=== PATIENT | male | born 2005 | race Caucasian/White ===

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

== ENCOUNTER 2024-10-31 19:00 | Emergency (ER) | payer BC, SELFPAY ==
[2024-10-31 19:02] VITALS: BP 179/99; PULSE 105; RESP 18; TEMP 38.1; O2SAT 99; BMI 37.4
[2024-10-31 19:55] VITALS: BP 148/84; PULSE 109; RESP 20; TEMP 38.4; O2SAT 100
--- NOTE | 2024-10-31 20:10 | RAD_ITS ---
PROCEDURE: CHEST PA AND LATERAL 10/31/2024 REASON FOR EXAM: WEAKNESS,FEVER TECHNIQUE: CHEST PA AND LATERAL FINDINGS: Hardware: No internal hardware. Heart: Normal size. Mediastinum: Normal appearance and contours Lungs: Clear and expanded Bones: No aggressive bone process RAD/Chest PA and Lateral IMPRESSION: No acute process detected. Reading [facility]
--- NOTE | 2024-10-31 20:10 | EKG12_ITS ---
Test Reason : DYSRYTHMIA Blood Pressure : */* mmHG Vent. Rate : 100 BPM Atrial Rate : 100 BPM P-R Int : 146 ms QRS Dur : 96 ms QT Int : 296 ms P-R-T Axes : 43 82 -23 degrees QTcB Int : 381 ms Normal sinus rhythm Possible Inferior infarct , age undetermined Abnormal ECG Confirmed by NOEL PATE, MARCOS ([id number]), publications editor ADDISON GEIGER ([id number]) on 11/01/2024 1:10:35 PM Referred By: Confirmed By: MARCOS COHEN MD
--- NOTE | 2024-10-31 20:14 | PCA ---
NO OLD EKG
--- NOTE | 2024-10-31 20:27 | ED.RN ---
This RN bedside to place IV. Patient states I think I have an STD too. When asked why patient thinks he has an STD, he stated The tip of my christiano just hurts all of the time. Patient's visitor states the STD was not received from her. Patient informed that this RN will request STD testing from physician. Dr. Miller notified.
[2024-10-31] MEDS: 0.9% Normal Saline (1000mL) 1,000 ML 999 ML IV ×3 (20:32→23:12)
[2024-10-31 20:49] LABS: Mucous, Urine 0 SEEN /hpf (<or=2+)
[2024-10-31 20:52] LABS: Hematocrit 43.5 % (40-54); Hemoglobin 14.6 g/dL (13.0-16.5); Immature Granulocytes Count 0.020 X10^3/uL (0.0-0.0); Mean Corp Hgb Conc 33.6 g/dL (32-36); Mean Corpuscular Volume 89.5 fL (80-94); Mean Platelet Vol. 9.6 fl (6.2-12.0); NRBC Flagged by Analyzer 0 % (0-5); POSITIVE DIFFERENTIAL YES; Platelet Count 118 K/mm3 (150-450); RBC Distribution Width CV 13.2 % (11.6-14.6); RBC Distribution Width SD 43.4 fl (35.1-43.9); Red Blood Count 4.86 M/mm3 (4.6-6.2); White Blood Count 4.5 K/mm3 (4.4-11.0)
[2024-10-31 20:53] LABS: Color, Urine Yellow (Yellow); Glucose, Dipstick Normal (Normal); Ketone-Dipstick Negative (Negative); Leukocyte Esterase-Dipstick Negative /ul (Negative); Nitrite-Dipstick Negative (Negative); Occult Blood-Urine Negative /ul (Negative); Protein-Dipstick Negative (Negative); Specific Gravity, Urine 1.020 (1.002-1.030); Urine Bilirubin Dipstick Negative (Negative)
[2024-10-31 21:00] VITALS: BP 132/87; PULSE 117; RESP 20; TEMP 39.4; O2SAT 100
[2024-10-31 21:14] LABS: AST(SGOT) 38 U/L (<=37); Alanine Aminotransfer ALT/SGPT 41 U/L (<=46); Albumin, Serum 4.2 g/dL (3.5-5.0); Alkaline Phosphatase 92 U/L (40-129); Anion Gap 13 (5-15); BUN 12 mg/dL (4-19); BUN/Creat Ratio 9.7 RATIO (10-20); Calcium,Total 9.0 mg/dL (7.6-11.0); Carbon Dioxide 21.7 mmol/L (21.0-32.0); Chloride 103 mmol/L (98-108); Estimated Creatinine Clearance 127.83 ml/min (50-250); Globulin 2.6 g/dL (2.2-4.2); Glucose 96 mg/dL (70-99); Potassium 3.7 mmol/L (3.3-5.1)
[2024-10-31 21:15] LABS: Partial Thromboplast Time 26.8 Seconds (24.1-36.2); Prothrombin Time (Protime)PT. 14.2 SECONDS (11.7-14.9)
[2024-10-31 21:20] LABS: Red Blood Cells-Urine 0-5 SEEN /hpf (0-5); Squamous Epithelial Cells - UA 0-5 SEEN /hpf (0-5)
--- OUTSIDE RECORDS SUMMARY | 2024-10-31 21:22 | XMS RPT_ITS | CCD ---
Author Organization [facility] Care Team Providers Care Clinical Research Nurse Coordinator Name Role Phone KUSUMI, SHWETA A Unavailable Unavailable EPHRAIM, NATHAN P Unavailable Unavailable EPHRAIM, NATHAN P Unavailable Unavailable DAVID, LARISA Unavailable Unavailable EPHRAIM, NATHAN P Unavailable Unavailable EPHRAIM, NATHAN P Unavailable Unavailable FRANSISCA, ADRIANNE Unavailable Unavailable EPHRAIM, NATHAN P Unavailable Unavailable EPHRAIM, NATHAN P Unavailable Unavailable WYNESKI, SUREKHA Unavailable Unavailable KUSUMI, SHWETA A Unavailable Unavailable EPHRAIM, NATHAN P Unavailable Unavailable WYNESKI, SUREKHA Unavailable Unavailable WYNESKI, SUREKHA Unavailable Unavailable EPHRAIM, NATHAN P Unavailable Unavailable WYNESKI, SUREKHA Unavailable Unavailable WYNESKI, SUREKHA Unavailable Unavailable EPHRAIM, NATHAN P Unavailable Unavailable Ephraim Nathan PATE Primary Care Provider Nathan Ye MD Primary Care Provider Nathan Ye MD Primary Care Provider EPHRAIM, NATHAN P Primary Care Unavailable LUC COTA Referring Unavailable EPHRAIM, NATHAN P Primary Care Unavailable EPHRAIM, NATHAN P Primary Care Unavailable EPHRAIM, NATHAN P Primary Care Unavailable EPHRAIM, NATHAN P Attending Unavailable EPHRAIM, NATHAN P Referring Unavailable EPHRAIM, NATHAN P Primary Care Unavailable EPHRAIM, NATHAN P Primary Care Unavailable SEIFRIED, LESA Referring Unavailable EPHRAIM, NATHAN P Primary Care Unavailable SEIFRIED, LESA Attending Unavailable EPHRAIM, NATHAN P Primary Care Unavailable ANAMIKA BEAUCHAMP Referring Unavailable ANAMIKA BEAUCHAMP Attending Unavailable EPHRAIM, NATHAN P Primary Care Unavailable Enrique PATE, Sherine Jorge Primary Care Provider Nathan Ye MD Primary Care Provider SHERINE ESCALONA Attending Unavailable SHERINE ESCALONA Primary Care Unavailable SHERINE ESCALONA Primary Care Unavailable WANDA, GAB Admitting Unavailable THERESA AWAN Attending Unavailable HILARY GUERRA Attending Unavailable SHERINE ESCALONA Primary Care Unavailable SHELIA LINTON Attending Unavailable SHERINE ESCALONA Primary Care Unavailable Quin LEONG Referring Unavailable SHERINE ESCALONA Primary Care Unavailable SHERINE ESCALONA Attending Unavailable SHERINE ESCALONA Primary Care Unavailable SHERINE ESCALONA Attending Unavailable SHERINE ESCALONA Primary Care Unavailable NOBLE LONDONO Attending Unavailable SHERINE VENTURA Primary Care Unavailable Allergies Allergy Classification Reported Allergen(s) Allergy Type Date of Onset Reaction(s) Facility (20 sources) Mold Extract; Translations: [MOLD] Drug Allergy 08-04-2007 [facility] Work Phone: Medications Current Medications Medication Drug Class(es) Dates Sig (Normalized) Sig (Original) acetaminophen 325 mg oral tablet (10 sources) Start: 12-17-2023 End: 12-31-2023 take 2 tablets by mouth every six hours as needed for pain acetaminophen (Tylenol) 325 MG tablet Take 2 tablets (650 mg) by mouth every 6 hours as needed for mild pain (1-3) (Fever GREATER than 100.4 F (38 C)) for up to 10 days. 12/17/2023 12/31/2023 Active Start: 12-15-2023 End: 12-17-2023 take 1 tablet by mouth every six hours as needed for pain acetaminophen (Tylenol) tablet 650 mg Start: 12-15-2023 End: 12-15-2023 650 mg, Oral, Once, On Mon at 0150, For 1 dose, Maximum dose of acetaminophen is 4000 mg from all sources in 24 hours. [id number] 200 actuat albuterol 0.09 mg/actuat metered dose inhaler (19 sources) beta2-Adrenergic Agonist Start: 12-17-2023 End: 12-16-2024 take 2 puff(s) by inhalation every four hours as needed for wheezing albuterol (ProAir HFA) 108 (90 Base) MCG/ACT inhaler Inhale 2 puffs every 4 hours as needed for wheezing or shortness of breath. 8.5 g 12/17/2023 4:37 PM EDT 12/17/2023 12/16/2024 Active Start: 12-15-2023 End: 12-17-2023 Start: 12-25-2021 take 2 puff(s) by in halation every four to six hours as needed for cough albuterol HFA (PROVENTIL HFA, VENTOLIN HFA) 90 mcg/actuation inhaler Inhale 2 puffs every 4 - 6 hours as needed for cough or wheezing 18 g 12/25/2021 Active Comment on above: Inhale 2 puffs every 4 - 6 hours as needed for cough or wheezing azithromycin 500 mg oral tablet (12 sources) Macrolide Antimicrobial Start: 12-18-19 End: 12-25-19 take 1 tablet by mouth every twenty-four hours azithromycin (Zithromax) 500 MG tablet Take 1 tablet (500 mg) by mouth Every 24 hours for 7 days. Do not start before December 18, 2023. 7 tablet 12/18/2023 12/25/2023 Active Start: 12-18-2023 End: 12-17-2023 take 1 capsule by mouth every twenty-four hours 500 mg, Oral, Every 24 hours, First dose (after last modification) on Fri12/18/23 at 0700, For 2 doses, Suspected Indication (Select all that apply): Pneumonia (CAP) Start: 12-18-2023 End: 12-17-2023 take 1 capsule by mouth every twenty-four hours 500 mg, Oral, Every 24 hours, First dose (after last modification) on Fri12/18/23 at 0700, For 2 doses, Suspected Indication (Select all that apply): Pneumonia (CAP) Start: 12-15-2023 End: 12-17-2023 take 500 mg by mouth every twenty-four hours 500 mg, Oral, Every 24 hours, First dose (after last modification) on Fri12/17/23 at 0700, Suspected Indication (Select all that apply): Pneumonia Start: 12-28-2021 End: 01-28-2022 azithromycin (ZITHROMAX) 250 mg tablet Take 2 tablets on day 1, then 1 tablet on days 2 - 5 6 tablet 0 12/28/2021 01/28/2022 Discontinued Comment on above: Take 2 tablets on da y 1, then 1 tablet on days 2 - 5 12 hr guaiFENesin 600 mg extended release oral tablet (6 sources) Start: 12-17-2023 End: 12-31-2023 take 1 tablet by mouth twice daily in the evening guaiFENesin (Mucinex) 600 MG 12 hr tablet Take 1 tablet (600 mg) by mouth 2 times daily for 14 days. Do not crush, chew, or split. 28 tablet 12/17/2023 4:37 PM EDT 12/17/2023 12/31/2023 Active Completed/Discontinued Medications Medication Drug Class(es) Dates Sig (Normalized) Sig (Original) albuterol 0.833 mg/ml / ipratropium bromide 0.167 mg/ml inhalation solution (2 sources) Anticholinergic, beta2-Adrenergic Agonist Start: 12-15-2023 End: 12-17-2023 3 mL, Nebulization, 3 times daily, First dose (after last modification) on Fri12/15/23 at 2000 calcium chloride 0.0014 meq/ml / potassium chloride 0.004 meq/ml / sodium chloride 0.103 meq/ml / sodium lactate 0.028 meq/ml injectable solution (2 sources) Start: 12-15-2023 End: 12-15-2023 3,660 mL (30 mL/kg 122 kg), IntraVENous, at 7,320 mL/hr, Administer over 30 Minutes, Once, On Fri12/15/23 at 0150, For 1 dose, In accordance with Surviving Sepsis Campaign, infuse 30 mL/kg fluid challenge as rapidly as possible without overloading patient (target 30 to 60 minutes). If calculated rate exceeds 999 mL/hr, may administer wide open or using other rapid infusion mechanism. Cetirizine (13 sources) Histamine-1 Receptor Antagonist End: 01-28-2022 cetirizine HCl (ZYRTEC ORAL) Take by mouth. 0 01/28/2022 Discontinued cetirizine HCl ( ZYRTEC ORAL) Take by mouth. 0 Active Comment on above: Take by mouth. cholecalciferol 0.05 mg oral capsule (5 sources) Vitamin D Start: 03-05-20 End: 07-23-19 take 1 capsule by mouth once daily Cholecalciferol, Vitamin D3, (D3-2000) 50 mcg (2,000 unit) cap Take 1 capsule by mouth once daily. 90 capsule 1 07/22/2022 Active Comment on above: Take 1 capsule by [facility] once daily. Ibuprofen (6 sources) Nonsteroidal Anti-inflammatory Drug End: 01-29-20 ibuprofen (MOTRIN ORAL) Take by mouth. 0 01/28/2022 Discontinued ibuprofen (MOTRI N ORAL) Take by mouth. 0 Active Comment on above: Take by mouth. iopamidol (Isovue-370) 76 % injection 75 mL (2 sources) Start: 12-15-19 End: 12-15-19 take 75 mL intravenously once as needed 75 mL, IntraVENous, IMG once PRN, contrast, Starting on Fri12/15/23 at 0317, For 1 dose ketoconazole 20 mg/ml medicated shampoo (20 sources) Azole Antifungal Start: 12-13-19 ketoconazole (NIZORAL) 2 % shampoo Apply to affected area once daily as needed. 120 mL 2 12/12/2021 Active Start: 06-07-2020 End: 12-12-2021 ketoconazole (NIZORAL) 2 % s hampoo Washing the scalp 3 times a week, Lathering and letting sit on the scalp for 5-10 minutes before rinsing 0 06/07/2020 12/12/2021 Discontinued Comment on above: Washing the scalp 3 times a week, Lathering and letting sit on the scalp for 5-10 minutes before rinsing Apply to affected ar ea once daily as needed. 1 ml ketorolac tromethamine 15 mg/ml cartridge (2 sources) Nonsteroidal Anti-inflammatory Drug, Cyclooxygenase Inhibitor Start: 12-15-2023 End: 12-15-2023 15 mg, IntraVENous, Once, On Fri12/15/23 at 0530, For 1 dose Start: 12-15-2023 End: 12-15-2023 15 mg, IntraVENous, Once, On Fri12/15/23 at 0530, For 1 dose lisdexamfetamine dimesylate 50 mg oral capsule (20 sources) Central Nervous System Stimulant Start: 01-23-2023 End: 05-29-2023 take 1 capsule by mouth once daily in the morning lisdexamfetamine (Vyvanse) 50 MG capsule Indications: Attention deficit hyperactivity disorder (ADHD), predominantly hyperactive type Take 1 capsule (50 mg) by mouth every morning. 30 capsule 0 01/23/2023 05/29/2023 Discontinued (Med list cleanup) Start: 06-13-2022 End: 09-07-2022 lisdexamfetamine (VYVANSE) 5 0 mg capsule Indications: Attention deficit hyperactivity disorder (ADHD), unspecified ADHD type Take 1 capsule by mouth once daily for 30 days. Do not start before July 11, 2022. 30 capsule 0 07/11/2022 08/10/2022 Active Start: 01-03-2021 End: 05-25-2022 take 1 capsule by mouth once daily lisdexamfetamine (VYVANSE) 50 mg capsule Indications: Attention deficit hyperactivity disorder (ADHD), unspecified ADHD type Take 1 capsule by mouth once daily for 30 days. Do not start before March 27, 2022. 30 capsule 0 03/27/2022 04/26/2022 Active Comment on above: Take 1 capsule by mo ut once daily for 30 days. Take 1 capsule by mo uth once daily for 30 days. Do not start before February 03, 2021. Take 1 capsule by mo [facility] once daily for 30 days. Do not start before April 25, 2022. Take 1 capsule by [facility] once daily for 30 days. Do not start before March 27, 2022. Take 1 capsule by [facility] once daily for 30 days. Do not start before August 08, 2022. Take 1 capsule by [facility] once daily for 30 days. Do not start before July 11, 2022. 1 ml morphine sulfate 4 mg/ml cartridge (2 sources) Opioid Agonist Start: End: take 1 dose by mouth every hour 4 mg, IntraVENous, Once, On Fri12/15/23 at 0150, For 1 dose, If oral and IV narcotics ordered, use oral first and only use IV if oral is ineffective or cannot take oral. Do Not give oral and IV within 1 hour of each other unless specifically ordered. 1 ml naloxone hydrochloride 0.4 mg/ml injection (2 sources) Opioid Antagonist Start: End: 0.4 mg, IntraVENous, Every 5 min PRN, opioid reversal, respiratory depression, Starting on Fri12/16/23 at 0944, +++ For RR 2 ml ondansetron 2 mg/ml injection (2 sources) Serotonin-3 Receptor Antagonist Start: End: 4 mg, IntraVENous, Once, On Fri12/15/23 at 0150, For 1 dose ondansetron ODT (Zofran-ODT) disintegrating tablet 4 mg (2 sources) Start: End: take 1 tablet by mouth every eight hours as needed for nausea and vomiting ondansetron ODT (Zofran-ODT) disintegrating tablet 4 mg oxyCODONE hydrochloride 5 mg oral tablet (2 sources) Opioid Agonist Start: End: take 1 tablet by mouth every four hours as needed for pain and pain 5 mg, Oral, Every 4 hours PRN, severe pain (7-10), moderate pain (4-6), Starting on Fri12/16/23 at 0943 piperacillin-tazobact am (Zosyn) 4.5 g in sodium chloride 0.9 % 100 mL IVPB Mini-Bag Plus (2 sources) Start: End: 4.5 g, IntraVENous, at 200 mL/hr, Administer over 0.5 Hours, Once, On Fri12/15/23 at 0150, For 1 dose, Mini-Bag Plus bag, Suspected Indication (Select all that apply): Intra-Abdominal Infection polyethylene glycol 3350 81154 mg powder for oral solution (2 sources) Osmotic Laxative Start: End: take 17 g by mouth every twenty-four hours as needed for constipation predniSONE 10 mg oral tablet (6 sources) Start: End: predniSONE (DELTASONE) 10 mg tablet Take 4 tabs daily for 3 days, then 2 tabs daily for 3 days, then 1 tab daily for 3 days with food. 21 tablet 0 12/20/2021 01/28/2022 Discontinued Comment on above: Take 4 tabs daily fo r 3 days, then 2 tabs daily for 3 days, then 1 tab daily for 3 days with food. 5 ml sodium chloride 9 mg/ml injection (12 sources) Start: End: 10 mL, IntraVENous, Every 12 hours scheduled (2 times per day), First dose on 10/7/24 at 0900 Start: 12-15-2023 End: 12-17-2023 5-40 mL, IntraVENous, Every 12 hours scheduled (2 times per day), First dose on Fri12/15/23 at 0900, For Line Patency: Peripheral IV = 5 mL; Midline or Central Line = 10 mL/lumen. If following IV push medication, administer flush at same rate as the IV push. Flush volume is determined by type of infusion therapy being given. For non-viscous solutions use: Peripheral IV = 5 mL Midline or Central Line = 10 mL/lumen For viscous solutions (i.e. blood components, parenteral nutrition, contrast media, or after obtaining blood sample) use: Peripheral IV = 10 mL Midline or Central Line = 20 mL/lumen Start: 12-15-2023 End: 12-17-2023 Start: 12-15-2023 End: 12-17-2023 take 100 mL intravenously every hour as needed, then take 20 mL intravenously every hour as needed 5-250 mL/hr, IntraVENous, PRN, if patient receiving piggyback infusions and maintenance fluids are not ordered OR KVO fluids to protect IV site / prevent frequent line interruptions/ long duration, Starting on Fri12/15/23 at 0147, For piggyback infusion, administer at same rate as piggyback for a total of 25 mL. Enter 25 mL into dose field and piggyback rate into rate field of order. If piggyback is infusing at a rate less than 100 mL/hr, enter 25 mL into dose field and 100 mL/hr into rate field of order. For KVO fluids, enter rate of 20 mL/hr or less into rate field of order. Start: 12-15-2023 End: 12-17-2023 Problems Active Problems Problem Classification Problem Date Documented Date Episodic/Chronic Attention-deficit, conduct, and disruptive behavior disorders (20 sources) Attention deficit hyperactivity disorder; Translations: [Attention-deficit hyperactivity disorder, unspecified type] Chronic Attention-deficit, conduct, and disruptive behavior disorders (1 source) Attention deficit hyperactivity disorder, combined type; Translations: [Attention-deficit hyperactivity disorder, combined type] Chronic Attention-deficit, conduct, and disruptive behavior disorders (1 source) Attention-deficit hyperactivity disorder, combined type; Translations: [Attention deficit hyperactivity disorder (ADHD), combined type] Onset: 03-05-2021 Chronic Attention-deficit, conduct, and disruptive behavior disorders (2 sources) Attention-deficit hyperactivity disorder, predominantly hyperactive type; Translations: [Attention-deficit hyperactivity disorder, predominantly hyperactive type] Onset: 01-23-2023 Chronic Disorders usually diagnosed in infancy, childhood, or adolescence (20 sources) Autism spectrum disorder; Translations: [Pervasive developmental disorder, unspecified] Onset: 09-05-2011 09-05-2011 Chronic Fracture of lower limb (1 source) Closed fracture proximal phalanx, toe ; Translations: [Displaced fracture of proximal phalanx of left lesser toe(s), initial encounter for closed fracture] Episodic Other aftercare (1 source) Post-discharge follow-up; Translations: [Encounter for follow-up examination after completed treatment for conditions other than malignant neoplasm] 12-31-2023 Episodic Other aftercare (2 sources) Encounter for follow-up examination after completed treatment for conditions other than malignant neoplasm; Translations: [Encounter for follow-up examination after completed treatment for conditions other than malignant neoplasm] Onset: 12-31-2023 Episodic Other injuries and conditions due to external causes (1 source) Injury of toe of left foot; Translations: [Unspecified injury of left foot, initial encounter] Episodic Other lower respiratory disease (3 sources) Chronic cough; Translations: [Chronic cough] Onset: 12-25-2021 Episodic Other lower respiratory disease (4 sources) H/O: asthma; Translations: [Personal history of other diseases of the respiratory system] 12-31-2023 Episodic Other lower respiratory disease (2 sources) Personal history of other diseases of the respiratory system; Translations: [Personal history of other diseases of the respiratory system] Onset: 12-31-2023 Episodic Other nutritional; endocrine; and metabolic disorders (20 sources) Childhood obesity; Translations: [Obesity, unspecified] Onset: 11-22-2017 11-22-2017 Chronic Other nutritional; endocrine; and metabolic disorders (2 sources) Abnormal weight gain; Translations: [Abnormal weight gain] Episodic Other nutritional; endocrine; and metabolic disorders (1 source) Abnormal weight gain; Translations: [Abnormal weight gain] Onset: 07-11-2022 Episodic Other upper respiratory infections (15 sources) Viral upper respiratory tract infection; Translations: [Acute upper respiratory infection, unspecified] Onset: 10-27-2023 Episodic Pneumonia (except that caused by tuberculosis or sexually transmitted disease) (19 sources) Pneumonia; Translations: [Pneumonia, unspecified organism] Onset: 12-15-2023 12-15-2023 Episodic Residual codes; unclassified (1 source) HIV screening declined; Translations: [Procedure and treatment not carried out because of patient's decision for unspecified reasons] 05-29-2023 Episodic Unclassified (2 sources) Hospital Follow-up; Translations: [Hospital Follow-up] Onset: 12-31-2023 Past or Other Problems Problem Classification Problem Date Documented Da te Episodic/Chronic Fracture of upper limb (2 sources) Fracture of phalanx of little finger; Translations: [Nondisplaced fracture of proximal phalanx of right little finger, initial encounter for closed fracture] Onset: 10-30-2011 Resolved: 04-16-2013 04-16-2013 Episodic Immunizations and screening for infectious disease (4 sources) Patient encounter status; Translations: [Encounter for immunization] Onset: 05-29-2023 Episodic Other ear and sense organ disorders (3 sources) Otalgia, right ear; Translations: [Otalgia, unspecified] Onset: 05-29-2023 05-29-2023 Episodic Other gastrointestinal disorders (2 sources) Full incontinence of feces; Translations: [Encopresis] Resolved: 04-16-2013 04-16-2013 Episodic Other skin disorders (20 sources) Acne vulgaris; Translations: [Acne vulgaris] Onset: 11-22-2017 11-22-2017 Episodic Other upper respiratory disease (4 sources) Bleeding from nose; Translations: [Epistaxis] Onset: 05-29-2023 01-23-2023 Episodic Other upper respiratory disease (1 source) Epistaxis; Translations: [Epistaxis] Onset: 05-29-2023 Episodic Residual codes; unclassified (2 sources) Procedure and treatment not carried out because of patient's decision for unspecified reasons; Translations: [Procedure and treatment not carried out because of patient's decision for unspecified reasons] Onset: 05-29-2023 Episodic Sprains and strains (2 sources) Injury of lower extremity; Translations: [Sprain and strain of unspecified site of knee and leg] Onset: 05-08-2007 Resolved: 04-16-2013 04-16-2013 Episodic Results Test Name Value Interpretation Reference Range Facility 29 12-31-2023 29 Addended by: WEEMAN, DELL. on: 12/31/2023 01:06 PM Modules accepted: Orders Normal [facility] 37on 12-31-2023 37 YOUR APPOINTMENT TOBhargav BHANDARI WAS WITH THE [facility] LUNG [facility]ODULE [facility], COPD CLINIC, PULMONARY AND SLEEP MEDICINE OFFICE. PLEASE CALL OUR OFFICE AT [phone] for our [place] office location or [phone] for our [place] location, IF YOU HAVE NOT RECEIVED YOUR TEST RESULTS 7 DAYS AFTER TESTING IS COMPLETED. PLEASE REMEMBER TO REQUEST REFILLS AT YOUR OFFICE VISITS. PHONE/FAX REQUESTS REQUIRE 48-72 HOURS FOR RESPONSE. A FRIENDLY REMINDER COPAYS ARE DUE AT TIME OF SERVICE. THANK YOU. Our Patients Are Important! We want to improve and you can help. After your visit we want you to feel: Listened to, Respected and have your health care explained. You may receive a survey asking you about your visit. Please complete the survey. We will use your feedback to make improvements. COVID-19 VACCINATION INFORMATION: . [phone] [email or web address] Central Scheduling [phone] [facility] Sleep Scheduling [phone] Normal [facility] Office Visiton 12-31-2023 Follow-up visit [id number] [place],Ja den 2005 M Date Provider Department Center 12/31/2023 [id number] ESCALONA [facility] No family history on file Level of Service:26083 UT OFFICE/OUTPATIENT ESTABLISHED MOD MDM 30 MIN Reason for Visit and Comments: Hospital Follow-up [832] - Pt follow up from hospital for pneumonia, still coughing Normal [facility] Follow-up visit [id number] MisbahMadi 2005 M Date Provider Department Center 12/31/2023 [id number]-APNRSSHELIA PEREIRA [facility] None No family history on file Level of Service:84227 UT OFFICE/OUTPATIENT ESTABLISHED LOW MDM 20 MIN Reason for Visit and Comments: Hospital Follow-up [832] - MYCOPLASMA PNEUMONIA Normal [facility] Progress Noteon 12-31-2023 Progress Note . [facility] [address] [place] [address] [address] [place] [address] Dept: [phone] Dept Visit type: Established Reason for Visit: Hospital Follow-up (Pt follow up from hospital for pneumonia, still coughing) Assessment and Plan 1. Pneumonia of left lower lobe due to Mycoplasma pneumoniae 2. Attention deficit hyperactivity disorder (ADHD), predominantly hyperactive type 3. History of asthma Mycoplasma pneumonia -reports that he feels he is recovering appropriately. Imaging obtained during hospitalization (CT abdomen pelvis) showed left lower lobe consolidation compatible with pneumonia. It does not appear that he had complete imaging of his lungs - CT abdomen pelvis only included inferior brito. He reports that his symptoms are improving, still has persistent cough but seems to be resolving. He followed up with pulmonology earlier today who have ordered interval CT chest to document clearance of consolidation at +8 weeks. Asthma history -reports only rare use of albuterol, continue current therapy. ADHD -stable without medication. Declines flu shot. Had right middle finger cut requiring stitches due to work place injury 1 month earlier, requesting tetanus booster. Subjective HPI This is a 18-year-old gentleman with past medical history significant for ADHD who presents today for hospital follow-up visit after hospitalization for mycoplasma pneumonia. Mycoplasma PNA - interval admission for PNA 12/14-12/16. States that since discharge he is recovering well but still has a persistent cough which is mildly productive. Was discharged with Azithromycin, has since completed. CT ordered by pulmonology to follow up LLL PNA in + 8 weeks. Asthma - endorses only rare albuterol use. ADHD - feels that he is doing OK without medication, spouse feels that he would benefit from trying alternative medication but he declines. Review of Systems Respiratory: Positive for cough. Allergies Allergen Reactions Molds & Smuts alternaria Outpatient Medications Prior to Visit Medication Sig Dispense Refill acetaminophen (Tylenol) 325 MG tablet Take 2 tablets (650 mg) by mouth every 6 hours as needed for mild pain (1-3) (Fever GREATER than 100.4 F (38 C)) for up to 10 days. albuterol (ProAir HFA) 108 (90 Base) MCG/ACT inhaler Inhale 2 puffs every 4 hours as needed for wheezing or shortness of breath. 8.5 g 0 guaiFENesin (Mucinex) 600 MG 12 hr tablet Take 1 tablet (600 mg) by mouth 2 times daily for 14 days. Do not crush, chew, or split. (Patient not taking: Reported on 12/31/2023) 28 tablet 0 No facility-administered medications prior to visit. Past Medical History: Diagnosis Date Asthma Social History Tobacco Use Smoking status: Never Smokeless tobacco: Never Substance Use Topics Alcohol use: Never No past surgical history on file. No family history on file. Objective BP 129/86 Pulse 80 Ht 6' (1.829 m) Wt 279 lb (127 kg) SpO2 98% BMI 37.84 kg/m? Physical Exam Constitutional: General: He is not in acute distress. Appearance: He is not toxic-appearing. HENT: Head: Normocephalic and atraumatic. Eyes: General: No scleral icterus. Pulmonary: Effort: No respiratory distress. Breath sounds: No wheezing or rales. Musculoskeletal: Cervical back: Normal range of motion. Skin: General: Skin is warm and dry. Neurological: Mental Status: He is alert. Mental status is at baseline. Psychiatric: Mood and Affect: Mood normal. Data Reviewed and Summarized Labs: Imaging/Testing: Sherine Escalona MD Normal [facility] Progress Note [facility] [address] [place] [address] Date of Service: 12/31/2023 Visit type: An Established patient Chief Complaint/Reason for Referral: Hospital Follow-up (MYCOPLASMA PNEUMONIA) SUBJECTIVE History of Present Illness: Chelsea Crawley ( 2005) is a 18 y.o. male patient, with significant PMH of asthma, being seen for hospital follow-up The patient was admitted to [facility] on 12/14-12/17/23 for pneumonia. Patient presented to the hospital with fever, productive cough, shortness of breath, nausea. CT abdomen and pelvis shows an area of dense consolidation in the left lower lobe. Infectious workup + mycoplasma pneumoniae. He was treated with antibiotics (azithromycin x 5 days total) and discharged home in stable condition. Today, patient is accompanied by his . Patient states he is feeling much better, feels he is back to his baseline. Denies fever or chills. Does continue to have some cough with mild congestion, though much improved. States he has a history of asthma as a child, does not use any maintenance inhalers. Has albuterol inhaler to use as needed, states he never requires this. ESS: ACT: CAT: MMRC Dyspnea Scale: Grade Description of Breathlessness 0 I only get breathless with strenuous exercise. 1 I get short of breath when hurrying on level ground or walking up a slight hill. 2 On level ground, I walk slower than people of the same age because of breathlessness, or have to stop for breath when walking at my own pace. 3 I stop for breath after walking about 100 yards or after a few minutes on level ground. 4 I am too breathless to leave the house or I am breathless when dressing. OBJECTIVE MEDICAL HISTORY: Past Medical History: Diagnosis Date Asthma SURGICAL HISTORY: No past surgical history on file. ALLERGIES: Allergies Allergen Reactions Molds & Smuts alternaria MEDICATIONS: Current Outpatient Medications: albuterol (ProAir HFA) 108 (90 Base) MCG/ACT inhaler, Inhale 2 puffs every 4 hours as needed for wheezing or shortness of breath., Disp: 8.5 g, Rfl: 0 guaiFENesin (Mucinex) 600 MG 12 hr tablet, Take 1 tablet (600 mg) by mouth 2 times daily for 14 days. Do not crush, chew, or split. (Patient not taking: Reported on 12/31/2023), Disp: 28 tablet, Rfl: 0 SOCIAL HISTORY: Social History Tobacco Use Smoking status: Never Smokeless tobacco: Never Substance Use Topics Alcohol use: Never FAMILY HISTORY: No family history on file. REVIEW OF SYSTEMS: Review of Systems Constitutional: Negative for activity change, chills, fatigue and fever. HENT: Positive for congestion. Negative for postnasal drip. Respiratory: Positive for cough. Negative for chest tightness, shortness of breath and wheezing. Cardiovascular: Negative for chest pain, palpitations and leg swelling. Allergic/Immunologic: Negative for environmental allergies. Psychiatric/Behavioral: Negative for sleep disturbance. VITAL SIGNS: BP (!) 134/91 Pulse 82 Temp 36.4 ?C (97.5 ?F) (Temporal) Ht 6' (1.829 m) Wt 279 lb 3.2 oz (127 kg) SpO2 97% BMI 37.87 kg/m? PHYSICAL EXAM: Physical Exam Constitutional: General: He is not in acute distress. Appearance: He is obese. He is not ill-appearing. Cardiovascular: Rate and Rhythm: Normal rate and regular rhythm. Pulses: Normal pulses. Heart sounds: No murmur heard. Pulmonary: Effort: No respiratory distress. Breath sounds: Decreased air movement present. No wheezing, rhonchi or rales. Musculoskeletal: Right lower leg: No edema. Left lower leg: No edema. Skin: General: Skin is warm and dry. Neurological: Mental Status: He is alert. Psychiatric: Mood and Affect: Mood normal. Behavior: Behavior normal. DATA REVIEWED: PFT's-- CXR-- CT Chest/CTA Chest/CT Lung Screening-- ASSESSMENT and PLAN 1. Hospital discharge follow-up (Primary) -Acute pulmonary issues stabilized 2. Pneumonia of left lower lobe due to infectious organism -CT abdomen and pelvis showed left lower lobe consolidation. Infectious workup + mycoplasma pneumonia. Patient completed course of antibiotics, now back to baseline. Will check CT chest in 8 weeks to ensure resolution - CT chest wo IV contrast; Future 3. History of asthma -Patient reports history of asthma in childhood. Denies any issues currently. Has albuterol inhaler to use if needed, rarely needing this. Recommend to obtain PFTs if clinically worsening FOLLOW UP: Follow up in about 8 weeks (around 02/25/2024), or if symptoms worsen or fail to improve, for follow up CT chest. Portions of the information within this encounter were entered using an electronic dictation system. Best attempts were made to proofread the information prior to note completion. Despite the review of the information, some errors may remain. If there are questions related (more content not included)... Normal [facility] Bacteria identified Aer cx N om (Lower resp)Ordered By: Mayte Chambers on 12-17-2023 Gram Stain Result Few Polymorphonuclea r leukocytes per low power field Abnormal [employer] Gram Stain Result Few Epithelial cells per low power field Abnormal [employer] Gram Stain Result Positive Abnormal [employer] Interpretation and review of laboratory results Abnormal [employer] CBC W Auto Differential pane l (Bld)on 12-17-2023 Immature granulocytes (Bld) [#/Vol] 0.0 10*3/uL NINF - 0.1 10*3/uL [employer] [address] Immature granulocytes/100 WBC (Bld) 0.3 % 0.0 - 2.0 % [facility] Interpretation and review of laboratory results Abnormal [facility] MCHC (RBC) [Mass/Vol] 34.0 % 30.5 - 36.0 % [facility] Neutrophils (Bld) [#/Vol] 4.5 10*3/uL 1.8 - 7.5 10*3/uL [facility] Nucleated RBC/100 WBC (Bld) [Ratio] 0.0 % [facility] CBC WITH AUTO DIFFERENTIALon 12-17-2023 Basophils (Bld) [#/Vol] 0.0 10*3/uL Normal 0.0-0.2 [facility] Comment on above: Performed By: #### L [id number] #### W[employer] Knock Out Worker: AMINA MILLARD ([id number]) [facility] ([facility]) [address] [place] [address] Basophils/100 WBC (Bld) 0.3 % Normal 0.0-2.0 [facility] Comment on above: Performed By: #### L [id number] #### [employer] Out Worker: AMINA MILLARD ([id number]) [facility] ([facility]) [address] [place] [address] Eosinophils (Bld) [#/Vol] 0.0 10*3/uL Normal 0.0-0.5 [facility] Comment on above: Performed By: #### L [id number] #### [employer] Out Worker: AMINA MILLARD ([id number]) [facility] ([facility]) [address] [place] [address] Eosinophils/100 WBC (Bld) 0.2 % Normal 0.0-6.0 [facility] Comment on above: Performed By: #### L [id number] #### [employer] Out Worker: AMINA MILLARD ([id number]) [facility] ([facility]) [address] [place] [address] Erythrocyte distribution width (RBC) [Ratio] 13.2 % Normal 11.5-15.0 [facility] Comment on above: Performed By: #### L [id number] #### [employer] Out Worker: AMINA MILLARD ([id number]) [facility] ([facility]) [address] Hematocrit (Bld) [Volume fraction] 40.9 % Normal 40.0-52.0 [facility] Comment on above: Performed By: #### L [id number] #### W[employer] Ball Knock Out Worker: AMINA MCKEONNORBERT ([id number]) [facility] ([facility]) [address] Hemoglobin (Bld) [Mass/Vol] 13.9 g/dL Normal 13.0-18.0 [facility] Comment on above: Performed By: #### L [id number] #### [employer] Out Worker: AMINA MILLARD ([id number]) [facility] ([facility]) [address] Lymphocytes (Bld) [#/Vol] 0.9 10*3/uL Low 1.0-4.3 [facility] Comment on above: Performed By: #### L [id number] #### [employer] Out Worker: AMINA MILLARD ([id number]) [facility] ([facility]) [address] Lymphocytes/100 WBC (Bld) 15.2 % Normal 15.0-45.0 [facility] Comment on above: Performed By: #### L [id number] #### [employer] Out Worker: AMINA MILLARD ([id number]) [facility] ([facility]) [address] MCH (RBC) [Entitic mass] 30.2 pg Normal 26.0-34.0 [facility] Comment on above: Performed By: #### L [id number] #### [employer] Out Worker: AMINA MILLARD ([id number]) [facility] ([facility]) [address] MCV (RBC) [Entitic vol] 88.9 fL Normal 77.0-99.0 [facility] Comment on above: Performed By: #### L [id number] #### [employer] Out Worker: AMINA MILLARD ([id number]) [facility] ([facility]) [address] Monocytes (Bld) [#/Vol] 0.6 10*3/uL Normal 0.0-0.9 [facility] Comment on above: Performed By: #### L [id number] #### [employer] Out Worker: AMINA MILLARD ([id number]) [facility] ([facility]) [address] Monocytes/100 WBC (Bld) 9.1 % Normal 5.0-13.0 [facility] Comment on above: Performed By: #### L [id number] #### W[employer] Knock Out Worker: AMINA MILLARD ([id number]) [facility]) [address] Neutrophils/100 WBC (Bld) 74.9 % Normal 38.0-82.0 [facility] Comment on above: Performed By: #### L [id number] #### W[employer] Out Worker: AMINA MILLARD ([id number]) [facility] ([facility]) [address] Platelet mean volume (Bld) [Entitic vol] 8.7 fL Low 9.0-12.7 [facility] Comment on above: Performed By: #### L [id number] #### [employer] Out Worker: AMINA MILLARD ([id number]) [facility] [place] ([facility]) [address] Platelets (Bld) [#/Vol] 141 10*3/uL Normal 140-440 [facility] Comment on above: Performed By: #### L [id number] #### [employer] Out Worker: AMINA MILLARD ([id number]) [facility] [place] ([facility]) [address] RBC (Bld) [#/Vol] 4.60 10*6/uL Normal 4.40-5.90 [facility] Comment on above: Performed By: #### L [id number] #### [employer] Out Worker: AMINA MILLARD ([id number]) [facility] [place] ([facility]) [address] [place] [address] [place] WBC (Bld) [#/Vol] 6.1 10*3/uL Normal 3.6-10.7 [facility] Comment on above: Performed By: #### L [id number] #### [employer] Out Worker: AMINA MILLARD ([id number]) [facility] ([facility]) [address] IMMATURE GRANS % 0.3 % Normal 0.0-2.0 [facility] Comment on above: Performed By: #### L [id number] #### W[employer] Knock Out Worker: AMINA MILLARD ([id number]) [facility] ([facility]) [address] IMMATURE GRANS ABSOLUTE 0.0 10*3/uL Normal <0.1 [facility] Comment on above: Performed By: #### L [id number] #### [employer] Knock Out Worker: AMINA MILLARD ([id number]) [facility] ([facility]) [address] MCHC 34.0 % Normal 30.5-36.0 [facility] Comment on above: Performed By: #### L [id number] #### [employer] Knock Out Worker: AMINA MILLARD ([id number]) [facility] ([facility]) [address] NEUTROPHILS ABSOLUTE 4.5 10*3/uL Normal 1.8-7.5 [facility] Comment on above: Performed By: #### L [id number] #### [employer] Out Worker: AMINA MILLARD ([id number]) [facility] ([facility]) [address] NRBC 0.0 /100 WBCs Normal 0.0-2.0 [facility] Comment on above: Performed By: #### L [id number] #### [employer] Out Worker: AMINA MILLARD ([id number]) [facility] ([facility]) [address] COMPREHENSIVE METABOLIC PANE Ruddy 12-17-2023 Albumin [Mass/Vol] 3.8 g/dL Normal 3.5-5.0 [facility] Comment on above: Performed By: #### L [id number] ####[employer] Out Worker: AMINA MILLARD ([id number])[facility] [place] ([facility])[address] [place] [place] [address] ALP [Catalytic activity/Vol] 53 U/L Normal 38-126 [facility] Comment on above: Performed By: #### L [id number] ####[employer] Out Worker: AMINA MILLARD ([id number])[facility] [place] ([facility])[address] [place] [address] ALT [Catalytic activity/Vol] 46 U/L Normal 0-49 [facility] Comment on above: Performed By: #### L [id number] ####[employer] Out Worker: AMINA MILLARD ([id number])[facility] ([facility] [place] [address] Anion gap [Moles/Vol] 6 mmol/L Normal 3-13 [facility] Comment on above: Performed By: #### L [id number] ####[employer] Out Worker: AMINA MILLARD ([id number])[facility] ([facility] [place] [address] AST [Catalytic activity/Vol] 43 U/L Normal 15-46 [facility] Comment on above: Performed By: #### L [id number] ####[employer] Knock Out Worker: AMINA MILLARD ([id number])[facility] ([facility] [place] [address] Bilirubin [Mass/Vol] 0.9 mg/dL Normal 0.2-1.3 [facility] Comment on above: Performed By: #### L [id number] ####[employer] Out Worker: AMINA MILLARD ([id number])[facility] ([facility] [place] [address] Calcium [Mass/Vol] 8.6 mg/dL Normal 8.4-10.4 [facility] Comment on above: Performed By: #### L [id number] ####[employer] Knock Out Worker: AMINA MILLARD ([id number])[facility] ([facility])[address] [place] [address] [place] Chloride [Moles/Vol] 102 mmol/L Normal 98-107 [facility] Comment on above: Performed By: #### L [id number] ####[employer] Knock Out Worker: AMINASAV MILLARD ([id number])[facility] [place] ([facility])[address] [place] [address] [place] CO2 [Moles/Vol] 25 mmol/L Normal 22-30 [facility] Comment on above: Performed By: #### L [id number] ####[employer] Out Worker: AMINA VENICE ([id number])[facility] [place] ([facility])[address] Creatinine [Mass/Vol] 1.16 mg/dL Normal 0.66-1.25 [facility] Comment on above: Performed By: #### L [id number] ####[employer] Out Worker: AMINA MCKEONNORBERT ([id number])[facility] [place] ([facility])[address] [place] [address] [place] Glucose [Mass/Vol] 105 mg/dL High 70-100 [facility] Comment on above: Performed By: #### L [id number] ####[employer] Out Worker: AMINA MCKEONNORBERT ([id number])[facility] [place] ([facility])[address] [place] [address] [place] Potassium [Moles/Vol] 4.2 mmol/L Normal 3.5-5.1 [facility] Comment on above: Performed By: #### L [id number] ####[employer] Out Worker: AMINA VENICE ([id number])[facility] [place] ([facility])[address] [place] [address] [place] Protein [Mass/Vol] 6.9 g/dL Normal 6.3-8.2 [facility] Comment on above: Performed By: #### L [id number] ####[employer] Out Worker: AMINA MCKEONNORBERT ([id number])[facility] [place] ([facility])[address] [place] [address] [place] Sodium [Moles/Vol] 133 mmol/L Low 135-145 [facility] Comment on above: Performed By: #### L [id number] ####W[employer] Knock Out Worker: AMINA MILLARD ([id number])[facility] ([facility])[address] [place] [address] Urea nitrogen [Mass/Vol] 10 mg/dL Normal 9-20 [facility] Comment on above: Performed By: #### L [id number] ####[employer] Out Worker: AMINA MILLARD ([id number])[facility] ([facility])[address] [place] [address] GLOMERULAR FILTRATION RATE ML/MIN/1.73 SQ M.PREDICTED >90.0 Normal >60.0 [facility] Comment on above: Result Comment: Calc ulation based on the Chronic Kidney Disease Epidemiology Collaboration (CKD-EPI) equation refit without adjustment for race Performed By: #### L [id number] ####[employer] Out Worker: AMINA MILLARD ([id number])[facility] ([facility])[address] [place] [address] Comprehensive metabolic 1998 panelon 12-17-2023 GFR/1.73 sq M.predicted (S/P/Bld) [Vol rate/Area] - PINF [facility] Comment on above: Calculation based on the Chronic Kidney Disease Epidemiology Collaboration (CKD-EPI) equation refit without adjustment for race Interpretation and review of laboratory results Abnormal [facility] IDNon 12-17-2023 IDN Problem: Pain - Adul t Goal: Verbalizes/displays adequate comfort level or baseline comfort level Outcome: Progressing Problem: Safety - Adult Goal: Free from fall injury Outcome: Progressing Problem: Discharge Planning Goal: Discharge to home or other facility with appropriate resources Outcome: Progressing Problem: Chronic Conditions and Co-morbidities Goal: Patient's chronic conditions and co-morbidity symptoms are monitored and maintained or improved Outcome: Progressing Problem: Inadequate Breathing Pattern Goal: Patient will maintain effective ventilation Outcome: Progressing Normal [facility] Laboratory - Microbiology an d Antimicrobial susceptibilityOrdered By: Mayte Chambers on 12-17-2023 Bacteria identified Aer cx Nom (Lower resp) Moderate respiratory selena present. [facility] Nursing Noteon 12-17-2023 Nursing Note Discharge instructio ns read to pt and with clear instructions. No questions at this time Normal [facility] Progress Noteon 12-17-2023 Progress Note Nutrition rescreen complete. Pt assigned a level one for nutrition care. Normal [facility] BLOOD CULTUREon 12-16-2023 Bacteria identified Cx Nom (Bld) BLOOD CULTURE Reference No growth at 5 days ORDER COMMENTS: Blood Collection Site: Left Arm [ S = SUSCEPTIBLE R = RESISTANT I = INTERMEDIATE S-DD = Susceptible-dose dependent NS = Non-susceptible NO = No Interpretation ] Normal [facility] Comment on above: Performed By: #### L [id number] ####[employer] Knock Out Worker: MADDISON MARTIN ([id number])[address] Bacteria identified Cx Nom (Bld) BLOOD CULTURE Reference No growth at 5 days ORDER COMMENTS: Blood Collection Site: Right Arm [ S = SUSCEPTIBLE R = RESISTANT I = INTERMEDIATE S-DD = Susceptible-dose dependent NS = Non-susceptible NO = No Interpretation ] Normal [facility] Comment on above: Performed By: #### L [id number] ####[employer] Out Worker: MADDISON MARTIN ([id number])[address] CBC W Auto Differential pane l (Bld)on 12-16-2023 Basophils (Bld) [#/Vol] 0.0 10*3/uL 0.0 - 0.2 10*3/uL [facility] Basophils/100 WBC (Bld) 0.3 % 0.0 - 2.0 % [facility] Eosinophils (Bld) [#/Vol] 0.0 10*3/uL 0.0 - 0.5 10*3/uL [facility] Eosinophils/100 WBC (Bld) 0.0 % 0.0 - 6.0 % [facility] Erythrocyte distribution width (RBC) [Ratio] 12.7 % 11.5 - 15.0 % [facility] Hematocrit (Bld) [Volume fraction] 41.0 % 40.0 - 52.0 % [facility] Hemoglobin (Bld) [Mass/Vol] 14.1 g/dL 13.0 - 18.0 g/dL [facility] Immature granulocytes (Bld) [#/Vol] 0.0 10*3/uL NINF - 0.1 10*3/uL [facility] [employer] Immature granulocytes/100 WBC (Bld) 0.3 % 0.0 - 2.0 % [facility] Interpretation and review of laboratory results Abnormal [facility] Lymphocytes (Bld) [#/Vol] 0.9 10*3/uL Low 1.0 - 4.3 10*3/uL [facility] Lymphocytes/100 WBC (Bld) 9.9 % Low 15.0 - 45.0 % [facility] MCH (RBC) [Entitic mass] 30.3 pg 26.0 - 34.0 pg [facility] MCHC (RBC) [Mass/Vol] 34.4 % 30.5 - 36.0 % [facility] MCV (RBC) [Entitic vol] 88.2 fL 77.0 - 99.0 fL [facility] Monocytes (Bld) [#/Vol] 0.7 10*3/uL 0.0 - 0.9 10*3/uL [facility] Monocytes/100 WBC (Bld) 7.1 % 5.0 - 13.0 % [facility] Neutrophils (Bld) [#/Vol] 7.5 10*3/uL 1.8 - 7.5 10*3/uL [facility] Neutrophils/100 WBC (Bld) 82.4 % High 38.0 - 82.0 % [facility] Nucleated RBC/100 WBC (Bld) [Ratio] 0.0 % [facility] Platelet mean volume (Bld) [Entitic vol] 8.8 fL Low 9.0 - 12.7 fL [facility] Platelets (Bld) [#/Vol] 141 10*3/uL 140 - 440 10*3/uL [facility] RBC (Bld) [#/Vol] 4.65 10*6/uL 4.40 - 5.9 0 10*6/uL [facility] WBC (Bld) [#/Vol] 9.1 10*3/uL 3.6 - 10.7 10*3/uL [facility] CBC WITH AUTO DIFFERENTIALon 12-16-2023 Basophils (Bld) [#/Vol] 0.0 10*3/uL Normal 0.0-0.2 [facility] Comment on above: Performed By: #### L [id number] ####[employer] Out Worker: AMINA DRISCOLLCER ([id number])[facility] ([facility])[address] Basophils/100 WBC (Bld) 0.3 % Normal 0.0-2.0 [facility] Comment on above: Performed By: #### L [id number] ####[employer] Out Worker: AMINA VENICE ([id number])[facility] ([facility])[address] Eosinophils (Bld) [#/Vol] 0.0 10*3/uL Normal 0.0-0.5 [facility] Comment on above: Performed By: #### L [id number] ####[employer] Out Worker: AMINA VENICE ([id number])[facility] [place] ([facility])[address] [place] [address] Eosinophils/100 WBC (Bld) 0.0 % Normal 0.0-6.0 [facility] Comment on above: Performed By: #### L [id number] ####[employer] Out Worker: AMINA VENICE ([id number])[facility] [place] ([facility])[address] [place] [address] Erythrocyte distribution width (RBC) [Ratio] 12.7 % Normal 11.5-15.0 [facility] Comment on above: Performed By: #### L [id number] ####[employer] Out Worker: AMINA MCKEONNORBERT ([id number])[facility] [place] ([facility])[address] [place] [address] Hematocrit (Bld) [Volume fraction] 41.0 % Normal 40.0-52.0 [facility] Comment on above: Performed By: #### L [id number] ####[employer] Out Worker: AMINA MCKEONNORBERT ([id number])[facility] [place] ([facility])[address] Hemoglobin (Bld) [Mass/Vol] 14.1 g/dL Normal 13.0-18.0 [facility] Comment on above: Performed By: #### L [id number] ####[employer] Out Worker: AMINA MILLARD ([id number])[facility] [place] ([facility])[address] IMMATURE GRANS % 0.3 % Normal 0.0-2.0 [facility] Comment on above: Performed By: #### L [id number] ####[employer] Out Worker: AMINA MILLARD ([id number])[facility] ([facility])[address] IMMATURE GRANS ABSOLUTE 0.0 10*3/uL Normal <0.1 [facility] Comment on above: Performed By: #### L [id number] ####[employer] Out Worker: AMINA MILLARD ([id number])[facility] (SBHLAB)[address] Lymphocytes (Bld) [#/Vol] 0.9 10*3/uL Low 1.0-4.3 [facility] Comment on above: Performed By: #### L [id number] ####Wax Ball Knock Out Worker: AMINA MILLARD ([id number])[facility] (SBHLAB)[address] Lymphocytes/100 WBC (Bld) 9.9 % Low 15.0-45.0 [facility] Comment on above: Performed By: #### L [id number] ####Wax Ball Knock Out Worker: AMINA MILLARD ([id number])[facility] [place] (SBHLAB)[address] MCH (RBC) [Entitic mass] 30.3 pg Normal 26.0-34.0 [facility] Comment on above: Performed By: #### L [id number] ####Wax Ball Knock Out Worker: AMINA MILLARD ([id number])[facility] (SBHLAB)[address] MCHC 34.4 % Normal 30.5-36.0 [facility] Comment on above: Performed By: #### L [id number] ####Wax Ball Knock Out Worker: AMINA MILLARD ([id number])[facility] (SBHLAB)[address] MCV (RBC) [Entitic vol] 88.2 fL Normal 77.0-99.0 [facility] Comment on above: Performed By: #### L [id number] ####Wax Ball Knock Out Worker: AMINA MILLARD ([id number])[facility] (SBHLAB)[address] Monocytes (Bld) [#/Vol] 0.7 10*3/uL Normal 0.0-0.9 [facility] Comment on above: Performed By: #### L [id number] ####Wax Ball Knock Out Worker: AMINA MILLARD ([id number])[facility] (SBHLAB)[address] Monocytes/100 WBC (Bld) 7.1 % Normal 5.0-13.0 [facility] Comment on above: Performed By: #### L [id number] ####Wax Ball Knock Out Worker: AMINA MILLARD ([id number])[facility] [place] (SBHLAB)[address] NEUTROPHILS ABSOLUTE 7.5 10*3/uL Normal 1.8-7.5 [facility] Comment on above: Performed By: #### L [id number] ####Wax Ball Knock Out Worker: AMINA MILLARD ([id number])[facility] [place] (SBHLAB)[address] Neutrophils/100 WBC (Bld) 82.4 % High 38.0-82.0 [facility] Comment on above: Performed By: #### L [id number] ####Wax Ball Knock Out Worker: AMINA MILLARD ([id number])[facility] (SBHLAB)155 [place] [address] [place] NRBC 0.0 /100 WBCs Normal 0.0-2.0 [facility] Comment on above: Performed By: #### L [id number] ####Wax Ball Knock Out Worker: AMINA MILLARD ([id number])[facility] [place] (SBHLAB)[address] Platelet mean volume (Bld) [Entitic vol] 8.8 fL Low 9.0-12.7 [facility] Comment on above: Performed By: #### L [id number] ####Wax Ball Knock Out Worker: AMINA MILLARD ([id number])[facility] (SBHLAB)[address] Platelets (Bld) [#/Vol] 141 10*3/uL Normal 140-440 [facility] Comment on above: Performed By: #### L [id number] ####Wax Ball Knock Out Worker: AMINA MILLARD ([id number])[facility]ENT[facility]io [facility] (SBHLAB)[address] RBC (Bld) [#/Vol] 4.65 10*6/uL Normal 4.40-5.90 [facility] Comment on above: Performed By: #### L [id number] ####Wax Ball Knock Out Worker: AMINA MILLARD ([id number])[facility] (SBHLAB)[address] WBC (Bld) [#/Vol] 9.1 10*3/uL Normal 3.6-10.7 [facility] Comment on above: Performed By: #### L [id number] ####Wax Ball Knock Out Worker: AMINA MILLARD ([id number])[facility] (SBHLAB)[address] COMPREHENSIVE METABOLIC PANE Ruddy 12-16-2023 Albumin [Mass/Vol] 4.0 g/dL Normal 3.5-5.0 [facility] Comment on above: Performed By: #### L [id number] ####Wax Ball Knock Out Worker: AMINA MILLARD ([id number])[facility] (SBHLAB)[address] ALP [Catalytic activity/Vol] 56 U/L Normal 38-126 [facility] Comment on above: Performed By: #### L [id number] ####Wax Ball Knock Out Worker: AMINA MILLARD ([id number])[facility] (SBHLAB)[address] [place] [address] [place] ALT [Catalytic activity/Vol] 35 U/L Normal 0-49 [facility] Comment on above: Performed By: #### L [id number] ####Wax Ball Knock Out Worker: AMINA MILLARD ([id number])[facility] [place] (SBHLAB)[address] Anion gap [Moles/Vol] 6 mmol/L Normal 3-13 [facility] Comment on above: Performed By: #### L [id number] ####Wax Ball Knock Out Worker: AMINA DRISCOLLCER ([id number])[facility] [place] (SBHLAB)[address] AST [Catalytic activity/Vol] 32 U/L Normal 15-46 [facility] Comment on above: Performed By: #### L [id number] ####Wax Ball Knock Out Worker: AMINA MILLARD ([id number])[facility] [place] (SBHLAB)[address] Bilirubin [Mass/Vol] 1.0 mg/dL Normal 0.2-1.3 [facility] Comment on above: Performed By: #### L [id number] ####Wax Ball Knock Out Worker: AMINA MILLARD ([id number])[facility] [place] (SBHLAB)[address] Calcium [Mass/Vol] 8.6 mg/dL Normal 8.4-10.4 [facility] Comment on above: Performed By: #### L [id number] ####Wax Ball Knock Out Worker: AMINA MILLARD ([id number])[facility] [place] (SBHLAB)[address] [place] [address] [place] Chloride [Moles/Vol] 102 mmol/L Normal 98-107 [facility] Comment on above: Performed By: #### L [id number] ####Wax Ball Knock Out Worker: AMINA MILLARD ([id number])[facility] [place] (SBHLAB)[address] [place] [address] [place] CO2 [Moles/Vol] 22 mmol/L Normal 22-30 [facility] Comment on above: Performed By: #### L [id number] ####Wax Ball Knock Out Worker: AMINA MILLARD ([id number])[facility] [place] (SBHLAB)[address] Creatinine [Mass/Vol] 1.19 mg/dL Normal 0.66-1.25 [facility] Comment on above: Performed By: #### L [id number] ####Wax Ball Knock Out Worker: AMINA MILLARD ([id number])[facility]ENTERNatalio [facility]BC[facility]OL[facility] HOSPITALSean (SBHLAB)[address] GLOMERULAR FILTRATION RATE ML/MIN/1.73 SQ M.PREDICTED >90.0 Normal >60.0 [facility] Comment on above: Result Comment: Calc ulation based on the Chronic Kidney Disease Epidemiology Collaboration (CKD-EPI) equation refit without adjustment for race Performed By: #### L [id number] ####Wax Ball Knock Out Worker: AMINA MILLARD ([id number])[facility] [place] (SBHLAB)[address] Glucose [Mass/Vol] 128 mg/dL High 70-100 [facility] Comment on above: Performed By: #### L [id number] ####Wax Ball Knock Out Worker: AMINA MILLARD ([id number])[facility] (SBHLAB)[address] Potassium [Moles/Vol] 4.1 mmol/L Normal 3.5-5.1 [facility] Comment on above: Performed By: #### L [id number] ####Wax Ball Knock Out Worker: AMINA MILLARD ([id number])[facility] (SBHLAB)[address] [place] [address] [place] Protein [Mass/Vol] 7.0 g/dL Normal 6.3-8.2 [facility] Comment on above: Performed By: #### L [id number] ####Wax Ball Knock Out Worker: AMINA MILLARD ([id number])[facility] [place] (SBHLAB)[address] [place] [address] [place] Sodium [Moles/Vol] 130 mmol/L Low 135-145 [facility] Comment on above: Performed By: #### L [id number] ####Wax Ball Knock Out Worker: AMINASAV MILLARD ([id number])[facility] (SBHLAB)[address] Urea nitrogen [Mass/Vol] 11 mg/dL Normal 9-20 [facility] Comment on above: Performed By: #### L [id number] ####Wax Ball Knock Out Worker: AMINA MILLARD ([id number])[facility] (SBHLAB)[address] Comprehensive metabolic 1998 panelon 12-16-2023 Albumin [Mass/Vol] 4.0 g/dL 3.5 - 5.0 g/dL [facility] ALP [Catalytic activity/Vol] 56 U/L 38 - 126 U/L [facility] ALT [Catalytic activity/Vol] 35 U/L 0 - 49 U/L [facility] Anion gap [Moles/Vol] 6 mmol/L 3 - 13 mmol/L [facility] AST [Catalytic activity/Vol] 32 U/L 15 - 46 U/L [facility] Bilirubin [Mass/Vol] 1.0 mg/dL 0.2 - 1 .3 mg/dL [facility] Calcium [Mass/Vol] 8.6 mg/dL 8.4 - 10. 4 mg/dL [facility] Chloride [Moles/Vol] 102 mmol/L 98 - 10 7 mmol/L [facility] CO2 [Moles/Vol] 22 mmol/L 22 - 30 mmol/L [facility] Creatinine [Mass/Vol] 1.19 mg/dL 0.66 - 1.25 mg/dL [facility] GFR/1.73 sq M.predicted (S/P/Bld) [Vol rate/Area] - PINF [facility] Comment on above: Calculation based on the Chronic Kidney Disease Epidemiology Collaboration (CKD-EPI) equation refit without adjustment for race Glucose [Mass/Vol] 128 mg/dL High 70 - 100 mg/dL [facility] Interpretation and review of laboratory results Abnormal [facility] Potassium [Moles/Vol] 4.1 mmol/L 3.5 - 5.1 mmol/L [facility] Protein [Mass/Vol] 7.0 g/dL 6.3 - 8.2 g/dL [facility] Sodium [Moles/Vol] 130 mmol/L Low 135 - 145 mmol/L [facility] Urea nitrogen [Mass/Vol] 11 mg/dL 9 - 20 mg/dL [facility] IDNon 12-16-2023 IDN Problem: Pain - Adul t Goal: Verbalizes/displays adequate comfort level or baseline comfort level 12/16/20231326 by Lynda Bojorquez RN Outcome: Progressing Problem: Safety - Adult Goal: Free from fall injury 12/16/20231326 by Lynda Bojorquez RN Outcome: Progressing Problem: Discharge Planning Goal: Discharge to home or other facility with appropriate resources 12/16/20231326 by Lynda Bojorquez RN Outcome: Progressing Problem: Inadequate Breathing Pattern Goal: Patient will maintain effective ventilation 12/16/20231326 by Lynda Bojorquez RN Outcome: Progressing Normal [facility] LACTIC ACID WITH REFLEXon Lactate [Moles/Vol] 1.5 mmol/L Normal 0.7-2.0 [facility] Comment on above: Performed By: #### L [id number] ####Wax Ball Knock Out Worker: AMINA MILLARD ([id number])[facility] ([facility])[address] [place] [place] [address] Laboratory - Chemistry and C hemistry - challengeon 12-16-2023 Procalcitonin [Mass/Vol] 0.14 ng/mL High 0.00 - 0.09 ng/mL [facility] Lactate [Moles/Vol] 1.5 mmol/L 0.7 - 2. 0 mmol/L [facility] No Panel Informationon 12-15 Interpretation and review of laboratory results Normal [facility] PROCALCITONIN TESTon 024 PROCALCITONIN 0.14 ng/mL High 0.00-0.09 [facility] Comment on above: Result Comment: ORDE R COMMENTS: PCT <0.50 = Low risk of severe sepsis and/or septic shock. PCT >2.00 = High risk of severe sepsis and/or septic shock. Performed By: #### L [id number] ####Wax Ball Knock Out Worker: MADDISON MARTIN ([id number])[facility])[address] [place] [address] Procalcitonin [Mass/Vol]on 1 Interpretation and review of laboratory results Abnormal [facility] PCT <0.50 = Low risk of severe sepsis and/or septic shock. PCT >2.00 = High risk of severe sepsis and/or septic shock. [facility] BLOOD CULTUREon 12-15-2023 Bacteria identified Cx Nom (Bld) BLOOD CULTURE Reference No growth at 5 days ORDER COMMENTS: Blood Collection Site: Right Antecubital [ S = SUSCEPTIBLE R = RESISTANT I = INTERMEDIATE S-DD = Susceptible-dose dependent NS = Non-susceptible NO = No Interpretation ] Normal [facility] Comment on above: Performed By: #### L [id number] ####Wax Ball Knock Out Worker: MADDISON MARTIN ([id number])[address] Bacteria identified Cx Nom (Bld) BLOOD CULTURE Reference No growth at 5 days ORDER COMMENTS: Blood Collection Site: Left Antecubital [ S = SUSCEPTIBLE R = RESISTANT I = INTERMEDIATE S-DD = Susceptible-dose dependent NS = Non-susceptible NO = No Interpretation ] Normal [facility] Comment on above: Performed By: #### L [id number] ####Wax Ball Knock Out Worker: MADDISON MARTIN ([id number])[facility])[address] [place] [address] [place] 12-15-2023 [place] Care Managment Initi al Assessment Date: 12/15/2023 Patient Name: Chelsea Crawley : 2005 Patient Information Source of Information: Patient Cognition/Language: WFL - Within Functional Limits Permission given to speak with patient vaccine customer representative/caregiver as indicated: No Confirmation of Payer with patient/family: Yes Payer Name: [employer] : No Confirmation of Primary Care Physician: Confirmed PCP Name: Dr. Sherine Escalona Seen in last 2 years?: Yes Primary Caregiver: Self If assistance needed, confirmed caregiver ready, willing and able to care for patient at discharge: Yes Confirmed with: Indep. Partner/SO willing and able to assist as needed Living Arrangements Current Residence: House Number of Floors 1 Number of Entry Steps: 1 Bed/Bath Levels: Both first floor Facility: Facility Name: Plan to Return: Yes Lives with: Spouse/significant other Support Systems: Spouse/significant other Activities of Daily Living Ambulation: Independent Bathing/Dressing: Independent Elimination/Continence/To ileting: Independent Feeding: Independent Who Assists with Activities of Daily Living: Self Pt is indep Instrumental Activities of Daily Living Prescription Coverage: Yes Pharmacy Used: [facility] per patient. Medication Management: Independent Transportation/Shopping: Independent Transportation Mode: Car Needs Assistance with Transportation at Discharge: No Meal Preparation: Independent Laundry/Cleaning: Independent Finances/Bill Paying: Independent Communication: Independent Types of Care Services/Equipment Utilized Care Services: Dialysis Type: NA Durable Medical Equipment: DME Provider: NONE Patient's Goal/Discharge Plan Patient expects to be discharged to: Discharge Planning Actions: Patient's Choice Rights and [employer] and Collaborative Relationships Disclosed as Indicated for Post-Acute Care: Interdisciplinary Team Engagement: Social Work Referral for: Additional Information: Pt admitted with pneumonia IV Rocephine q 24 and po Azithromax prescribed Ra sats 98% Bld cxs normal IA completed with pt at bedside. Tcc introduced self and role. 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 Verified insurance provider,pcp and anticipates would use [facility] Retail pharmacy if needed. Significant other Rebeca Metheney will be pt's ride home at ca. Val Miller RN Normal [facility] CBC W Auto Differential pane l (Bld)Ordered By: Jocelyne Martell on 12-15-2023 Basophils (Bld) [#/Vol] 0.0 10*3/uL 0.0 - 0.2 10*3/uL [facility] Basophils/100 WBC (Bld) 0.4 % 0.0 - 2.0 % [facility] Eosinophils (Bld) [#/Vol] 0.1 10*3/uL 0.0 - 0.5 10*3/uL [facility] Eosinophils/100 WBC (Bld) 0.6 % 0.0 - 6.0 % [facility] Erythrocyte distribution width (RBC) [Ratio] 12.8 % 11.5 - 15.0 % [facility] Hematocrit (Bld) [Volume fraction] 43.7 % 40.0 - 52.0 % [facility] Hemoglobin (Bld) [Mass/Vol] 15.5 g/dL 13.0 - 18.0 g/dL [facility] Immature granulocytes (Bld) [#/Vol] 0.1 10*3/uL High NINF - 0.1 10*3/uL [facility] Immature granulocytes/100 WBC (Bld) 0.5 % 0.0 - 2.0 % [facility] Interpretation and review of laboratory results Abnormal [facility] Lymphocytes (Bld) [#/Vol] 1.8 10*3/uL 1.0 - 4.3 10*3/uL [facility] Lymphocytes/100 WBC (Bld) 17.6 % 15.0 - 45.0 % [facility] MCH (RBC) [Entitic mass] 31.0 pg 26.0 - 34.0 pg [facility] MCHC (RBC) [Mass/Vol] 35.5 % 30.5 - 36.0 % [facility] MCV (RBC) [Entitic vol] 87.4 fL 77.0 - 99.0 fL [facility] Monocytes (Bld) [#/Vol] 1.1 10*3/uL High 0.0 - 0.9 10*3/uL [facility] Monocytes/100 WBC (Bld) 10.1 % 5.0 - 13.0 % [facility] Neutrophils (Bld) [#/Vol] 7.4 10*3/uL 1.8 - 7.5 10*3/uL [facility] Neutrophils/100 WBC (Bld) 70.8 % 38.0 - 82.0 % [facility] Nucleated RBC/100 WBC (Bld) [Ratio] 0.0 % [facility] Platelet mean volume (Bld) [Entitic vol] 9.0 fL 9.0 - 12.7 fL [facility] Comment on above: MPV is a calculated measurement using platelet volume ratio Platelets (Bld) [#/Vol] 185 10*3/uL 140 - 440 10*3/uL [facility] RBC (Bld) [#/Vol] 5.00 10*6/uL 4.40 - 5.9 0 10*6/uL [facility] WBC (Bld) [#/Vol] 10.5 10*3/uL 3.6 - 10.7 10*3/uL [facility] CBC WITH AUTO DIFFERENTIALon 12-15-2023 Basophils (Bld) [#/Vol] 0.0 10*3/uL Normal 0.0-0.2 [facility] Comment on above: Performed By: #### L [id number] ####Wax Ball Knock Out Worker: MADDISON MARTIN ([id number])[facility] (SWRLAB)[address] [place] [address] [place] Basophils/100 WBC (Bld) 0.4 % Normal 0.0-2.0 [facility] Comment on above: Performed By: #### L [id number] ####Wax Ball Knock Out Worker: MADDISON MARTIN ([id number])[facility] [place] (SWRLAB)[address] [place] [address] [place] Eosinophils (Bld) [#/Vol] 0.1 10*3/uL Normal 0.0-0.5 [facility] Comment on above: Performed By: #### L [id number] ####Wax Ball Knock Out Worker: MADDISON MARTIN ([id number])[facility] [place] (SWRLAB)[address] [place] [address] [place] Eosinophils/100 WBC (Bld) 0.6 % Normal 0.0-6.0 [facility] Comment on above: Performed By: #### L [id number] ####Wax Ball Knock Out Worker: MADDISON MARTIN ([id number])[facility] HILARIOMISTY [place] (SWRLAB)[address] [place] [address] Erythrocyte distribution width (RBC) [Ratio] 12.8 % Normal 11.5-15.0 [facility] Comment on above: Performed By: #### L [id number] ####Wax Ball Knock Out Worker: MADDISON MARTIN ([id number])[facility]ILARIOMISTY [place] (SWRLAB)[address] [place] [address] Hematocrit (Bld) [Volume fraction] 43.7 % Normal 40.0-52.0 [facility] Comment on above: Performed By: #### L [id number] ####Wax Ball Knock Out Worker: MADDISON MARTIN ([id number])[facility] [place] [place] (SWRLAB)[address] [place] [address] Hemoglobin (Bld) [Mass/Vol] 15.5 g/dL Normal 13.0-18.0 [facility] Comment on above: Performed By: #### L [id number] ####Wax Ball Knock Out Worker: MADDISON MARTIN ([id number])[facility] [place] [place] (SWRLAB)[address] [place] [address] IMMATURE GRANS % 0.5 % Normal 0.0-2.0 [facility] Comment on above: Performed By: #### L [id number] ####Wax Ball Knock Out Worker: MADDISON MARTIN ([id number])[facility] [place] [place] (SWRLAB)[address] [place] [address] [place] IMMATURE GRANS ABSOLUTE 0.1 10*3/uL High <0.1 [facility] Comment on above: Performed By: #### L [id number] ####Wax Ball Knock Out Worker: MADDISON MARTIN ([id number])[facility] [place] [place] (SWRLAB)[address] [place] [address] [place] Lymphocytes (Bld) [#/Vol] 1.8 10*3/uL Normal 1.0-4.3 [facility] Comment on above: Performed By: #### L [id number] ####Wax Ball Knock Out Worker: MADDISON MARTIN ([id number])[facility] [place] [place] (SWRLAB)[address] [place] [address] [place] Lymphocytes/100 WBC (Bld) 17.6 % Normal 15.0-45.0 [facility] Comment on above: Performed By: #### L [id number] ####Wax Ball Knock Out Worker: MADDISON MARTIN ([id number])[facility] [place] [place] (SWRLAB)[address] [place] [address] MCH (RBC) [Entitic mass] 31.0 pg Normal 26.0-34.0 [facility] Comment on above: Performed By: #### L [id number] ####Wax Ball Knock Out Worker: MADDISON MARTIN ([id number])[facility] [place] [place] (SWRL[facility])[address] [place] [address] MCHC 35.5 % Normal 30.5-36.0 [facility] Comment on above: Performed By: #### L [id number] ####Wax Ball Knock Out Worker: MADDISON MATRIN ([id number])[facility] [place] (SWRL[facility])[address] [place] [address] MCV (RBC) [Entitic vol] 87.4 fL Normal 77.0-99.0 [facility] Comment on above: Performed By: #### L [id number] ####Wax Ball Knock Out Worker: MADDISON MARTIN ([id number])[facility] [place] [place] (SWRL[facility])[address] [place] [address] Monocytes (Bld) [#/Vol] 1.1 10*3/uL High 0.0-0.9 [facility] Comment on above: Performed By: #### L [id number] ####Wax Ball Knock Out Worker: MADDISON MARTIN ([id number])[facility] [place] [place] (SWRL[facility])[address] [place] [address] Monocytes/100 WBC (Bld) 10.1 % Normal 5.0-13.0 [facility] Comment on above: Performed By: #### L [id number] ####Wax Ball Knock Out Worker: MADDISON MARTIN ([id number])[facility] HLIARIOMISTY R[place]TMAN (SWRLAB)[address] [place] [address] [place] NEUTROPHILS ABSOLUTE 7.4 10*3/uL Normal 1.8-7.5 [facility] Comment on above: Performed By: #### L [id number] ####Wax Ball Knock Out Worker: MADDISON MARTIN ([id number])[facility] [place] [place] ([facility]RL[facility])[address] [place] [address] [place] Neutrophils/100 WBC (Bld) 70.8 % Normal 38.0-82.0 [facility] Comment on above: Performed By: #### L [id number] ####Wax Ball Knock Out Worker: MADDISON MARTIN ([id number])[facility] (SWRL[facility])[address] [place] [address] NRBC 0.0 /100 WBCs Normal 0.0-2.0 [facility] Comment on above: Performed By: #### L [id number] ####Wax Ball Knock Out Worker: MADDISON MARTIN ([id number])[facility] [place] (SWRL[facility])[address] [place] [address] Platelet mean volume (Bld) [Entitic vol] 9.0 fL Normal 9.0-12.7 [facility] Comment on above: Result Comment: MPV is a calculated measurement using platelet volume ratio Performed By: #### L [id number] ####Wax Ball Knock Out Worker: MADDISON MARTIN ([id number])[facility] [place] ([facility])[address] [place] [address] [place] Platelets (Bld) [#/Vol] 185 10*3/uL Normal 140-440 [facility] Comment on above: Performed By: #### L [id number] ####Wax Ball Knock Out Worker: MADDISON MARTIN ([id number])[facility] [place] ([facility]RL[facility])[address] [place] [address] [place] RBC (Bld) [#/Vol] 5.00 10*6/uL Normal 4.40-5.90 [facility] Comment on above: Performed By: #### L [id number] ####Wax Ball Knock Out Worker: MADDISON MARTIN ([id number])[facility] ([facility])[address] [place] [address] [place] WBC (Bld) [#/Vol] 10.5 10*3/uL Normal 3.6-10.7 [facility] Comment on above: Performed By: #### L [id number] ####Wax Ball Knock Out Worker: MADDISON MARTIN ([id number])[facility]AN (SWRLAB)[address] COMPLETE URINALYSISon 2023 BILIRUBIN, TOTAL PRESENCE IN URINE Negative Normal Negative [facility] Comment on above: Performed By: #### L [id number] ####[employer] Knock Out Worker: MADDISON MARTIN ([id number])[facility] HILARIOMISTY RITTMAN (SWRLAB)[address] Clarity (U) Clear Normal Clear [facility] Comment on above: Performed By: #### L [id number] ####[employer] Knock Out Worker: MADDISON MARTIN ([id number])[facility]ENT[facility] HILARIOMISTY RITTMAN (SWRLAB)[address] Color (U) Colorless Normal Lt. Yellow [facility] Comment on above: Performed By: #### L [id number] ####Wax Ball Knock Out Worker: MADDISON MARTIN ([id number])[facility] HILARIOMISTY RITTMAN (SWRLAB)195 [place] [address] [place] GLUCOSE (MG/DL) IN URINE Normal Normal Normal (<70) [facility] Comment on above: Performed By: #### L AB347 ####Wax Ball Knock Out Worker: MADDISON MARTIN ([id number])[facility] HILARIOMISTY RITTMAN (SWRLAB)195 [place] [address] [place] HEMOGLOBIN PRESENCE IN URINE Negative Normal Negative [facility] Comment on above: Performed By: #### L AB347 ####Wax Ball Knock Out Worker: MADDISON MARTIN ([id number])[facility] MISTY RITTMAN (SWRLAB)195 [place] [address] [place] Ketones Ql (U) Negative Normal Negative [facility] Comment on above: Performed By: #### L AB347 ####Wax Ball Knock Out Worker: MADDISON MARTIN ([id number])[facility] MISTY RITTMAN (SWRLAB)195 [place] [address] [place] LEUKOCYTE ESTERASE PRESENCE IN URINE BY TEST STRIP Negative Normal Negative [facility] Comment on above: Performed By: #### L AB347 ####Wax Ball Knock Out Worker: MADDISON MARTIN ([id number])[facility] JAY RITTMAN (SWRLAB)[address] [place] [address] NITRITE PRESENCE IN URINE Negative Normal Negative [facility] Comment on above: Performed By: #### L AB347 ####Wax Ball Knock Out Worker: MADDISON MARTIN ([id number])[facility] JAY RITTMAN (SWRLAB)[address] [place] [address] pH (U) 6.0 [pH] Normal 5.0-8.0 [facility] Comment on above: Performed By: #### L AB347 ####Wax Ball Knock Out Worker: MADDISON MARTIN ([id number])[facility] JAY RITTMAN (SWRLAB)[address] [place] [address] Protein (U) [Mass/Vol] Negative Normal Negative [facility] Comment on above: Performed By: #### L AB347 ####Wax Ball Knock Out Worker: MADDISON MARTIN ([id number])[facility] JAY RITTMAN (SWRLAB)[address] [place] [address] Specific gravity (U) [Rel density] 1.041 High 1.005-1.030 [facility] Comment on above: Performed By: #### L AB347 ####Wax Ball Knock Out Worker: MADDISON MARTIN ([id number])[facility] JAY RITTMAN (SWRLAB)[address] [place] [address] [place] UROBILINOGEN (MG/DL) IN URINE Normal Normal Normal (0-1) [facility] Comment on above: Performed By: #### L AB347 ####Wax Ball Knock Out Worker: MADDISON MARTIN ([id number])[facility] RANDOLPHTMAN (SWRLAB)[address] [place] [address] COMPREHENSIVE METABOLIC PANE Ruddy 12-15-2023 Albumin [Mass/Vol] 4.8 g/dL Normal 3.5-5.0 [facility] Comment on above: Performed By: #### L 99, LAB17 ####Wax Ball Knock Out Worker: MADDISON MARTIN ([id number])[facility] CENTERNaatlio JAY RITTMAN (SWRLAB)[address] [place] [address] [place] ALP [Catalytic activity/Vol] 76 U/L Normal 38-126 [facility] Comment on above: Performed By: #### L 99, LAB17 ####Wax Ball Knock Out Worker: MADDISON MARTIN ([id number])[facility] HILARIOMISTY RITTMAN (SWRLAB)[address] [place] [address] [place] ALT [Catalytic activity/Vol] 42 U/L Normal 0-49 [facility] Comment on above: Performed By: #### Orlando CHANDLER, LAB17 ####Wax Ball Knock Out Worker: MADDISON MARTIN ([id number])[facility] JAY RITTMAN (SWRLAB)[address] [place] [address] [place] Anion gap [Moles/Vol] 11 mmol/L Normal 3-13 [facility] Comment on above: Performed By: #### Orlando CHANDLER, LAB17 ####Wax Ball Knock Out Worker: MADDISON MARTIN ([id number])[facility]ERNatal[facility] JAY RITTMAN (SWRLAB)[address] [place] [address] [place] AST [Catalytic activity/Vol] 40 U/L Normal 15-46 [facility] Comment on above: Performed By: #### L GERALDINE, LAB17 ####Wax Ball Knock Out Worker: MADDISON MARTIN ([id number])[facility] JAY RITTMAN (SWRLAB)[address] [place] [address] [place] Bilirubin [Mass/Vol] 1.4 mg/dL High 0.2-1.3 [facility] Comment on above: Performed By: #### L AB99, LAB17 ####Wax Ball Knock Out Worker: MADDISON MARTIN ([id number])[facility] HILARIOMISTY RITTMAN (SWRLAB)[address] [place] [address] [place] Calcium [Mass/Vol] 9.5 mg/dL Normal 8.4-10.4 [facility] Comment on above: Performed By: #### L AB99, LAB17 ####Wax Ball Knock Out Worker: MADDISON MARTIN ([id number])[facility] JAY RITTMAN (SWRLAB)[address] [place] [address] [place] Chloride [Moles/Vol] 102 mmol/L Normal 98-107 [facility] Comment on above: Performed By: #### L AB99, LAB17 ####Wax Ball Knock Out Worker: MADDISON MARTIN ([id number])[facility] JAY RITTMAN (SWRLAB)[address] [place] [address] [place] CO2 [Moles/Vol] 24 mmol/L Normal 22-30 [facility] Comment on above: Performed By: #### L 99, LAB17 ####Wax Ball Knock Out Worker: MADDISON MARTIN ([id number])[facility] JAY RITTMAN (SWRLAB)[address] [place] [address] [place] Creatinine [Mass/Vol] 1.28 mg/dL High 0.66-1.25 [facility] Comment on above: Performed By: #### L 99, LAB17 ####Wax Ball Knock Out Worker: MADDISON MARTIN ([id number])[facility]ERN[facility] JAY RITTMAN (SWRLAB)[address] [place] [address] [place] GLOMERULAR FILTRATION RATE ML/MIN/1.73 SQ M.PREDICTED 82.7 mL/min/1.73m*2 Normal >60.0 [facility] Comment on above: Result Comment: Calc ulation based on the Chronic Kidney Disease Epidemiology Collaboration (CKD-EPI) equation refit without adjustment for race Performed By: #### L AB99, LAB17 ####Wax Ball Knock Out Worker: MADDISON MARTIN ([id number])[facility]ENT[facility] JAY RITTMAN (SWRLAB)[address] [place] [address] [place] Glucose [Mass/Vol] 102 mg/dL High 70-100 [facility] Comment on above: Performed By: #### L AB99, LAB17 ####Wax Ball Knock Out Worker: MADDISON MARTIN ([id number])[facility] JAY RITTMAN (SWRLAB)[address] [place] [address] [place] Potassium [Moles/Vol] 4.1 mmol/L Normal 3.5-5.1 [facility] Comment on above: Performed By: #### L AB99, LAB17 ####Wax Ball Knock Out Worker: MADDISON MARTIN ([id number])[facility]ENTERN[facility] HILARIOMISTY RITTMAN (SWRLAB)[address] Protein [Mass/Vol] 8.1 g/dL Normal 6.3-8.2 [facility] Comment on above: Performed By: #### L AB99, LAB17 ####Wax Ball Knock Out Worker: MADDISON MARTIN ([id number])[facility]ERN[facility] HILARIOMISTY RITTMAN (SWRLAB)[address] [place] [address] Sodium [Moles/Vol] 136 mmol/L Normal 135-145 [facility] Comment on above: Performed By: #### L AB99, LAB17 ####Wax Ball Knock Out Worker: MADDISON MARTIN ([id number])[facility]ENTERA MISTY RITTMAN (SWRLAB)[address] [place] [address] Urea nitrogen [Mass/Vol] 10 mg/dL Normal 9-20 [facility] Comment on above: Performed By: #### L AB99, LAB17 ####Wax Ball Knock Out Worker: MADDISON MARTIN ([id number])[facility]ENTERNatal[facility] HILARIOMISTY RITTMAN (SWRLAB)[address] [place] [address] CT ABDOMEN PELVIS W CONTRAST on 12-15-2023 CT ABDOMEN PELVIS W CONTRAST Patient Name: CHELSEA CRAWLEY : 2005 Exam Date/Time: 12/15/2023 03:19 Procedure: CT ABDOMEN PELVIS W CONTRAST Ordering Provider: LEONG J Reason For Exam: Abdominal pain, acute, nonlocalized CT scan of the abdomen and pelvis with contrast. HISTORY: Abdominal pain nonlocalized. CT scans of the abdomen and pelvis were performed following intravenous contrast administration, with images from the lung bases through the pubic symphysis. Dose reduction was employed with automated exposure control The lung bases show an area of dense consolidation left lower lobe. There are no pleural effusions. The liver is normal in size, shape, and fatty in attenuation. There are no focal liver masses. The gallbladder is normal. The biliary tree is decompressed. The pancreas and top normal size spleen are normal. The stomach, duodenum are unremarkable. There is no evidence of bowel obstruction, and the small bowel, large bowel, and mesentery are unremarkable with normal appendix. There is no free air. There is no free fluid. The right kidney is normal. The left kidney is normal. The adrenal glands are normal. There are no mass lesions nor evidence of obstruction. No calculi are seen. Scans through the pelvis demonstrate the rectosigmoid to be unremarkable. The bladder is unremarkable. The remainder of the pelvic contents are unremarkable. The lumbar spine shows no significant finding. IMPRESSION: 1. Large area of dense/patchy consolidation left lower lobe most compatible with pneumonia. 2. No evidence of abdominal or pelvic mass lesion with moderate fatty infiltration liver and top normal size spleen. Report Dictated on Electronically Signed By: Oliverio Ojeda MD Electronically Signed Date/Time: 12/15/2023 3:[address] [facility] CT Abdomen and Pelvis W cont rast [place] 12-15-2023 1. Large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 Methodology: Multipl ex PCR [facility] Urinalysis complete panel (U )on 12-15-2023 Bilirubin Ql (U) Negative Negative mg/dL [facility] Clarity (U) Clear Clear [facility] Color (U) Colorless Lt. Yellow [facility] Glucose Ql (U) Normal Normal (<70) mg/dL [facility] Hemoglobin Ql (U) Negative Negative mg/dL [facility] Interpretation and review of laboratory results Abnormal [facility] Ketones (U) [Mass/Vol] Negative Negat va mg/dL [facility] Leukocyte esterase Test strip Ql (U) Negative Negative Rui/uL [facility] Nitrite Ql (U) Negative Negative [facility] pH (U) 6.0 [pH] 5.0 - 8.0 pH [facility] Protein (U) [Mass/Vol] Negative Negat va mg/dL [facility] Specific gravity (U) [Rel density] 1.041 High 1.005 - 1.030 [facility] Urobilinogen (U) [Mass/Vol] Normal Normal (0-1) mg/dL [facility] 36on 10-27-2023 36 S: The is rona ng the [facility] about a sore throat B: This started Friday night A: He has a sore throat without drainage and bilateral ear aches. No sinus symptoms. No difficulty swallowing or breathing; no fever. R: Appointment made, insurance verified and care advice reviewed. Reason for Disposition Patient requesting a strep throat test Protocols used: Sore [id number] [facility] Office Visiton 10-27-2023 Follow-up visit [id number] Madi Crawley 2005 M Date Provider Department [place] 10/27/2023 [id number] No family history on file Level of Service:17435 [facility] OFFICE/OUTPATIENT ESTABLISHED [facility] 10 MIN Reason for Visit and Comments: Earache [540822] - Bilateral Nasal Congestion [382590] Headache [52] - Started on Friday Sore Throat [82] [facility] PATINSon 10-27-2023 PATINS Ibuprofen 600 mg florentin ry 8 hours x 24 hours, then as needed every 8 hours for pain. Patient Education Viral Upper Respiratory Infection Discharge Instructions, Adult About this topic You have an upper respiratory infection or URI. A URI can affect your nose, throat, ears, and sinuses. A virus is the cause of almost all URIs and antibiotics will not help you feel better more quickly. The common cold is an example of a viral URI. URIs are easy to spread from person to person, most often through coughing or sneezing. A URI will almost always get better in a week or two without any treatment. What care is needed at home? Ask your doctor what you need to do when you go home. Make sure you ask questions if you do not understand what the doctor says. If you smoke, try to quit. Your doctor or nurse can help. Drink lots of fluids like water, juice, or broth. This will help replace any fluids lost if you have a runny nose or fever. Warm tea or soup can help soothe a sore throat. If the air in your home feels dry, use a cool mist humidifier. This can help a stuffy nose and make it easier to breathe. You can also use saline nose drops to relieve stuffiness. If you decide to take aiqe-shq-rglxxna cough or cold medicines, follow the directions on the label carefully. Be sure you do not take more than 1 medicine that contains acetaminophen. Also, if you have a heart problem or high blood pressure, check with your doctor before you take any of these medicines. Wash your hands often. Cough or sneeze into a tissue or your elbow instead of your hands. This will help keep others healthy. What follow-up care is needed? Your doctor may ask you to make visits to the office to check on your progress. Be sure to keep these visits. What drugs may be needed? The doctor may order drugs to: Open up the tubes of your lungs Treat viral infection Relieve or stop coughing Help with pain from a sore throat Relieve runny and stuffy nose Provide oxygen Will physical activity be limited? You need to rest for a few days to let your body recover from the infection. What changes to diet are needed? Eat soft foods like soup if swallowing is too painful. What problems could happen? Asthma attack Sinus infections Lung problems like pneumonia and bronchitis Severe fluid loss. This is dehydration. What can be done to prevent this health problem? Wash your hands often with soap and water for at least 20 seconds, especially after coughing or sneezing. Alcohol-based hand sanitizers also work to kill the virus. If you are sick, cover your mouth and nose with tissue when you cough or sneeze. You can also cough into your elbow. Throw away tissues in the trash and wash your hands after touching used tissues. Do not get too close (kissing, hugging) to people who are sick. Do not share towels or hankies with anyone who is sick. Clean commonly handled things like door handles, remotes, toys, and phones. Wipe them with a disinfectant. Stay away from crowded places. Cover your nose and mouth when you sneeze or cough. Take vitamin C to help build up your body's ability to fight disease. Get a flu shot each year. When do I need to call the doctor? You have trouble breathing when talking or sitting still. You have a fever of 100.4?F (38?C) or higher for several days, chills, a very bad sore throat, or ear or sinus pain. You develop a new fever after several days of feeling the same or improving. You develop chest pain when you cough. You have a cough that lasts more than 10 days. You cough up blood, or the color of the mucus you cough up changes. Teach Back: Helping You Understand The Teach Back Method helps you understand the information we are giving you. After you talk with the staff, tell them in your own words what you learned. This helps to make sure the staff has described each thing clearly. It also helps to explain things that may have been confusing. Before going home, make sure you can do these: I can tell you about my condition. I can tell you what may help ease my signs. I can tell you what I will do if I have a fever, chills, breathing very fast, or trouble breathing. Where can I learn more? [employer] https://www.lung.org/blog /buj-ofl-sokvttrq-with-a- cold [employer] https://www.lung.org/lung -health-diseases/lung-dis ease-lookup/influenza/fac ts-ab ami-kzi-framqo-cold NHS Choices https://www.nhs.uk/condit ions/tdaegdzyaxm-cdmaj-ct fection/ UpToDate https://www.uptodate.com/ contents/kys-ygoeyg-yrgs- dy-wnmcjf-tttcfp-the-basi cs Last Reviewed Date 2020-08-15 Consumer Information Use and Disclaimer This generalized information is a limited summary of diagnosis, treatment, and/or medication information. It is not meant to be comprehensive and should be used as a tool to help the user understand and/or assess potential diagnostic and treatment o (more content not included)... Normal [facility] Progress Noteon 10-27-2023 Progress Note Symptoms improving. Consistent with likely viral URI. No antibiotics indicated. . Normal [facility] Progress Note Patient was identifi ed by name and Date of . [facility] Progress Note 10/27/2023 Chelsea Crawley (: 2005) is a 18 y.o. male , POD scheduled, Established patient, here for evaluation of the following chief complaint(s): Earache (Bilateral ), Nasal Congestion, Headache (Started on Friday ), and Sore Throat ASSESSMENT/PLAN: 1. Viral upper respiratory illness Assessment & Plan: Symptoms improving. Consistent with likely viral URI. No antibiotics indicated. . Reviewed and provided written patient education/instructions regarding diagnosis and management. Reviewed symptom management with non-pharmacological interventions and appropriate use of otc medications for relief of symptoms. Follow up for worsening or no improvement in symptoms. Follow up if symptoms worsen or fail to improve. SUBJECTIVE/OBJECTIVE: HPI - Chelsea Crawley (: 2005) is a 18 y.o. male , Established patient of Dr. Escalona, here for evaluation of the following chief complaint(s): Earache (Bilateral ), Nasal Congestion, Headache (Started on Friday ), and Sore Throat No significant fever or chills. Occasional cough, nasal congestion. Sore throat has improved some. Has been taking ear drops and cold and flu from [employer]. Helps some. Missed work today. Overall feeling better than yesterday. No n/v/d. No known sick contacts. No chest pain or shortness of breath. Prior to Admission medications Not on File Review of Systems Constitutional: Positive for fatigue. Negative for activity change, chills and fever. HENT: Positive for congestion, ear pain, postnasal drip, rhinorrhea and sore throat. Negative for ear discharge and sinus pressure. Eyes: Negative. Respiratory: Positive for cough. Negative for chest tightness, shortness of breath and wheezing. Cardiovascular: Negative for chest pain. Gastrointestinal: Negative. Genitourinary: Negative for difficulty urinating. Neurological: Negative. Vitals: 10/27/23 0923 10/27/23 0937 BP: (!) 144/77 120/77 Pulse: 93 Resp: 24 Temp: 37.3 ?C (99.1 ?F) TempSrc: Infrared SpO2: 98% Weight: 279 lb (127 kg) Physical Exam Constitutional: General: He is not in acute distress. Appearance: Normal appearance. He is not ill-appearing. HENT: Head: Normocephalic and atraumatic. Right Ear: External ear normal. No drainage or tenderness. No middle ear effusion. There is no impacted cerumen. No mastoid tenderness. Tympanic membrane is erythematous. Tympanic membrane is not retracted or bulging. Left Ear: External ear normal. No drainage or tenderness. No middle ear effusion. There is no impacted cerumen. No mastoid tenderness. Tympanic membrane is erythematous. Tympanic membrane is not retracted or bulging. Ears: Comments: Mild erythema noted bilateral ear drums. Nose: Congestion and rhinorrhea present. Right Turbinates: Swollen. Left Turbinates: Swollen. Mouth/Throat: Mouth: Mucous membranes are moist. Pharynx: Oropharynx is clear. No oropharyngeal exudate or posterior oropharyngeal erythema. Eyes: Conjunctiva/sclera: Conjunctivae normal. Cardiovascular: Rate and Rhythm: Normal rate and regular rhythm. Pulses: Normal pulses. Heart sounds: Normal heart sounds. Pulmonary: Effort: Pulmonary effort is normal. Breath sounds: Normal breath sounds. Lymphadenopathy: Cervical: No cervical adenopathy. Skin: General: Skin is warm and dry. Neurological: Mental Status: He is alert and oriented to person, place, and time. Psychiatric: Mood and Affect: Mood normal. Behavior: Behavior normal. An electronic signature was used to authenticate this note. Noble Londono APRN - LILLI 10/27/2023 9:44 AM Normal [facility] Office Visiton 05-29-2023 Follow-up visit [id number] Madi Crawley 2005 M Date Provider Department Center 05/29/2023 [id number]-HILARY GUERRA [facility] No family history on file Level of Service:80971 UT OFFICE/OUTPATIENT ESTABLISHED LOW MDM 20 MIN Reason for Visit and Comments: same day [Other] - Patient states they have an ear ache, patient states pain started a week ago. Patient states they feel pressure in ears. Patient states their right hurts the most Normal [facility] Progress Noteon 05-29-2023 Progress Note . [facility] [address] [place] [address] Dept: [phone] Dept Visit type: Established Reason for Visit: same day (Patient states they have an ear ache, patient states pain started a week ago. Patient states they feel pressure in ears. Patient states their right hurts the most) Assessment and Plan 1. Right ear pain 2. Epistaxis 3. HIV screening declined 4. Need for hepatitis C screening test Upon physical exam of left and right ear, ear canals negative for redness or drainage. Tympanic membrane is intact, normal color. Left and right ear negative for tenderness. Negative for infection. I did discuss with patient to keep ears clean and dry, and to contact office if symptoms return. In regard to epistaxis patient declined medication or lab work to assess for clotting factors. She gated on the use of a humidifier. Patient states he has been thinking about it and has been looking into it. Patient declined HIV and hepatitis C screening. Patient declined screening labs at this time. Education provided to patient and . No questions or concerns at this time. Patient is more than welcome to follow-up with me as needed. No follow-ups on file. Subjective HPI This is a very pleasant 17-year-old male with a past medical history of ADHD who presents the office today to discuss ear pain. is present at office visit. Patient of Dr. Esclaona. Right ear pain-been ongoing for about 4 days, has improved. Patient denies any drainage, fever, chills, hearing loss, tinnitus, or recent illness. 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 Patient not currently taking anything for pain or discomfort. Epistaxis-patient is experiencing frequent nosebleeds. is concerned as patient has nosebleeds most days out of the week. Patient states that when he goes from very hot environments to very cold or with weather changes he will experience nosebleeds. Patient states this is always been a problem for him. Does not want to be on medication at this time. Patient declined HIV and hepatitis C screening. Review of Systems Constitutional: Negative. Negative for fatigue. HENT: Positive for ear pain (Right ear) and nosebleeds. Negative for postnasal drip, rhinorrhea, sinus pressure, sinus pain and tinnitus. Respiratory: Negative. Cardiovascular: Negative. Negative for chest pain and palpitations. Gastrointestinal: Negative. Skin: Negative. Negative for pallor and wound. Hematological: Negative. Psychiatric/Behavioral: Negative. Allergies Allergen Reactions Molds & Smuts alternaria Outpatient Medications Prior to Visit Medication Sig Dispense Refill lisdexamfetamine (Vyvanse) 50 MG capsule Take 1 capsule (50 mg) by mouth every morning. (Patient not taking: Reported on 02/19/2023) 30 capsule 0 No facility-administered medications prior to visit. No past medical history on file. Social History Tobacco Use Smoking status: Never Smokeless tobacco: Never Substance Use Topics Alcohol use: Never No past surgical history on file. No family history on file. Objective BP 137/84 (BP Location: Left arm, Patient Position: Sitting, BP Cuff Size: Large adult) Pulse 80 Temp 36.7 ?C (98.1 ?F) Ht 6' (1.829 m) Wt 274 lb (124 kg) SpO2 96% BMI 37.16 kg/m? Physical Exam Vitals reviewed. Constitutional: General: He is not in acute distress. Appearance: Normal appearance. He is normal weight. He is not toxic-appearing. HENT: Head: Normocephalic and atraumatic. Right Ear: Tympanic membrane normal. There is no impacted cerumen. Left Ear: Tympanic membrane normal. There is no impacted cerumen. Cardiovascular: Rate and Rhythm: Normal rate and regular rhythm. Pulses: Normal pulses. Heart sounds: Normal heart sounds. No murmur heard. Pulmonary: Effort: Pulmonary effort is normal. No respiratory distress. Breath sounds: Normal breath sounds. No wheezing. Abdominal: General: Abdomen is flat. Bowel sounds are normal. Palpations: Abdomen is soft. Musculoskeletal: General: Normal range of motion. Skin: General: Skin is warm and dry. Findings: No rash. Neurological: General: No focal deficit present. Mental Status: He is alert and oriented to person, place, and time. Psychiatric: Mood and Affect: Mood normal. Behavior: Behavior normal. Data Reviewed and Summarized Labs: Imaging/Testing: Hilary Guerra NP Normal [facility] Office Visiton 02-19-2023 Follow-up visit [id number] Madi Crawley 2005 M Date Provider Department Center 02/19/2023 [id number]-WAJOUHSHERINE THORNTON [facility] No family history on file Level of Service:92432 UT OFFICE/OUTPATIENT ESTABLISHED MOD MDM 30-39 MIN Reason for Visit and Comments: Follow-up [847457] - 1 month Normal [facility] Progress Noteon 02-19-2023 Progress Note . [facility] [address] [facility] [address] Dept: [phone] Dept Visit type: Established Reason for Visit: Follow-up (1 month) Assessment and Plan 1. Attention deficit hyperactivity disorder (ADHD), predominantly hyperactive type ADHD -patient was resumed on Vyvanse at previous. He reports that he did not notice any significant change in his symptoms and it actually made him feel more fatigued and depressed towards the end of the day. Overall, he feels that medication's benefits did not outweigh the side effects. He is requesting to stay off of medications and this seems reasonable. Advised him to make follow-up appointment on as-needed basis should he develop new or worsening symptoms. Subjective HPI This is an 17-year-old gentleman with past medical history significant for ADHD, vitamin deficiencies, and obesity who presents today for follow up visit. ADHD - last visit patient was started on Vyvanse 50 mg daily. He states that he feels down at the end of the day compared to when he does not take the medication. He reports feeling calmer while taking the medication, has not really not noted any change in focus issues. Review of Systems Constitutional: Negative for chills. HENT: Negative for congestion. Respiratory: Negative for shortness of breath. Psychiatric/Behavioral: Positive for dysphoric mood. Allergies Allergen Reactions Molds & Smuts Outpatient Medications Prior to Visit Medication Sig Dispense Refill lisdexamfetamine (Vyvanse) 50 MG capsule Take 1 capsule (50 mg) by mouth every morning. (Patient not taking: Reported on 02/19/2023) 30 capsule 0 No facility-administered medications prior to visit. No past medical history on file. Social History Tobacco Use Smoking status: Never Smokeless tobacco: Never Substance Use Topics Alcohol use: Never No past surgical history on file. No family history on file. Objective BP (!) 147/73 Pulse 92 Ht 6' (1.829 m) Wt 277 lb 6.4 oz (126 kg) SpO2 96% BMI 37.62 kg/m? Physical Exam HENT: Head: Normocephalic and atraumatic. Eyes: General: No scleral icterus. Pulmonary: Effort: Pulmonary effort is normal. Breath sounds: No wheezing or rales. Abdominal: General: Abdomen is flat. Musculoskeletal: General: Normal range of motion. Skin: General: Skin is warm and dry. Neurological: General: No focal deficit present. Mental Status: He is alert and oriented to person, place, and time. Data Reviewed and Summarized Labs: Imaging/Testing: Sherine Escalona MD Normal [facility] Office Visiton 01-23-2023 Follow-up visit [id number] Madi Crawley 2005 M Date Provider Department Center 01/23/2023 23685[facility] No family history on file Level of Service:92564 UT OFFICE/OUTPATIENT NEW MODERATE MDM 45-59 MINUTES Reason for Visit and Comments: New Patient [542] Normal [facility] Progress Noteon 01-23-2023 Progress Note . [facility] [address] [place] [address] [address] [place] [id number] Dept: [phone] Dept Visit type: New Reason for Visit: New Patient Assessment and Plan 1. Attention deficit hyperactivity disorder (ADHD), predominantly hyperactive type - lisdexamfetamine (Vyvanse) 50 MG capsule; Take 1 capsule (50 mg) by mouth every morning., Starting Bridgett 01/23/2023, Normal 2. Epistaxis ADHD -fianc? reports interval worsening of symptoms after medication was discontinued 5 months earlier. Patient reports a near lifelong history of ADHD and has been on medication for the past 13 years. Notes increased problems with inattention, occasional agitation type symptoms since medication was discontinued around 5 months earlier. PDMP was reviewed and consistent with stated usage of medication. Patient was agreeable to signing controlled substance contract. Vyvanse will be resumed at 50 mg daily. Patient will return in 1 month for reassessment of side effects and blood pressure assessment. Epistaxis -notes that this is problematic with episode 1 time per week. Discussed potential treatment options or referral to ENT. Patient declined additional evaluation at this time. Subjective HPI This is a very pleasant 17-year-old gentleman with past medical history significant for ADHD, vitamin deficiencies, and obesity who presents today for establishment of care. Epistaxis - states that this has been a problem for a while, sates that most recent episode was yesterday, episodes occur 1/ week. Not on any medications. No known personal or family history of bleeding disorders. Typically occurs on the left side, states that he has always been able to stop bleeding without much difficulty. Vitamin deficiencies - was told that he had vitamin D and C deficiencies. ADHD - was orinally diagnosed entire life, was started on medication for this around age 4. Most recent medicaiton was Vyvanse until around 6 months earlier, stopped seeing previous doctor. SO states that patient is much more impulsive off medication. Rebeca indicates that he would become agitated when not taking medicaiton, states that this was not a problem while taking. 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 Review of Systems Psychiatric/Behavioral: Positive for agitation and decreased concentration. The patient is nervous/anxious. Allergies Allergen Reactions Molds & Smuts No outpatient medications prior to visit. No facility-administered medications prior to visit. No past medical history on file. Social History Tobacco Use Smoking status: Never Smokeless tobacco: Never Substance Use Topics Alcohol use: Never No past surgical history on file. No family history on file. Objective BP (!) 144/84 Pulse 98 Ht 6' (1.829 m) Wt 274 lb 12.8 oz (125 kg) SpO2 95% BMI 37.27 kg/m? Physical Exam HENT: Head: Normocephalic and atraumatic. Eyes: General: No scleral icterus. Pulmonary: Effort: Pulmonary effort is normal. Musculoskeletal: Cervical back: Normal range of motion. Skin: General: Skin is warm and dry. Neurological: Mental Status: He is alert. Data Reviewed and Summarized Labs: Imaging/Testing: Sherine Escalona MD [facility] CNOVon 07-11-2022 CNOV Office Visit (PEDSWS ) ----- CHELSEA CRAWLEY ([id number]) 3 M Date Time Provider Department 07/11/22 3:30 PM NATHAN YE During your visit today, we recorded the following information about you: Temperature Pulse Respiration Blood pressure 97.8 degrees 84/minute 20/minute 132/78 Weight 120.7 kg Nathan Ye MD 07/11/2022 6:22 PM Signed FOLLOW UP VISIT PEDIATRIC ADHD SERVICE DATE: 07/11/2022 Chelsea Crawley is a 17 year old male who presents with mother for follow up visit for ADHD. History was obtained from: mother Currently taking Vyvanse 50 mg . Takes medication 7 days per week. The medication is helping dramatically. Improvement noted in the following symptoms: problems focusing, forgetfulness, and hyperactivity. Symptom severity now considered: mild. Context: home and school. Parent/guardian believe room for improvement? No Currently enrolled in behavioral counseling or therapy: was at [facility] [employer] [facility] School: Presently in 12th grade. [employer] Going to work at [employer] after graduation ([employer]). 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 General: Well developed, No acute distress Neck: supple and no adenopathy Lungs: clear to auscultation bilaterally, good air exchange, no retractions Heart: Normal rate, regular rhythm, no murmur Abdomen: Soft, nontender, nondistended, no palpable organomegaly or masses, normal bowel sounds Skin: Normal color, texture and turgor. No rashes. ASSESSMENT/PLAN: Encounter Diagnosis ICD-10-CM 1. Attention deficit hyperactivity disorder (ADHD), combined type F90.2 2. Abnormal weight gain R63.5 17 year old male with ADHD with optimization of symptoms and without significant medication side effects. - Continue current medication. - Psychology referral for ongoing impulsive behavior - Follow up in 3-6 months for routine ADHD follow up -Discussed ongoing weight gain. He is gaining muscle however BMI is still problematic given elevated lipid profile in the past. He will continue to work on diet at home SIGNATURE: Nathan Ye MD PATIENT NAME: Chelsea Crawley DATE: July 11, 2022 TIME: 3:18 PM Referring Provider: NATHAN YE [[id number]] Allergies As of Date: 07/11/2022 Noted Allergy Reaction MOLD 08/04/2007 Comments: alternaria Date Reviewed: 07/11/2022 Reviewed by: Leydi Bal - Fully Assessed Reason for Visit: medication check [Other] Cmt: Taking daily 7 days a week. No side effects reported. Primary Visit Diagnosis:Attention deficit hyperactivity disorder (ADHD), combined type [F90.2] Other Visit Diagnosis:Abnormal weight gain [R63.5] Prescriptions as of 07/11/2022 - lisdexamfetamine (VYVANSE) 50 mg capsule Take 1 capsule by mouth once daily for 30 days. Do not start before August 08, 2022. - lisdexamfetamine (VYVANSE) 50 mg capsule Take 1 capsule by mouth once daily for 30 days. Do not start before July 11, 2022. - lisdexamfetamine (VYVANSE) 50 mg capsule Take 1 capsule by mouth once daily for 30 days. - Cholecalciferol, Vitamin D3, (D3-2000) 50 mcg (2,000 unit) cap Take 1 capsule by mouth once daily. - albuterol HFA (PROVENTIL HFA, VENTOLIN HFA) 90 mcg/actuation inhaler Inhale 2 puffs every 4 - 6 hours as needed for cough or wheezing - ketoconazole (NIZORAL) 2 % shampoo Apply to affected area once daily as needed. Medication notes this encounter ALBUTEROL SULFATE HFA 90 MCG/ACTUATION AEROSOL INHALER >> Leydi Bal 07/11/2022 3:53 PM >> LEYDI BAL [facility] July 11, 2022 3:53 PM prn Problem List As Of Date 07/11/2022 Noted Resolved Sprain and strain of unspecified site of knee a*05/08/2007 04/16/2013 ADHD (attention deficit hyperactivity disorder)* Encopresis(307.7) [R15.9] 04/16/2013 PDD (pervasive developmental disorder) [F84.9] 09/05/2011 Nondisplaced fracture of proximal phalanx of ri*10/30/2011 04/16/2013 BMI (body mass index), pediatric 95-99% for age*11/22/2017 Acne vulgaris [L70.0] 11/22/2017 Level of Service: OFFICE/OUTPATIENT ESTABLISHED MOD MDM 30-39 MIN [82047] LOS History for Encounter ---- (more content not included)... Normal [facility] CNPNon 03-01-2022 CNPN Telephone (PEDSWS) ----- CHELSEA CRAWLEY ([id number]) 3 M Date Time Provider Department 03/01/22 LESA SIDDIQI During your visit today, we recorded the following information about you: Lesa Siddiqi MD 03/01/2022 10:02 AM Signed Error. Allergies As of Date: 03/01/2022 Noted Allergy Reaction MOLD 08/04/2007 Comments: alternaria Date Reviewed: 01/28/2022 Reviewed by: Lesa Siddiqi MD - Fully Assessed Reason for Visit: Results [95] Prescriptions as of 03/01/2022 - lisdexamfetamine (VYVANSE) 50 mg capsule Take 1 capsule by mouth once daily for 30 days. Do not start before April 25, 2022. - lisdexamfetamine (VYVANSE) 50 mg capsule Take 1 capsule by mouth once daily for 30 days. Do not start before March 27, 2022. - lisdexamfetamine (VYVANSE) 50 mg capsule Take 1 capsule by mouth once daily for 30 days. - albuterol HFA (PROVENTIL HFA, VENTOLIN HFA) 90 mcg/actuation inhaler Inhale 2 puffs every 4 - 6 hours as needed for cough or wheezing - ketoconazole (NIZORAL) 2 % shampoo Apply to affected area once daily as needed. Problem List As Of Date 03/01/2022 Noted Resolved Sprain and strain of unspecified site of knee a*05/08/2007 04/16/2013 ADHD (attention deficit hyperactivity disorder)* Encopresis(307.7) [R15.9] 04/16/2013 PDD (pervasive developmental disorder) [F84.9] 09/05/2011 Nondisplaced fracture of proximal phalanx of ri*10/30/2011 04/16/2013 BMI (body mass index), pediatric 95-99% for age*11/22/2017 Acne vulgaris [L70.0] 11/22/2017 Encounter Status:Closed by LESA SIDDIQI on 03/01/22 Normal [facility] 25(OH)D3 [facility] 2021 25-hydroxyvitamin D3 [Mass/Vol] 23.9 ng/mL Low 31.0-80.0 [facility] Comment on above: Order Comment: Idalmis vaca Type: BLOOD SPECIMENOrdering Facility: [facility] Address: [address] [place] [address] Result Comment: Clas sification of 25 [place] Vitamin D status: Deficiency/Insufficiency: < or = 30 ng/ml. Sufficiency/Optimal Levels: 31-80 ng/mL Toxicity: > 100 ng/mL. Test performed by chemiluminescent immunoassay. Performed By: #### 1 989-3 ####[facility] LABCLIA [id number] [facility] [id number] [address] [place] Glucose p fast [facility] 02-27-2022 Glucose post fast [Mass/Vol] 84 mg/dL Normal 74-99 [facility] Comment on above: Order Comment: Idalmis vaca Type: BLOOD SPECIMENOrdering Facility: [facility] Address: [address] [place] [address] Result Comment: Amer ican Diabetes Association guidelines state that a diabetes mellitus diagnosis is preliminarily made when the fasting plasma glucose meets or exceeds 126 mg/dL. In the absence of unequivocal hyperglycemia, results should be confirmed with repeat testing. Patients are at increased risk for diabetes mellitus (prediabetes) when the fasting glucose is 100 to 125 mg/dL. Performed By: #### 1 558-6 ####[facility] LABCLIA [id number] [address] [place] Hepatic function 2000 panelo n 02-27-2022 Albumin [Mass/Vol] 4.9 g/dL High 3.2-4.5 [facility] Comment on above: Order Comment: Speci men Type: BLOOD SPECIMENOrdering Facility: [facility] Address: [address] [place] [address] Performed By: #### 2 4325-3 ####[facility] [id number] [address] LABCLIA [id number] [address] [place] ALP [Catalytic activity/Vol] 80 U/L Normal 55-149 [facility] Comment on above: Order Comment: Karmai men Type: BLOOD SPECIMENOrdering Facility: [facility] Address: [address] [place] [address] Performed By: #### 2 4325-3 ####[facility] [id number] [address] LABIA [id number] [address] [place] ALT [Catalytic activity/Vol] 24 U/L Normal 10-54 [facility] Comment on above: Order Comment: Karmai men Type: BLOOD SPECIMENOrdering Facility: [facility] Address: [address] [place] [address] Result Comment: Refe rence ranges for this patient's age group have not been established. These reference ranges reflect verified or established ranges for the adult population. Interpret these ranges with caution using the clinical context and additional reference resources. Performed By: #### 2 4325-3 ####[facility] SABINAWNCLIA [id number] [address] LABCLIA [id number] [place] [address] [place] AST [Catalytic activity/Vol] 23 U/L Normal 14-40 [facility] Comment on above: Order Comment: Speci men Type: BLOOD SPECIMENOrdering Facility: [facility] Address: [address] [place] [address] Result Comment: Refe rence ranges for this patient's age group have not been established. These reference ranges reflect verified or established ranges for the adult population. Interpret these ranges with caution using the clinical context and additional reference resources. Performed By: #### 2 4325-3 ####[facility]ENTERWAZLIA [id number] [address] LABCLIA [id number] [place] [address] [place] Bilirubin [Mass/Vol] 0.3 mg/dL Normal 0.2-1.3 [facility] Comment on above: Order Comment: Speci men Type: BLOOD SPECIMENOrdering Facility: [facility] Address: [address] [place] [address] Result Comment: Refe rence ranges for this patient's age group have not been established. These reference ranges reflect verified or established ranges for the adult population. Interpret these ranges with caution using the clinical context and additional reference resources. Performed By: #### 2 4325-3 ####[facility]CL[facility] [id number] [address] LABCLIA [id number] [id number], [place] [address] [place] Bilirubin.conjugated [Mass/Vol] mg/dL Normal <0.2 [facility] Comment on above: Order Comment: Idalmis vaca Type: BLOOD SPECIMENOrdering Facility: [facility] Address: [address] [place] [address] Result Comment: Refe rence ranges for this patient's age group have not been established. These reference ranges reflect verified or established ranges for the adult population. Interpret these ranges with caution using the clinical context and additional reference resources. Performed By: #### 2 4325-3 ####[facility] [id number] [address] LABCLIA [id number] [address] [place] Protein [Mass/Vol] 7.1 g/dL Normal 6.4-8.3 [facility] Comment on above: Order Comment: Idalmis vaca Type: BLOOD SPECIMENOrdering Facility: [facility] Address: [address] [place] [address] Performed By: #### 2 4325-3 ####[facility] [id number] [address] LABCLIA [id number] [place] [address] [place] Lipid 1996 panelon 2 Cholesterol [Mass/Vol] 188 mg/dL High <170 [facility] Comment on above: Order Comment: Idalmis vaca Type: BLOOD SPECIMENOrdering Facility: [facility] Address: [address] [place] [address] Result Comment: <170 mg/dL, Acceptable 170-199 mg/dL, Borderline high >199 mg/dL, High Performed By: #### 3 024-7, 3016-3 ####[facility] LABCLIA [id number] [address] [place]#### [address]97[address]-2 ####[facility] LABCLIA [id number] [id number] [place] [address] Cholesterol in HDL [Mass/Vol] 39 mg/dL Low >45 [facility] Comment on above: Order Comment: Speci men Type: BLOOD SPECIMENOrdering Facility: [facility] Address: [address] [place] [address] Result Comment: >45 mg/dL, Acceptable 40-45 mg/dL, Borderline <40 mg/dL, Low Performed By: #### 3 024-7, 3016-3 ####[facility] LABCLIA [id number] [place] [address] [place]#### 02385-7 ####[facility] LABCLIA [id number] [address] STATES [facility] [id number] [place] [address] [place] Cholesterol in LDL [Mass/Vol] 124 mg/dL High <110 [facility] Comment on above: Order Comment: Speci men Type: BLOOD SPECIMENOrdering Facility: [facility] Address: [address] [place] [address] Result Comment: <110 mg/dL, Acceptable 110-129 mg/dL, Borderline high >129 mg/dL, High Performed By: #### 3 024-7, 3016-3 ####[facility] LABCLIA [id number] [place] [address] [place]#### 10063-5 ####[facility] LABCLIA [id number] [address] OF [facility] [id number] [address] [place] Cholesterol in LDL/Cholesterol in HDL [Mass ratio] 3.18 {ratio} High <2.42 [facility] Comment on above: Order Comment: Idalmis vaca Type: BLOOD SPECIMENOrdering Facility: [facility] Address: [address] [place] [address] Result Comment: Susi watson: 1. Expert Panel on Integrated Guidelines for Cardiovascular Health and Risk Reduction in Children and Adolescents: National Heart, Lung and Blood [place]. Pediatrics. 2011: 128(Suppl 5):I651-490. Performed By: #### 3 024-7, 3016-3 ####[facility] LABCLIA [id number] [place] [address] [place]#### 06955-2 ####[facility] LABCLIA [id number] [address] [id number] [place] [address] STATES ANKIT Cholesterol in VLDL [Mass/Vol] 25 mg/dL High <18 [facility] Comment on above: Order Comment: Idalmis vaca Type: BLOOD SPECIMENOrdering Facility: [facility] Address: [address] [place] [address] Performed By: #### 3 024-7, 3016-3 ####[facility] LABCLIA [id number] [place] [address] [place]#### 24695-2 ####[facility] LABCLIA [id number] [address] [id number] [place] [address] Cholesterol non HDL [Mass/Vol] 149 mg/dL High <120 [facility] Comment on above: Order Comment: Karmai men Type: BLOOD SPECIMENOrdering Facility: [facility] Address: [address] [place], [place] [id number] Result Comment: <120 mg/dL, Acceptable 120-144 mg/dL, Borderline high >144 mg/dL, High Performed By: #### 3 024-7, 3015-3 ####[facility] LABCLIA [id number] [facility] [address] [place]#### 84750-2 ####[facility] LABCLIA [id number] [id number] [place] [address] [place] Cholesterol.total/Chol esterol in HDL [Mass ratio] 4.82 {ratio} High <3.76 [facility] Comment on above: Order Comment: Speci men Type: BLOOD SPECIMENOrdering Facility: [facility] Address: [address] [place] [address] Performed By: #### 3 024-7, 3015-3 ####[facility] LABCLIA [id number] [place] [address] [place]#### 68116-0 ####[facility] LABCLIA [id number] [address] [id number] [place] [address] [place] FASTING TIME 10 hrs Normal [facility] Comment on above: Order Comment: Speci men Type: BLOOD SPECIMENOrdering Facility: [facility] Address: [address] [place] [address] Performed By: #### 3 024-7, 3015-3 ####[facility] LABCLIA [id number] [facility] [place] [address] [place]#### 01722-6 ####[facility] LABCLIA [id number] [address] [id number] [place] [address] [place] Triglyceride [Mass/Vol] 124 mg/dL High <90 [facility] Comment on above: Order Comment: Speci men Type: BLOOD SPECIMENOrdering Facility: [facility] Address: [address] [place] [address] Result Comment: <90 mg/dL, Acceptable 90-129 mg/dL, Borderline high >129 mg/dL, High Performed By: #### 3 024-7, 3016-3 ####[facility] LABCLIA [id number] [place] [address] [place]#### 67067-4 ####[facility] LABCLIA [id number] [address] [id number] [place] [address] [place] T4 Free SerPl-mCncon 022 Free T4 [Mass/Vol] 1.0 ng/dL Normal 0.8-2.8 [facility] Comment on above: Order Comment: Speci men Type: BLOOD SPECIMENOrdering Facility: [facility] Address: [address] [place] [address] Performed By: #### 3 024-7, 3016-3 ####[facility] LABCLIA [id number] [place] [address] [place]#### 71895-6 ####[facility] LABCLIA [id number] [address] [id number] [place] [address] [place] TSH SerPl-aCncon 12-21-2022 TSH Qn 1.460 m[IU]/L Normal 0.510-4.300 [facility] Comment on above: Order Comment: Speci men Type: BLOOD SPECIMENOrdering Facility: [facility] Address: [place] [address] Result Comment: Refe rence ranges were not locally established for this patient's age group. The normal values are based on the following source: Berenice Calderón, Helen Dickey. Reference Ranges for Adults and Children: Pre-analytical Considerations. [facility] Performed By: #### 3 024-7, 3016-3 ####[facility] LABCLIA [id number] [place] [id number] [facility]#### 57529-4 ####[facility] LABCLIA [id number] [address] [id number] [address] CNOVon 01-28-2022 CNOV Office Visit (PEDSWS ) ----- CHELSEA CRAWLEY ([id number]) 3 M Date Time Provider Department 01/28/22 4:00 PM LESA SIDDIQI During your visit today, we recorded the following information about you: Temperature Pulse Respiration Blood pressure 98.6 degrees 80/minute 18/minute 122/72 Weight Height 108.6 kg 1.855 m Lesa Siddiqi MD 01/30/2022 3:01 PM Signed WELL VISIT PEDIATRIC MALE 14-17 YRS OLD SERVICE DATE: 01/28/2022 Chelsea is a 16 year old male who presents today for well exam accompanied by his mother. SUBJECTIVE CONCERNS: work permit HISTORY ACTIVE PROBLEM LIST Bmi (Body Mass Index), Pediatric 95-99% for Age, Obese Child Structured Weight Management/Multidisciplin sena Intervention Category - 11/22/2017 Acne Vulgaris - 11/22/2017 Pdd (Pervasive Developmental Disorder) - 09/05/2011 Adhd (Attention Deficit Hyperactivity Disorder) Comment: Age 3 PAST MEDICAL HISTORY Diagnosis Date ADHD (attention deficit hyperactivity disorder) 2009 Age 3 Behavior disturbance Broken arm 2008 Broken left forearm Encopresis(307.7) ODD (oppositional defiant disorder) 2010 PDD (pervasive developmental disorder) Wheezing PAST SURGICAL HISTORY Procedure Laterality Date ANES NERVE MUSCLE TDN FASCIAANDBURSA FOREARM WRIST Left forearm , greenstick PAST SURGICAL HISTORY OF cyst removed from right eye PAST SURGICAL HISTORY OF frenulum cut ALLERGIES Allergen Reactions Mold alternaria Medications: lisdexamfetamine (VYVANSE) 50 mg capsule Take 1 capsule by mouth once daily for 30 days. albuterol HFA (PROVENTIL HFA, VENTOLIN HFA) 90 mcg/actuation inhaler Inhale 2 puffs every 4 - 6 hours as needed for cough or wheezing ketoconazole (NIZORAL) 2 % shampoo Apply to affected area once daily as needed. FAMILY HISTORY Problem Relation Age of Onset Heart Maternal Grandfather Diabetes Maternal Grandfather other (perforated bowel) Maternal Grandmother 3 weeks later Heart Paternal Grandmother CHF Diabetes Paternal Grandfather other (Hypoglycemia) Mother Also has vitamin deficencies other (Fatty Liver) Father Social History Social History Narrative Not on file Smoking Exposure: Does your child spend a significant amount of time in the care of anyone who smokes? No School: Grade: 12th; grades A-B. Physical Activity: less than 1 hour of physical activity per day Screen Time totaling more than 2 hours of screen time per day. Safety: Reviewed seat belts, bike helmets, and smoke detectors Diet: -Eats 2 meals per day and 1-2 snacks per day -Typical beverages include water and sugar containing beverages -Fruits and vegetables are not eaten routinely -# of fast food meals/week: 2 -# of days/week that family has dinner together: 2 Elimination: no concerns, normal size and consistency Dental: dental care not current Sleep: -no sleep concerns Vision: Wears glasses and Vision screening completed by eye doctor Hearing: No hearing concerns Growth: No growth concerns Substance use: none Sexual History: Attraction: female Sexually Active: Yes Number of lifetime partners: 1 Contraception: condoms every time History of STI: No Hx of STI/HIV testing? No Any new partners since last testing? No Penile discharge: No Body image: satisfactory Screening tools reviewed and discussed with patient/[id number]-C and Social Determinants of Health. Please see Patient Entered Data. OBJECTIVE Physical Exam: BP 122/72 Pulse 80 Temp 37 ?C (98.6 ?F) (Temporal Artery) Resp 18 Ht 185.5 cm (6' 1.03) Wt 108.6 kg (239 lb 8 oz) BMI 31.57 kg/m? Blood pressure percentiles are 61 % systolic and 61 % diastolic based on the 2017 AAP Clinical Practice Guideline. This reading is in the elevated blood pressure range (BP >= 120/80). Last BMI: Wt: 110.2 kg (243 lb) (>99 %, Z= 2.44)* BMI: 32.38 kg/(m2) Last 4 Encounter Wt Readings: Date: Wt: 12/25/2021 110.2 kg (243 lb) (>99 %, Z= 2.44)* 12/20/2021 107.4 kg (236 lb 12.8 oz) (>99 %, Z= 2.35)* 10/20/2021 109.1 kg (240 lb 9.6 oz) (>99 %, Z= 2.43)* 08/08/2021 101.6 kg (224 lb) (99 %, Z= 2.20)* Last 4 Encounter Ht Readings: Date: Ht: 08/24/2020 184.5 cm (6' 0.64) (93 %, Z= 1.48)* 06/22/2020 184 cm (6' 0.44) (93 %, Z= 1.46)* 11/11/2019 183 cm (6' 0.05) (94 %, Z= 1.57)* 01/08/2019 179.6 cm (5' 10.71) (95 %, Z= 1.61)* General: Well developed, No acute distress Head: normocephalic Eyes: conjunctivae/corneas clear Ears: normal external ear and canal, tympanic membranes with normal landmarks Nose: no erythema or rhinorrhea Oropharynx: moist mucous membranes, no erythema or exudate Neck: Supple, no adenopathy Resp: lungs clear to auscultation Heart: RRR, normal S1 and S2. , No murmurs Abdomen: Soft, nontender, nondistended, no palpable organomegaly or masses Genitalia: Dany stag (more content not included)... Normal [facility] CNOVon 12-25-2021 CNOV Office Visit (PEDSWS ) ----- CHELSEA CRAWLEY ([id number]) 3 M Date Time Provider Department 12/25/21 2:00 PM ANAMIKA BEAUCHAMP During your visit today, we recorded the following information about you: Temperature Pulse Respiration Blood pressure 98.4 degrees 88/minute 20/minute 136/70 Weight 110.2 kg Anamika Beauchamp PA-C 12/25/2021 4:56 PM Signed PEDIATRIC SICK VISIT SERVICE DATE: 12/25/2021 SUBJECTIVE: Chelsea Crawley is a 16 year old male accompanied by mother for evaluation of persistent dry cough x 2 months. Seen in on 12/20/21 for cough, fatigue, sore throat, and headache. Review of chart reveals symptoms present at that time for 2 weeks; however, mother states he had been sick for at least 2 months. Strep swab at that time was negative. Patient given a prednisone taper. Mother states this was prescribed due to chronic nature of cough. Patient denies any additional symptoms. No fever, congestion, rhinorrhea, sore throat, headache, and fatigue. Mother does report personal history of COVID-19 for which she is still dealing with prolonged sxs. Patient and girlfriend symptomatic around the same time, but tested negative for COVID-19. History positive for childhood asthma in patient and mother. History was obtained from: mother and patient Modifying factors attempted: Prednisone Albuterol inhaler (mothers, only used a few times) OTC cold medicine HISTORY: ACTIVE PROBLEM LIST Adhd (Attention Deficit Hyperactivity Disorder) Pdd (Pervasive Developmental Disorder) Bmi (Body Mass Index), Pediatric 95-99% for Age, Obese Child Structured Weight Management/Multidisciplin sena Intervention Category Acne Vulgaris PAST MEDICAL HISTORY Diagnosis Date ADHD (attention deficit hyperactivity disorder) 2009 Age 3 Behavior disturbance Broken arm 2008 Broken left forearm Encopresis(307.7) ODD (oppositional defiant disorder) 2009 PDD (pervasive developmental disorder) Wheezing PAST SURGICAL HISTORY Procedure Laterality Date ANES NERVE MUSCLE TDN FASCIAANDBURSA FOREARM WRIST Left forearm , greenstick PAST SURGICAL HISTORY OF cyst removed from right eye PAST SURGICAL HISTORY OF frenulum cut Allergies: ALLERGIES Allergen Reactions Mold alternaria Medications: predniSONE (DELTASONE) 10 mg tablet Take 4 tabs daily for 3 days, then 2 tabs daily for 3 days, then 1 tab daily for 3 days with food. lisdexamfetamine (VYVANSE) 50 mg capsule Take 1 capsule by mouth once daily for 30 days. cetirizine HCl (ZYRTEC ORAL) Take by mouth. albuterol HFA (PROVENTIL HFA, VENTOLIN HFA) 90 mcg/actuation inhaler Inhale 2 puffs every 4 - 6 hours as needed for cough or wheezing ibuprofen (MOTRIN ORAL) Take by mouth. ketoconazole (NIZORAL) 2 % shampoo Apply to affected area once daily as needed. lisdexamfetamine (VYVANSE) 50 mg capsule Take 1 capsule by mouth once daily for 30 days. lisdexamfetamine (VYVANSE) 50 mg capsule Take 1 capsule by mouth once daily for 30 days. REVIEW OF SYSTEMS: As above, otherwise negative OBJECTIVE: BP 136/70 Pulse 88 Temp 36.9 ?C (98.4 ?F) (Temporal Artery) Resp 20 Wt 110.2 kg (243 lb) SpO2 100% General: alert and active in no apparent distress Eyes: conjunctiva clear, EOMI Neck: supple, no adenopathy Lungs: clear to auscultation bilaterally, good air exchange, no retractions, no wheezes, rales, or rhonchi CVS: Normal rate, regular rhythm, no murmur Skin: No rashes, lesions or skin changes ASSESSMENT/PLAN: Encounter Diagnosis ICD-10-CM 1. Chronic cough R05.3 XR CHEST 2V FRONTAL/LAT - Discussed with mother and patient that cough appears to be post-viral - Discussed how some coughs can linger for weeks to months especially if patient has underlying asthma - Reviewed normal physical examination findings and reassuring oxygen saturation. Discussed that I did not feel CXR was needed at this time; however, mother preferred to get one. X-ray ordered per mother's request - Albuterol inhaler ordered. Instructed on use (every 4 - 6 hours scheduled x 2 - 3 days, then as needed for cough or wheezing) - Symptomatic care reviewed - All questions answered - Follow up in 1 week for persistent symptoms. If not improvement despite above recommendations, may consider course antibiotics for possible ?atypical pneumonia? I spent a total of 33 minutes on the date of the service which included preparing to see the patient, [id number] patient care, completing clinical documentation, obtaining and/or reviewing separately obtained history, performing a medically appropriate examination, counseling and educating the patient/family/caregiver, ordering medications, tests, or procedures, and communicating results to the patient/family/caregiver. SIGNATURE: Anamika Beauchamp PA-C PATIENT NAME: Chelsea Crawley DATE: December 25 (more content not included)... [facility] MISBAHCHELSEA YANG ([id number]) 3 M Date Time Provider Department 12/25/21 ANAMIKA BEAUCHAMP During your visit today, we recorded the following information about you: Anamika Beauchamp PA-C 12/25/2021 3:20 PM Signed Please inform mother that chest x-ray was read as normal. SON Rocha RN 12/25/2021 3:50 PM Signed Mother aware. Willam Stallworth RN Allergies As of Date: 12/25/2021 Noted Allergy Reaction MOLD 08/04/2007 Comments: alternaria Date Reviewed: 12/25/2021 Reviewed by: Willam Stallworth RN - Fully Assessed Reason for Visit: Results [95] Prescriptions as of 12/25/2021 - albuterol HFA (PROVENTIL HFA, VENTOLIN HFA) 90 mcg/actuation inhaler Inhale 2 puffs every 4 - 6 hours as needed for cough or wheezing - ibuprofen (MOTRIN ORAL) Take by mouth. - predniSONE (DELTASONE) 10 mg tablet Take 4 tabs daily for 3 days, then 2 tabs daily for 3 days, then 1 tab daily for 3 days with food. - lisdexamfetamine (VYVANSE) 50 mg capsule Take 1 capsule by mouth once daily for 30 days. - ketoconazole (NIZORAL) 2 % shampoo Apply to affected area once daily as needed. - lisdexamfetamine (VYVANSE) 50 mg capsule Take 1 capsule by mouth once daily for 30 days. - cetirizine HCl (ZYRTEC ORAL) Take by mouth. - lisdexamfetamine (VYVANSE) 50 mg capsule Take 1 capsule by mouth once daily for 30 days. Problem List As Of Date 12/25/2021 Noted Resolved Sprain and strain of unspecified site of knee a*05/08/2007 04/16/2013 ADHD (attention deficit hyperactivity disorder)* Encopresis(307.7) [R15.9] 04/16/2013 PDD (pervasive developmental disorder) [F84.9] 09/05/2011 Nondisplaced fracture of proximal phalanx of ri*10/30/2011 04/16/2013 BMI (body mass index), pediatric 95-99% for age*11/22/2017 Acne vulgaris [L70.0] 11/22/2017 Encounter Status:Closed by WILLAM STALLWORTH RN on 12/25/21 Normal [facility] XR CHEST 2V FRONTAL/LATon XR CHEST 2V FRONTAL/LAT * * *Final Report* * * DATE OF EXAM: Dec 25 2021 3:12PM WOX [id number] - XR CHEST 2V FRONTAL/LAT / PROCEDURE REASON: Chronic cough * * * * Physician Interpretation * * * * EXAMINATION: CHEST RADIOGRAPH (2 VIEW FRONTAL and LATERAL) CLINICAL HISTORY: Chronic cough MQ: XC2_6 EXAM DATE/TIME: 12/25/2021 3:12 PM COMPARISON: No relevant prior studies available. RESULT: Lines, tubes, and devices: None. Lungs and pleura: No consolidation. No pleural effusion. No pneumothorax. Cardiomediastinal silhouette: Normal cardiomediastinal silhouette. Bones and soft tissues: Unremarkable. IMPRESSION: No acute radiographic abnormality. Foam Dispenser: [facility] Transcribe Date/Time: Dec 25 2021 3:14P Dictated by : ALEX ORDOÑEZ MD This examination was interpreted and the report reviewed and electronically signed by: ALEX ORDOÑEZ MD on Dec 25 2021 3:14PM EST [id number] Normal [facility] XR Chest PA and Lateralon IMPRESSION: No acute radiographic abnormality. Foam Dispenser: [facility] Transcribe Date/Time: Dec 25 2021 3:14P Dictated by : ALEX ORDOÑEZ MD This examination was interpreted and the report reviewed and electronically signed by: ALEX ORDOÑEZ MD on Dec 25 2021 3:14PM EST DIVISION OF RADIOLOGY * * *Final Report* * * DATE OF EXAM: Dec 25 2021 3:12PM WOX [id number] - XR CHEST 2V FRONTAL/LAT / PROCEDURE REASON: Chronic cough * * * * Physician Interpretation * * * * EXAMINATION: CHEST RADIOGRAPH (2 VIEW FRONTAL & LATERAL) CLINICAL HISTORY: Chronic cough MQ: XC2_6 EXAM DATE/TIME: 12/25/2021 3:12 PM COMPARISON: No relevant prior studies available. RESULT: Lines, tubes, and devices: None. Lungs and pleura: No consolidation. No pleural effusion. No pneumothorax. Cardiomediastinal silhouette: Normal cardiomediastinal silhouette. Bones and soft tissues: Unremarkable. DIVISION OF RADIOLOGY Provider, [facility] - 12/25/2021 * * *Final Report* * * DATE OF EXAM: Dec 25 2021 3:12PM WOX 5291 - XR CHEST 2V FRONTAL/LAT / PROCEDURE REASON: Chronic cough * * * * Physician Interpretation * * * * EXAMINATION: CHEST RADIOGRAPH (2 VIEW FRONTAL & LATERAL) CLINICAL HISTORY: Chronic cough MQ: XC2_6 EXAM DATE/TIME: 12/25/2021 3:12 PM COMPARISON: No relevant prior studies available. RESULT: Lines, tubes, and devices: None. Lungs and pleura: No consolidation. No pleural effusion. No pneumothorax. Cardiomediastinal silhouette: Normal cardiomediastinal silhouette. Bones and soft tissues: Unremarkable. IMPRESSION IMPRESSION: No acute radiographic abnormality. Foam Dispenser: [facility] Transcribe Date/Time: Dec 25 2021 3:14P Dictated by : ALEX ORDOÑEZ MD This examination was interpreted and the report reviewed and electronically signed by: ALEX ORDOÑEZ MD on Dec 25 2021 3:14PM EST [facility] Radiology Study observation (narrative) [facility] XR Chest PA and LateralOrder ed By: [facility] Provider on 12-25-2021 [facility] CNOVon 12-20-2021 CNOV Office Visit (UCWSTR ) ----- CHELSEA CRAWLEY ([id number]) 3 M Date Time Provider Department 12/20/21 5:30 PM KRYSTYNA BALLARD [facility] During your visit today, we recorded the following information about you: Temperature Pulse Respiration Blood pressure 98.2 degrees 98/minute 16/minute 130/64 Weight 107.4 kg Krystyna Ballard APRN.CNP 12/20/2021 6:25 PM Signed This note was created using NoteWriter. Subjective Chelseatarah Crawley is a 16 year old male. 16 year old male with PMH ADHD presents for illness. Acute onset 2 weeks ago +sore throat + cough +fatigue +headache Denies fever or chills Denies ear pain Denies abdominal pain Denies N/V/D States it coincides with his mom being diagnosed with COVID. His girlfriend is sick as well. Has used Ibuprofen The history is provided by the patient and a parent. No russian language instructor was used. Cough This is a new problem. The current episode started more than 1 week ago. The problem occurs constantly. The problem has not changed since onset.The cough is Non-productive. There has been no fever. Associated symptoms include ear pain, headaches and sore throat. Pertinent negatives include no chest pain, no chills, no sweats, no weight loss, no ear congestion, no rhinorrhea, no myalgias, no shortness of breath, no wheezing and no eye redness. He has tried nothing for the symptoms. The treatment provided no relief. He is not a smoker. His past medical history does not include bronchitis, pneumonia, bronchiectasis, COPD, emphysema or asthma. PAST MEDICAL HISTORY Diagnosis Date ADHD (attention deficit hyperactivity disorder) 2009 Age 3 Behavior disturbance Broken arm 2008 Broken left forearm Encopresis(307.7) ODD (oppositional defiant disorder) 2009 PDD (pervasive developmental disorder) Wheezing PAST SURGICAL HISTORY Procedure Laterality Date ANES NERVE MUSCLE TDN FASCIAANDBURSA FOREARM WRIST Left forearm , greenstick PAST SURGICAL HISTORY OF cyst removed from right eye PAST SURGICAL HISTORY OF frenulum cut ALLERGIES Mold MEDICATIONS cetirizine HCl (ZYRTEC ORAL) Take by mouth. ibuprofen (MOTRIN ORAL) Take by mouth. predniSONE (DELTASONE) 10 mg tablet Take 4 tabs daily for 3 days, then 2 tabs daily for 3 days, then 1 tab daily for 3 days with food. lisdexamfetamine (VYVANSE) 50 mg capsule Take 1 capsule by mouth once daily for 30 days. ketoconazole (NIZORAL) 2 % shampoo Apply to affected area once daily as needed. lisdexamfetamine (VYVANSE) 50 mg capsule Take 1 capsule by mouth once daily for 30 days. lisdexamfetamine (VYVANSE) 50 mg capsule Take 1 capsule by mouth once daily for 30 days. FAMILY HISTORY Problem Relation Age of Onset Heart Maternal Grandfather Diabetes Maternal Grandfather other (perforated bowel) Maternal Grandmother 3 weeks later Heart Paternal Grandmother CHF Diabetes Paternal Grandfather other (Hypoglycemia) Mother Also has vitamin deficencies other (Fatty Liver) Father Social History Tobacco Use Smoking status: Never Passive exposure: Yes Smokeless tobacco: Never Tobacco comments: at moms house only - outdoor Substance Use Topics Alcohol use: No Drug use: No Review of Systems Constitutional: Positive for fatigue. Negative for activity change, appetite change, chills and weight loss. HENT: Positive for congestion, ear pain, sinus pressure, sinus pain and sore throat. Negative for rhinorrhea. Eyes: Negative for photophobia, pain, discharge, redness, itching and visual disturbance. Respiratory: Positive for cough. Negative for apnea, choking, chest tightness, shortness of breath and wheezing. Cardiovascular: Negative for chest pain, palpitations and leg swelling. Gastrointestinal: Negative for abdominal pain, diarrhea, nausea and vomiting. Musculoskeletal: Negative for arthralgias, back pain and myalgias. Skin: Negative for color change, pallor, rash and wound. Allergic/Immunologic: Positive for environmental allergies. Neurological: Positive for headaches. Negative for dizziness and facial asymmetry. Hematological: Negative for adenopathy. Does not bruise/bleed easily. Psychiatric/Behavioral: Negative for agitation and behavioral problems. Objective BP 130/64 Pulse 98 Temp 36.8 ?C (98.2 ?F) Resp 16 Wt 107.4 kg (236 lb 12.8 oz) SpO2 98% Physical Exam Vitals and nursing note reviewed. Constitutional: General: He is not in acute distress. Appearance: Normal appearance. He is not ill-appearing, toxic-appearing or diaphoretic. HENT: Head: Normocephalic and atraumatic. Right Ear: External ear normal. Left Ear: External ear normal. Nose: Nose normal. No congestion or rhinorrhea. Mouth/Throat: Mouth: Mucous membranes are moist. Pharynx: Oropharynx is clear. No oropharyngeal exudate or posterior oropharyngeal erythema. (more content not included)... Normal [facility] STREP A MOLECULAR (POC)on Procedural Control Valid [facility] Strep A (POCT) Negative Negative [facility] CHELSEA CRAWLEY ([id number]) 3 M Date Time Provider Department 10/22/21 LETTY RUGGIERO [facility] During your visit today, we recorded the following information about you: Letty Ruggiero PA-C 10/22/2021 6:22 PM Signed I called and discussed the displaced toe fracture with mom. Recommended that they see podiatry. We will have the PSS call to schedule. Recommended keith tape and stiff soled shoe. Ice, elevation. Mom agreeable with plan. Allergies As of Date: 10/22/2021 Noted Allergy Reaction MOLD 08/04/2007 Comments: alternaria Date Reviewed: 10/20/2021 Reviewed by: Luc Cota APRN.THREAD MILLING MACHINE SET UP OPERATOR - Fully Assessed Reason for Visit: Results [95] Primary Visit Diagnosis:Closed displaced fracture of proximal phalanx of lesser toe of left foot, initial encounter [S92.512A] Order(s):CONSULT TO PODIATRY [9034] Order #: [id number]: 1 FUTURE Prescriptions as of 10/22/2021 - lisdexamfetamine (VYVANSE) 50 mg capsule Take 1 capsule by mouth once daily for 30 days. - cetirizine HCl (ZYRTEC ORAL) Take by mouth. - lisdexamfetamine (VYVANSE) 50 mg capsule Take 1 capsule by mouth once daily for 30 days. Do not start before February 03, 2021. - lisdexamfetamine (VYVANSE) 50 mg capsule Take 1 capsule by mouth once daily for 30 days. - ketoconazole (NIZORAL) 2 % shampoo Washing the scalp 3 times a week, Lathering and letting sit on the scalp for 5-10 minutes before rinsing Problem List As Of Date 10/22/2021 Noted Resolved Sprain and strain of unspecified site of knee a*05/08/2007 04/16/2013 ADHD (attention deficit hyperactivity disorder)* Encopresis(307.7) [R15.9] 04/16/2013 PDD (pervasive developmental disorder) [F84.9] 09/05/2011 Nondisplaced fracture of proximal phalanx of ri*10/30/2011 04/16/2013 BMI (body mass index), pediatric 95-99% for age*11/22/2017 Acne vulgaris [L70.0] 11/22/2017 Encounter Status:Closed by LETTY RUGGIERO on 10/22/21 Normal [facility] XR TOE 3V AP/LAT/OBL LTon XR TOE 3V AP/LAT/OBL LT * * *Final Report* * * DATE OF EXAM: Oct 22 2021 4:50PM WOX 5268 - XR TOE 3V AP/LAT/OBL LT / PROCEDURE REASON: Toe injury, left, initial encounter * * * * Physician Interpretation * * * * EXAMINATION: XR TOE 3V AP/LAT/OBL LT HISTORY: stubbed left 4th toe several days ago; pain Toe injury, left, initial encounter . TECHNIQUE: XR TOE 3V AP/LAT/OBL LT Laterality: LEFT Number of different views (projections): 3 M: XB_1 COMPARISON: None. RESULT: FRACTURE: Obliquely oriented fracture through the fourth proximal phalanx. Minimal plantar displacement of the distal fracture fragment. No evidence of healing. ALIGNMENT: Otherwise normal. SOFT TISSUES: Fourth toe soft tissue swelling. OTHER FINDINGS: None. IMPRESSION: Minimally displaced fracture of the fourth proximal phalanx. Foam Dispenser: [facility] Transcribe Date/Time: Oct 22 2021 5:01P Dictated by : FABIOLA GARDNER MD This examination was interpreted and the report reviewed and electronically signed by: FABIOLA GARDNER MD on Oct 22 2021 5:02PM EST [id number] Normal [facility] XR Toes - left 3 Viewson IMPRESSION: Minimally displaced fracture of the fourth proximal phalanx. Foam Dispenser: [facility] Transcribe Date/Time: Oct 22 2021 5:01P Dictated by : FABIOLA GARDNER MD This examination was interpreted and the report reviewed and electronically signed by: FABIOLA GARDNER MD on Oct 22 2021 5:02PM EST DIVISION OF RADIOLOGY * * *Final Report* * * DATE OF EXAM: Oct 22 2021 4:50PM WOX 5268 - XR TOE 3V AP/LAT/OBL LT / PROCEDURE REASON: Toe injury, left, initial encounter * * * * Physician Interpretation * * * * EXAMINATION: XR TOE 3V AP/LAT/OBL LT HISTORY: stubbed left 4th toe several days ago; pain Toe injury, left, initial encounter . TECHNIQUE: XR TOE 3V AP/LAT/OBL LT Laterality: LEFT Number of different views (projections): 3 M: XB_1 COMPARISON: None. RESULT: FRACTURE: Obliquely oriented fracture through the fourth proximal phalanx. Minimal plantar displacement of the distal fracture fragment. No evidence of healing. ALIGNMENT: Otherwise normal. SOFT TISSUES: Fourth toe soft tissue swelling. OTHER FINDINGS: None. DIVISION OF RADIOLOGY Provider, Clyde Mora - 10/22/2021 * * *Final Report* * * DATE OF EXAM: Oct 22 2021 4:50PM WOX 5268 - XR TOE 3V AP/LAT/OBL LT / PROCEDURE REASON: Toe injury, left, initial encounter * * * * Physician Interpretation * * * * EXAMINATION: XR TOE 3V AP/LAT/OBL LT HISTORY: stubbed left 4th toe several days ago; pain Toe injury, left, initial encounter . TECHNIQUE: XR TOE 3V AP/LAT/OBL LT Laterality: LEFT Number of different views (projections): 3 M: XB_1 COMPARISON: None. RESULT: FRACTURE: Obliquely oriented fracture through the fourth proximal phalanx. Minimal plantar displacement of the distal fracture fragment. No evidence of healing. ALIGNMENT: Otherwise normal. SOFT TISSUES: Fourth toe soft tissue swelling. OTHER FINDINGS: None. IMPRESSION IMPRESSION: Minimally displaced fracture of the fourth proximal phalanx. [facility] Transcribe Date/Time: Oct 22 2021 5:01P Dictated by : FABIOLA GARDNER MD This examination was interpreted and the report reviewed and electronically signed by: FABIOLA GARDNER MD on Oct 22 2021 5:02PM [facility] Radiology Study observation (narrative) [facility] XR Toes - left 3 ViewsOrdere d By: Cc Provider on 10-22-2021 [facility] CNOVon 10-20-2021 CNOV Office Visit ([facility] ) ----- CHELSEA CRAWLEY ([id number]) 3 M Date Time Provider Department 10/20/21 1:15 PM LUC COTA [facility] During your visit today, we recorded the following information about you: Temperature Pulse Respiration Blood pressure 97.6 degrees 88/minute 21/minute 120/82 Weight 109.1 kg Luc Cota APRN.CNP 10/20/2021 3:09 PM Signed Subjective HPI HPI Chelsea Crawley is a 16 year old male who presents today for CC of left toe injury 1 day ago, kicked bed. Has tried nothing for relief. Symptoms are worsened by walking. Denies numbness/tingling of left 4th toe. .Patient presents with: Trauma: Left foot toe possibly fractured x 1 day PAST MEDICAL HISTORY Diagnosis Date ADHD (attention deficit hyperactivity disorder) 2009 Age 3 Behavior disturbance Broken arm 2008 Broken left forearm Encopresis(307.7) ODD (oppositional defiant disorder) 2009 PDD (pervasive developmental disorder) Wheezing PAST SURGICAL HISTORY Procedure Laterality Date ANES NERVE MUSCLE TDN FASCIAANDBURSA FOREARM WRIST Left forearm , greenstick PAST SURGICAL HISTORY OF cyst removed from right eye PAST SURGICAL HISTORY OF frenulum cut ALLERGIES Mold MEDICATIONS lisdexamfetamine (VYVANSE) 50 mg capsule Take 1 capsule by mouth once daily for 30 days. cetirizine HCl (ZYRTEC ORAL) Take by mouth. ketoconazole (NIZORAL) 2 % shampoo Washing the scalp 3 times a week, Lathering and letting sit on the scalp for 5-10 minutes before rinsing lisdexamfetamine (VYVANSE) 50 mg capsule Take 1 capsule by mouth once daily for 30 days. Do not start before February 03, 2021. lisdexamfetamine (VYVANSE) 50 mg capsule Take 1 capsule by mouth once daily for 30 days. FAMILY HISTORY Problem Relation Age of Onset Heart Maternal Grandfather Diabetes Maternal Grandfather other (perforated bowel) Maternal Grandmother 3 weeks later Heart Paternal Grandmother CHF Diabetes Paternal Grandfather other (Hypoglycemia) Mother Also has vitamin deficencies other (Fatty Liver) Father Social History Tobacco Use Smoking status: Never Passive exposure: Yes Smokeless tobacco: Never Tobacco comments: at moms house only - outdoor Substance Use Topics Alcohol use: No Drug use: No ROS Objective Blood pressure 120/82, pulse 88, temperature 36.4 ?C (97.6 ?F), resp. rate 21, weight 109.1 kg (240 lb 9.6 oz), SpO2 98 %. Physical Exam Constitutional: General: He is not in acute distress. Appearance: He is not toxic-appearing or diaphoretic. HENT: Head: Normocephalic and atraumatic. Pulmonary: Effort: Pulmonary effort is normal. No accessory muscle usage or respiratory distress. Musculoskeletal: Feet: Neurological: Mental Status: He is alert and oriented to person, place, and time. ASSESSMENT/PLAN: 1. Toe injury, left, initial encounter - ICD9: 959.7, ICD10: S99.922A Declined post op shoe Stiff soled shoe and/or keith tape advised. Return on Friday for xray. -call with result tx accordingly. - XR TOE AP/LAT/OBL LEFT Agrees to plan Luc Cota APRN.THREAD MILLING MACHINE SET UP OPERATOR Referring Provider: SELF [200] Allergies As of Date: 10/20/2021 Noted Allergy Reaction MOLD 08/04/2007 Comments: alternaria Date Reviewed: 10/20/2021 Reviewed by: Luc Cota APRN.THREAD MILLING MACHINE SET UP OPERATOR - Fully Assessed Reason for Visit: Trauma [112] Cmt: Left foot toe possibly fractured x 1 day Primary Visit Diagnosis:Toe injury, left, initial encounter [S99.922A] Order(s):XR TOE AP/LAT/OBL LEFT [3683470] Order #: [id number] Prescriptions as of 10/20/2021 - lisdexamfetamine (VYVANSE) 50 mg capsule Take 1 capsule by mouth once daily for 30 days. - cetirizine HCl (ZYRTEC ORAL) Take by mouth. - lisdexamfetamine (VYVANSE) 50 mg capsule Take 1 capsule by mouth once daily for 30 days. Do not start before February 03, 2021. - lisdexamfetamine (VYVANSE) 50 mg capsule Take 1 capsule by mouth once daily for 30 days. - ketoconazole (NIZORAL) 2 % shampoo Washing the scalp 3 times a week, Lathering and letting sit on the scalp for 5-10 minutes before rinsing Problem List As Of Date 10/20/2021 Noted Resolved Sprain and strain of unspecified site of knee a*05/08/2007 04/16/2013 ADHD (attention deficit hyperactivity disorder)* Encopresis(307.7) [R15.9] 04/16/2013 PDD (pervasive developmental disorder) [F84.9] 09/05/2011 Nondisplaced fracture of proximal phalanx of ri*10/30/2011 04/16/2013 BMI (body mass index), pediatric 95-99% for age*11/22/2017 Acne vulgaris [L70.0] 11/22/2017 Encounter Status:Closed by LUC COTA on 10/20/21 [facility] CNOVon 08-08-2021 CNOV Office Visit ([facility] ) ----- MISBAHCHELSEATARAH YANG ([id number]) 3 M Date Time Provider Department 08/08/21 7:45 PM LETTY RUGGIERO [facility] During your visit today, we recorded the following information about you: Temperature Pulse Respiration Blood pressure 102 degrees 111/minute 18/minute 132/80 Weight 101.6 kg Letty Ruggiero PA-C 08/08/2021 7:57 PM Signed This note was created using Carnad[employer]. Subjective Chelsea Estrada Crawley is a 16 year old male. HPI Patient presents with cough, sore throat, congestion and fevers that started 12 hours ago. No chest pain or shortness of breath. He was breathing kind of fast earlier but mom did give him cough medication which seemed to help some. No history of asthma. No vomiting or diarrhea. His mom has had some recent similar illness. No one around him has COVID that he knows of. He has not had COVID previously. No change in smell or taste. Review of Systems Constitutional: Positive for chills, fatigue and fever. HENT: Positive for congestion, rhinorrhea and sore throat. Negative for ear pain. Respiratory: Positive for cough. Cardiovascular: Negative. Gastrointestinal: Negative. Genitourinary: Negative. Musculoskeletal: Positive for myalgias. Neurological: Positive for headaches. All other systems reviewed and are negative. PAST MEDICAL HISTORY Diagnosis Date - ADHD (attention deficit hyperactivity disorder) 2009 Age 3 - Behavior disturbance - Broken arm 2008 Broken left forearm - Encopresis(307.7) - ODD (oppositional defiant disorder) 2009 - PDD (pervasive developmental disorder) - Wheezing Current Outpatient Medications Medication Sig Dispense Refill - cetirizine HCl (ZYRTEC ORAL) Take by mouth. - lisdexamfetamine (VYVANSE) 50 mg capsule Take 1 capsule by mouth once daily for 30 days. 30 capsule 0 - lisdexamfetamine (VYVANSE) 50 mg capsule Take 1 capsule by mouth once daily for 30 days. Do not start before February 03, 2021. 30 capsule 0 - lisdexamfetamine (VYVANSE) 50 mg capsule Take 1 capsule by mouth once daily for 30 days. 30 capsule 0 - ketoconazole (NIZORAL) 2 % shampoo Washing the scalp 3 times a week, Lathering and letting sit on the scalp for 5-10 minutes before rinsing No current facility-administered medications for this visit. PAST SURGICAL HISTORY Procedure Laterality Date - ANES NERVE MUSCLE TDN FASCIAANDBURSA FOREARM WRIST Left forearm , greenstick - PAST SURGICAL HISTORY OF cyst removed from right eye - PAST SURGICAL HISTORY OF frenulum cut FAMILY HISTORY Problem Relation Age of Onset - Heart Maternal Grandfather - Diabetes Maternal Grandfather - other (perforated bowel) Maternal Grandmother 3 weeks later - Heart Paternal Grandmother CHF - Diabetes Paternal Grandfather - other (Hypoglycemia) Mother Also has vitamin deficencies - other (Fatty Liver) Father Social History Tobacco Use - Smoking status: Passive Smoke Exposure - Never Smoker - Smokeless tobacco: Never Used - Tobacco comment: at moms house only - outdoor Substance Use Topics - Alcohol use: No - Drug use: No Objective BP 132/80 Pulse 111 Temp (!) 38.9 ?C (102 ?F) (Tympanic) Resp 18 Wt 101.6 kg (224 lb) SpO2 100% Physical Exam Vitals reviewed. Constitutional: Appearance: Normal appearance. He is ill-appearing. HENT: Head: Normocephalic and atraumatic. Right Ear: Tympanic membrane, ear canal and external ear normal. Left Ear: Tympanic membrane, ear canal and external ear normal. Nose: Congestion present. Mouth/Throat: Mouth: Mucous membranes are moist. Pharynx: Oropharynx is clear. Cardiovascular: Rate and Rhythm: Regular rhythm. Tachycardia present. Heart sounds: Normal heart sounds. Pulmonary: Effort: Pulmonary effort is normal. Breath sounds: Normal breath sounds. Musculoskeletal: Cervical back: Neck supple. Skin: General: Skin is warm and dry. Neurological: Mental Status: He is alert. Assessment and Plan ASSESSMENT/PLAN: 1. Viral URI with cough - ICD9: 465.9, ICD10: J06.9 - Discussed viral etiology and rationale for treatment. - Symptomatic treatment with prn analgesia - Supportive care with fluids and rest - The patient may also use OTC cough and cold meds as needed. - Follow up in 3-5 days if symptoms persist or sooner if worsening of symptoms - COVID, FLU A/B + RSV, ROUTINE - 2019 CORONAVIRUS - ROUTINE FLU A/B + RSV Letty Ruggiero PA-C Referring Provider: SELF [200] Allergies As of Date: 08/08/2021 Noted Allergy Reaction MOLD 08/04/2007 Comments: alternaria Date Reviewed: 08/08/2021 Reviewed by: Nu Styles LPN - Fully Assessed Reason for Visit: Cough [28] Cmt: cough, fever, ST and ear pain x 12 hours Primary Visit Diagnosis:Viral URI with cough [J06.9] Order(s):COVID, FLU A/B + RSV, ROUTINE [[id number]] Order #: [id number] FUTURE COVID, FLU A (more content not included)... Normal [facility] ROUTINE FLU A/B + RSVon FLUAV RNA EDWIN+probe Ql (Unsp spec) Negative Normal Negative for Influenza A by RT-PCR [facility] Comment on above: Order Comment: Speci men Type: SWAB OF INTERNAL NOSEOrdering Facility: [facility] Address: [address] [place], [place] [id number] Performed By: #### R TFRSV, 32192-8 ####[facility] LABCLIA [id number] [address] [place] FLUBV RNA EWDIN+probe Ql (Unsp spec) Negative Normal Negative for Influenza B by RT-PCR [facility] Comment on above: Order Comment: Speci men Type: SWAB OF INTERNAL NOSEOrdering Facility: [facility] Address: [address] [place], [place] [id number] Performed By: #### R TFRSV, 03320-4 ####[facility] LABCLIA [id number] [address] [place] RSV A RNA EDWIN+probe Ql (Unsp spec) Negative Normal Negative for Respiratory Syncytial Virus (RSV) by PCR [facility] Comment on above: Order Comment: Speci men Type: SWAB OF INTERNAL NOSEOrdering Facility: [facility] Address: [address] [place] [address] Performed By: #### R TFRSV, 48991-0 ####[facility] LABCLIA [id number] [address] [place] SARS-CoV-2 RNA Resp Ql EDWIN+p robeon 08-08-2021 SARS-CoV-2 (COVID-19) RNA EDWIN+probe Ql (Resp) COVID 19 RESULT: SARS-CoV-2 (Agent of COVID-19) Not Detected by RT-PCR or equivalent method. This test was developed and its performance characteristics determined by [facility]'s [facility] [place]. This test has been authorized by FDA under an Emergency Use Authorization (EUA). This test has been validated in accordance with the FDA's Guidance Document Policy for Diagnostics Testing in Laboratories Certified to Perform High Complexity Testing under CLIA prior to Emergency use Authorization for Coronavirus Disease 2019 during the Public Health Emergency issued on May 08, 2019. Test performed by [facility], [facility] [place], [address] [place] [address]. Normal [facility] Comment on above: Performed By: #### R TFRSV, 22106-7 ####[facility] LABCLIA [id number] [address] [place] CNPNon 07-30-2021 CNPN Telephone (PEDSWS) ----- MISBAHCHELSEATARAH YANG ([id number]) 3 M Date Time Provider Department 07/30/21 NATHAN YE During your visit today, we recorded the following information about you: Anajli Flores RN 07/30/2021 3:52 PM Signed work permit on your desk for review/signature. Last [facility] 08-24-20, ADHD med check 05-28-21 Nathan Ye MD 07/31/2021 10:04 AM Signed Form completed and signed Anjali Flores RN 07/31/2021 10:35 AM Signed form signed per [place], message left for parent to call office per note on form. [phone]. Form at 3rd floor nurse's station Anjali Iglesias RN 07/31/2021 2:23 PM Signed Mother returned the call. She states that she will have patient come in to office this afternoon to pick up worker the form. She is aware that it will be on the 3rd floor. Jackie Avitia LPN 07/31/2021 3:36 PM Signed Mom picked up form on the 3rd floor. Allergies As of Date: 07/30/2021 Noted Allergy Reaction MOLD 08/04/2007 Comments: alternaria Date Reviewed: 05/28/2021 Reviewed by: Pete Carranza Cma - Fully Assessed Reason for Visit: WORK PERMIT [Other] Prescriptions as of 07/31/2021 - lisdexamfetamine (VYVANSE) 50 mg capsule Take 1 capsule by mouth once daily for 30 days. - lisdexamfetamine (VYVANSE) 50 mg capsule Take 1 capsule by mouth once daily for 30 days. Do not start before February 03, 2021. - lisdexamfetamine (VYVANSE) 50 mg capsule Take 1 capsule by mouth once daily for 30 days. 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 No focal lesion orintrahepatic biliary ductal dilatation. There is heterogeneity along thegallbladder fossa. Findings are most consistent with fatty infiltration of theliver. Craniocaudal dimension of the right hepatic lobe is mildly enlargedmeasuring 15.8 cm.GALLBLADDER: Normal.CBD: Normal.CBD diameter: 3 mm.PANCREAS: Visualized portions appear normal.SPLEEN: Normal.Spleen length: 11.5 cm.KIDNEYS: Normal.Right kidney length: 10.4 cm.Left kidney length: 10.7 cm.AORTA / IVC: Visualized portions are patent.URINARY BLADDER: Normal.IMPRESSION: Findings likely reflect fatty infiltration of the liver.This report has been created using voice recognition softwareSigned by: Dr. Maria Del Carmen Santacruz at 02/03/2018 10:[address] [facility] Endomysial IgA Abon 01-23-20 18 Endomysial IgA Ab Negative Normal Negative [facility] Comment on above: Result Comment: A ne gative serum IgA endomysial antibody is usually seen innormal individuals, however a diagnosis of celiac disease,dermatitis herpetiformis and other gluten sensitivedisorders cannot be completely excluded, as this test maybe negative in a subset of individuals with thesedisorders. If the clinical suspicion for one of thesedisorders is high, recommend further testing for glutensensitivity as indicated by the [facility] DiseaseCom[facility] ([place] Test [facility] Code CDCOM). Inaddition serum IgA endomysial antibody may also be negativein gluten-sensitive patients (with celiac disease,dermatitis herpetiformis or other gluten-sensitivedisorders), who adhere to a strict gluten-free diet. ADDITIONAL INFORMATION This test has been modified from the physical therapist aide'sinstructions. Its performance characteristics weredetermined by [facility] in a manner consistent with CLIArequirements. This test has not been cleared or approved bythe U.S. Food and Drug Administration.Test Performed by:[place] [address] Performed By: #### E NDOM ####[address] [phone] Hepatitis Acute Panelon 01-08 Hep B Core Ab, IgM Negative Normal Negative [facility] Comment on above: Performed By: #### H ACTP ####[address] [phone] Hepatitis A Ab, IgM Negative Normal Negative [facility] Comment on above: Result Comment: Resu lt does not exclude the possibility of exposure tohepatitis A virus. Antibody level during early infectionstage may be below the limit of detection of the assay. Performed By: #### H ACTP ####[address] [phone] Hepatitis Bs Antigen Negative Normal Negative [facility] Comment on above: Performed By: #### H ACTP ####[address] [phone] Hepatitis C Antibody Negative Normal Negative [facility] Comment on above: Result Comment: Sign uf-qv-lduaxd ratio is <1.00.Test Performed by:[facility] [id number] [facility], [place] [address] Performed By: #### H ACTP ####[address] [phone] Immunoglobulin Aon 8 Immunoglobulin A 159 mg/dL Normal 58-359 [facility] Comment on above: Performed By: #### I GA ####[address] [phone] Transglutaminase IgAon 01-21 Transglutaminase IgA <20.00 Normal 0.00-20.[address] [facility] Comment on above: Result Comment: Nega tive: < 20 UnitsWeak Positive: 20-30 UnitsModerate to Strong Positive: > 30 Units Performed By: #### T RGLA ####[address] [phone] T4,Freeon 01-20-2018 T4 free mass conc 1.2 ng/dL Normal 0.9-1.6 [facility] Comment on above: Result Comment: New Reference Ranges - effective 12/28/08. Performed By: #### T 4FR ####[address] [phone] TSHon 01-20-2018 Thyrotropin Qn 2.282 uIU/mL Normal 0.350-5.500 [facility] Comment on above: Performed By: #### T SH ####[address] [phone] Ammoniaon 01-19-2018 Ammonia mass conc (P) 29 umol/L Normal 16-60 [facility] Comment on above: Performed By: #### A MON ####[address] [phone] Amylaseon 01-19-2018 Amylase enzyme act/vol 83 U/L Normal 28-100 [facility] Comment on above: Performed By: #### A MYL ####[address] [phone] Basic Metabolic Panelon 01-08 Calcium mass conc 9.4 mg/dL Normal 7.6-11.0 [facility] Comment on above: Performed By: #### B MP ####[address] [phone] Chloride molar conc 100 mmol/L Normal 96-108 [facility] Comment on above: Performed By: #### B MP ####[address] [phone] CO2 molar conc 24.7 mmol/L Normal 22.0-29.0 [facility] Comment on above: Performed By: #### B MP ####[address] [phone] Creatinine mass conc 0.72 mg/dL Normal 0.50-0.[address] [facility] Comment on above: Result Comment: Isiah ature 0.3-1.0 mg/dL Performed By: #### B MP ####[address] [phone] Glucose mass conc 78 mg/dL Normal 70-99 [facility] Comment on above: Result Comment: Lobo veliz for Diagnosis of Diabetes(Effective 08/13/10):Fasting specimen (no caloric intake for at least 8 hours). <100 mg/dl Normal 100-125 mg/dl Increased Risk for Diabetes >125 mg/dl Diagnostic for DiabetesRandom Glucose (any time of day without regard to last meal). >=200 mg/dl plus Classic Symptoms of Diabetes Performed By: #### B MP ####[address] [phone] Potassium molar conc 3.7 mmol/L Normal 3.3-5.[address] [facility] Comment on above: Performed By: #### B MP ####[address] [phone] Sodium molar conc 135 mmol/L Normal 133-145 [facility] Comment on above: Performed By: #### B MP ####[address] [phone] Urea nitrogen mass conc 12 mg/dL Normal 4-19 [facility] Comment on above: Performed By: #### B MP ####[address] [phone] Complete Blood Counton 01-19 Differential Complete Automated Normal [facility] Comment on above: Performed By: #### C BC ####[address] [phone] % Neutrophils 55.6 % Normal 34.0-64.0 [facility] Comment on above: Performed By: #### C BC ####[address] [phone] Basophils/100 WBC Auto (Bld) 0.70 % Normal 0.00-1.00 [facility] Comment on above: Performed By: #### C BC ####[address] [phone] Eosinophils/100 WBC Auto (Bld) 2.90 % Normal 0.00-3.00 [facility] Comment on above: Performed By: #### C BC ####[address] [phone] Erythrocyte distribution width Auto Ratio (RBC) 13.3 % Normal 0.0-14.4 [facility] Comment on above: Performed By: #### C BC ####[address], [place] [phone] Hematocrit Auto Volume Fraction (Bld) 43.5 % Normal 36.0-47.0 [facility] Comment on above: Performed By: #### C BC ####[address] [phone] Hemoglobin mass conc (Bld) 14.5 g/dL Normal 13.0-15.2 [facility] Comment on above: Performed By: #### C BC ####[address] [phone] Immature granulocytes/100 WBC (Bld) 0.10 % Normal [facility] Comment on above: Result Comment: Susanna ture Granulocyte Percent includes promyelocytes, myelocytes,and metamyelocytes. IG% > 1.0 indicates a left shift ispresent. With automated differentials, bands are includedin the neutrophil count and not in the Immature GranulocytePercent. Performed By: #### C BC ####[address] [phone] Lymphocytes/100 WBC Auto (Bld) 30.4 % Normal 25.0-45.0 [facility] Comment on above: Performed By: #### C BC ####[address] [phone] MCH Auto Entitic mass (RBC) 28.3 pg Normal 25.0-35.0 [facility] Comment on above: Performed By: #### C BC ####[address] [phone] MCHC Auto mass conc (RBC) 33.3 % Normal 31.0-37.0 [facility] Comment on above: Performed By: #### C BC ####[address] [phone] MCV Auto Entitic volume (RBC) 84.8 fL Normal 78.0-96.0 [facility] Comment on above: Performed By: #### C BC ####[address] [phone] Monocytes/100 WBC Auto (Bld) 10.30 % High 3.00-6.00 [facility] Comment on above: Performed By: #### C BC ####[address] [phone] Neutrophils Auto #/vol (Bld) 3.[address] [facility] Comment on above: Performed By: #### C BC ####[address] [phone] Nucleated RBC/100 WBC Ratio (Bld) 0.0 % Normal -1.0-0.0 [facility] Comment on above: Performed By: #### C BC ####[address] [phone] Platelet mean volume Auto Entitic volume (Bld) 9.[address] [facility] Comment on above: Result Comment: MPV is plateletrange and agedependent Performed By: #### C BC ####[address] [phone] Platelets Auto #/vol (Bld) 243 10*3/uL Normal 150-450 [facility] Comment on above: Performed By: #### C BC ####[address] [phone] RBC Auto #/vol (Bld) 5.13 10E12/L High 4.50-5.10 [facility] Comment on above: Performed By: #### C BC ####[address] [phone] WBC Auto #/vol (Bld) 7.0 10*3/uL Normal 4.5-13.0 [facility] Comment on above: Performed By: #### C BC ####[address] [phone] Creatine Kinaseon 01-19-2018 CK enzyme act/vol 326 U/L High 24-195 [facility] Comment on above: Performed By: #### C K ####[address] [phone] ESRon 01-19-2018 ESR Sed Rate [address] [facility] Comment on above: Performed By: #### S RATE ####[address] [phone] Interpretation ----- Normal [facility] Comment on above: Result Comment: Male FemaleChild 0-13 Child 0-13Adult 0- 9 Adult 0-20 Performed By: #### S RATE ####[address] [phone] GGTon 01-19-2018 Gamma glutamyl transferase [Enzymatic activity/volume] in Serum or Plasma 16 U/L Normal 2-42 [facility] Comment on above: Performed By: #### G GT ####[address] [phone] Hepatic Panelon 01-19-2018 Albumin mass conc 4.5 g/dL Normal 3.2-4.5 [facility] Comment on above: Performed By: #### L IVER ####[address] [phone] ALP enzyme act/vol 307 U/L Normal 74-390 [facility] Comment on above: Performed By: #### L IVER ####[address] [phone] ALT enzyme act/vol 37 U/L Normal 0-41 [facility] Comment on above: Performed By: #### L IVER ####[address] [phone] AST enzyme act/vol 36 U/L Normal 0-37 [facility] Comment on above: Performed By: #### L IVER ####[address] [phone] Bili,Conjugated 0.1 mg/dL Normal 0.0-0.7 [facility] Comment on above: Performed By: #### L IVER ####[address] [phone] Bili,Total 0.8 mg/dl Normal 0.0-1.0 [facility] Comment on above: Result Comment: Isiah ature : 1 Day 1.0-6.0 mg/dl 2 Day 6.0-8.0 mg/dl 3-5 Day 10.0-15.0 mg/dl Performed By: #### L IVER ####[address] [phone] Protein mass conc 7.6 g/dL Normal 5.9-8.4 [facility] Comment on above: Performed By: #### L IVER ####[address] [phone] Lipaseon 01-19-2018 Lipase enzyme act/vol 25 U/L Normal 16-63 [facility] Comment on above: Performed By: #### L IPAS ####[address] [phone] Progress Noteon 01-19-2018 [employer] Authentication Interface Message Text Chelsea Crawley is here for ? elevated Liver enzymes---History from parent and patientHistory of Present IllnessMy advice was requested by Shweta Gray MD.He is accompanied by his mother (and mother's fiance).No russian language instructor was used.ABD pain - No issues---no pain; just hungryStooling - No changes---every other day---No blood---Brown---No diarrhea---no acholic stoolsUO - No issuesN/V - No issuesAppetite - Doing wellGrowth - Has been gaining weight over timeActivity - Doing well---wanting to go to the gym; wants to work out---plays footballFevers - No issuesRashes - No issues---+Acne - on MinocyclineJoints - No pain or swellingMouth - No soresEyes - NO pain or swellingJaundice - No issuesBleeding - No issues---no epistaxis; but sometimes - will have some issues - but stops on it's own;has not needed intervention ---last was 2 months agoMental Status Changes - No issuesCurrently - Doing wellPast Medical HistoryNo past medical history on file.Past Surgical HistoryNo past surgical history on file.AllergiesNo Known AllergiesMedicationsOutpa tient Encounter Medications as of 01/19/2018Medication Sig Dispense Refill lisdexamfetamine (VYVANSE) 50 MG capsule Take 50 mg by mouth daily Minocycline HCl 100 MG SOLR Take 100 mg by mouth 2 times daily Adapalene (DIFFERIN) 0.1 % GEL Apply to affected area Ibuprofen (MOTRIN) 400 MG tablet Take by mouth every 8 hours as needed forPainNo facility-administered encounter medications on file as of 01/19/2018.Family Medical HistoryFamily HistoryProblem Relation Age of Onset Frequent UTI's Mother Other Mother weight loss surgery Asthma Mother Bleeding Prob Mother Gallbladder Disease Mother Gastroesophageal reflux Mother Irritable Bowel Syndrome Mother Thyroid Disease Mother High Cholesterol Maternal Grandfather Stroke Maternal Grandfather High Cholesterol Paternal Grandmother Heart Disease Paternal Grandmother Heart Attack Paternal Grandmother Hypertension Paternal Grandmother Kidney Disease Paternal Grandmother Kidney Disease Paternal Grandfather High Cholesterol Paternal Grandfather Frequent UTI's Paternal Grandfather Diabetes Paternal Grandfather Other Father fatty liver Hypertension Half-Sister Bleeding Prob Maternal Grandmother Hemodialysis Dependent Neg Hx Peritoneal Dialysis Dependent Neg Hx Renal failure without dialysis Neg Hx Sudden Cardiac Neg Hx Anesth Problems Neg Hx Blood Disorders Neg Hx Celiac Disease Neg Hx Colon Cancer Neg Hx Colon Polyps Neg Hx Constipation Neg Hx Crohn's Disease Neg Hx Cystic Fibrosis Neg Hx Eosinophilic Esophagitis Neg Hx Hirschsprung's disease Neg Hx Liver Disease Neg Hx Pancreatic Disease Neg Hx Stomach Ulcer(s) Neg Hx Ulcerative Colitis Neg HxSocial HistorySocial HistorySocioeconomic History Marital status: Single Spouse name: None Number of children: None Years of education: None Highest education level: NoneSocial Needs Financial resource strain: None Food insecurity - worry: None Food insecurity - inability: None Transportation needs - medical: None Transportation needs - non-medical: NoneOccupational History NoneTobacco Use Smoking status: Never Smoker Smokeless tobacco: Never Used Tobacco comment: NO SMOKERS IN THE HOMESubstance and Sexual Activity Alcohol use: None Drug use: None Sexual activity: NoneOther Topics Concern NoneSocial History Narrative NoneDietSocial HistoryReview of SystemsReview of SystemsConstitutional: Positive for weight gain. Negative for recurrent fevers andweight loss.HENT: Negative for trouble swallowing.Respiratory: Negative for coughing, wheezing and asthma.Cardiovascular: Negative for heart murmur, heart problems and chest pain.Endocrine: Negative for poor growth.Gastrointestinal: Positive for hepatitis (Mild transaminitis). Negative forconstipation, diarrhea, vomiting, heartburn, blood in stool, trouble swallowing,abdominal pain and nausea.Genitourinary: Negative for dysuria, hematuria and frequent urination.Neurological: Negative for developmental delays and seizures.Musculoskeletal: Negative for joint pain.Skin: Negative for rash.Allergy/Immune: Negative for allergies.Hematology: Negative for no easy bleeding and no anemia.The patient's past medical, surgical history, family history, and medicationswere reviewed and updated in EPIC (electronic medical record).Physical ExaminationVitals: 01/19/18 1449BP: 130/79Pulse: 82BP Readings from Last 2 Encounters:01/19/18 130/79 (93 %, Z = 1.46 / 91 %, Z = 1.32)*12/12/17 134/82 (96 %, Z = 1.77 / 95 %, Z = 1.60)BP percentiles are based on the October 2016 AAP Clinical Practice Guideline forboysWeight - Scale: (!) 84.3 kgHeight: 175 cmBody mass index is 27.53 kg/m .Physical ExamConstitutional: He appears well-developed and well-nourished. He is active. Heappears overweight (Mild). He does not appear thin.HENT:Mouth/Throat: His mucous membranes are moist.Eyes: His conjunctivae are normal.Neck: He's normal range of motion.Cardiovascular: No murmur heard.Pulmonary/Chest: Effort normal and breath sounds normal.Abdominal: His abdomen is soft. He exhibits no distension. Bowel sounds arenormal. There is no tenderness. There is no CVA tenderness present.He displaysno guarding, no rebound and no rigidity in his abdomen.There is no hepatosplenomegaly.Neurol ogical: He is alert.Skin: Skin is warm. Turgor is normal. No petechiae noted. No cyanosis. Nojaundice or pallor.Vitals reviewed.Lab ResultsSept 2018 - CCFAST - 43 (14-40)ALT - 42 (10 - 54)AP - 413Alb - 4.4Bili - 0.2Imaging FindingsNo results found.AssessmentJaden is a 12yo with a history of liver enzyme elevation. Was mild, and onlyAST; ALT and Albumin were normal. ? viral illness vs. medication vs. NAFLD.Patient looks well and has no outward signs of any liver disease. No ABD pain.No jaundice. No N/V. NO change in stool.PlanLabs - Several days for results---LFT, GGT, INR, ESR/CRP, Amylase/Lipase, Celiac, Thyroid, Acute HepABD Ultrasound - next day for resultsIf normal - may not need any other workupIf continues to be abnormal - then will proceed with other workup for otherliver diseases, but ? NAFLD would be most likely vs. Macro-AST---A1AT Def, Paul's, Hemochromatosis, Autoimmune Hep, Infectious Hep (CMV/EBV)Follow up 4-6 months, if doing well---but if workup all negative, may not need follow upSurekha Juan, LETITIA - [phone]/12/[address] [facility] Prothrombin Time AND Activat ed PTTon 01-19-2018 aPTT Coag time (Bld) 27.0 s Normal 0.0-40.[address] [facility] Comment on above: Result Comment: Chil dren < 1 yr of age may have a slightly prolongedactivated partial thromboplastin time as the test isdependent on the level to which their coagulationfactors have developed. Performed By: #### P TPTT ####[address] [phone] INR Coag RelTime (PPP) 1.1 Normal 0.7-1.3 [facility] Comment on above: Result Comment: New Normal Ranges - Effective 09/27/10Therapeutic Range for Oral AnticoagulantAnticoagulant Therapy INRStandard Therapy 2.0-3.0Prophylaxsis/Treatment of venous thrombosisTreatment of PEPrevention of systemic embolismTissue heart valvesAcute Myocardial Infarction(to prevent systemic embolism)Valvular heart diseaseAtrial fibrillationHigher Intensity 2.5-3.5Mechanical Prosthetic valvesThe INR is used only for patients on stable oral anticoagulanttherapy. It makes no significant contribution to the diagnosisor treatment of patients whose PT is prolonged for other reasons. Performed By: #### P TPTT ####[address] [phone] Prothrombin time (PT) Coag time (PPP) 11.2 s Normal 8.5-14.0 [facility] Comment on above: Result Comment: Chil dren < 1 yr of age may have a slightly prolongedprothrombin time as the test is dependent on the level towhich their coagulation factors have developed. Performed By: #### P TPTT ####[address] [phone] Progress Noteon 12-22-2017 [employer] Authentication Interface Message Text ABPM downloaded, reviewed and interpretation placed in ordering physician's mailbox for review. Normal [facility] Progress Noteon 12-12-2017 [employer] Authentication Interface Message Text Chelsea Crawley is a 12 y.o. 5 m.o. male who presents in consultationfrom Dr Ye for evaluation of elevated blood pressures. Per mom he was seenby his PCP on 11/21/2017 after he fainted on the field at football but thoughtdue to heat exhaustion. He has gained 40 pounds since 03/2017. Mom really gotworried when Chelsea checked his BP at the local [facility] and got high values:156/69, 128/81, 137/75, 136/84- (11/14/2017-11/20/2017). No significant familyhx of HTN or renal disease in young people. He does take ADHD medications buthas been on those for some time.ROS: Constitutional: negative for malaise, fatigue or fevers. Eyes: negative for altered vision, discharge, redness or periorbital edema. ENT: negative for altered hearing, ear ache, epistaxis, sore throat or orallesions. Respiratory: negative for tachypnea, wheezing or cough.Cardiac: negative for SOB, syncope, palpitations, or chest pain. GI: negative for vomiting, diarrhea, constipation, abdominal pain.: negative for dysuria, gross hematuria, urinary frequency, urgency orenuresis. Skin: negative for rash, pruritis or lesions. Musculoskeletal: negative for myalgia, weakness or joint swelling.Hematologic/lymp hatic: negative for bruising, bleeding, pallor orlymphadenopathy. Neurologic: negative for muscle weakness, paresthesia, seizures or unusualheadaches. Development: age appropriate No past medical history on file.No past surgical history on file. History Weight: 3.6 kgFamily HistoryProblem Relation Age of Onset Frequent UTI's Mother Other Mother weight loss surgery Asthma Mother High Cholesterol Maternal Grandfather Stroke Maternal Grandfather High Cholesterol Paternal Grandmother Heart Disease Paternal Grandmother Heart Attack Paternal Grandmother Hypertension Paternal Grandmother Kidney Disease Paternal Grandmother Kidney Disease Paternal Grandfather High Cholesterol Paternal Grandfather Frequent UTI's Paternal Grandfather Diabetes Paternal Grandfather Other Father fatty liver Hypertension Half-Sister Hemodialysis Dependent Neg Hx Peritoneal Dialysis Dependent Neg Hx Renal failure without dialysis Neg Hx Sudden Cardiac Neg HxSocial HistorySocial History Marital status: Single Spouse name: N/A Number of children: N/A Years of education: N/AOccupational History Not on file.Social History Main Topics Smoking status: Never Smoker Smokeless tobacco: Never Used Comment: NO SMOKERS IN THE HOME Alcohol use Not on file Drug use: Unknown Sexual activity: Not on fileOther Topics Concern Not on fileSocial History Narrative No narrative on fileCurrent Outpatient Prescriptions: lisdexamfetamine (VYVANSE) 50 MG capsule, Take 50 mg by mouth daily, Disp: ,Rfl: Minocycline HCl 100 MG SOLR, Take 100 mg by mouth 2 times daily, Disp: , Rfl: Adapalene (DIFFERIN) 0.1 % GEL, Apply to affected area, Disp: , Rfl: Ibuprofen (MOTRIN) 400 MG tablet, Take by mouth every 8 hours as needed forPain, Disp: , Rfl:Vitals: 12/12/17 1101 12/12/17 1124 12/12/17 1210BP: 138/80 122/78 134/82Pulse:Resp:Weight:P hysical ExamConstitutional: Well appearing and well-nourished. No distress. Overweight.Head: Normocephalic. Mouth/Throat: No oropharyngeal exudate. MMM.Eyes: Pupils are equal, round, and reactive to light. No scleral icterus.Ears: No external swelling or pits.Cardiovascular: Normal rate and rhythm. Normal heart sounds. No murmur.Pulmonary/Chest: Effort normal and breath sounds normal. No respiratorydistress.Abdom inal: Soft. No distension, hepatosplenomegaly or mass. Non-tender topalpation.Musculoskelet al: Extremities are warm and well perfused. No edema ortenderness.Skin: No rash or lesion noted.Labs/Imaging: I have independently reviewed any labs and imagingResults for CHELSEA CRAWLEY ( ) as of 12/18/2017 11:06 Ref. Range 12/12/2017 03:00POCT Color UR Unknown YellowPOCT Characteristic UR Unknown ClearPOCT Specific [place], Urine Latest Ref Range: 1.000 - 1.035 1.020POCT, Leukocytes, Urine Latest Ref Range: Negative NegativePOCT Nitrite, Urine Latest Ref Range: Negative NegativePOCT pH Urine Latest Ref Range: 5.0 - 7.5 pH 5.5POCT Blood, Urine Latest Ref Range: Negative NegativePOCT Protein, Urine Latest Ref Range: Negative - Trace mg/dl NegativePOCT Glucose, Urine Latest Ref Range: Negative mg/dl NegativeAssessment: Chelsea Crawley is a 12 y.o. 5 m.o. male who presents forevaluation of elevated bpPlan:Discussed with parents that his BP is borderline in the office but it isdifficult to know if it is due to anxiety. Will obtain ABPM to clarify if trulyHTN. If he is will move forward with work up including lab work, echo and renalultrasound then discuss treatment. Reviewed risk of CVA, AMI, ESRD withuncontrolled HTN.F/u pending ABPM Normal [facility] Vital Signs Date Time Vital Sign Value Performing Clinician Faci lity 12-31-2023 11:19-0400 Body height 182.9 cm Shelia Linton APRN - THREAD MILLING MACHINE SET UP OPERATOR Work Phone: [facility] [employer] 12-31-2023 11:19-0400 Body mass index (BMI) [Ratio] 37.84 kg/m2 Sherine Escalona MD Work Phone: [facility] 12-31-2023 11:19-0400 Body weight 126.55 kg Sherine Escalona MD Work Phone: [facility] 12-31-2023 11:19-0400 Diastolic blood pressure 86 mm[Hg] Sherine Escalona MD Work Phone: [facility] 12-31-2023 11:19-0400 Heart rate 80 /min Sherine Escalona MD Work Phone: [facility] 12-31-2023 11:19-0400 SaO2% (BldA) [Mass fraction] 98 % Sherine Escalona MD Work Phone: [facility] 12-31-2023 11:19-0400 Systolic blood pressure 129 mm[Hg] Sherine Escalona MD Work Phone: [employer] 12-31-2023 09:00-0400 Body mass index (BMI) [Ratio] 37.87 kg/m2 Shelia Linton APRN - THREAD MILLING MACHINE SET UP OPERATOR Work Phone: [employer] 12-31-2023 09:00-0400 Body temperature 97.5 [degF] Shelia Linton APRN - THREAD MILLING MACHINE SET UP OPERATOR Work Phone: [facility] 12-31-2023 09:00-0400 Body weight 126.64 kg Shelia Linton APRN - THREAD MILLING MACHINE SET UP OPERATOR Work Phone: [facility] 12-31-2023 09:00-0400 Diastolic blood pressure 91 mm[Hg] Shelia Linton 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 Work Phone: [facility] 12-31-2023 09:00-0400 Heart rate 82 /min Shelia Linton 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 Work Phone: [facility] 12-31-2023 09:00-0400 SaO2% (BldA) [Mass fraction] 97 % Shelia Linton 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 Work Phone: [facility] 12-31-2023 09:00-0400 Systolic blood pressure 134 mm[Hg] Shelia Linton 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 Work Phone: [facility] 12-17-2023 16:18-0400 Heart rate 118 /min PRADEEP Leong MD Work Phone: [facility] 12-17-2023 16:18-0400 Respiratory rate 20 /min PRADEEP Leong MD Work Phone: [facility] 12-17-2023 16:18-0400 SaO2% (BldA) [Mass fraction] 99 % PRADEEP Leong MD Work Phone: [facility] 12-17-2023 07:38-0400 Body temperature 97.3 [degF] PRADEEP Leong MD Work Phone: [facility] 12-17-2023 07:38-0400 Diastolic blood pressure 75 mm[Hg] PRADEEP Leong MD Work Phone: [facility] 12-17-2023 07:38-0400 Systolic blood pressure 115 mm[Hg] PRADEEP Leong MD Work Phone: [facility] 12-15-2023 01:36-0400 Body height 182.9 cm PRADEEP Leong MD Work Phone: [facility] 12-15-2023 01:36-0400 Body mass index (BMI) [Ratio] 36.62 kg/m2 PRADEEP Leong MD Work Phone: [facility] 12-15-2023 01:36-0400 Body weight 122.47 kg PRADEEP Leong MD Work Phone: [employer] 10-27-2023 09:37-0400 Diastolic blood pressure 77 mm[Hg] Noble Bridenthal 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 Work Phone: [employer] 10-27-2023 09:37-0400 Systolic blood pressure 120 mm[Hg] Noble Bridenthal 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 Work Phone: [employer] 10-27-2023 09:23-0400 Body mass index (BMI) [Ratio] 37.84 kg/m2 Noble Bridenthal 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 Work Phone: [employer] [facility] [employer] 10-27-2023 09:23-0400 Body temperature 99.1 [degF] Noble Bridenthal 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 Work Phone: [employer] 10-27-2023 09:23-0400 Body weight 126.55 kg Noble Bridenthal 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 Work Phone: [employer] 10-27-2023 09:23-0400 Heart rate 93 /min Noble Bridenthal 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 Work Phone: [employer] 10-27-2023 09:23-0400 Respiratory rate 24 /min Noble Bridenthal 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 Work Phone: [employer] 10-27-2023 09:23-0400 SaO2% (BldA) [Mass fraction] 98 % Noble Bridenthal 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 Work Phone: [employer] [facility] [employer] 05-29-2023 14:36-0400 Body height 182.9 cm Hilary Guerra TOURS CAPTAIN Work Phone: [employer] [facility] [employer] 05-29-2023 14:36-0400 Body mass index (BMI) [Percentile] Per age and sex 98.62 % Hilary Guerra TOURS CAPTAIN Work Phone: [address] 05-29-2023 14:36-0400 Body mass index (BMI) [Ratio] 37.16 kg/m2 Hilary Guerra TOURS CAPTAIN Work Phone: [employer] 05-29-2023 14:36-0400 Body temperature 98.1 [degF] Hilary Guerra TOURS CAPTAIN Work Phone: [facility] 05-29-2023 14:36-0400 Body weight 124.29 kg Hilary Guerra TOURS CAPTAIN Work Phone: [facility] 05-29-2023 14:36-0400 Diastolic blood pressure 84 mm[Hg] Hilary Guerra TOURS CAPTAIN Work Phone: [facility] 05-29-2023 14:36-0400 Heart rate 80 /min Hilary Guerra TOURS CAPTAIN Work Phone: [facility] 05-29-2023 14:36-0400 SaO2% (BldA) [Mass fraction] 96 % Hilary Guerra TOURS CAPTAIN Work Phone: [facility] 05-29-2023 14:36-0400 Systolic blood pressure 137 mm[Hg] Hilary Guerra TOURS CAPTAIN Work Phone: [facility] 02-19-2023 15:11-0500 Diastolic blood pressure 72 mm[Hg] Sherine Escalona MD Work Phone: [facility] 02-19-2023 15:11-0500 Systolic blood pressure 130 mm[Hg] Sherine Escalona MD Work Phone: [facility] 02-19-2023 14:59-0500 Body height 182.9 cm Sherine Escalona MD Work Phone: [employer] [facility] [employer] 02-19-2023 14:59-0500 Body mass index (BMI) [Percentile] Per age and sex 98.84 % Sherine Escalona MD Work Phone: [employer] [facility] 02-19-2023 14:59-0500 Body mass index (BMI) [Ratio] 37.62 kg/m2 Sherine Escalona MD Work Phone: [employer] [facility] 02-19-2023 14:59-0500 Body weight 125.83 kg Sherine Escalona MD Work Phone: [facility] 02-19-2023 14:59-0500 Heart rate 92 /min Sherine Escalona MD Work Phone: [facility] 02-19-2023 14:59-0500 SaO2% (BldA) [Mass fraction] 96 % Sherine Escalona MD Work Phone: [facility] 01-23-2023 15:14-0500 Diastolic blood pressure 78 mm[Hg] Sherine Escalona MD Work Phone: [facility] 01-23-2023 15:14-0500 Systolic blood pressure 126 mm[Hg] Sherine Escalona MD Work Phone: [facility] 01-23-2023 15:00-0500 Body height 182.9 cm Sherine Escalona MD Work Phone: [facility] 01-23-2023 15:00-0500 Body mass index (BMI) [Percentile] Per age and sex 98.76 % Sherine Escalona MD Work Phone: [facility] 01-23-2023 15:00-0500 Body mass index (BMI) [Ratio] 37.27 kg/m2 Sherine Escalona MD Work Phone: [facility] 01-23-2023 15:00-0500 Body weight 124.65 kg Sherine Escalona MD Work Phone: [facility] 01-23-2023 15:00-0500 Heart rate 98 /min Sherine Escalona MD Work Phone: [facility] 01-23-2023 15:00-0500 SaO2% (BldA) [Mass fraction] 95 % Sherine Escalona MD Work Phone: [facility] 07-11-2022 15:54-0400 Body temperature 97.81 [degF] Nathan Ye MD Work Phone: [facility] 07-11-2022 15:54-0400 Body weight 120.66 kg Nathan Ye MD Work Phone: [facility] 07-11-2022 15:54-0400 Diastolic blood pressure 78 mm[Hg] Nathan Ye MD Work Phone: [facility] 07-11-2022 15:54-0400 Heart rate 84 /min Nathan Ye MD Work Phone: [facility] 07-11-2022 15:54-0400 Respiratory rate 20 /min Nathan Ye MD Work Phone: [facility] 07-11-2022 15:54-0400 Systolic blood pressure 132 mm[Hg] Nathan Ye MD Work Phone: [facility] 01-28-2022 16:20-0500 Body height 185.5 cm Lesa Siddiqi MD Work Phone: [facility] 01-28-2022 16:20-0500 Body mass index (BMI) [Percentile] Per age and sex 97.93 % Lesa Siddiqi MD Work Phone: [facility] 01-28-2022 16:20-0500 Body temperature 98.6 [degF] Lesa Siddiqi MD Work Phone: [facility] 01-28-2022 16:20-0500 Body weight 108.64 kg Lesa Siddiqi MD Work Phone: [facility] 01-28-2022 16:20-0500 Diastolic blood pressure 72 mm[Hg] Lesa Siddiqi MD Work Phone: [facility] 01-28-2022 16:20-0500 Heart rate 80 /min Lesa Siddiqi MD Work Phone: [facility] 01-28-2022 16:20-0500 Respiratory rate 18 /min Lesa Siddiqi MD Work Phone: [facility] 01-28-2022 16:20-0500 Systolic blood pressure 122 mm[Hg] Lesa Siddiqi MD Work Phone: [facility] 12-25-2021 14:11-0400 Body temperature 98.4 [degF] Anamika Beauchamp PA-C Work Phone: [facility] 12-25-2021 14:11-0400 Body weight 110.22 kg Anamika Beauchamp PA-C Work Phone: [facility] 12-25-2021 14:11-0400 Diastolic blood pressure 70 mm[Hg] Anamika Beauchamp PA-C Work Phone: [facility] 12-25-2021 14:11-0400 Heart rate 88 /min Anamika Beauchamp PA-C Work Phone: [facility] 12-25-2021 14:11-0400 Respiratory rate 20 /min Anamika Beauchamp PA-C Work Phone: [facility] 12-25-2021 14:11-0400 SaO2% (BldA) [Mass fraction] 100 % Anamika Beauchamp PA-C Work Phone: [facility] 12-25-2021 14:11-0400 Systolic blood pressure 136 mm[Hg] Anamika Beauchamp PA-C Work Phone: [facility] 12-20-2021 17:33-0400 Body temperature 98.2 [degF] Krystyna Ballard COMPUTER FORENSICS EXAMINER.THREAD MILLING MACHINE SET UP OPERATOR Work Phone: [facility] 12-20-2021 17:33-0400 Body weight 107.41 kg Krystyna Ballard COMPUTER FORENSICS EXAMINER.THREAD MILLING MACHINE SET UP OPERATOR Work Phone: [facility] 12-20-2021 17:33-0400 Diastolic blood pressure 64 mm[Hg] Krystyna Ballard COMPUTER FORENSICS EXAMINER.THREAD MILLING MACHINE SET UP OPERATOR Work Phone: [facility] 12-20-2021 17:33-0400 Heart rate 98 /min Krystyna Ballard COMPUTER FORENSICS EXAMINER.THREAD MILLING MACHINE SET UP OPERATOR Work Phone: [facility] 12-20-2021 17:33-0400 Respiratory rate 16 /min Krystyna Ballard COMPUTER FORENSICS EXAMINER.THREAD MILLING MACHINE SET UP OPERATOR Work Phone: [facility] 12-20-2021 17:33-0400 SaO2% (BldA) [Mass fraction] 98 % Krystyna Ballard COMPUTER FORENSICS EXAMINER.THREAD MILLING MACHINE SET UP OPERATOR Work Phone: [facility] 12-20-2021 17:33-0400 Systolic blood pressure 130 mm[Hg] Krystyna Femi COMPUTER FORENSICS EXAMINER.THREAD MILLING MACHINE SET UP OPERATOR Work Phone: [facility] 10-20-2021 13:38-0400 Body temperature 97.59 [degF] Luc Cipriano COMPUTER FORENSICS EXAMINER.THREAD MILLING MACHINE SET UP OPERATOR Work Phone: [facility] 10-20-2021 13:38-0400 Body weight 109.14 kg Luc Cipriano COMPUTER FORENSICS EXAMINER.THREAD MILLING MACHINE SET UP OPERATOR Work Phone: [facility] 10-20-2021 13:38-0400 Diastolic blood pressure 82 mm[Hg] Luc Cipriano COMPUTER FORENSICS EXAMINER.THREAD MILLING MACHINE SET UP OPERATOR Work Phone: [facility] 10-20-2021 13:38-0400 Heart rate 88 /min Luc Cipriano COMPUTER FORENSICS EXAMINER.THREAD MILLING MACHINE SET UP OPERATOR Work Phone: [facility] 10-20-2021 13:38-0400 Respiratory rate 21 /min Luc Cipriano COMPUTER FORENSICS EXAMINER.THREAD MILLING MACHINE SET UP OPERATOR Work Phone: [facility] 10-20-2021 13:38-0400 SaO2% (BldA) [Mass fraction] 98 % Luc King COMPUTER FORENSICS EXAMINER.THREAD MILLING MACHINE SET UP OPERATOR Work Phone: [facility] 10-20-2021 13:38-0400 Systolic blood pressure 120 mm[Hg] Luc Cipriano COMPUTER FORENSICS EXAMINER.THREAD MILLING MACHINE SET UP OPERATOR Work Phone: [facility] 08-08-2021 19:41-0400 Body temperature 102 [degF] Letty Athy PA-C Work Phone: [facility] 08-08-2021 19:41-0400 Body weight 101.61 kg Letty Athy PA-C Work Phone: [facility] 08-08-2021 19:41-0400 Diastolic blood pressure 80 mm[Hg] Letty Athy PA-C Work Phone: [facility] 08-08-2021 19:41-0400 Heart rate 111 /min Letty Athy PA-C Work Phone: [facility] 08-08-2021 19:41-0400 Respiratory rate 18 /min Lettynatalio Lackeyy PA-C Work Phone: [facility] 08-08-2021 19:41-0400 SaO2% (BldA) [Mass fraction] 100 % Lettynatalio Lackeyy PA-C Work Phone: [facility] 08-08-2021 19:41-0400 Systolic blood pressure 132 mm[Hg] Letty Ruggiero PA-C Work Phone: [facility] Encounters Encounter Date Encounter Type Care Provider Facility Start: 12-31-2023 End: 12-31-2023 Office outpatient visit 25 minutes Sherine Escalona MD Work Phone: [facility] Internal Medicine [facility] Comment on above: Pneumonia of left lo wer lobe due to Mycoplasma pneumoniae (Primary Dx); Attention deficit hyperactivity disorder (ADHD), predominantly hyperactive type; History of asthma Start: 12-31-2023 End: 12-31-2023 ambulatory SHERINE ESCALONA [facility] Start: 12-31-2023 End: 12-31-2023 ambulatory SHELIA LINTON [facility] Start: 12-31-2023 End: 12-31-2023 Office outpatient visit 15 minutes Shelia Linton APRN - THREAD MILLING MACHINE SET UP OPERATOR Work Phone: [facility] Pulmonary and Sleep Medicine [facility] Comment on above: Hospital discharge f ollow-up (Primary Dx); Pneumonia of left lower lobe due to infectious organism; History of asthma Start: 12-15-2023 End: 12-15-2023 Subsequent hospital visit by physician [facility] [address] Exam Room [address] [facility] [address] Comment on above: Arrived Start: 12-15-2023 End: 12-15-2023 Emergency department patient visit Quin LEONG [facility] Start: 12-15-2023 End: 12-17-2023 Evaluation and management of inpatient Quin Leong MD Work Phone: [facility] Medical Surgical Unit MSU 1E Comment on above: Pneumonia due to org anism (Primary Dx) Start: 10-27-2023 End: 10-27-2023 Patient encounter procedure Adriane Garces RN [facility] Start: 10-27-2023 End: 10-27-2023 Office outpatient visit 10 minutes Noble Stephany 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 Work Phone: [facility] Comment on above: Viral upper respirat ory illness (Primary Dx) Start: 10-27-2023 End: 10-27-2023 ambulatory Adriane Garces RN [facility] Start: 05-29-2023 End: 05-29-2023 ambulatory HILARY GUERRA [facility] Start: 05-29-2023 End: 05-29-2023 Office outpatient visit 15 minutes Hilary Guerra TOURS CAPTAIN Work Phone: [facility] Internal Medicine Comment on above: Right ear pain (Prim sena Dx); Epistaxis; HIV screening declined; Need for hepatitis C screening test Start: 02-19-2023 End: 02-19-2023 [facility] Start: 02-19-2023 End: 02-19-2023 Office outpatient visit 25 minutes Sherine Escalona MD Work Phone: [facility] Comment on above: Attention deficit hy peractivity disorder (ADHD), predominantly hyperactive type (Primary Dx) Start: 01-23-2023 End: 01-23-2023 ambulatory SHERINE LORENZO [facility] Start: 01-23-2023 End: 01-23-2023 Office outpatient new 45 minutes Sherine Escalona MD Work Phone: [facility] Comment on above: Attention deficit hy peractivity disorder (ADHD), predominantly hyperactive type (Primary Dx); Epistaxis Start: 07-22-2022 Refill Nathan Ye MD Work Phone: [facility] Comment on above: Refill Request Start: 07-11-2022 End: 07-12-2022 ambulatory NATHAN YE Facility:[facility] Start: 07-11-2022 End: 07-11-2022 Office outpatient visit 25 minutes Nathan Ye MD Work Phone: [facility] Comment on above: Attention deficit hy peractivity disorder (ADHD), combined type (Primary Dx); Abnormal weight gain Start: 04-01-2022 Refill Nathan Ye MD Work Phone: [facility] Comment on above: Refill Request Start: 02-28-2022 ambulatory Lesa Mena ed, MD Work Phone: [facility] Comment on above: RE: Test Result Ques tion Start: 02-27-2022 End: 02-27-2022 ambulatory NATHAN YE Facility:[facility] Start: 02-25-2022 Refill Nathan Ye MD Work Phone: [facility] Comment on above: Refill Request Start: 01-28-2022 End: 01-28-2022 ambulatory NATHAN YE Facility:[facility] Start: 01-28-2022 End: 01-28-2022 Patient encounter procedure Lesa Siddiqi MD Work Phone: [facility] Comment on above: Encounter for routin e child health examination w/o abnormal findings (Primary Dx); Abnormal weight gain; Encounter for immunization Start: 01-28-2022 End: 01-28-2022 Patient encounter status Lesa Siddiqi MD Work Phone: [facility] Start: 01-25-2022 ambulatory Nathan Ye MD Work Phone: [facility] Comment on above: RE: Non-Urgent Medic al Question Start: 01-14-2022 Refill Nathan Ye MD Work Phone: [facility] Comment on above: Refill Request Start: 12-27-2021 ambulatory Anamika Beauchamp PA-C Work Phone: [facility] Start: 12-27-2021 Follow-up encounter Anamika Fritz PA-C Work Phone: [facility] Comment on above: Visit Follow Up Ques tion Start: 12-25-2021 End: 12-25-2021 ambulatory NATHAN YE Facility:[facility] Start: 12-25-2021 End: 12-25-2021 Subsequent hospital visit by physician Xr [facility] Work Phone: Radiology Comment on above: Chronic cough [R05.3 ] Start: 12-25-2021 End: 12-25-2021 Patient encounter procedure Anamika Beauchamp PA-C Work Phone: [facility] Comment on above: Chronic cough (Prima ry Dx) Start: 12-20-2021 End: 12-20-2021 ambulatory NATHAN YE Facility:[facility] Start: 12-20-2021 End: 12-20-2021 Patient encounter procedure Krystyna Ballard COMPUTER FORENSICS EXAMINER.THREAD MILLING MACHINE SET UP OPERATOR Work Phone: [facility] Comment on above: Pharyngitis, unspeci fied etiology (Primary Dx) Start: 12-12-2021 ambulatory Nathan Ye MD Work Phone: [facility] Comment on above: Non-Urgent Medical Q uestion Refill Request Start: 11-09-2021 Refill Nathan Ye MD Work Phone: [facility] Comment on above: Refill Request Start: 10-22-2021 End: 10-22-2021 ambulatory [facility] Facility:[facility] Start: 10-22-2021 End: 10-22-2021 Subsequent hospital visit by physician Marlo [facility] Work Phone: Radiology Comment on above: Toe injury, left, in itial encounter [S99.922A] Start: 10-22-2021 Telephone encounter Letty viramontes PA-C Work Phone: [facility] Comment on above: Results Start: 10-20-2021 End: 10-20-2021 ambulatory NATHAN YE Facility:[facility] Start: 10-20-2021 End: 10-20-2021 Patient encounter procedure Luc Cota APRN.THREAD MILLING MACHINE SET UP OPERATOR Work Phone: [facility] Comment on above: Toe injury, left, in itial encounter (Primary Dx) Start: 08-25-2021 Refill Nathan Ye MD Work Phone: [facility] Comment on above: Refill Request Start: 08-08-2021 End: 08-08-2021 ambulatory NATHAN YE Facility:[facility] Start: 08-08-2021 End: 08-08-2021 Patient encounter procedure Letty Preeti Ruggiero PA-C Work Phone: [facility] Comment on above: Viral URI with cough (Primary Dx) Start: 07-30-2021 Telephone encounter Nathan johnson MD Work Phone: [facility] Comment on above: WORK PERMIT Start: 07-23-2021 Refill Nj shin MD Work Phone: [facility] Comment on above: Refill Request Start: 06-19-2021 Refill Nathan Ye MD Work Phone: [facility] Comment on above: Refill Request Start: 02-03-2018 End: 02-04-2018 Patient encounter procedure [facility] Start: 01-19-2018 End: 01-20-2018 Patient encounter procedure [facility] Start: 01-19-2018 End: 01-19-2018 Patient encounter procedure [facility] Start: 12-22-2017 End: 12-22-2017 Patient encounter procedure ADRIANNE GONGORA [facility] Start: 12-22-2017 End: 12-22-2017 Patient encounter procedure [facility] Start: 12-12-2017 End: 12-12-2017 Patient encounter procedure SHWETA [facility] Procedures Date Procedure Procedure Detail Performing Clinician Start: 12-16-2023 End: 12-17-2023 Comprehensive metabolic panel Theresa Awan MD Work Phone: Start: 12-16-2023 Bacteria identified in Blood by Culture Gab Sutton MD Work Phone: Start: 12-16-2023 Comprehensive metabo lic panel Theresa Awan MD Work Phone: Start: 12-15-2023 Respiratory pathogen s DNA and RNA panel - Nasopharynx by EDWIN with non-probe detection Theresa Awan MD Work Phone: Start: 12-15-2023 End: 12-15-2023 Smr prim src gram/giemsa stain bct fungi/cell Gab Wanda PATE Work Phone: Start: 12-15-2023 Ct abdomen & pelvis w/contrast material J Andreia Leong MD Work Phone: Start: 12-15-2023 Urinalysis complete panel - Urine Quin Leong MD Work Phone: Start: 12-15-2023 Urnls dip stick/tabl et rgnt auto w/o microscopy Quin Leong MD Work Phone: Start: 12-15-2023 End: 12-15-2023 Bacteria identified in Blood by Culture Quin Leong MD Work Phone: Start: 12-15-2023 End: 12-15-2023 Comprehensive metabolic panel Quin Leong MD Work Phone: Start: 02-19-2023 Follow-up visit Follow-up SHERINE VENTURA Start: 01-28-2022 INFLUENZA VACCINE QUADRIVALENT 6 MO - 64 YRS IM Lesa Siddiqi MD Work Phone: Start: 01-28-2022 MENINGOCOCCAL GROUP B VACCINE 2 DOSE Lesa Siddiqi MD Work Phone: Start: 01-28-2022 [employer] COVI D-19 BIVALENT BOOSTER VACCINE, AGE 12+ YR Lesa Siddiqi MD Work Phone: Start: 01-28-2022 Adult depression scr eening assessment Lesa Siddiqi MD Work Phone: Start: 12-25-2021 Radiologic exam ches t 2 views Anamika Beauchamp PA-C Work Phone: Start: 12-20-2021 STREP A MOLECULAR (POC) Krystyna Ballard COMPUTER FORENSICS EXAMINER.THREAD MILLING MACHINE SET UP OPERATOR Work Phone: Start: 10-22-2021 Radex toe minimum 2 views Luc Cota COMPUTER FORENSICS EXAMINER.THREAD MILLING MACHINE SET UP OPERATOR Work Phone: Start: 05-28-2021 Adult depression scr eening assessment Nathan Ye MD Work Phone: Plan of Treatment Date Care Activity Detail Author Start: 07-10-2079 RSV Immunization for Adults (1 - 1-dose 75+ series) RSV Immunization for Adults (1 - 1-dose 75+ series) [facility] Start: 2064 RSV Immunization age d 60 or older (1 - 1-dose 60+ series) RSV Immunization aged 60 or older (1 - 1-dose 60+ series) [facility] Start: 2054 Zoster Vaccines (1 of 2) Zoste r Vaccines (1 of 2) [facility] Start: 12-30-2033 DTaP/Tdap/Td Vaccine s (8 - Td or Tdap) DTaP/Tdap/Td Vaccines (8 - Td or Tdap) [facility] Start: 08-14-2025 DTaP/Tdap/Td Vaccine s (7 - Td or Tdap) DTaP/Tdap/Td Vaccines (7 - Td or Tdap) [facility] Start: 08-14-2025 Urine microalbumin profile [facility] Start: 03-08-2024 End: 03-08-2024 Patient encounter procedure 03/08/2024 9:10 AM EST Office Visit [facility] Pulmonary and Sleep Medicine [facility] [address] [place], [place] [id number] Shelia Linton APRN - THREAD MILLING MACHINE SET UP OPERATOR [address] [place] [id number] [facility] Pulmonary [facility] Sleep Medicine [facility] Start: 02-25-2024 End: 12-30-2024 CT Chest WO contrast CT chest wo IV contrast Imaging Routine Pneumonia of left lower lobe due to infectious organism Expected: 02/25/2024, Expires: 12/30/2024 [facility] Work Phone: Comment on above: Expected: 02/25/2024 , Expires: 12/30/2024 Start: 02-25-2024 End: 02-25-2024 Patient encounter procedure 02/25/2024 11:30 AM EST Appointment [facility] CT Imaging [address] [place] [id number] Shelia Linton APRN - THREAD MILLING MACHINE SET UP OPERATOR [address] [place] [id number] [facility] CT Imaging Start: 12-31-2023 End: 12-31-2023 Patient encounter procedure 12/31/2023 8:40 AM EDT Office Visit [facility] Pulmonary and Sleep Medicine [facility] [address] [place] [address] Shelia Linton APRN - THREAD MILLING MACHINE SET UP OPERATOR [address] [place] [address] [facility] Pulmonary [facility] Start: 11-09-2023 COVID-19 Vaccine ( season) COVID-19 Vaccine ( season) [facility] Start: 11-09-2023 COVID-19 Vaccine ( season) COVID-19 Vaccine ( season) [facility] Start: 11-09-2023 Covid-19 Vaccine ( season) Covid-19 Vaccine ( season) [facility] Start: 11-09-2023 Influenza vaccination Influenza Vacc ine (#1) [facility] Start: 02-19-2023 End: 02-19-2023 Patient encounter procedure 02/19/2023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 12-17-2023 Note Discharge Summary Chelsea Crawley : 2005 ADMIT DATE: 12/15/2023 DISCHARGE DATE: 12/17/2023 PRIMARY CARE PHYSICIAN: Sherine Escalona MD VISIT STATUS: inpatient CODE STATUS: Full Code DISCHARGE DIAGNOSES: Mycoplasma pneumonia Localized infection only Hyponatremia Acute renal insufficiency Hyperglycemia Obesity HOSPITAL COURSE: 18 year old presented with fever, productive cough, SOB and nausea. He was admitted and placed on IVF, IV antibiotics, aerosols and was seen by Pulmonology. His pneumonia PCR was positive for mycoplasma. His antibiotics were de escalated to azithromycin. He slowly improved over his stay and was discharged home. SIGNIFICANT DIAGNOSTIC STUDIES: CT abd/pelvis CONSULTANTS: Pulmonology RECOMMENDED NEXT STEPS: Finish course of azithromycin. Follow up with PCP in one week and Pulmonology on 12/31/2023. Recommend follow up CT in 6-8 weeks. Physical Exam: Vitals: BP 115/75 (BP Location: Right arm, Patient Position: Sitting) Pulse 90 Temp 36.3 ?C (97.3 ?F) (Temporal) Resp 18 Ht 6' (1.829 m) Wt 270 lb (122 kg) SpO2 98% BMI 36.62 kg/m? Pulse Ox: SpO2 Av.3 % Min: 97 % Max: 100 % General appearance: alert, cooperative and no distress Mental Status: oriented to person, place and time and normal affect Lungs: coarse breath sounds bilaterally, normal effort Heart: regular rate and rhythm, no murmur Abdomen: soft, nontender, nondistended, bowel sounds present, no masses Extremities: no edema, redness, tenderness in the calves Skin: no gross lesions, rashes LABS: CBC: Recent Labs 12/15/2320712/16/2311912/17/2399 WBC 10.5 9.1 6.1 RBC 5.00 4.65 4.60 HGB 15.5 14.1 13.9 HCT 43.7 41.0 40.9 MCV 87.4 88.2 88.9 RDW 12.8 12.7 13.2 PLT 185 141 141 BMP: Recent Labs 12/15/2320712/16/2311912/17/2399 NA 136 130* 133* K 4.1 4.1 4.2 CL 102 102 102 CO2 24 22 25 BUN 10 11 10 CREATININE 1.28* 1.19 1.16 GLUCOSE 102* 128* 105* CALCIUM 9.5 8.6 8.6 ANIONGAP 11 6 6 LIVER PROFILE: Recent Labs 12/15/2320712/16/2311912/17/23 010 AST 40 32 43 ALT 42 35 46 BILITOT 1.4* 1.0 0.9 ALKPHOS 76 56 53 PROT 8.1 7.0 6.9 Procalcitonin: Lab Results Component Value Date PROCAL 0.14 (H) 12/16/2023 DISCHARGE MEDICATIONS: Medication List START taking these medications acetaminophen 325 MG tablet Commonly known as: Tylenol Take 2 tablets (650 mg) by mouth every 6 hours as needed for mild pain (1-3) (Fever GREATER than 100.4 F (38 C)) for up to 10 days. albuterol 108 (90 Base) MCG/ACT inhaler Commonly known as: ProAir HFA Inhale 2 puffs every 4 hours as needed for wheezing or shortness of breath. azithromycin 500 MG tablet Commonly known as: Zithromax Take 1 tablet (500 mg) by mouth Every 24 hours for 7 days. Do not start before December 18, 2023. Start taking on: December 18, 2023 guaiFENesin 600 MG 12 hr tablet Commonly known as: Mucinex Take 1 tablet (600 mg) by mouth 2 times daily for 14 days. Do not crush, chew, or split. Where to Get Your Medications These medications were sent to [facility] [address] [place] [address] Hours: Friday to Friday 10 am to 6 pm albuterol 108 (90 Base) MCG/ACT inhaler azithromycin 500 MG tablet guaiFENesin 600 MG 12 hr tablet You can get these medications from any pharmacy You don't need a prescription for these medications acetaminophen 325 MG tablet DIET: Adult diet Regular ACTIVITY: No heavy lifting. 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 FOLLOW UP QUESTIONS FOR MA/SW: 1. Did you get medications filled and taking them as instructed from discharge? 2. Are you following your discharge instructions from your hospital stay? 3. Please confirm patient is scheduled for a follow up appointment within the above time frame. DISCHARGE TIME: > 35 minutes SIGNED: Theresa Awan MD 12/17/2023, 2:40 PM [facility] 12-17-2023 Hospital Discharg e instructions Theresa Awan MD - 12/17/2023 2:37 PM EDT As tolerated Theresa Awan MD - 12/17/2023 2:37 PM EDT Regular diet documented in this encounter [facility] 12-17-2023 Note Formatting of this n ote might be different from the original. Care Management Progress Note Pt admitted with pneumonia + for Mycoplasma Pneumonae IV Rocephine and po Azithromax w Duonebs Remains febrile Pulmonary continues to follow. DCP: home when stable. Length of Stay (Days): 2 GMLOS: No GMLOS Documented [facility] 12-17-2023 Note Formatting of this n ote might be different from the original. Care Management Progress Note Pt admitted with pneumonia + for Mycoplasma Pneumonae IV Rocephine and po Azithromax w Duonebs Remains febrile Pulmonary continues to follow. DCP: home when stable. Length of Stay (Days): 2 GMLOS: No GMLOS Documented [facility] 12-17-2023 Note Care Management Prog ress Note Pt admitted with pneumonia + for Mycoplasma Pneumonae IV Rocephine and po Azithromax w Duonebs Remains febrile Pulmonary continues to follow. DCP: home when stable. Length of Stay (Days): 2 GMLOS: No GMLOS Documented [facility] 12-17-2023 Miscellaneous Notes Care Management Progress Note Pt admitted with pneumonia + for Mycoplasma Pneumonae IV Rocephine and po Azithromax w Duonebs Remains febrile Pulmonary continues to follow. DCP: home when stable. Length of Stay (Days): 2 GMLOS: No GMLOS Documented Problem: Pain - Adult Goal: Verbalizes/displays adequate comfort level or baseline comfort level Outcome: Progressing Problem: Safety - Adult Goal: Free from fall injury Outcome: Progressing Problem: Discharge Planning Goal: Discharge to home or other facility with appropriate resources Outcome: Progressing Problem: Chronic Conditions and Co-morbidities Goal: Patient's chronic conditions and co-morbidity symptoms are monitored and maintained or improved Outcome: Progressing Problem: Inadequate Breathing Pattern Goal: Patient will maintain effective ventilation Outcome: Progressing Problem: Pain - Adult Goal: Verbalizes/displays adequate comfort level or baseline comfort level 12/16/2023 1327 by Lynda Bojorquez RN Outcome: Progressing Problem: Safety - Adult Goal: Free from fall injury 12/16/2023 1327 by Lynda Bojorquez RN Outcome: Progressing Problem: Discharge Planning Goal: Discharge to home or other facility with appropriate resources 12/16/2023 1327 by Lynda Bojorquez RN Outcome: Progressing Problem: Inadequate Breathing Pattern Goal: Patient will maintain effective ventilation 12/16/2023 1327 by Lynda Bojorquez RN Outcome: Progressing Care Management Progress Note Pt remains hospitalized with pneumonia On Ra w sats 100% + febrile on Tylenol PNA PCR + for Mycoplasma pna Repeat blood cultures obtained today Po Azithromax Legionella Neg DCP: home when stable Tcc to continue to follow. Length of Stay (Days): 1 GMLOS: No GMLOS Documented Care Managment Initial Assessment Date: 12/15/2023 Patient Name: Chelsea Crawley : 2005 Patient Information Source of Information: Patient Cognition/Language: WFL - Within Functional Limits Permission given to speak with patient vaccine customer representative/caregiver as indicated: No Confirmation of Payer with patient/family: Yes Payer Name: Ale Galindo Gennius : No Confirmation of Primary Care Physician: Confirmed PCP Name: Dr. Sherine Escalona Seen in last 2 years?: Yes Primary Caregiver: Self If assistance needed, confirmed caregiver ready, willing and able to care for patient at discharge: Yes Confirmed with: Indep. Partner/SO willing and able to assist as needed Living Arrangements Current Residence: House Number of Floors 1 Number of Entry Steps: 1 Bed/Bath Levels: Both first floor Facility: Facility Name: Plan to Return: Yes Lives with: Spouse/significant other Support Systems: Spouse/significant other Activities of Daily Living Ambulation: Independent Bathing/Dressing: Independent Elimination/Continence/Toileting : Independent Feeding: Independent Who Assists with Activities of Daily Living: Self Pt is indep Instrumental Activities of Daily Living Prescription Coverage: Yes Pharmacy Used: [facility] per patient. Medication Management: Independent Transportation/Shopping: Independent Transportation Mode: Car Needs Assistance with Transportation at Discharge: No Meal Preparation: Independent Laundry/Cleaning: Independent Finances/Bill Paying: Independent Communication: Independent Types of Care Services/Equipment Utilized Care Services: Dialysis Type: NA Durable Medical Equipment: DME Provider: NONE Patient's Goal/Discharge Plan Patient expects to be discharged to: Discharge Planning Actions: Patient's Choice Rights and [employer] and Collaborative Relationships Disclosed as Indicated for Post-Acute Care: Interdisciplinary Team Engagement: Social Work Referral for: Additional Information: Pt admitted with pneumonia IV Rocephine q 24 and po Azithromax prescribed Ra sats 98% Bld cxs normal IA completed with pt at bedside. Tcc introduced self and role. 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 Verified insurance provider,pcp and anticipates would use [facility] if needed. Significant other Rebeca Metheney will be pt's ride home at ca. Val Miller RN documented in this encounter [facility] 12-17-2023 Note PULMONOLOGY CONSULT PROGRESS NOTE 12/17/2023 Hospital LOS: LOS: 2 days PULMONARY FOLLOW UP FOR: Pneumonia HPI: 18Y M with Pmhx of ADHD presents to [facility] on 12/15/2023 with C/O worsening SOB, productive cough with yellow sputum, fevers, diaphoresis, and nausea x a few days. Interval History/Event Changes: Tmax 99.9F this AM, Tachycardia improved (HR 98-100). SpO2 97% on RA. Subjectively: Patient resting in bed, NAD. Family at bedside. Patient reports that he continues to feel better. Reports that he currently has slightly nausea after eating breakfast. Reports that headache is improved with current pain medication. Reports that cough has improved and a one episode overnight. Denies any new concerns. Allergies Allergies Allergen Reactions Molds & Smuts alternaria Review of Systems Constitutional: Negative for chills, diaphoresis and fever. Respiratory: Positive for cough (improved). Negative for chest tightness, shortness of breath and wheezing. Gastrointestinal: Positive for nausea. Neurological: Positive for headaches (improved). Vitals- BP 115/75 (BP Location: Right arm, Patient Position: Sitting) Pulse 98 Temp 36.3 ?C (97.3 ?F) (Temporal) Resp 20 Ht 6' (1.829 m) Wt 270 lb (122 kg) SpO2 97% BMI 36.62 kg/m? Tmax: Temp (24hrs), Av.3 ?C (99.1 ?F), Min:36.3 ?C (97.3 ?F), Max:38.7 ?C (101.6 ?F) Hemodynamics: Cuff: Systolic (24hrs), Av , Min:115 , Max:143 /Diastolic (24hrs), Av, Min:75, Max:83 Cuff MAP:MAP (mmHg) Av.8 Min: 88 Max: 113 P: Pulse Av.5 Min: 98 Max: 112 Observed RR: Resp Av Min: 16 Max: 20 Observed O2 sats: SpO2 Av.8 % Min: 96 % Max: 100 % No intake or output data in the 24 hours ending 12/17/23824 Physical exam- Physical Exam Constitutional: General: He is not in acute distress. Appearance: He is obese. He is not ill-appearing. HENT: Mouth/Throat: Mouth: Mucous membranes are moist. Cardiovascular: Rate and Rhythm: Normal rate and regular rhythm. Pulmonary: Effort: Pulmonary effort is normal. No respiratory distress. Breath sounds: No stridor. No wheezing, rhonchi or rales. Musculoskeletal: Cervical back: Neck supple. Right lower leg: No edema. Left lower leg: No edema. Skin: General: Skin is warm. Neurological: General: No focal deficit present. Mental Status: He is alert and oriented to person, place, and time. Mental status is at baseline. Psychiatric: Mood and Affect: Mood normal. Behavior: Behavior normal. Routine labs: Recent Labs 12/15/2320712/16/2311912/17/2399 WBC 10.5 9.1 6.1 HGB 15.5 14.1 13.9 HCT 43.7 41.0 40.9 PLT 185 141 141 Recent Labs 12/15/2320712/16/2311912/17/23 010 NA 136 130* 133* K 4.1 4.1 4.2 CL 102 102 102 CO2 24 22 25 BUN 10 11 10 CREATININE 1.28* 1.19 1.16 No results for input(s): GLU in the last 72 hours. Respiratory pathogens PCR: negative Respiratory culture: in progress Pneumonia PCR panel: +Mycoplasma pneumoniae Urine antigens: Negative Blood cultures: 12/14 NGTD, 12/15 in process Lactic Acid 1.9 > 1.5 Procal 0.14 Other Laboratory - Imaging Studies: CT A/P: Reviewed and as per electronic record. CxR/CT images reviewed by me when available. ASSESSMENT AND PLAN: LLL PNA +Mycoplasma Persistent Fevers, improving Obesity BMI 36.2 - CT A/P with large area of dense/patchy consolidation left lower lobe. Pneumonia PCR +Mycoplasma Pneumoniae. No leukocytosis, Lactic acid WNL, Procal 0.14. CAP negative. Respiratory Pathogens PCR negative. - Continue Azithromycin x 5 days total - Continue Duo-nebs TID while inpatient - Will follow sputum cx / blood cx - in process, NGTD - Saturating well on RA, Monitor SpO2, Maintain above 92% - Encourage IS use - Will need repeat CT chest in 6-8 weeks - Hospital follow-up scheduled for 12/31/2023 at 8:40 AM with Shelia Linton CNP - Plans d/w Dr. Griffin, patient and family - Okay for discharge from pulmonary standpoint [facility] 12-17-2023 History of Presen t illness Narrative Images from the original note were not included. PULMONOLOGY CONSULT PROGRESS NOTE 12/17/2023 Hospital LOS: LOS: 2 days PULMONARY FOLLOW UP FOR: Pneumonia HPI: 18Y M with Pmhx of ADHD presents to [facility] on 12/15/2023 with C/O worsening SOB, productive cough with yellow sputum, fevers, diaphoresis, and nausea x a few days. Interval History/Event Changes: Tmax 99.9F this AM, Tachycardia improved (HR 98-100). SpO2 97% on RA. Subjectively: Patient resting in bed, NAD. Family at bedside. Patient reports that he continues to feel better. Reports that he currently has slightly nausea after eating breakfast. Reports that headache is improved with current pain medication. Reports that cough has improved and a one episode overnight. Denies any new concerns. Allergies Allergies Allergen Reactions Molds & Smuts alternaria Review of Systems Constitutional: Negative for chills, diaphoresis and fever. Respiratory: Positive for cough (improved). Negative for chest tightness, shortness of breath and wheezing. Gastrointestinal: Positive for nausea. Neurological: Positive for headaches (improved). Vitals- BP 115/75 (BP Location: Right arm, Patient Position: Sitting) Pulse 98 Temp 36.3 C (97.3 F) (Temporal) Resp 20 Ht 6' (1.829 m) Wt 270 lb (122 kg) SpO2 97% BMI 36.62 kg/m Tmax: Temp (24hrs), Av.3 C (99.1 F), Min:36.3 C (97.3 F), Max:38.7 C (101.6 F) Hemodynamics: Cuff: Systolic (24hrs), Av , Min:115 , Max:143 /Diastolic (24hrs), Av, Min:75, Max:83 Cuff MAP:MAP (mmHg) Av.8 Min: 88 Max: 113 P: Pulse Av.5 Min: 98 Max: 112 Observed RR: Resp Av Min: 16 Max: 20 Observed O2 sats: SpO2 Av.8 % Min: 96 % Max: 100 % No intake or output data in the 24 hours ending 12/17/23 0825 Physical exam- Physical Exam Constitutional: General: He is not in acute distress. Appearance: He is obese. He is not ill-appearing. HENT: Mouth/Throat: Mouth: Mucous membranes are moist. Cardiovascular: Rate and Rhythm: Normal rate and regular rhythm. Pulmonary: Effort: Pulmonary effort is normal. No respiratory distress. Breath sounds: No stridor. No wheezing, rhonchi or rales. Musculoskeletal: Cervical back: Neck supple. Right lower leg: No edema. Left lower leg: No edema. Skin: General: Skin is warm. Neurological: General: No focal deficit present. Mental Status: He is alert and oriented to person, place, and time. Mental status is at baseline. Psychiatric: Mood and Affect: Mood normal. Behavior: Behavior normal. Routine labs: Recent Labs 12/15/23 0208 12/16/23 0120 12/17/23 0100 WBC 10.5 9.1 6.1 HGB 15.5 14.1 13.9 HCT 43.7 41.0 40.9 PLT 185 141 141 Recent Labs 12/15/23 0208 12/16/23 0120 12/17/23 0100 NA 136 130* 133* K 4.1 4.1 4.2 CL 102 102 102 CO2 24 22 25 BUN 10 11 10 CREATININE 1.28* 1.19 1.16 No results for input(s): GLU in the last 72 hours. Respiratory pathogens PCR: negative Respiratory culture: in progress Pneumonia PCR panel: +Mycoplasma pneumoniae Urine antigens: Negative Blood cultures: 12/14 NGTD, 12/15 in process Lactic Acid 1.9 > 1.5 Procal 0.14 Other Laboratory - Imaging Studies: CT A/P: Reviewed and as per electronic record. CxR/CT images reviewed by me when available. ASSESSMENT AND PLAN: LLL PNA +Mycoplasma Persistent Fevers, improving Obesity BMI 36.2 - CT A/P with large area of dense/patchy consolidation left lower lobe. Pneumonia PCR +Mycoplasma Pneumoniae. No leukocytosis, Lactic acid WNL, Procal 0.14. CAP negative. Respiratory Pathogens PCR negative. - Continue Azithromycin x 5 days total - Continue Duo-nebs TID while inpatient - Will follow sputum cx / blood cx - in process, NGTD - Saturating well on RA, Monitor SpO2, Maintain above 92% - Encourage IS use - Will need repeat CT chest in 6-8 weeks - Hospital follow-up scheduled for 12/31/2023 at 8:40 AM with Shelia Linton CNP - Plans d/w Dr. Griffin, patient and family - Okay for discharge from pulmonary standpoint Nutrition rescreen complete. Pt assigned a level one for nutrition care. Hospitalist Progress Note 12/16/2023 Subjective: Admit Date: 12/15/2023 PCP: Sherine Escalona MD Room#: B1-146/B1-146 A Interval History: Still with fevers, productive cough and SOB. Has a headache at times too. Weak. Tolerating diet. No cp, n/v, palpitations. Case and plan discussed with patient and at bedside. All questions answered. Adult diet Regular 24HR INTAKE/OUTPUT: No intake or output data in the 24 hours ending 12/16/23 1235 Past Medical History: Past Medical History: Diagnosis Date Asthma LABS: CBC: Recent Labs 12/15/238 12/16/23 0120 WBC 10.5 9.1 RBC 5.00 4.65 HGB 15.5 14.1 HCT 43.7 41.0 MCV 87.4 88.2 RDW 12.8 12.7 PLT 185 141 BMP: Recent Labs 12/15/238 12/16/23 012 NA 136 130* K 4.1 4.1 CL 102 102 CO2 24 22 BUN 10 11 CREATININE 1.28* 1.19 GLUCOSE 102* 128* CALCIUM 9.5 8.6 ANIONGAP 11 6 LIVER PROFILE: Recent Labs 12/15/238 12/16/23 0120 AST 40 32 ALT 42 35 BILITOT 1.4* 1.0 ALKPHOS 76 56 PROT 8.1 7.0 PT/INR: No results for input(s): PROTIME, INR in the last 72 hours. CARDIAC ENZYMES: No results for input(s): TROPONINI in the last 72 hours. Procalcitonin: Lab Results Component Value Date PROCAL 0.14 (H) 12/16/2023 COVID-19 PCR: No results for input(s): COVID19 in the last 72 hours. Objective: Vitals: BP 132/73 (BP Location: Right arm, Patient Position: Lying) Pulse 112 Temp (!) 39.6 C (103.3 F) (Temporal) Resp 18 Ht 6' (1.829 m) Wt 270 lb (122 kg) SpO2 99% BMI 36.62 kg/m Pulse Ox: SpO2 Av.6 % Min: 96 % Max: 100 % Supplemental O2: Physical Exam Vitals and nursing note reviewed. Constitutional: General: He is not in acute distress. Appearance: He is obese. He is ill-appearing. HENT: Head: Normocephalic. Mouth/Throat: Mouth: Mucous membranes are dry. Eyes: Extraocular Movements: Extraocular movements intact. Conjunctiva/sclera: Conjunctivae normal. Cardiovascular: Rate and Rhythm: Regular rhythm. Tachycardia present. Pulses: Normal pulses. Pulmonary: Effort: Pulmonary effort is normal. Breath sounds: Wheezing and rhonchi present. Abdominal: General: Bowel sounds are normal. There is no distension. Palpations: Abdomen is soft. Tenderness: There is no abdominal tenderness. Musculoskeletal: Cervical back: Normal range of motion. Right lower leg: No edema. Left lower leg: No edema. Skin: General: Skin is dry. Capillary Refill: Capillary refill takes less than 2 seconds. Neurological: General: No focal deficit present. Mental Status: He is alert and oriented to person, place, and time. Mental status is at baseline. Psychiatric: Mood and Affect: Mood normal. Medications: Scheduled PRN cefTRIAXone, 1 g, IntraVENous, q24h And azithromycin, 500 mg, Oral, q24h influenza, 0.5 mL, IntraMUSCular, Prior to discharge ipratropium-albuterol, 3 mL, Nebulization, TID sodium chloride 0.9%, 10 mL, IntraVENous, 2 times per day sodium chloride 0.9%, 5-40 mL, IntraVENous, 2 times per day PRN medications: acetaminophen OR acetaminophen, albuterol, naloxone, ondansetron ODT OR ondansetron, oxyCODONE, polyethylene glycol (PEG) 3350, sodium chloride, sodium chloride, sodium chloride 0.9%, sodium chloride 0.9% Continuous Assessment Sepsis, POA Persistent fevers Mycoplasma pneumonia Hyponatremia Acute renal insufficiency Hyperglycemia Obesity Plan Continue azithromycin and stop Rocephin, continue aerosols, IS, Pulmonology following, follow cultures, follow up labs, discharge planning, see orders. - am labs, replace lytes prn - PT/OT/CM/SW - delirium precautions: increase activity - DVT prophylaxis: enoxaparin and encourage ambulation Advance Directive: Full Code Anticipated Discharge - Date - 12/16-12/17 - Location - Home - Pending the following - fever subsides, clinical improvement and when OK with Pulmonology Total time spent (which include face to face and non face to face encounters) : 47 minutes Toxic drug monitoring/narrow therapeutic index drug monitoring : # Drug name : # Route administered : # Method of monitoring : Extended Emergency Contact Information Primary Emergency Contact: Rebeca Faye [facility] Mobile Relation: Partner Theresa Awan MD Division of Hospitalist Medicine Acute [facility] Images from the original note were not included. PULMONOLOGY CONSULT PROGRESS NOTE 12/16/2023 Hospital LOS: LOS: 1 day PULMONARY FOLLOW UP FOR: Pneumonia HPI: 18Y M with Pmhx of ADHD presents to [facility] on 12/15/2023 with C/O worsening SOB, productive cough with yellow sputum, fevers, diaphoresis, and nausea x a few days. Interval History/Event Changes: Tmax 103.4F, Tachycardic (HR 112-125). SpO2 96-100% on RA. Subjectively: Patient resting in bed, NAD. Family at bedside. C/O frontal headache that worsens with coughing and movement. Continues to have productive yellow sputum with intermittent cough. Reports intermittent N/V. Denies any further complaints. Allergies Allergies Allergen Reactions Molds & Smuts alternaria Review of Systems Constitutional: Positive for fever. Respiratory: Positive for cough (intermitent productive cough with yellow sputum). Gastrointestinal: Positive for nausea (intermittent) and vomiting (intermitten). Musculoskeletal: Negative for neck pain and neck stiffness. Neurological: Positive for headaches (frontal worsens with cough and movement). Vitals- BP 132/73 (BP Location: Right arm, Patient Position: Lying) Pulse 112 Temp (!) 39.6 C (103.3 F) (Temporal) Resp 18 Ht 6' (1.829 m) Wt 270 lb (122 kg) SpO2 99% BMI 36.62 kg/m Tmax: Temp (24hrs), Av.6 C (103.3 F), Min:39.5 C (103.1 F), Max:39.7 C (103.4 F) Hemodynamics: Cuff: Systolic (24hrs), Av , Min:125 , Max:139 /Diastolic (24hrs), Av, Min:73, Max:81 Cuff MAP:MAP (mmHg) Av.1 Min: 91 Max: 113 P: Pulse Av.6 Min: 98 Max: 125 Observed RR: Resp Av.8 Min: 16 Max: 18 Observed O2 sats: SpO2 Av.8 % Min: 96 % Max: 100 % No intake or output data in the 24 hours ending 12/16/23 0931 Physical exam- Physical Exam Constitutional: General: He is not in acute distress. Appearance: He is obese. He is ill-appearing. HENT: Mouth/Throat: Mouth: Mucous membranes are moist. Cardiovascular: Rate and Rhythm: Tachycardia present. Pulmonary: Effort: Pulmonary effort is normal. No respiratory distress. Breath sounds: No stridor. No wheezing, rhonchi or rales. Comments: Diminished Musculoskeletal: Cervical back: Neck supple. Right lower leg: No edema. Left lower leg: No edema. Skin: General: Skin is warm. Neurological: Mental Status: He is alert and oriented to person, place, and time. Psychiatric: Mood and Affect: Mood normal. Behavior: Behavior normal. Routine labs: Recent Labs 12/15/23 0208 12/16/23 0120 WBC 10.5 9.1 HGB 15.5 14.1 HCT 43.7 41.0 PLT 185 141 Recent Labs 12/15/23 0208 12/16/23 0120 NA 136 130* K 4.1 4.1 CL 102 102 CO2 24 22 BUN 10 11 CREATININE 1.28* 1.19 No results for input(s): GLU in the last 72 hours. Respiratory pathogens PCR: negative Respiratory culture: in progress Pneumonia PCR panel: +Mycoplasma pneumoniae Urine antigens: Negative Blood cultures: 12/14 NGTD, 12/15 in process Lactic Acid 1.9 > 1.5 Procal 0.14 Other Laboratory - Imaging Studies: CT A/P: Reviewed and as per electronic record. CxR/CT images reviewed by me when available. ASSESSMENT AND PLAN: LLL PNA +Mycoplasma Persistent Fevers Obesity BMI 36.2 -CT A/P with large area of dense/patchy consolidation left lower lobe. Pneumonia PCR +Mycoplasma Pneumoniae. No leukocytosis, Lactic acid WNL, Procal 0.14. CAP negative. Respiratory Pathogens PCR negative. - Continue Rocephin and Azithromycin (monitor QTC), pending final sputum cx - Continue Duo-nebs TID - Will follow sputum cx / blood cx - Saturating well on RA, Monitor SpO2, Maintain above 92% - Plans d/w Dr. Elias, patient and family [facility] Respiratory Care Department Progress Note As part of the Respiratory Assessment Program (RAP), the following Respiratory Therapist evaluation has been completed, including a chart review and clinical/physical assessment. Respiratory Therapist RAP Evaluation Guideline Points 0 1 2 3 4 Points Strongly Consider History Factor No Pulmonary conditions Stable Pulmonary condition(s) Surgery or Intervention that may impact Pulmonary system (at risk) Surgery or Intervention that is impacting Pulmonary system Active Exacerbation of Pulmonary Condition 1 Respiratory Pattern Regular, RR= 12-18 CUMMINGS or Increased RR= 19-24 Irregular, or RR= 25-30 SOB, talk in short sentences, or RR= 31-35 Severe SOB, accessory muscle use, one word answers, or RR>35 0 Aerosol Med(s), High Flow O2 Breath Sounds Clear Diminished in 1 lobe Diminished in <= 2 lobes Adventitious breath sounds Coarse crackles, Wheezes, or Diminished in >2 lobes 4 Aerosol Med(s), Bronchial Hygiene, Hyperinflation Cough & Sputum Strong cough, no secretion retention or production Weak cough, no secretion retention or production Weak cough, w/ production (less often than Q2hr), or secretion retention No cough, w/ secretion retention or production (less often than Q2hr) Significant secretion production (more often than Q2hr) or mucus plug 0 Aerosol Med(s), Bronchial Hygiene, Hyperinflation Level of Activity Ambulatory Ambulatory with Assist Up in chair or edge of bed (dangle) Non-ambulatory, bedridden with active ROM Completely paralyzed or without active ROM 1 Triage 5 0-2 Triage 4 3-5 Triage 3 6-10 Triage 2 11-14 Triage 1 >=15 Total 6 Triage Score = 3 TRIAGE SCORING - SUGGESTED FREQUENCIES Aerosol Therapy Bronchial Hygiene Hyperinflation Triage Score Q4h & PRN 1 Q4hWA (QID) & PRN 2 TID & PRN 3 BID & PRN 4 PRN 5 Therapy(s) Indicated Yes/No Aerosol Medication Yes Hyperinflation No Bronchial Hygiene No High Flow Oxygen NO RT to enter/modify frequency of treatment order in EMR/EHR to match this RAP evaluation. Based on this RAP evaluation the following therapy is being changed to TID Comments: Thank you for involving Respiratory in the care of this patient, documented in this encounter [facility] 12-17-2023 Plan of care note Problem: Pain - Adult Goal: Verbalizes/displays adequate comfort level or baseline comfort level Outcome: Progressing Problem: Safety - Adult Goal: Free from fall injury Outcome: Progressing Problem: Discharge Planning Goal: Discharge to home or other facility with appropriate resources Outcome: Progressing Problem: Chronic Conditions and Co-morbidities Goal: Patient's chronic conditions and co-morbidity symptoms are monitored and maintained or improved Outcome: Progressing Problem: Inadequate Breathing Pattern Goal: Patient will maintain effective ventilation Outcome: Progressing [facility] 12-16-2023 Plan of care note Problem: Pain - Adult Goal: Verbalizes/displays adequate comfort level or baseline comfort level 12/16/2023 1327 by Lynda Bojorquez RN Outcome: Progressing Problem: Safety - Adult Goal: Free from fall injury 12/16/2023 1327 by Lynda Bojorquez RN Outcome: Progressing Problem: Discharge Planning Goal: Discharge to home or other facility with appropriate resources 12/16/2023 1327 by Lynda Bojorquez RN Outcome: Progressing Problem: Inadequate Breathing Pattern Goal: Patient will maintain effective ventilation 12/16/2023 1327 by Lynda Bojorquez RN Outcome: Progressing [facility] 12-16-2023 Note Formatting of this n ote might be different from the original. Care Management Progress Note Pt remains hospitalized with pneumonia On Ra w sats 100% + febrile on Tylenol PNA PCR + for Mycoplasma pna Repeat blood cultures obtained today Po Azithromax Legionella Neg DCP: home when stable Tcc to continue to follow. Length of Stay (Days): 1 GMLOS: No GMLOS Documented [facility] 12-16-2023 Note Formatting of this n ote might be different from the original. Care Management Progress Note Pt remains hospitalized with pneumonia On Ra w sats 100% + febrile on Tylenol PNA PCR + for Mycoplasma pna Repeat blood cultures obtained today Po Azithromax Legionella Neg DCP: home when stable Tcc to continue to follow. Length of Stay (Days): 1 GMLOS: No GMLOS Documented [facility] 12-16-2023 Note Care Management Prog ress Note Pt remains hospitalized with pneumonia On Ra w sats 100% + febrile on Tylenol PNA PCR + for Mycoplasma pna Repeat blood cultures obtained today Po Azithromax Legionella Neg DCP: home when stable Tcc to continue to follow. Length of Stay (Days): 1 GMLOS: No GMLOS Documented [facility] 12-16-2023 Note Hospitalist Progress Note 12/16/2023 Subjective: Admit Date: 12/15/2023 PCP: Sherine Escalona MD Room#: B1-146/B1-146 A Interval History: Still with fevers, productive cough and SOB. Has a headache at times too. Weak. Tolerating diet. No cp, n/v, palpitations. Case and plan discussed with patient and at bedside. All questions answered. Adult diet Regular 24HR INTAKE/OUTPUT: No intake or output data in the 24 hours ending 12/16/23 1235 Past Medical History: Past Medical History: Diagnosis Date Asthma LABS: CBC: Recent Labs 12/15/23 0208 12/16/23 0120 WBC 10.5 9.1 RBC 5.00 4.65 HGB 15.5 14.1 HCT 43.7 41.0 MCV 87.4 88.2 RDW 12.8 12.7 PLT 185 141 BMP: Recent Labs 12/15/23 0208 12/16/23 0120 NA 136 130* K 4.1 4.1 CL 102 102 CO2 24 22 BUN 10 11 CREATININE 1.28* 1.19 GLUCOSE 102* 128* CALCIUM 9.5 8.6 ANIONGAP 11 6 LIVER PROFILE: Recent Labs 12/15/23 0208 12/16/23 0120 AST 40 32 ALT 42 35 BILITOT 1.4* 1.0 ALKPHOS 76 56 PROT 8.1 7.0 PT/INR: No results for input(s): PROTIME, INR in the last 72 hours. CARDIAC ENZYMES: No results for input(s): TROPONINI in the last 72 hours. Procalcitonin: Lab Results Component Value Date PROCAL 0.14 (H) 12/16/2023 COVID-19 PCR: No results for input(s): COVID19 in the last 72 hours. Objective: Vitals: BP 132/73 (BP Location: Right arm, Patient Position: Lying) Pulse 112 Temp (!) 39.6 ?C (103.3 ?F) (Temporal) Resp 18 Ht 6' (1.829 m) Wt 270 lb (122 kg) SpO2 99% BMI 36.62 kg/m? Pulse Ox: SpO2 Av.6 % Min: 96 % Max: 100 % Supplemental O2: Physical Exam Vitals and nursing note reviewed. Constitutional: General: He is not in acute distress. Appearance: He is obese. He is ill-appearing. HENT: Head: Normocephalic. Mouth/Throat: Mouth: Mucous membranes are dry. Eyes: Extraocular Movements: Extraocular movements intact. Conjunctiva/sclera: Conjunctivae normal. Cardiovascular: Rate and Rhythm: Regular rhythm. Tachycardia present. Pulses: Normal pulses. Pulmonary: Effort: Pulmonary effort is normal. Breath sounds: Wheezing and rhonchi present. Abdominal: General: Bowel sounds are normal. There is no distension. Palpations: Abdomen is soft. Tenderness: There is no abdominal tenderness. Musculoskeletal: Cervical back: Normal range of motion. Right lower leg: No edema. Left lower leg: No edema. Skin: General: Skin is dry. Capillary Refill: Capillary refill takes less than 2 seconds. Neurological: General: No focal deficit present. Mental Status: He is alert and oriented to person, place, and time. Mental status is at baseline. Psychiatric: Mood and Affect: Mood normal. Medications: Scheduled PRN cefTRIAXone, 1 g, IntraVENous, q24h And azithromycin, 500 mg, Oral, q24h influenza, 0.5 mL, IntraMUSCular, Prior to discharge ipratropium-albuterol, 3 mL, Nebulization, TID sodium chloride 0.9%, 10 mL, IntraVENous, 2 times per day sodium chloride 0.9%, 5-40 mL, IntraVENous, 2 times per day PRN medications: acetaminophen OR acetaminophen, albuterol, naloxone, ondansetron ODT OR ondansetron, oxyCODONE, polyethylene glycol (PEG) 3350, sodium chloride, sodium chloride, sodium chloride 0.9%, sodium chloride 0.9% Continuous Assessment Sepsis, POA Persistent fevers Mycoplasma pneumonia Hyponatremia Acute renal insufficiency Hyperglycemia Obesity Plan Continue azithromycin and stop Rocephin, continue aerosols, IS, Pulmonology following, follow cultures, follow up labs, discharge planning, see orders. - am labs, replace lytes prn - PT/OT/CM/SW - delirium precautions: increase activity - DVT prophylaxis: enoxaparin and encourage ambulation Advance Directive: Full Code Anticipated Discharge - Date - 12/16-12/17 - Location - Home - Pending the following - fever subsides, clinical improvement and when OK with Pulmonology Total time spent (which include face to face and non face to face encounters) : 47 minutes Toxic drug monitoring/narrow therapeutic index drug monitoring : # Drug name : # Route administered : # Method of monitoring : Extended Emergency Contact Information Primary Emergency Contact: Rebeca Faye [facility] [employer] Relation: Partner Theresa Awan MD Division of Hospitalist Medicine [facility] 12-16-2023 Note PULMONOLOGY CONSULT PROGRESS NOTE 12/16/2023 Hospital LOS: LOS: 1 day PULMONARY FOLLOW UP FOR: Pneumonia HPI: 18Y M with Pmhx of ADHD presents to [facility] on 12/15/2023 with C/O worsening SOB, productive cough with yellow sputum, fevers, diaphoresis, and nausea x a few days. Interval History/Event Changes: Tmax 103.4F, Tachycardic (HR 112-125). SpO2 96-100% on RA. Subjectively: Patient resting in bed, NAD. Family at bedside. C/O frontal headache that worsens with coughing and movement. Continues to have productive yellow sputum with intermittent cough. Reports intermittent N/V. Denies any further complaints. Allergies Allergies Allergen Reactions Molds & Smuts alternaria Review of Systems Constitutional: Positive for fever. Respiratory: Positive for cough (intermitent productive cough with yellow sputum). Gastrointestinal: Positive for nausea (intermittent) and vomiting (intermitten). Musculoskeletal: Negative for neck pain and neck stiffness. Neurological: Positive for headaches (frontal worsens with cough and movement). Vitals- BP 132/73 (BP Location: Right arm, Patient Position: Lying) Pulse 112 Temp (!) 39.6 ?C (103.3 ?F) (Temporal) Resp 18 Ht 6' (1.829 m) Wt 270 lb (122 kg) SpO2 99% BMI 36.62 kg/m? Tmax: Temp (24hrs), Av.6 ?C (103.3 ?F), Min:39.5 ?C (103.1 ?F), Max:39.7 ?C (103.4 ?F) Hemodynamics: Cuff: Systolic (24hrs), Av , Min:125 , Max:139 /Diastolic (24hrs), Av, Min:73, Max:81 Cuff MAP:MAP (mmHg) Av.1 Min: 91 Max: 113 P: Pulse Av.6 Min: 98 Max: 125 Observed RR: Resp Av.8 Min: 16 Max: 18 Observed O2 sats: SpO2 Av.8 % Min: 96 % Max: 100 % No intake or output data in the 24 hours ending 12/16/23 0931 Physical exam- Physical Exam Constitutional: General: He is not in acute distress. Appearance: He is obese. He is ill-appearing. HENT: Mouth/Throat: Mouth: Mucous membranes are moist. Cardiovascular: Rate and Rhythm: Tachycardia present. Pulmonary: Effort: Pulmonary effort is normal. No respiratory distress. Breath sounds: No stridor. No wheezing, rhonchi or rales. Comments: Diminished Musculoskeletal: Cervical back: Neck supple. Right lower leg: No edema. Left lower leg: No edema. Skin: General: Skin is warm. Neurological: Mental Status: He is alert and oriented to person, place, and time. Psychiatric: Mood and Affect: Mood normal. Behavior: Behavior normal. Routine labs: Recent Labs 12/15/23 0208 12/16/23 0120 WBC 10.5 9.1 HGB 15.5 14.1 HCT 43.7 41.0 PLT 185 141 Recent Labs 12/15/23 0208 12/16/23 0120 NA 136 130* K 4.1 4.1 CL 102 102 CO2 24 22 BUN 10 11 CREATININE 1.28* 1.19 No results for input(s): GLU in the last 72 hours. Respiratory pathogens PCR: negative Respiratory culture: in progress Pneumonia PCR panel: +Mycoplasma pneumoniae Urine antigens: Negative Blood cultures: 12/14 NGTD, 12/15 in process Lactic Acid 1.9 > 1.5 Procal 0.14 Other Laboratory - Imaging Studies: CT A/P: Reviewed and as per electronic record. CxR/CT images reviewed by me when available. ASSESSMENT AND PLAN: LLL PNA +Mycoplasma Persistent Fevers Obesity BMI 36.2 -CT A/P with large area of dense/patchy consolidation left lower lobe. Pneumonia PCR +Mycoplasma Pneumoniae. No leukocytosis, Lactic acid WNL, Procal 0.14. CAP negative. Respiratory Pathogens PCR negative. - Continue Rocephin and Azithromycin (monitor QTC), pending final sputum cx - Continue Duo-nebs TID - Will follow sputum cx / blood cx - Saturating well on RA, Monitor SpO2, Maintain above 92% - Plans d/w Dr. Griffin, patient and family [facility] 12-15-2023 History and physical note Attending History and Physical Admit Date: 12/15/2023 PCP: Sherine Escalona MD CHIEF COMPLAINT: fever, productive cough, SOB, nausea Reason for Admission: pneumonia History Obtained From: patient//chart HISTORY OF PRESENT ILLNESS: Chelsea is a 18 y.o. male with past medical history below who presents with chief complaint listed above. He has had a few day history of worsening SOB, cough productive of yellowish to green sputum, fevers, diaphoresis and nausea. No hx of this prior. No DM. He denies cp, emesis, diarrhea, palpitations. He feels weak. Will admit for further evaluation and management. D/w pt and at bedside Past Medical History: Past Medical History: Diagnosis Date Asthma Past Surgical History: No past surgical history on file. Social History: Social History Socioeconomic History Marital status: Significant Other Spouse name: Not on file Number of children: Not on file Years of education: Not on file Highest education level: Not on file Occupational History Not on file Tobacco Use Smoking status: Never Smokeless tobacco: Never Substance and Sexual Activity Alcohol use: Never Drug use: Never Sexual activity: Not on file Other Topics Concern Not on file Social History Narrative Not on file Social Determinants of Health Financial Resource Strain: Low Risk (12/15/2023) Overall Financial Resource Strain (CARDIA) Difficulty of Paying Living Expenses: Not very hard Food Insecurity: No Food Insecurity (12/15/2023) Hunger Vital Sign Worried About Running Out of Food in the Last Year: Never true Ran Out of Food in the Last Year: Never true Transportation Needs: No Transportation Needs (12/15/2023) PRAPARE - Transportation Lack of Transportation (Medical): No Lack of Transportation (Non-Medical): No Physical Activity: Sufficiently Active (12/15/2023) Exercise Vital Sign Days of Exercise per Week: 5 days Minutes of Exercise per Session: 150+ min Stress: Stress Concern Present (12/15/2023) [place] [employer] Occupational Health - Occupational Stress Questionnaire Feeling of Stress : To some extent Social Connections: Socially Integrated (01/24/2023) Social Connection and Isolation Panel [NHANES] Frequency of Communication with Friends and Family: Twice a week Frequency of Social Gatherings with Friends and Family: More than three times a week Attends Confucianism Services: More than 4 times per year Active Member of Clubs or Organizations: Yes Attends Club or Organization Meetings: More than 4 times per year Marital Status: Intimate Partner Violence: Not At Risk (12/15/2023) Humiliation, Afraid, Rape, and Kick questionnaire Fear of Current or Ex-Partner: No Emotionally Abused: No Physically Abused: No Sexually Abused: No Housing Stability: Unknown (12/15/2023) Housing Stability Vital Sign Unable to Pay for Housing in the Last Year: No Number of Times Moved in the Last Year: Not on file Homeless in the Last Year: No Family History: No family history on file. Medications Prior to Admission: No current facility-administered medications on file prior to encounter. No current outpatient medications on file prior to encounter. Allergies: Allergies Allergen Reactions Molds & Smuts alternaria REVIEW OF SYSTEMS: As per HPI otherwise 10 system review is unremarkable. Vitals: BP 142/99 (BP Location: Right arm, Patient Position: Sitting) Pulse (!) 123 Temp 37.3 C (99.1 F) (Temporal) Resp 16 Ht 6' (1.829 m) Wt 270 lb (122 kg) SpO2 98% BMI 36.62 kg/m BMI Classification: Obese (BMI 30.0-39.9) Pulse Ox: SpO2 Av % Min: 98 % Max: 100 % Supplemental O2: PHYSICAL EXAM: Physical Exam Vitals and nursing note reviewed. Constitutional: General: He is not in acute distress. Appearance: He is obese. He is ill-appearing. HENT: Head: Normocephalic and atraumatic. Mouth/Throat: Mouth: Mucous membranes are dry. Eyes: Extraocular Movements: Extraocular movements intact. Conjunctiva/sclera: Conjunctivae normal. Pupils: Pupils are equal, round, and reactive to light. Cardiovascular: Rate and Rhythm: Regular rhythm. Tachycardia present. Pulses: Normal pulses. Pulmonary: Effort: Pulmonary effort is normal. Breath sounds: Wheezing and rhonchi present. Abdominal: General: Bowel sounds are normal. There is no distension. Palpations: Abdomen is soft. Tenderness: There is no abdominal tenderness. Musculoskeletal: General: Normal range of motion. Cervical back: Neck supple. Right lower leg: No edema. Left lower leg: No edema. Skin: General: Skin is warm and dry. Capillary Refill: Capillary refill takes less than 2 seconds. Neurological: General: No focal deficit present. Mental Status: He is alert and oriented to person, place, and time. Mental status is at baseline. Psychiatric: Mood and Affect: Mood normal. DATA: CBC: Recent Labs 12/15/23207 WBC 10.5 RBC 5.00 HGB 15.5 HCT 43.7 MCV 87.4 RDW 12.8 PLT 185 BMP: Recent Labs 12/15/23207 NA 136 K 4.1 CL 102 CO2 24 BUN 10 CREATININE 1.28* GLUCOSE 102* CALCIUM 9.5 ANIONGAP 11 LIVER PROFILE: Recent Labs 12/15/23207 AST 40 ALT 42 BILITOT 1.4* ALKPHOS 76 PROT 8.1 PT/INR: No results for input(s): PROTIME, INR in the last 72 hours. CARDIAC ENZYMES: No results for input(s): TROPONINI in the last 72 hours. Procalcitonin: No results found for: PROCAL Urine Culture: No results found for this or any previous visit. COVID-19 PCR: No results for input(s): COVID19 in the last 72 hours. I reviewed: [x] laboratory results [x] radiographic results At the time of today's encounter. Pt was advised of the results. Assessment Sepsis, POA Pneumonia Acute renal insufficiency Nausea Obesity Plan Discussed management with the ED clinician and agree with the need for hospitalization, IV/PO antibiotics, aerosols, IS, IVF, Pulmonology evaluation, cultures, ag's and PCRs, follow up labs, discharge planning, see admission orders. - am labs, replace lytes prn - PT/OT/CM/SW - delirium precautions: increase activity - DVT prophylaxis: enoxaparin and encourage ambulation Advance Directive: Full Code Anticipated Discharge - Date - 12/15-12/17 - Location - Home - Pending the following - clinical improvement, completion of work up and when OK with consultants Total time spent (which include face to face and non face to face encounters) : 64 minutes. Toxic drug monitoring/narrow therapeutic index drug monitoring : # Drug name : # Route administered : # Method of monitoring : Extended Emergency Contact Information Primary Emergency Contact: Rebeca Faye [facility] Mobile Relation: Partner Theresa Awan MD Division of Hospitalist Medicine [facility] 12-15-2023 Note Attending History an d Physical Admit Date: 12/15/2023 PCP: Sherine Escalona MD CHIEF COMPLAINT: fever, productive cough, SOB, nausea Reason for Admission: pneumonia History Obtained From: patient//chart HISTORY OF PRESENT ILLNESS: Chelsea is a 18 y.o. male with past medical history below who presents with chief complaint listed above. He has had a few day history of worsening SOB, cough productive of yellowish to green sputum, fevers, diaphoresis and nausea. No hx of this prior. No DM. He denies cp, emesis, diarrhea, palpitations. He feels weak. Will admit for further evaluation and management. D/w pt and at bedside Past Medical History: Past Medical History: Diagnosis Date Asthma Past Surgical History: No past surgical history on file. Social History: Social History Socioeconomic History Marital status: Significant Other Spouse name: Not on file Number of children: Not on file Years of education: Not on file Highest education level: Not on file Occupational History Not on file Tobacco Use Smoking status: Never Smokeless tobacco: Never Substance and Sexual Activity Alcohol use: Never Drug use: Never Sexual activity: Not on file Other Topics Concern Not on file Social History Narrative Not on file Social Determinants of Health Financial Resource Strain: Low Risk (12/15/2023) Overall Financial Resource Strain (CARDIA) Difficulty of Paying Living Expenses: Not very hard Food Insecurity: No Food Insecurity (12/15/2023) Hunger Vital Sign Worried About Running Out of Food in the Last Year: Never true Ran Out of Food in the Last Year: Never true Transportation Needs: No Transportation Needs (12/15/2023) PRAPARE - Transportation Lack of Transportation (Medical): No Lack of Transportation (Non-Medical): No Physical Activity: Sufficiently Active (12/15/2023) Exercise Vital Sign Days of Exercise per Week: 5 days Minutes of Exercise per Session: 150+ min Stress: Stress Concern Present (12/15/2023) [place] of Occupational Health - Occupational Stress Questionnaire Feeling of Stress : To some extent Social Connections: Socially Integrated (01/24/2023) Social Connection and Isolation Panel [NHANES] Frequency of Communication with Friends and Family: Twice a week Frequency of Social Gatherings with Friends and Family: More than three times a week Attends Confucianism Services: More than 4 times per year Active Member of Clubs or Organizations: Yes Attends Club or Organization Meetings: More than 4 times per year Marital Status: Intimate Partner Violence: Not At Risk (12/15/2023) Humiliation, Afraid, Rape, and Kick questionnaire Fear of Current or Ex-Partner: No Emotionally Abused: No Physically Abused: No Sexually Abused: No Housing Stability: Unknown (12/15/2023) Housing Stability Vital Sign Unable to Pay for Housing in the Last Year: No Number of Times Moved in the Last Year: Not on file Homeless in the Last Year: No Family History: No family history on file. Medications Prior to Admission: No current facility-administered medications on file prior to encounter. No current outpatient medications on file prior to encounter. Allergies: Allergies Allergen Reactions Molds & Smuts alternaria REVIEW OF SYSTEMS: As per HPI otherwise 10 system review is unremarkable. Vitals: BP 142/99 (BP Location: Right arm, Patient Position: Sitting) Pulse (!) 123 Temp 37.3 ?C (99.1 ?F) (Temporal) Resp 16 Ht 6' (1.829 m) Wt 270 lb (122 kg) SpO2 98% BMI 36.62 kg/m? BMI Classification: Obese (BMI 30.0-39.9) Pulse Ox: SpO2 Av % Min: 98 % Max: 100 % Supplemental O2: PHYSICAL EXAM: Physical Exam Vitals and nursing note reviewed. Constitutional: General: He is not in acute distress. Appearance: He is obese. He is ill-appearing. HENT: Head: Normocephalic and atraumatic. Mouth/Throat: Mouth: Mucous membranes are dry. Eyes: Extraocular Movements: Extraocular movements intact. Conjunctiva/sclera: Conjunctivae normal. Pupils: Pupils are equal, round, and reactive to light. Cardiovascular: Rate and Rhythm: Regular rhythm. Tachycardia present. Pulses: Normal pulses. Pulmonary: Effort: Pulmonary effort is normal. Breath sounds: Wheezing and rhonchi present. Abdominal: General: Bowel sounds are normal. There is no distension. Palpations: Abdomen is soft. Tenderness: There is no abdominal tenderness. Musculoskeletal: General: Normal range of motion. Cervical back: Neck supple. Right lower leg: No edema. Left lower leg: No edema. Skin: General: Skin is warm and dry. Capillary Refill: Capillary refill takes less than 2 seconds. Neurological: General: No focal deficit present. Mental Status: He is alert and oriented to person, place, and time. Mental status is at baseline. Psychiatric: Mood and Affect: Mood normal. DATA: CBC: Recent Labs 12/15/23 0208 (more content not included)... [facility] 12-15-2023 History and physical note Attending History and Physical Admit Date: 12/15/2023 PCP: Sherine Escalona MD CHIEF COMPLAINT: fever, productive cough, SOB, nausea Reason for Admission: pneumonia History Obtained From: patient//chart HISTORY OF PRESENT ILLNESS: Chelsea is a 18 y.o. male with past medical history below who presents with chief complaint listed above. He has had a few day history of worsening SOB, cough productive of yellowish to green sputum, fevers, diaphoresis and nausea. No hx of this prior. No DM. He denies cp, emesis, diarrhea, palpitations. He feels weak. Will admit for further evaluation and management. D/w pt and at bedside Past Medical History: Past Medical History: Diagnosis Date Asthma Past Surgical History: No past surgical history on file. Social History: Social History Socioeconomic History Marital status: Significant Other Spouse name: Not on file Number of children: Not on file Years of education: Not on file Highest education level: Not on file Occupational History Not on file Tobacco Use Smoking status: Never Smokeless tobacco: Never Substance and Sexual Activity Alcohol use: Never Drug use: Never Sexual activity: Not on file Other Topics Concern Not on file Social History Narrative Not on file Social Determinants of Health Financial Resource Strain: Low Risk (12/15/2023) Overall Financial Resource Strain (CARDIA) Difficulty of Paying Living Expenses: Not very hard Food Insecurity: No Food Insecurity (12/15/2023) Hunger Vital Sign Worried About Running Out of Food in the Last Year: Never true Ran Out of Food in the Last Year: Never true Transportation Needs: No Transportation Needs (12/15/2023) PRAPARE - Transportation Lack of Transportation (Medical): No Lack of Transportation (Non-Medical): No Physical Activity: Sufficiently Active (12/15/2023) Exercise Vital Sign Days of Exercise per Week: 5 days Minutes of Exercise per Session: 150+ min Stress: Stress Concern Present (12/15/2023) [place] of Occupational Health - Occupational Stress Questionnaire Feeling of Stress : To some extent Social Connections: Socially Integrated (01/24/2023) Social Connection and Isolation Panel [NHANES] Frequency of Communication with Friends and Family: Twice a week Frequency of Social Gatherings with Friends and Family: More than three times a week Attends Confucianism Services: More than 4 times per year Active Member of Clubs or Organizations: Yes Attends Club or Organization Meetings: More than 4 times per year Marital Status: Intimate Partner Violence: Not At Risk (12/15/2023) Humiliation, Afraid, Rape, and Kick questionnaire Fear of Current or Ex-Partner: No Emotionally Abused: No Physically Abused: No Sexually Abused: No Housing Stability: Unknown (12/15/2023) Housing Stability Vital Sign Unable to Pay for Housing in the Last Year: No Number of Times Moved in the Last Year: Not on file Homeless in the Last Year: No Family History: No family history on file. Medications Prior to Admission: No current facility-administered medications on file prior to encounter. No current outpatient medications on file prior to encounter. Allergies: Allergies Allergen Reactions Molds & Smuts alternaria REVIEW OF SYSTEMS: As per HPI otherwise 10 system review is unremarkable. Vitals: BP 142/99 (BP Location: Right arm, Patient Position: Sitting) Pulse (!) 123 Temp 37.3 C (99.1 F) (Temporal) Resp 16 Ht 6' (1.829 m) Wt 270 lb (122 kg) SpO2 98% BMI 36.62 kg/m BMI Classification: Obese (BMI 30.0-39.9) Pulse Ox: SpO2 Av % Min: 98 % Max: 100 % Supplemental O2: PHYSICAL EXAM: Physical Exam Vitals and nursing note reviewed. Constitutional: General: He is not in acute distress. Appearance: He is obese. He is ill-appearing. HENT: Head: Normocephalic and atraumatic. Mouth/Throat: Mouth: Mucous membranes are dry. Eyes: Extraocular Movements: Extraocular movements intact. Conjunctiva/sclera: Conjunctivae normal. Pupils: Pupils are equal, round, and reactive to light. Cardiovascular: Rate and Rhythm: Regular rhythm. Tachycardia present. Pulses: Normal pulses. Pulmonary: Effort: Pulmonary effort is normal. Breath sounds: Wheezing and rhonchi present. Abdominal: General: Bowel sounds are normal. There is no distension. Palpations: Abdomen is soft. Tenderness: There is no abdominal tenderness. Musculoskeletal: General: Normal range of motion. Cervical back: Neck supple. Right lower leg: No edema. Left lower leg: No edema. Skin: General: Skin is warm and dry. Capillary Refill: Capillary refill takes less than 2 seconds. Neurological: General: No focal deficit present. Mental Status: He is alert and oriented to person, place, and time. Mental status is at baseline. Psychiatric: Mood and Affect: Mood normal. DATA: CBC: Recent Labs 12/15/23 0208 WBC 10.5 RBC 5.00 HGB 15.5 HCT 43.7 MCV 87.4 RDW 12.8 PLT 185 BMP: Recent Labs 12/15/23 0208 NA 136 K 4.1 CL 102 CO2 24 BUN 10 CREATININE 1.28* GLUCOSE 102* CALCIUM 9.5 ANIONGAP 11 LIVER PROFILE: Recent Labs 12/15/23 0208 AST 40 ALT 42 BILITOT 1.4* ALKPHOS 76 PROT 8.1 PT/INR: No results for input(s): PROTIME, INR in the last 72 hours. CARDIAC ENZYMES: No results for input(s): TROPONINI in the last 72 hours. Procalcitonin: No results found for: PROCAL Urine Culture: No results found for this or any previous visit. COVID-19 PCR: No results for input(s): COVID19 in the last 72 hours. I reviewed: [x] laboratory results [x] radiographic results At the time of today's encounter. Pt was advised of the results. Assessment Sepsis, POA Pneumonia Acute renal insufficiency Nausea Obesity Plan Discussed management with the ED clinician and agree with the need for hospitalization, IV/PO antibiotics, aerosols, IS, IVF, Pulmonology evaluation, cultures, ag's and PCRs, follow up labs, discharge planning, see admission orders. - am labs, replace lytes prn - PT/OT/CM/SW - delirium precautions: increase activity - DVT prophylaxis: enoxaparin and encourage ambulation Advance Directive: Full Code Anticipated Discharge - Date - - Location - Home - Pending the following - clinical improvement, completion of work up and when OK with consultants Total time spent (which include face to face and non face to face encounters) : 64 minutes. Toxic drug monitoring/narrow therapeutic index drug monitoring : # Drug name : # Route administered : # Method of monitoring : Extended Emergency Contact Information Primary Emergency Contact: NeydaRebeca [facility] Mobile Relation: Partner Theresa Awan MD Division of Hospitalist Medicine [facility] documented in this encounter [facility] 12-15-2023 Consult note Associated Order (s): Inpatient consult to Pulmonology PULMONOLOGY CONSULT NOTE 12/15/2023 1:00 PM Reason for consult: Pneumonia Inpatient consult to Pulmonology Consult performed by: Lars Griffin MD Consult ordered by: Theresa Awan MD Assessment and Plan: LLL pneumonia Obesity - Continue Ceftriaxone and Azithromycin - Awaiting sputum culture and pneumonia PCR Panel, and legionella antigen. - Will need interval imaging, CT, to document resolution of infiltrate - we will follow. Subjective: Admit Date: 12/15/2023 PCP: Sherine Escalona MD HPI: This is a 18 y.o. male with no significant past medical history admitted with pneumonia. He started having high grade fevers, followed by a productive cough, and periumbilical abdominal pain. Presented to ER, and found to have leukocytosis. CT abdomen performed today, shows dense LLL consolidation, Images were personally reviewed and independently interpreted by me. Past Medical History: Past Medical History: Diagnosis Date Asthma Past Surgical History: No past surgical history on file. Allergies: Allergies Allergen Reactions Molds & Smuts alternaria Social History: Social History Substance and Sexual Activity Alcohol Use Never Social History Substance and Sexual Activity Drug Use Never Social History Tobacco Use Smoking Status Never Smokeless Tobacco Never Family History: No family history on file. Review of Systems Respiratory: Positive for cough. Gastrointestinal: Positive for abdominal pain. All other systems reviewed and are negative. Medications: Scheduled Meds:cefTRIAXone, 1 g, IntraVENous, q24h And azithromycin, 500 mg, Oral, q24h [START ON 12/16/2023] influenza, 0.5 mL, IntraMUSCular, Prior to discharge ipratropium-albuterol, 3 mL, Nebulization, TID sodium chloride 0.9%, 10 mL, IntraVENous, 2 times per day sodium chloride 0.9%, 5-40 mL, IntraVENous, 2 times per day Continuous Infusions: CBC: Recent Labs 12/15/23 020 WBC 10.5 HGB 15.5 PLT 185 BMP: Recent Labs 12/15/23207 NA 136 K 4.1 CL 102 CO2 24 BUN 10 CREATININE 1.28* GLUCOSE 102* Hepatic: Recent Labs 12/15/23 0208 AST 40 ALT 42 BILITOT 1.4* ALKPHOS 76 Troponin:No results for input(s): TROPONINI in the last 72 hours. BNP: No results for input(s): BNP in the last 72 hours. : No results for input(s): CHOL, HDL in the last 72 hours. No lab exists for component: LDLCALCU INR: No results for input(s): INR in the last 72 hours. Objective: Vitals: BP 142/99 (BP Location: Right arm, Patient Position: Sitting) Pulse (!) 123 Temp 37.3 C (99.1 F) (Temporal) Resp 16 Ht 6' (1.829 m) Wt 270 lb (122 kg) SpO2 98% BMI 36.62 kg/m Physical Exam Constitutional: General: He is not in acute distress. HENT: Head: Normocephalic and atraumatic. Nose: Nose normal. No rhinorrhea. Eyes: General: No scleral icterus. Extraocular Movements: Extraocular movements intact. Conjunctiva/sclera: Conjunctivae normal. Cardiovascular: Rate and Rhythm: Normal rate and regular rhythm. Heart sounds: Normal heart sounds. No murmur heard. Pulmonary: Effort: Pulmonary effort is normal. No respiratory distress. Breath sounds: No stridor. Rales present. No wheezing or rhonchi. Comments: LLL rales Chest: Chest wall: No tenderness. Musculoskeletal: General: No swelling. Cervical back: Normal range of motion and neck supple. Skin: General: Skin is warm. Coloration: Skin is not jaundiced or pale. Findings: No rash. Neurological: General: No focal deficit present. Mental Status: He is alert. Mental status is at baseline. Psychiatric: Mood and Affect: Mood normal. Behavior: Behavior normal. All pertinent labs and images (including CXR and CT Chest) were personally reviewed, important findings listed in HPI. Lars Griffin MD Physician Pulmonary, Critical Care and Sleep Medicine. 12/15/[address] Work Phone: 12-15-2023 Consult note Associated Order (s): Inpatient consult to Pulmonology PULMONOLOGY CONSULT NOTE 12/15/2023 1:00 PM Reason for consult: Pneumonia Inpatient consult to Pulmonology Consult performed by: Lars Griffin MD Consult ordered by: Theresa Awan MD Assessment and Plan: LLL pneumonia Obesity - Continue Ceftriaxone and Azithromycin - Awaiting sputum culture and pneumonia PCR Panel, and legionella antigen. - Will need interval imaging, CT, to document resolution of infiltrate - we will follow. Subjective: Admit Date: 12/15/2023 PCP: Sherine Escalona MD HPI: This is a 18 y.o. male with no significant past medical history admitted with pneumonia. He started having high grade fevers, followed by a productive cough, and periumbilical abdominal pain. Presented to ER, and found to have leukocytosis. CT abdomen performed today, shows dense LLL consolidation, Images were personally reviewed and independently interpreted by me. Past Medical History: Past Medical History: Diagnosis Date Asthma Past Surgical History: No past surgical history on file. Allergies: Allergies Allergen Reactions Molds & Smuts alternaria Social History: Social History Substance and Sexual Activity Alcohol Use Never Social History Substance and Sexual Activity Drug Use Never Social History Tobacco Use Smoking Status Never Smokeless Tobacco Never Family History: No family history on file. Review of Systems Respiratory: Positive for cough. Gastrointestinal: Positive for abdominal pain. All other systems reviewed and are negative. Medications: Scheduled Meds:cefTRIAXone, 1 g, IntraVENous, q24h And azithromycin, 500 mg, Oral, q24h [START ON 12/16/2023] influenza, 0.5 mL, IntraMUSCular, Prior to discharge ipratropium-albuterol, 3 mL, Nebulization, TID sodium chloride 0.9%, 10 mL, IntraVENous, 2 times per day sodium chloride 0.9%, 5-40 mL, IntraVENous, 2 times per day Continuous Infusions: CBC: Recent Labs 12/15/23 020 WBC 10.5 HGB 15.5 PLT 185 BMP: Recent Labs 12/15/23 0208 NA 136 K 4.1 CL 102 CO2 24 BUN 10 CREATININE 1.28* GLUCOSE 102* Hepatic: Recent Labs 12/15/23 0208 AST 40 ALT 42 BILITOT 1.4* ALKPHOS 76 Troponin:No results for input(s): TROPONINI in the last 72 hours. BNP: No results for input(s): BNP in the last 72 hours. : No results for input(s): CHOL, HDL in the last 72 hours. No lab exists for component: LDLCALCU INR: No results for input(s): INR in the last 72 hours. Objective: Vitals: BP 142/99 (BP Location: Right arm, Patient Position: Sitting) Pulse (!) 123 Temp 37.3 C (99.1 F) (Temporal) Resp 16 Ht 6' (1.829 m) Wt 270 lb (122 kg) SpO2 98% BMI 36.62 kg/m Physical Exam Constitutional: General: He is not in acute distress. HENT: Head: Normocephalic and atraumatic. Nose: Nose normal. No rhinorrhea. Eyes: General: No scleral icterus. Extraocular Movements: Extraocular movements intact. Conjunctiva/sclera: Conjunctivae normal. Cardiovascular: Rate and Rhythm: Normal rate and regular rhythm. Heart sounds: Normal heart sounds. No murmur heard. Pulmonary: Effort: Pulmonary effort is normal. No respiratory distress. Breath sounds: No stridor. Rales present. No wheezing or rhonchi. Comments: LLL rales Chest: Chest wall: No tenderness. Musculoskeletal: General: No swelling. Cervical back: Normal range of motion and neck supple. Skin: General: Skin is warm. Coloration: Skin is not jaundiced or pale. Findings: No rash. Neurological: General: No focal deficit present. Mental Status: He is alert. Mental status is at baseline. Psychiatric: Mood and Affect: Mood normal. Behavior: Behavior normal. All pertinent labs and images (including CXR and CT Chest) were personally reviewed, important findings listed in HPI. Lars Griffin MD Physician Pulmonary, Critical Care and Sleep Medicine. 12/15/2023 documented in this encounter [facility] 12-15-2023 Note [facility] Respiratory Care Department Progress Note As part of the Respiratory Assessment Program (RAP), the following Respiratory Therapist evaluation has been completed, including a chart review and clinical/physical assessment. Respiratory Therapist RAP Evaluation Guideline Points 0 1 2 3 4 Points Strongly Consider History Factor No Pulmonary conditions Stable Pulmonary condition(s) Surgery or Intervention that may impact Pulmonary system (at risk) Surgery or Intervention that is impacting Pulmonary system Active Exacerbation of Pulmonary Condition 1 Respiratory Pattern Regular, RR= 12-18 [place] or Increased RR= 19-24 Irregular, or RR= 25-30 SOB, talk in short sentences, or RR= 31-35 Severe SOB, accessory muscle use, one word answers, or RR>35 0 Aerosol Med(s), High Flow O2 Breath Sounds Clear Diminished in 1 lobe Diminished in <= 2 lobes Adventitious breath sounds Coarse crackles, Wheezes, or Diminished in >2 lobes 4 Aerosol Med(s), Bronchial Hygiene, Hyperinflation Cough & Sputum Strong cough, no secretion retention or production Weak cough, no secretion retention or production Weak cough, w/ production (less often than Q2hr), or secretion retention No cough, w/ secretion retention or production (less often than Q2hr) Significant secretion production (more often than Q2hr) or mucus plug 0 Aerosol Med(s), Bronchial Hygiene, Hyperinflation Level of Activity Ambulatory Ambulatory with Assist Up in chair or edge of bed (dangle) Non-ambulatory, bedridden with active ROM Completely paralyzed or without active ROM 1 Triage 5 0-2 Triage 4 3-5 Triage 3 6-10 Triage 2 11-14 Triage 1 >=15 Total 6 Triage Score = 3 TRIAGE SCORING - SUGGESTED FREQUENCIES Aerosol Therapy Bronchial Hygiene Hyperinflation Triage Score Q4h & PRN 1 Q4hWA (QID) & PRN 2 TID & PRN 3 BID & PRN 4 PRN 5 Therapy(s) Indicated Yes/No Aerosol Medication Yes Hyperinflation No Bronchial Hygiene No High Flow Oxygen NO RT to enter/modify frequency of treatment order in EMR/EHR to match this RAP evaluation. Based on this RAP evaluation the following therapy is being changed to TID Comments: Thank you for involving Respiratory in the care of this patient, [facility] 12-15-2023 Note Formatting of this n ote might be different from the original. Care Managment Initial Assessment Date: 12/15/2023 Patient Name: Chelsea Crawley : 2005 Patient Information Source of Information: Patient Cognition/Language: WFL - Within Functional Limits Permission given to speak with patient vaccine customer representative/caregiver as indicated: No Confirmation of Payer with patient/family: Yes Payer Name: [employer] [place]: No Confirmation of Primary Care Physician: Confirmed PCP Name: Dr. Sherine Escalona Seen in last 2 years?: Yes Primary Caregiver: Self If assistance needed, confirmed caregiver ready, willing and able to care for patient at discharge: Yes Confirmed with: Indep. Partner/SO willing and able to assist as needed Living Arrangements Current Residence: House Number of Floors 1 Number of Entry Steps: 1 Bed/Bath Levels: Both first floor Facility: Facility Name: Plan to Return: Yes Lives with: Spouse/significant other Support Systems: Spouse/significant other Activities of Daily Living Ambulation: Independent Bathing/Dressing: Independent Elimination/Continence/Toileting : Independent Feeding: Independent Who Assists with Activities of Daily Living: Self Pt is indep Instrumental Activities of Daily Living Prescription Coverage: Yes Pharmacy Used: [facility] per patient. Medication Management: Independent Transportation/Shopping: Independent Transportation Mode: Car Needs Assistance with Transportation at Discharge: No Meal Preparation: Independent Laundry/Cleaning: Independent Finances/Bill Paying: Independent Communication: Independent Types of Care Services/Equipment Utilized Care Services: Dialysis Type: NA Durable Medical Equipment: DME Provider: NONE Patient's Goal/Discharge Plan Patient expects to be discharged to: Discharge Planning Actions: Patient's Choice Rights and [employer] and Collaborative Relationships Disclosed as Indicated for Post-Acute Care: Interdisciplinary Team Engagement: Social Work Referral for: Additional Information: Pt admitted with pneumonia IV Rocephine q 24 and po Azithromax prescribed Ra sats 98% Bld cxs normal IA completed with pt at bedside. Tcc introduced self and role. 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 Verified insurance provider,pcp and anticipates would use [facility] Retail pharmacy if needed. Significant other Rebeca Metheney will be pt's ride home at ca. Val Miller RN [facility] [employer] 12-15-2023 Note Formatting of this n ote might be different from the original. Care Managment Initial Assessment Date: 12/15/2023 Patient Name: Chelsea Crawley : 2005 Patient Information Source of Information: Patient Cognition/Language: WFL - Within Functional Limits Permission given to speak with patient vaccine customer representative/caregiver as indicated: No Confirmation of Payer with patient/family: Yes Payer Name: [place] : No Confirmation of Primary Care Physician: Confirmed PCP Name: Dr. Sherine Escalona Seen in last 2 years?: Yes Primary Caregiver: Self If assistance needed, confirmed caregiver ready, willing and able to care for patient at discharge: Yes Confirmed with: Indep. Partner/SO willing and able to assist as needed Living Arrangements Current Residence: House Number of Floors 1 Number of Entry Steps: 1 Bed/Bath Levels: Both first floor Facility: Facility Name: Plan to Return: Yes Lives with: Spouse/significant other Support Systems: Spouse/significant other Activities of Daily Living Ambulation: Independent Bathing/Dressing: Independent Elimination/Continence/Toileting : Independent Feeding: Independent Who Assists with Activities of Daily Living: Self Pt is indep Instrumental Activities of Daily Living Prescription Coverage: Yes Pharmacy Used: [facility] per patient. Medication Management: Independent Transportation/Shopping: Independent Transportation Mode: Car Needs Assistance with Transportation at Discharge: No Meal Preparation: Independent Laundry/Cleaning: Independent Finances/Bill Paying: Independent Communication: Independent Types of Care Services/Equipment Utilized Care Services: Dialysis Type: NA Durable Medical Equipment: DME Provider: NONE Patient's Goal/Discharge Plan Patient expects to be discharged to: Discharge Planning Actions: Patient's Choice Rights and [employer] and Collaborative Relationships Disclosed as Indicated for Post-Acute Care: Interdisciplinary Team Engagement: Social Work Referral for: Additional Information: Pt admitted with pneumonia IV Rocephine q 24 and po Azithromax prescribed Ra sats 98% Bld cxs normal IA completed with pt at bedside. Tcc introduced self and role. 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 Verified insurance provider,pcp and anticipates would use [facility] Retail pharmacy if needed. Significant other Rebeca Faye will be pt's ride home at [place]. Val Miller RN [facility] 12-15-2023 Emergency department Note Report given to RN at [facility] on [address], pt transported by private car with his . Transport refusal form signed by patient. Nadira Lyles RN 12/15/23626 [facility] 12-15-2023 Emergency department Note Report given to RN at [facility] [address], pt transported by private car with his . Transport refusal form signed by patient. Nadira Lyles RN 12/15/[address] Leong at discussing plan of pneumonia admit with pt and his at BS. Pt and family have no questions or concerns about transfer process. Nadira Lyles RN 12/15/[address] Leong at evaluating pt Nadira Lyles RN 12/15/23 0143 EMERGENCY DEPARTMENT ENCOUNTER Pt Name: Chelsea Crawley Birthdate 2005 Date of evaluation: 12/15/2023 ED Provider: Emiliana Leong MD CHIEF COMPLAINT Chief Complaint Patient presents with Fever Fever x1 day, pt complains of middle quadrant abd pain. Denies N/V/D. HISTORY OF PRESENT ILLNESS (Location/Symptom, Timing/Onset, Context/Setting, Quality, Duration, Modifying Factors, Severity) Note limiting factors. I wore appropriate PPE for the entirety of this encounter. HPI Chelsea Crawley is a 18 y.o. male who presents to the emergency department with chief complaint of 1 day of fever and periumbilical abdominal pain. He denies any accompanying nausea, vomiting, diarrhea, hematuria, or dysuria. Nursing Notes were reviewed. Limitations to history: None Outside historians: None REVIEW OF SYSTEMS Review of Systems Pertinent positives and negatives as per HPI. PAST MEDICAL HISTORY No past medical history on file. SURGICAL HISTORY No past surgical history on file. CURRENT MEDICATIONS Previous Medications No medications on file ALLERGIES Molds & smuts FAMILY HISTORY No family history on file. SOCIAL HISTORY Social History Socioeconomic History Marital status: Significant Other Tobacco Use Smoking status: Never Smokeless tobacco: Never Substance and Sexual Activity Alcohol use: Never Drug use: Never Social Determinants of Health Financial Resource Strain: High Risk (01/24/2023) Overall Financial Resource Strain (CARDIA) Difficulty of Paying Living Expenses: Hard Food Insecurity: No Food Insecurity (01/24/2023) Hunger Vital Sign Worried About Running Out of Food in the Last Year: Never true Ran Out of Food in the Last Year: Never true Transportation Needs: No Transportation Needs (01/24/2023) PRAPARE - Transportation Lack of Transportation (Medical): No Lack of Transportation (Non-Medical): No Physical Activity: Sufficiently Active (01/24/2023) Exercise Vital Sign Days of Exercise per Week: 7 days Minutes of Exercise per Session: 150+ min Stress: Stress Concern Present (01/24/2023) [place] [employer] - Occupational Stress Questionnaire Feeling of Stress :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 place, and time. Psychiatric: Mood and Affect: Mood normal. Behavior: Behavior normal. An electronic signature was used to authenticate this note. ABEL Xiong CNP 10/27/2023 9:44 AM documented in this encounter [facility] 10-27-2023 Instructions ABEL Ro CNP - 10/27/2023 9:20 AM EDT Images from the original note were not included. Ibuprofen 600 mg every 8 hours x 24 hours, then as needed every 8 hours for pain. Patient Education Viral Upper Respiratory Infection Discharge Instructions, Adult About this topic You have an upper respiratory infection or URI. A URI can affect your nose, throat, ears, and sinuses. A virus is the cause of almost all URIs and antibiotics will not help you feel better more quickly. The common cold is an example of a viral URI. URIs are easy to spread from person to person, most often through coughing or sneezing. A URI will almost always get better in a week or two without any treatment. What care is needed at home? Ask your doctor what you need to do when you go home. Make sure you ask questions if you do not understand what the doctor says. If you smoke, try to quit. Your doctor or nurse can help. Drink lots of fluids like water, juice, or broth. This will help replace any fluids lost if you have a runny nose or fever. Warm tea or soup can help soothe a sore throat. If the air in your home feels dry, use a cool mist humidifier. This can help a stuffy nose and make it easier to breathe. You can also use saline nose drops to relieve stuffiness. If you decide to take thvn-qgk-snyzorl cough or cold medicines, follow the directions on the label carefully. Be sure you do not take more than 1 medicine that contains acetaminophen. Also, if you have a heart problem or high blood pressure, check with your doctor before you take any of these medicines. Wash your hands often. Cough or sneeze into a tissue or your elbow instead of your hands. This will help keep others healthy. What follow-up care is needed? Your doctor may ask you to make visits to the office to check on your progress. Be sure to keep these visits. What drugs may be needed? The doctor may order drugs to: Open up the tubes of your lungs Treat viral infection Relieve or stop coughing Help with pain from a sore throat Relieve runny and stuffy nose Provide oxygen Will physical activity be limited? You need to rest for a few days to let your body recover from the infection. What changes to diet are needed? Eat soft foods like soup if swallowing is too painful. What problems could happen? Asthma attack Sinus infections Lung problems like pneumonia and bronchitis Severe fluid loss. This is dehydration. What can be done to prevent this health problem? Wash your hands often with soap and water for at least 20 seconds, especially after coughing or sneezing. Alcohol-based hand sanitizers also work to kill the virus. If you are sick, cover your mouth and nose with tissue when you cough or sneeze. You can also cough into your elbow. Throw away tissues in the trash and wash your hands after touching used tissues. Do not get too close (kissing, hugging) to people who are sick. Do not share towels or hankies with anyone who is sick. Clean commonly handled things like door handles, remotes, toys, and phones. Wipe them with a disinfectant. Stay away from crowded places. Cover your nose and mouth when you sneeze or cough. Take vitamin C to help build up your body's ability to fight disease. Get a flu shot each year. When do I need to call the doctor? You have trouble breathing when talking or sitting still. You have a fever of 100.4 F (38 C) or higher for several days, chills, a very bad sore throat, or ear or sinus pain. You develop a new fever after several days of feeling the same or improving. You develop chest pain when you cough. You have a cough that lasts more than 10 days. You cough up blood, or the color of the mucus you cough up changes. Teach Back: Helping You Understand The Teach Back Method helps you understand the information we are giving you. After you talk with the staff, tell them in your own words what you learned. This helps to make sure the staff has described each thing clearly. It also helps to explain things that may have been confusing. Before going home, make sure you can do these: I can tell you about my condition. I can tell you what may help ease my signs. I can tell you what I will do if I have a fever, chills, breathing very fast, or trouble breathing. Where can I learn more? [place] [employer] https://www.lung.org/blog/can-yo s-epkpjnqi-zytk-a-cold [place] [employer] https://www.lung.org/lung-health -diseases/jmrc-menczsm-gamnnb/in fluenza/egspe-reqzl-tqz-common-c old NHS Choices https://www.nhs.uk/conditions/re isfftdtnp-mxfqi-dodlkvles/ UpToDate https://www.[employer].com/content s/cqo-xhxldo-zlep-cf-kqtadm-hunr fa-cmb-uvcvej Last Reviewed Date 2020-08-15 Consumer Information Use and Disclaimer This generalized information is a limited summary of diagnosis, treatment, and/or medication information. It is not meant to be comprehensive and should be used as a tool to help the user understand and/or assess potential diagnostic and treatment options. It does NOT include all information about conditions, treatments, medications, side effects, or risks that may apply to a specific patient. It is not intended to be medical advice or a substitute for the medical advice, diagnosis, or treatment of a health care provider based on the health care provider's examination and assessment of a patient s specific and unique circumstances. Patients must speak with a health care provider for complete information about their health, medical questions, and treatment options, including any risks or benefits regarding use of medications. This information does not endorse any treatments or medications as safe, effective, or approved for treating a specific patient. [employer] and its affiliates disclaim any warranty or liability relating to this information or the use thereof. The use of this information is governed by the Terms of Use, available at https://www.[employer]/en /know/muwkffdl-xrmskgauvjomc-qpi ms Copyright Copyright 2021 [employer] and its affiliates and/or licensors. All rights reserved. documented in this encounter [facility] 10-27-2023 Telephone encounter Note S: The is calling the [facility] about a sore throat B: This started Friday A: He has a sore throat without drainage and bilateral ear aches. No sinus symptoms. No difficulty swallowing or breathing; no fever. R: Appointment made, insurance verified and care advice reviewed. Reason for Disposition Patient requesting a strep throat test Protocols used: Sore Ztvjen-TQGWT-FQ [facility] 10-27-2023 Miscellaneous Notes S: The is calling the [facility] about a sore throat B: This started Friday A: He has a sore throat without drainage and bilateral ear aches. No sinus symptoms. No difficulty swallowing or breathing; no fever. R: Appointment made, insurance verified and care advice reviewed. Reason for Disposition Patient requesting a strep throat test Protocols used: Sore Tugehd-DFLYS-LZ documented in this encounter [facility] 05-29-2023 History of Presen t illness Narrative Images from the original note were not included. . [facility] [address] [place] [address] [address] [facility] [address] Dept: [phone] Dept Visit type: Established Reason for Visit: same day (Patient states they have an ear ache, patient states pain started a week ago. Patient states they feel pressure in ears. Patient states their right hurts the most) Assessment and Plan 1. Right ear pain 2. Epistaxis 3. HIV screening declined 4. Need for hepatitis C screening test Upon physical exam of left and right ear, ear canals negative for redness or drainage. Tympanic membrane is intact, normal color. Left and right ear negative for tenderness. Negative for infection. I did discuss with patient to keep ears clean and dry, and to contact office if symptoms return. In regard to epistaxis patient declined medication or lab work to assess for clotting factors. She gated on the use of a humidifier. Patient states he has been thinking about it and has been looking into it. Patient declined HIV and hepatitis C screening. Patient declined screening labs at this time. Education provided to patient and . No questions or concerns at this time. Patient is more than welcome to follow-up with me as needed. No follow-ups on file. Subjective HPI This is a very pleasant 17-year-old male with a past medical history of ADHD who presents the office today to discuss ear pain. is present at office visit. Patient of Dr. Escalona. Right ear pain-been ongoing for about 4 days, has improved. Patient denies any drainage, fever, chills, hearing loss, tinnitus, or recent illness. 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 Patient not currently taking anything for pain or discomfort. Epistaxis-patient is experiencing frequent nosebleeds. is concerned as patient has nosebleeds most days out of the week. Patient states that when he goes from very hot environments to very cold or with weather changes he will experience nosebleeds. Patient states this is always been a problem for him. Does not want to be on medication at this time. Patient declined HIV and hepatitis C screening. Review of Systems Constitutional: Negative. Negative for fatigue. HENT: Positive for ear pain (Right ear) and nosebleeds. Negative for postnasal drip, rhinorrhea, sinus pressure, sinus pain and tinnitus. Respiratory: Negative. Cardiovascular: Negative. Negative for chest pain and palpitations. Gastrointestinal: Negative. Skin: Negative. Negative for pallor and wound. Hematological: Negative. Psychiatric/Behavioral: Negative. Allergies Allergen Reactions Molds & Smuts alternaria Outpatient Medications Prior to Visit Medication Sig Dispense Refill lisdexamfetamine (Vyvanse) 50 MG capsule Take 1 capsule (50 mg) by mouth every morning. (Patient not taking: Reported on 02/19/2023) 30 capsule 0 No facility-administered medications prior to visit. No past medical history on file. Social History Tobacco Use Smoking status: Never Smokeless tobacco: Never Substance Use Topics Alcohol use: Never No past surgical history on file. No family history on file. Objective BP 137/84 (BP Location: Left arm, Patient Position: Sitting, BP Cuff Size: Large adult) Pulse 80 Temp 36.7 C (98.1 F) Ht 6' (1.829 m) Wt 274 lb (124 kg) SpO2 96% BMI 37.16 kg/m Physical Exam Vitals reviewed. Constitutional: General: He is not in acute distress. Appearance: Normal appearance. He is normal weight. He is not toxic-appearing. HENT: Head: Normocephalic and atraumatic. Right Ear: Tympanic membrane normal. There is no impacted cerumen. Left Ear: Tympanic membrane normal. There is no impacted cerumen. Cardiovascular: Rate and Rhythm: Normal rate and regular rhythm. Pulses: Normal pulses. Heart sounds: Normal heart sounds. No murmur heard. Pulmonary: Effort: Pulmonary effort is normal. No respiratory distress. Breath sounds: Normal breath sounds. No wheezing. Abdominal: General: Abdomen is flat. Bowel sounds are normal. Palpations: Abdomen is soft. Musculoskeletal: General: Normal range of motion. Skin: General: Skin is warm and dry. Findings: No rash. Neurological: General: No focal deficit present. Mental Status: He is alert and oriented to person, place, and time. Psychiatric: Mood and Affect: Mood normal. Behavior: Behavior normal. Data Reviewed and Summarized Labs: Imaging/Testing: Hilary Guerra NP documented in this encounter [facility] 02-19-2023 History of Presen t illness Narrative Images from the original note were not included. . [facility] [address] [place] [address] [address] [place] [address] Dept: [phone] Dept Visit type: Established Reason for Visit: Follow-up (1 month) Assessment and Plan 1. Attention deficit hyperactivity disorder (ADHD), predominantly hyperactive type ADHD -patient was resumed on Vyvanse at previous. He reports that he did not notice any significant change in his symptoms and it actually made him feel more fatigued and depressed towards the end of the day. Overall, he feels that medication's benefits did not outweigh the side effects. He is requesting to stay off of medications and this seems reasonable. Advised him to make follow-up appointment on as-needed basis should he develop new or worsening symptoms. Subjective HPI This is an 17-year-old gentleman with past medical history significant for ADHD, vitamin deficiencies, and obesity who presents today for follow up visit. ADHD - last visit patient was started on Vyvanse 50 mg daily. He states that he feels down at the end of the day compared to when he does not take the medication. He reports feeling calmer while taking the medication, has not really not noted any change in focus issues. Review of Systems Constitutional: Negative for chills. HENT: Negative for congestion. Respiratory: Negative for shortness of breath. Psychiatric/Behavioral: Positive for dysphoric mood. Allergies Allergen Reactions Molds & Smuts Outpatient Medications Prior to Visit Medication Sig Dispense Refill lisdexamfetamine (Vyvanse) 50 MG capsule Take 1 capsule (50 mg) by mouth every morning. (Patient not taking: Reported on 02/19/2023) 30 capsule 0 No facility-administered medications prior to visit. No past medical history on file. Social History Tobacco Use Smoking status: Never Smokeless tobacco: Never Substance Use Topics Alcohol use: Never No past surgical history on file. No family history on file. Objective BP (!) 147/73 Pulse 92 Ht 6' (1.829 m) Wt 277 lb 6.4 oz (126 kg) SpO2 96% BMI 37.62 kg/m Physical Exam HENT: Head: Normocephalic and atraumatic. Eyes: General: No scleral icterus. Pulmonary: Effort: Pulmonary effort is normal. Breath sounds: No wheezing or rales. Abdominal: General: Abdomen is flat. Musculoskeletal: General: Normal range of motion. Skin: General: Skin is warm and dry. Neurological: General: No focal deficit present. Mental Status: He is alert and oriented to person, place, and time. Data Reviewed and Summarized Labs: Imaging/Testing: Sherine Escalona MD documented in this encounter [facility] 01-23-2023 History of Presen t illness Narrative Images from the original note were not included. . [facility] [address] [facility] [address] [facility] [address] Dept: [phone] Dept Visit type: New Reason for Visit: New Patient Assessment and Plan 1. Attention deficit hyperactivity disorder (ADHD), predominantly hyperactive type - lisdexamfetamine (Vyvanse) 50 MG capsule; Take 1 capsule (50 mg) by mouth every morning., Starting Bridgett 01/23/2023, Normal 2. Epistaxis ADHD -fianc reports interval worsening of symptoms after medication was discontinued about 5 months earlier. Patient reports a near lifelong history of ADHD and has been on medication for about the past 13 years. Notes increased problems with inattention, occasional agitation type symptoms since medication was discontinued around 5 months earlier. PDMP was reviewed and consistent with stated usage of medication. Patient was agreeable to signing controlled substance contract. Vyvanse will be resumed at 50 mg daily. Patient will return in 1 month for reassessment of side effects and blood pressure assessment. Epistaxis -notes that this is problematic with episode 1 time per week. Discussed potential treatment options or referral to ENT. Patient declined additional evaluation at this time. Subjective HPI This is a very pleasant 17-year-old gentleman with past medical history significant for ADHD, vitamin deficiencies, and obesity who presents today for establishment of care. Epistaxis - states that this has been a problem for a while, sates that most recent episode was yesterday, episodes occur 1/ week. Not on any medications. No known personal or family history of bleeding disorders. Typically occurs on the left side, states that he has always been able to stop bleeding without much difficulty. Vitamin deficiencies - was told that he had vitamin D and C deficiencies. ADHD - was orinally diagnosed entire life, was started on medication for this around age 4. Most recent medicaiton was Vyvanse until around 6 months earlier, stopped seeing previous doctor. SO states that patient is much more impulsive off medication. Rebeca indicates that he would become agitated when not taking medicaiton, states that this was not a problem while taking. 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 Review of Systems Psychiatric/Behavioral: Positive for agitation and decreased concentration. The patient is nervous/anxious. Allergies Allergen Reactions Molds & Smuts No outpatient medications prior to visit. No facility-administered medications prior to visit. No past medical history on file. Social History Tobacco Use Smoking status: Never Smokeless tobacco: Never Substance Use Topics Alcohol use: Never No past surgical history on file. No family history on file. Objective BP (!) 144/84 Pulse 98 Ht 6' (1.829 m) Wt 274 lb 12.8 oz (125 kg) SpO2 95% BMI 37.27 kg/m Physical Exam HENT: Head: Normocephalic and atraumatic. Eyes: General: No scleral icterus. Pulmonary: Effort: Pulmonary effort is normal. Musculoskeletal: Cervical back: Normal range of motion. Skin: General: Skin is warm and dry. Neurological: Mental Status: He is alert. Data Reviewed and Summarized Labs: Imaging/Testing: Sherine Escalona MD documented in this encounter [facility] 01-23-2023 History of Presen t illness Narrative Images from the original note were not included. . [facility] [address] [place] [address] [address] [place] [address] Dept: [phone] Dept Visit type: New Reason for Visit: New Patient Assessment and Plan 1. Attention deficit hyperactivity disorder (ADHD), predominantly hyperactive type - lisdexamfetamine (Vyvanse) 50 MG capsule; Take 1 capsule (50 mg) by mouth every morning., Starting Bridgett 01/23/2023, Normal 2. Epistaxis ADHD -fianc reports interval worsening of symptoms after medication was discontinued 5 months earlier. Patient reports a near lifelong history of ADHD and has been on medication for the past 13 years. Notes increased problems with inattention, occasional agitation type symptoms since medication was discontinued around 5 months earlier. PDMP was reviewed and consistent with stated usage of medication. Patient was agreeable to signing controlled substance contract. Vyvanse will be resumed at 50 mg daily. Patient will return in 1 month for reassessment of side effects and blood pressure assessment. Epistaxis -notes that this is problematic with episode 1 time per week. Discussed potential treatment options or referral to ENT. Patient declined additional evaluation at this time. Subjective HPI This is a very pleasant 17-year-old gentleman with past medical history significant for ADHD, vitamin deficiencies, and obesity who presents today for establishment of care. Epistaxis - states that this has been a problem for a while, sates that most recent episode was yesterday, episodes occur 1/ week. Not on any medications. No known personal or family history of bleeding disorders. Typically occurs on the left side, states that he has always been able to stop bleeding without much difficulty. Vitamin deficiencies - was told that he had vitamin D and C deficiencies. ADHD - was orinally diagnosed entire life, was started on medication for this around age 4. Most recent medicaiton was Vyvanse until around 6 months earlier, stopped seeing previous doctor. SO states that patient is much more impulsive off medication. Rebeca indicates that he would become agitated when not taking medicaiton, states that this was not a problem while taking. 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 Review of Systems Psychiatric/Behavioral: Positive for agitation and decreased concentration. The patient is nervous/anxious. Allergies Allergen Reactions Molds & Smuts No outpatient medications prior to visit. No facility-administered medications prior to visit. No past medical history on file. Social History Tobacco Use Smoking status: Never Smokeless tobacco: Never Substance Use Topics Alcohol use: Never No past surgical history on file. No family history on file. Objective BP (!) 144/84 Pulse 98 Ht 6' (1.829 m) Wt 274 lb 12.8 oz (125 kg) SpO2 95% BMI 37.27 kg/m Physical Exam HENT: Head: Normocephalic and atraumatic. Eyes: General: No scleral icterus. Pulmonary: Effort: Pulmonary effort is normal. Musculoskeletal: Cervical back: Normal range of motion. Skin: General: Skin is warm and dry. Neurological: Mental Status: He is alert. Data Reviewed and Summarized Labs: Imaging/Testing: Sherine Escalona MD documented in this encounter [facility] 07-22-2022 Miscellaneous Notes The following approved medication requests have been transmitted electronically. Requested Prescriptions Pending Prescriptions Disp Refills Cholecalciferol, Vitamin D3, (D3-2000) 50 mcg (2,000 unit) cap 90 capsule 1 Sig: Take 1 capsule by mouth once daily. Nathan Ye MD Last WCC: 01/28/2022 Verify RX Benefits Completed Last medication refill date: 03/05/2022 90 day with refill Requesting 90 day supply Retail pharmacy updated: Completed Patient aware RX will be sent to pharmacy. No need to notify patient. Immunizations due: MENINGOCOCCAL B: Consider based on risk(2 of 2 - Risk Bexsero 2-dose series) due on 02/25/2022 DEPRESSION ASSESSMENT Never done HEPATITIS C SCREENING Never done HIV SCREENING Never done Willam Stallworth RN documented in this encounter [facility] 07-11-2022 Note HNO ID: [id number] Author: Nathan Ye MD Service: ? Author Type: Physician Type: Progress Notes Filed: 07/11/2022 6:22 PM Note Text: FOLLOW UP VISIT PEDIATRIC ADHD SERVICE DATE: 07/11/2022 Chelsea Crawley is a 17 year old male who presents with mother for follow up visit for ADHD. History was obtained from: mother Currently taking Vyvanse 50 mg . Takes medication 7 days per week. The medication is helping dramatically. Improvement noted in the following symptoms: problems focusing, forgetfulness, and hyperactivity. Symptom severity now considered: mild. Context: home and school. Parent/guardian believe room for improvement? No Currently enrolled in behavioral counseling or therapy: was at [facility] [employer] [facility] [employer] School: Presently in 12th grade. Babybe roll Going to work at [employer] after graduation ([employer]). 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 General: Well developed, No acute distress Neck: supple and no adenopathy Lungs: clear to auscultation bilaterally, good air exchange, no retractions Heart: Normal rate, regular rhythm, no murmur Abdomen: Soft, nontender, nondistended, no palpable organomegaly or masses, normal bowel sounds Skin: Normal color, texture and turgor. No rashes. ASSESSMENT/PLAN: Encounter Diagnosis ICD-10-CM 1. Attention deficit hyperactivity disorder (ADHD), combined type F90.2 2. Abnormal weight gain R63.5 17 year old male with ADHD with optimization of symptoms and without significant medication side effects. - Continue current medication. - Psychology referral for ongoing impulsive behavior - Follow up in 3-6 months for routine ADHD follow up -Discussed ongoing weight gain. He is gaining muscle however BMI is still problematic given elevated lipid profile in the past. He will continue to work on diet at home SIGNATURE: Nathan Ye MD PATIENT NAME: Chelsea Crawley DATE: July 11, 2022 TIME: 3:18 PM [facility] 07-11-2022 History of Presen t illness Narrative FOLLOW UP VISIT PEDIATRIC ADHD SERVICE DATE: 07/11/2022 Chelsea Crawley is a 17 year old male who presents with mother for follow up visit for ADHD. History was obtained from: mother Currently taking Vyvanse 50 mg . Takes medication 7 days per week. The medication is helping dramatically. Improvement noted in the following symptoms: problems focusing, forgetfulness, and hyperactivity. Symptom severity now considered: mild. Context: home and school. Parent/guardian believe room for improvement? No Currently enrolled in behavioral counseling or therapy: was at [facility] [facility] [employer] School: Presently in 12th grade. Babybe roll Going to work at [employer] after graduation ([employer]). 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 General: Well developed, No acute distress Neck: supple and no adenopathy Lungs: clear to auscultation bilaterally, good air exchange, no retractions Heart: Normal rate, regular rhythm, no murmur Abdomen: Soft, nontender, nondistended, no palpable organomegaly or masses, normal bowel sounds Skin: Normal color, texture and turgor. No rashes. ASSESSMENT/PLAN: Encounter Diagnosis ICD-10-CM 1. Attention deficit hyperactivity disorder (ADHD), combined type F90.2 2. Abnormal weight gain R63.5 17 year old male with ADHD with optimization of symptoms and without significant medication side effects. - Continue current medication. - Psychology referral for ongoing impulsive behavior - Follow up in 3-6 months for routine ADHD follow up -Discussed ongoing weight gain. He is gaining muscle however BMI is still problematic given elevated lipid profile in the past. He will continue to work on diet at home SIGNATURE: Nathan Ye MD PATIENT NAME: Chelsea Crawley DATE: July 11, 2022 TIME: 3:18 PM documented in this encounter [facility] 03-05-2022 Miscellaneous Notes The following approved medication requests have been transmitted electronically. Requested Prescriptions Signed Prescriptions Disp Refills Cholecalciferol, Vitamin D3, (D3-2000) 50 mcg (2,000 unit) cap 90 capsule 1 Sig: Take 1 capsule by mouth once daily. Nathan Ye MD Wondering if could get a script for the Vitamin D, will be cheaper that way. Willam Stallworth RN documented in this encounter [facility] 02-27-2022 Miscellaneous Notes The following approved medication requests have been transmitted electronically. Requested Prescriptions Pending Prescriptions Disp Refills lisdexamfetamine (VYVANSE) 50 mg capsule 30 capsule 0 Sig: Take 1 capsule by mouth once daily for 30 days. Do not start before April 25, 2022. lisdexamfetamine (VYVANSE) 50 mg capsule 30 capsule 0 Sig: Take 1 capsule by mouth once daily for 30 days. Do not start before March 27, 2022. lisdexamfetamine (VYVANSE) 50 mg capsule 30 capsule 0 Sig: Take 1 capsule by mouth once daily for 30 days. Signed Prescriptions Disp Refills lisdexamfetamine (VYVANSE) 50 mg capsule 30 capsule 0 Sig: Take 1 capsule by mouth once daily for 30 days. Authorizing Provider: NATHAN YE MD Mom would like to do 3 Rx's . Two more Rx's were pended. Message left for parent to return call. Jackie Iglesias RN would he like a 3 month Rx? The following approved medication requests have been transmitted electronically. Requested Prescriptions Signed Prescriptions Disp Refills lisdexamfetamine (VYVANSE) 50 mg capsule 30 capsule 0 Sig: Take 1 capsule by mouth once daily for 30 days. Authorizing Provider: NATHAN YE MD Last WCC: 01/28/2022 Last ADHD / Med Check visit: 08/24/2020 Verify RX Benefits Completed Last medication refill date: 01/14/2022 Requesting 30 day supply Retail pharmacy updated: Completed Patient aware RX will be sent to pharmacy. No need to notify patient. Immunizations due: MENINGOCOCCAL B: Consider based on risk(2 of 2 - Risk Bexsero 2-dose series) due on 02/25/2022 Jane Avitia LPN documented in this encounter [facility] 01-28-2022 Note HNO ID: [id number] Author: Lesa Siddiqi MD Service: ? Author Type: Physician Type: Progress Notes Filed: 01/30/2022 3:01 PM Note Text: WELL VISIT PEDIATRIC MALE 14-17 YRS OLD SERVICE DATE: 01/28/2022 Chelsea is a 16 year old male who presents today for well exam accompanied by his mother. SUBJECTIVE CONCERNS: work permit HISTORY ACTIVE PROBLEM LIST Bmi (Body Mass Index), Pediatric 95-99% for Age, Obese Child Structured Weight Management/Multidisciplinary Intervention Category - 11/22/2017 Acne Vulgaris - 11/22/2017 Pdd (Pervasive Developmental Disorder) - 09/05/2011 Adhd (Attention Deficit Hyperactivity Disorder) Comment: Age 3 PAST MEDICAL HISTORY Diagnosis Date ADHD (attention deficit hyperactivity disorder) 2009 Age 3 Behavior disturbance Broken arm 2008 Broken left forearm Encopresis(307.7) ODD (oppositional defiant disorder) 2010 PDD (pervasive developmental disorder) Wheezing PAST SURGICAL HISTORY Procedure Laterality Date ANES NERVE MUSCLE TDN FASCIAANDBURSA FOREARM WRIST Left forearm , greenstick PAST SURGICAL HISTORY OF cyst removed from right eye PAST SURGICAL HISTORY OF frenulum cut ALLERGIES Allergen Reactions Mold alternaria Medications: lisdexamfetamine (VYVANSE) 50 mg capsule Take 1 capsule by mouth once daily for 30 days. albuterol HFA (PROVENTIL HFA, VENTOLIN HFA) 90 mcg/actuation inhaler Inhale 2 puffs every 4 - 6 hours as needed for cough or wheezing ketoconazole (NIZORAL) 2 % shampoo Apply to affected area once daily as needed. FAMILY HISTORY Problem Relation Age of Onset Heart Maternal Grandfather Diabetes Maternal Grandfather other (perforated bowel) Maternal Grandmother 3 weeks later Heart Paternal Grandmother CHF Diabetes Paternal Grandfather other (Hypoglycemia) Mother Also has vitamin deficencies other (Fatty Liver) Father Social History Social History Narrative Not on file Smoking Exposure: Does your child spend a significant amount of time in the care of anyone who smokes? No School: Grade: 12th; grades A-B. Physical Activity: less than 1 hour of physical activity per day Screen Time totaling more than 2 hours of screen time per day. Safety: Reviewed seat belts, bike helmets, and smoke detectors Diet: -Eats 2 meals per day and 1-2 snacks per day -Typical beverages include water and sugar containing beverages -Fruits and vegetables are not eaten routinely -# of fast food meals/week: 2 -# of days/week that family has dinner together: 2 Elimination: no concerns, normal size and consistency Dental: dental care not current Sleep: -no sleep concerns Vision: Wears glasses and Vision screening completed by eye doctor Hearing: No hearing concerns Growth: No growth concerns Substance use: none Sexual History: Attraction: female Sexually Active: Yes Number of lifetime partners: 1 Contraception: condoms every time History of STI: No Hx of STI/HIV testing? No Any new partners since last testing? No Penile discharge: No Body image: satisfactory Screening tools reviewed and discussed with patient/[id number] and Social Determinants of Health. Please see Patient Entered Data. OBJECTIVE Physical Exam: BP 122/72 Pulse 80 Temp 37 ?C (98.6 ?F) (Temporal Artery) Resp 18 Ht 185.5 cm (6' 1.03) Wt 108.6 kg (239 lb 8 oz) BMI 31.57 kg/m? Blood pressure percentiles are 61 % systolic and 61 % diastolic based on the 2017 AAP Clinical Practice Guideline. This reading is in the elevated blood pressure range (BP >= 120/80). Last BMI: Wt: 110.2 kg (243 lb) (>99 %, Z= 2.44)* BMI: 32.38 kg/(m2) Last 4 Encounter Wt Readings: Date: Wt: 12/25/2021 110.2 kg (243 lb) (>99 %, Z= 2.44)* 12/20/2021 107.4 kg (236 lb 12.8 oz) (>99 %, Z= 2.35)* 10/20/2021 109.1 kg (240 lb 9.6 oz) (>99 %, Z= 2.43)* 08/08/2021 101.6 kg (224 lb) (99 %, Z= 2.20)* Last 4 Encounter Ht Readings: Date: Ht: 08/24/2020 184.5 cm (6' 0.64) (93 %, Z= 1.48)* 06/22/2020 184 cm (6' 0.44) (93 %, Z= 1.46)* 11/11/2019 183 cm (6' 0.05) (94 %, Z= 1.57)* 01/08/2019 179.6 cm (5' 10.71) (95 %, Z= 1.61)* General: Well developed, No acute distress Head: normocephalic Eyes: conjunctivae/corneas clear Ears: normal external ear and canal, tympanic membranes with normal landmarks Nose: no erythema or rhinorrhea Oropharynx: moist mucous membranes, no erythema or exudate Neck: Supple, no adenopathy Resp: lungs clear to auscultation Heart: RRR, normal S1 and S2. , No murmurs Abdomen: Soft, nontender, nondistended, no palpable organomegaly or masses Genitalia: Dany stage IV, circumcised, testes descended bilaterally Extremities: Full ROM and no swelling, erythema or tenderness Neuro: No focal deficits or abnormal findings present Skin: no rashes, lesions or jaundice ASSESSMENT AND PLAN Encounter Diagnosis ICD-10-CM 1. Encounter for routine child health examination w/o ab (more content not included)... [facility] 01-28-2022 Instructions Lesa Siddiqi MD - 01/28/2022 4:28 PM EST Images from the original note were not included. 5 to Go!TM Healthy Kids Inside & Out 5 Eat FIVE fruits and veggies a day 4 Give and get FOUR compliments a day 3 Consume THREE calcium products a day 2 Limit media time to TWO hours a day 1 Get at least ONE hour of exercise a day 0 Consume ZERO sugar-sweetened drinks Go! Be healthy, inside and out! www.[facility].org/5toGo Adolescent to Adult Transition Program [facility] cares about helping you and each of our adolescents and young adults make a smooth transition to adult care. If your current doctor is a quarry extraction worker, we will work with you to decide the correct age for moving your care to a doctor or other provider who takes care of adults. We suggest that this move take place before age 22. Our office policy is to prepare you to move to a doctor or other provider who takes care of adults. This includes helping you find a doctor or other provider, sending medical records, and talking about any special needs with the new doctor or other provider. If your current doctor is in family medicine, [facility] will prepare you and your family for the transition to being an adult patient. You will be able to make your own healthcare decisions and will have an adult care team that meets your personal healthcare needs. At age 18, by law, we need your agreement to discuss personal health information with your family. We understand and respect that you may want to include your family in healthcare choices and will partner with you on how and when to include your family in decisions. We will make sure you know what changes to expect. We will also strive to make sure that all care team providers know your needs. We will help you find community resources and specialty care, if needed. Having your information before you come for the first time helps us be sure we do not miss any details. If joining our practice from outside [facility], we will help you request your medical record from past doctor(s) before your first visit. We will make every effort to work with your past providers to ensure a smooth transition and experience. We are always here for you. If you have any questions or concerns, please contact your primary care team or e-mail Got Transition is the federally funded national resource center on health care transition (HCT). Its aim is to improve transition from pediatric to adult health care through the use of evidence-driven strategies for health respiratory care program director, youth, young adults, and their families. www.gottransition.org https://gotIndividual Digitalition.org/resour ce/?nyr-ncvbdm-yreinlc Healthy Children Ages & Stages Texting Program HealthyChildren.org is an AAP ([place] [employer] of [employer]s) parenting website. It is a great resource for information. They have a new Ages & Stages texting program available to parents. Fill out the information in the link below to start getting helpful tips and resources from AAP experts right to your phone. Be sure to include your child's age so they can send you age appropriate information. https://www.healthychildren.org/ [place]/tips-tools/HealthyChildr ws-Tsohdfx-Wfzzmry/Pages/default .aspx documented in this encounter [facility] 01-28-2022 History of Presen t illness Narrative WELL VISIT PEDIATRIC MALE 14-17 YRS OLD SERVICE DATE: 01/28/2022 Chelsea is a 16 year old male who presents today for well exam accompanied by his mother. SUBJECTIVE CONCERNS: work permit HISTORY ACTIVE PROBLEM LIST Bmi (Body Mass Index), Pediatric 95-99% for Age, Obese Child Structured Weight Management/Multidisciplinary Intervention Category - 11/22/2017 Acne Vulgaris - 11/22/2017 Pdd (Pervasive Developmental Disorder) - 09/05/2011 Adhd (Attention Deficit Hyperactivity Disorder) Comment: Age 3 PAST MEDICAL HISTORY Diagnosis Date ADHD (attention deficit hyperactivity disorder) 2009 Age 3 Behavior disturbance Broken arm 2008 Broken left forearm Encopresis(307.7) ODD (oppositional defiant disorder) 2010 PDD (pervasive developmental disorder) Wheezing PAST SURGICAL HISTORY Procedure Laterality Date ANES NERVE MUSCLE TDN FASCIA&BURSA FOREARM WRIST Left forearm , greenstick PAST SURGICAL HISTORY OF cyst removed from right eye PAST SURGICAL HISTORY OF frenulum cut ALLERGIES Allergen Reactions Mold alternaria Medications: lisdexamfetamine (VYVANSE) 50 mg capsule Take 1 capsule by mouth once daily for 30 days. albuterol HFA (PROVENTIL HFA, VENTOLIN HFA) 90 mcg/actuation inhaler Inhale 2 puffs every 4 - 6 hours as needed for cough or wheezing ketoconazole (NIZORAL) 2 % shampoo Apply to affected area once daily as needed. FAMILY HISTORY Problem Relation Age of Onset Heart Maternal Grandfather Diabetes Maternal Grandfather other (perforated bowel) Maternal Grandmother 3 weeks later Heart Paternal Grandmother CHF Diabetes Paternal Grandfather other (Hypoglycemia) Mother Also has vitamin deficencies other (Fatty Liver) Father Social History Social History Narrative Not on file Smoking Exposure: Does your child spend a significant amount of time in the care of anyone who smokes? No School: Grade: 12th; grades A-B. Physical Activity: less than 1 hour of physical activity per day Screen Time totaling more than 2 hours of screen time per day. Safety: Reviewed seat belts, bike helmets, and smoke detectors Diet: -Eats 2 meals per day and 1-2 snacks per day -Typical beverages include water and sugar containing beverages -Fruits and vegetables are not eaten routinely -# of fast food meals/week: 2 -# of days/week that family has dinner together: 2 Elimination: no concerns, normal size and consistency Dental: dental care not current Sleep: -no sleep concerns Vision: Wears glasses and Vision screening completed by eye doctor Hearing: No hearing concerns Growth: No growth concerns Substance use: none Sexual History: Attraction: female Sexually Active: Yes Number of lifetime partners: 1 Contraception: condoms every time History of STI: No Hx of STI/HIV testing? No Any new partners since last testing? No Penile discharge: No Body image: satisfactory Screening tools reviewed and discussed with patient/[id number] and Social Determinants of Health. Please see Patient Entered Data. OBJECTIVE Physical Exam: BP 122/72 Pulse 80 Temp 37 C (98.6 F) (Temporal Artery) Resp 18 Ht 185.5 cm (6' 1.03) Wt 108.6 kg (239 lb 8 oz) BMI 31.57 kg/m Blood pressure percentiles are 61 % systolic and 61 % diastolic based on the 2017 AAP Clinical Practice Guideline. This reading is in the elevated blood pressure range (BP >= 120/80). Last BMI: Wt: 110.2 kg (243 lb) (>99 %, Z= 2.44)* BMI: 32.38 kg/(m^2) Last 4 Encounter Wt Readings: Date: Wt: 12/25/2021 110.2 kg (243 lb) (>99 %, Z= 2.44)* 12/20/2021 107.4 kg (236 lb 12.8 oz) (>99 %, Z= 2.35)* 10/20/2021 109.1 kg (240 lb 9.6 oz) (>99 %, Z= 2.43)* 08/08/2021 101.6 kg (224 lb) (99 %, Z= 2.20)* Last 4 Encounter Ht Readings: Date: Ht: 08/24/2020 184.5 cm (6' 0.64) (93 %, Z= 1.48)* 06/22/2020 184 cm (6' 0.44) (93 %, Z= 1.46)* 11/11/2019 183 cm (6' 0.05) (94 %, Z= 1.57)* 01/08/2019 179.6 cm (5' 10.71) (95 %, Z= 1.61)* General: Well developed, No acute distress Head: normocephalic Eyes: conjunctivae/corneas clear Ears: normal external ear and canal, tympanic membranes with normal landmarks Nose: no erythema or rhinorrhea Oropharynx: moist mucous membranes, no erythema or exudate Neck: Supple, no adenopathy Resp: lungs clear to auscultation Heart: RRR, normal S1 and S2. , No murmurs Abdomen: Soft, nontender, nondistended, no palpable organomegaly or masses Genitalia: Dany stage IV, circumcised, testes descended bilaterally Extremities: Full ROM and no swelling, erythema or tenderness Neuro: No focal deficits or abnormal findings present Skin: no rashes, lesions or jaundice ASSESSMENT & PLAN Encounter Diagnosis ICD-10-CM 1. Encounter for routine child health examination w/o abnormal findings Z00.129 2. Abnormal weight gain R63.5 LIPID PANEL BASIC HEPATIC FUNCTION PNL VITAMIN D 25 HYDROXY TSH BLD T4 FREE/FREE THYROX GLUCOSE FASTING BLD 3. Encounter for immunization Z23 Leotus COVID-19 BIVALENT BOOSTER VACCINE, AGE 12+ YR INFLUENZA VACCINE QUADRIVALENT 6 MO - 64 YRS IM MENINGOCOCCAL GROUP B VACCINE 2 DOSE 98 %ile (Z= 2.04) based on CDC (Boys, 2-20 Years) BMI-for-age based on BMI available as of 01/28/2022. Chelsea is obese (BMI greater than 95th%): -Discussed how healthy eating, minimizing electronics and getting physical activity impact physical and emotional health -Avoid eating out and encouraged family meals at home -Lipid panel, AST, ALT and fasting glucose ordered based on Obesity Expert Committee Guidelines Based on PHQ-A Score: 1 (recommended cut off score is 11) and interview, presentation is not consistent with depression - Adolescent anticipatory guidance discussed. - Discussed diet and safety. - Dental care discussed. - Bright Futures handout given (See Patient Instructions). - Parent/guardian was counseled [id number] by myself (the billing provider) for the following immunizations and vaccine components, including side effects: COVID-19, Influenza, and Men B. Parent/guardian consents for immunization and understands risks and benefits. A VIS sheet on each immunization was given to the parent/guardian. - Follow up in one year for routine physical. SIGNATURE: Lesa Siddiqi MD PATIENT NAME: Chelsea Crawley DATE: January 28, 2022 TIME: 4:15 PM documented in this encounter [facility] 01-25-2022 Miscellaneous Notes I spoke with mom and an appt was scheduled as pt's physical has . documented in this encounter [facility] 01-14-2022 Miscellaneous Notes The following approved medication requests have been transmitted electronically. Requested Prescriptions Pending Prescriptions Disp Refills lisdexamfetamine (VYVANSE) 50 mg capsule 30 capsule 0 Sig: Take 1 capsule by mouth once daily for 30 days. Nathan Ye MD Last WCC: 08/24/2020 Last ADHD / Med Check visit: 05/28/2021 Verify RX Benefits Completed Last medication refill date: 12/12/2021 Requesting 30 day supply Retail pharmacy updated: Completed Patient aware RX will be sent to pharmacy. No need to notify patient. Immunizations due: MENINGOCOCCAL B: Consider based on risk(1 of 2 - Risk Bexsero 2-dose series) Never done COVID-19 VACCINE(3 - Booster for Pfizer series) due on 10/12/2020 INFLUENZA(1) due on 11/08/2021 Jane Avitia LPN documented in this encounter [facility] 12-28-2021 Miscellaneous Notes Mom was notified of advice and/or results. The following approved medication requests have been transmitted electronically. Requested Prescriptions Signed Prescriptions Disp Refills azithromycin (ZITHROMAX) 250 mg tablet 6 tablet 0 Sig: Take 2 tablets on day 1, then 1 tablet on days 2 - 5 Jane Avitia LPN The following approved medication requests have been transmitted electronically. Requested Prescriptions Signed Prescriptions Disp Refills azithromycin (ZITHROMAX) 250 mg tablet 6 tablet 0 Sig: Take 2 tablets on day 1, then 1 tablet on days 2 - 5 Anamika Beauchamp PA-C Mom calling. She is concerned about his cough. States it is not getting better and has been chronic. She is wanting to know if an antibiotic can be called in. States she is leaving out of town on Friday and wants to get this taken care of Makenna Ni RN documented in this encounter [facility] 12-25-2021 Note HNO ID: [id number] Author: RT Beatriz(R) Service: Radiology Author Type: Technologist Type: Progress Notes Filed: 12/25/2021 3:13 PM Note Text: Radiology Service Progress Note PATIENT NAME: Chelsea Crawley DATE OF SERVICE: December 25, 2021 TIME: 3:02 PM PATIENT IDENTITY VERIFICATION COMPLETED USING TWO (2) IDENTIFIERS: Name and Date of confirmed by patient verbally. FALL SCREENING: Has the patient had 2 falls in the last year or 1 fall with injury or currently using an Ambulatory Assistive Device (Walker, Cane, Wheelchair, Crutches, etc.)? No PATIENT GENDER DATA: Male PATIENT RELEVANT IMPLANT DATA REVIEWED: Yes RADIOLOGY DEPARTMENT: General X-ray: Exam(s) Completed: Chest X-Ray PERIPHERAL IV DATA: Not applicable SIGNED BY: Elana Diego RT(R) December 25, 2021 3:02 PM [facility] 12-25-2021 Note HNO ID: [id number] Author: Anamika Beauchamp PA-C Service: ? Author Type: Physician Machine Helper Type: Progress Notes Filed: 12/25/2021 4:56 PM Note Text: PEDIATRIC SICK VISIT SERVICE DATE: 12/25/2021 SUBJECTIVE: Chelsea Crawley is a 16 year old male accompanied by mother for evaluation of persistent dry cough x 2 months. Seen in on 12/20/21 for cough, fatigue, sore throat, and headache. Review of chart reveals symptoms present at that time for 2 weeks; however, mother states he had been sick for at least 2 months. Strep swab at that time was negative. Patient given a prednisone taper. Mother states this was prescribed due to chronic nature of cough. Patient denies any additional symptoms. No fever, congestion, rhinorrhea, sore throat, headache, and fatigue. Mother does report personal history of COVID-19 for which she is still dealing with prolonged sxs. Patient and girlfriend symptomatic around the same time, but tested negative for COVID-19. History positive for childhood asthma in patient and mother. History was obtained from: mother and patient Modifying factors attempted: Prednisone Albuterol inhaler (mothers, only used a few times) OTC cold medicine HISTORY: ACTIVE PROBLEM LIST Adhd (Attention Deficit Hyperactivity Disorder) Pdd (Pervasive Developmental Disorder) Bmi (Body Mass Index), Pediatric 95-99% for Age, Obese Child Structured Weight Management/Multidisciplinary Intervention Category Acne Vulgaris PAST MEDICAL HISTORY Diagnosis Date ADHD (attention deficit hyperactivity disorder) 2009 Age 3 Behavior disturbance Broken arm 2008 Broken left forearm Encopresis(307.7) ODD (oppositional defiant disorder) 2010 PDD (pervasive developmental disorder) Wheezing PAST SURGICAL HISTORY Procedure Laterality Date ANES NERVE MUSCLE TDN FASCIAANDBURSA FOREARM WRIST Left forearm , greenstick PAST SURGICAL HISTORY OF cyst removed from right eye PAST SURGICAL HISTORY OF frenulum cut Allergies: ALLERGIES Allergen Reactions Mold alternaria Medications: predniSONE (DELTASONE) 10 mg tablet Take 4 tabs daily for 3 days, then 2 tabs daily for 3 days, then 1 tab daily for 3 days with food. lisdexamfetamine (VYVANSE) 50 mg capsule Take 1 capsule by mouth once daily for 30 days. cetirizine HCl (ZYRTEC ORAL) Take by mouth. albuterol HFA (PROVENTIL HFA, VENTOLIN HFA) 90 mcg/actuation inhaler Inhale 2 puffs every 4 - 6 hours as needed for cough or wheezing ibuprofen (MOTRIN ORAL) Take by mouth. ketoconazole (NIZORAL) 2 % shampoo Apply to affected area once daily as needed. lisdexamfetamine (VYVANSE) 50 mg capsule Take 1 capsule by mouth once daily for 30 days. lisdexamfetamine (VYVANSE) 50 mg capsule Take 1 capsule by mouth once daily for 30 days. REVIEW OF SYSTEMS: As above, otherwise negative OBJECTIVE: BP 136/70 Pulse 88 Temp 36.9 ?C (98.4 ?F) (Temporal Artery) Resp 20 Wt 110.2 kg (243 lb) SpO2 100% General: alert and active in no apparent distress Eyes: conjunctiva clear, EOMI Neck: supple, no adenopathy Lungs: clear to auscultation bilaterally, good air exchange, no retractions, no wheezes, rales, or rhonchi CVS: Normal rate, regular rhythm, no murmur Skin: No rashes, lesions or skin changes ASSESSMENT/PLAN: Encounter Diagnosis ICD-10-CM 1. Chronic cough R05.3 XR CHEST 2V FRONTAL/LAT - Discussed with mother and patient that cough appears to be post-viral - Discussed how some coughs can linger for weeks to months especially if patient has underlying asthma - Reviewed normal physical examination findings and reassuring oxygen saturation. Discussed that I did not feel CXR was needed at this time; however, mother preferred to get one. X-ray ordered per mother's request - Albuterol inhaler ordered. Instructed on use (every 4 - 6 hours scheduled x 2 - 3 days, then as needed for cough or wheezing) - Symptomatic care reviewed - All questions answered - Follow up in 1 week for persistent symptoms. If not improvement despite above recommendations, may consider course antibiotics for possible ?atypical pneumonia? I spent a total of 33 minutes on the date of the service which included preparing to see the patient, [id number] patient care, completing clinical documentation, obtaining and/or reviewing separately obtained history, performing a medically appropriate examination, counseling and educating the patient/family/caregiver, ordering medications, tests, or procedures, and communicating results to the patient/family/caregiver. SIGNATURE: Anamika Beauchamp PA-C PATIENT NAME: Chelsea Crawley DATE: December 25, 2021 TIME: 2:16 PM [facility] 12-25-2021 History of Presen t illness Narrative Radiology Service Progress Note PATIENT NAME: Chelsea Crawley DATE OF SERVICE: December 25, 2021 TIME: 3:02 PM PATIENT IDENTITY VERIFICATION COMPLETED USING TWO (2) IDENTIFIERS: Name and Date of confirmed by patient verbally. FALL SCREENING: Has the patient had 2 falls in the last year or 1 fall with injury or currently using an Ambulatory Assistive Device (Walker, Cane, Wheelchair, Crutches, etc.)? No PATIENT GENDER DATA: Male PATIENT RELEVANT IMPLANT DATA REVIEWED: Yes RADIOLOGY DEPARTMENT: General X-ray: Exam(s) Completed: Chest X-Ray PERIPHERAL IV DATA: Not applicable SIGNED BY: RT Beatriz(R) December 25, 2021 3:02 PM documented in this encounter [facility] 12-25-2021 History of Presen t illness Narrative PEDIATRIC SICK VISIT SERVICE DATE: 12/25/2021 SUBJECTIVE: Chelsea Crawley is a 16 year old male accompanied by mother for evaluation of persistent dry cough x 2 months. Seen in on 12/20/21 for cough, fatigue, sore throat, and headache. Review of chart reveals symptoms present at that time for 2 weeks; however, mother states he had been sick for at least 2 months. Strep swab at that time was negative. Patient given a prednisone taper. Mother states this was prescribed due to chronic nature of cough. Patient denies any additional symptoms. No fever, congestion, rhinorrhea, sore throat, headache, and fatigue. Mother does report personal history of COVID-19 for which she is still dealing with prolonged sxs. Patient and girlfriend symptomatic around the same time, but tested negative for COVID-19. History positive for childhood asthma in patient and mother. History was obtained from: mother and patient Modifying factors attempted: Prednisone Albuterol inhaler (mothers, only used a few times) OTC cold medicine HISTORY: ACTIVE PROBLEM LIST Adhd (Attention Deficit Hyperactivity Disorder) Pdd (Pervasive Developmental Disorder) Bmi (Body Mass Index), Pediatric 95-99% for Age, Obese Child Structured Weight Management/Multidisciplinary Intervention Category Acne Vulgaris PAST MEDICAL HISTORY Diagnosis Date ADHD (attention deficit hyperactivity disorder) 2009 Age 3 Behavior disturbance Broken arm 2008 Broken left forearm Encopresis(307.7) ODD (oppositional defiant disorder) 2009 PDD (pervasive developmental disorder) Wheezing PAST SURGICAL HISTORY Procedure Laterality Date ANES NERVE MUSCLE TDN FASCIA&BURSA FOREARM WRIST Left forearm , greenstick PAST SURGICAL HISTORY OF cyst removed from right eye PAST SURGICAL HISTORY OF frenulum cut Allergies: ALLERGIES Allergen Reactions Mold alternaria Medications: predniSONE (DELTASONE) 10 mg tablet Take 4 tabs daily for 3 days, then 2 tabs daily for 3 days, then 1 tab daily for 3 days with food. lisdexamfetamine (VYVANSE) 50 mg capsule Take 1 capsule by mouth once daily for 30 days. cetirizine HCl (ZYRTEC ORAL) Take by mouth. albuterol HFA (PROVENTIL HFA, VENTOLIN HFA) 90 mcg/actuation inhaler Inhale 2 puffs every 4 - 6 hours as needed for cough or wheezing ibuprofen (MOTRIN ORAL) Take by mouth. ketoconazole (NIZORAL) 2 % shampoo Apply to affected area once daily as needed. lisdexamfetamine (VYVANSE) 50 mg capsule Take 1 capsule by mouth once daily for 30 days. lisdexamfetamine (VYVANSE) 50 mg capsule Take 1 capsule by mouth once daily for 30 days. REVIEW OF SYSTEMS: As above, otherwise negative OBJECTIVE: BP 136/70 Pulse 88 Temp 36.9 C (98.4 F) (Temporal Artery) Resp 20 Wt 110.2 kg (243 lb) SpO2 100% General: alert and active in no apparent distress Eyes: conjunctiva clear, EOMI Neck: supple, no adenopathy Lungs: clear to auscultation bilaterally, good air exchange, no retractions, no wheezes, rales, or rhonchi CVS: Normal rate, regular rhythm, no murmur Skin: No rashes, lesions or skin changes ASSESSMENT/PLAN: Encounter Diagnosis ICD-10-CM 1. Chronic cough R05.3 XR CHEST 2V FRONTAL/LAT - Discussed with mother and patient that cough appears to be post-viral - Discussed how some coughs can linger for weeks to months especially if patient has underlying asthma - Reviewed normal physical examination findings and reassuring oxygen saturation. Discussed that I did not feel CXR was needed at this time; however, mother preferred to get one. X-ray ordered per mother's request - Albuterol inhaler ordered. Instructed on use (every 4 - 6 hours scheduled x 2 - 3 days, then as needed for cough or wheezing) - Symptomatic care reviewed - All questions answered - Follow up in 1 week for persistent symptoms. If not improvement despite above recommendations, may consider course antibiotics for possible ?atypical pneumonia? I spent a total of 33 minutes on the date of the service which included preparing to see the patient, [id number] patient care, completing clinical documentation, obtaining and/or reviewing separately obtained history, performing a medically appropriate examination, counseling and educating the patient/family/caregiver, ordering medications, tests, or procedures, and communicating results to the patient/family/caregiver. SIGNATURE: Anamika Beauchamp PA-C PATIENT NAME: Chelsea Crawley DATE: December 25, 2021 TIME: 2:16 PM documented in this encounter [facility] 12-20-2021 Note HNO ID: [id number] Author: Krystyna Ballard APRN.THREAD MILLING MACHINE SET UP OPERATOR Service: ? Author Type: Nurse Practitioner Type: Progress Notes Filed: 12/20/2021 6:25 PM Note Text: This note was created using NoteWriter. Subjective Chelsea Crawley is a 16 year old male. 16 year old male with PMH ADHD presents for illness. Acute onset 2 weeks ago +sore throat + cough +fatigue +headache Denies fever or chills Denies ear pain Denies abdominal pain Denies N/V/D States it coincides with his mom being diagnosed with COVID. His girlfriend is sick as well. Has used Ibuprofen The history is provided by the patient and a parent. No russian language instructor was used. Cough This is a new problem. The current episode started more than 1 week ago. The problem occurs constantly. The problem has not changed since onset.The cough is Non-productive. There has been no fever. Associated symptoms include ear pain, headaches and sore throat. Pertinent negatives include no chest pain, no chills, no sweats, no weight loss, no ear congestion, no rhinorrhea, no myalgias, no shortness of breath, no wheezing and no eye redness. He has tried nothing for the symptoms. The treatment provided no relief. He is not a smoker. His past medical history does not include bronchitis, pneumonia, bronchiectasis, COPD, emphysema or asthma. PAST MEDICAL HISTORY Diagnosis Date ADHD (attention deficit hyperactivity disorder) 2009 Age 3 Behavior disturbance Broken arm 2007 Broken left forearm Encopresis(307.7) ODD (oppositional defiant disorder) 2009 PDD (pervasive developmental disorder) Wheezing PAST SURGICAL HISTORY Procedure Laterality Date ANES NERVE MUSCLE TDN FASCIAANDBURSA FOREARM WRIST Left forearm , greenstick PAST SURGICAL HISTORY OF cyst removed from right eye PAST SURGICAL HISTORY OF frenulum cut ALLERGIES Mold MEDICATIONS cetirizine HCl (ZYRTEC ORAL) Take by mouth. ibuprofen (MOTRIN ORAL) Take by mouth. predniSONE (DELTASONE) 10 mg tablet Take 4 tabs daily for 3 days, then 2 tabs daily for 3 days, then 1 tab daily for 3 days with food. lisdexamfetamine (VYVANSE) 50 mg capsule Take 1 capsule by mouth once daily for 30 days. ketoconazole (NIZORAL) 2 % shampoo Apply to affected area once daily as needed. lisdexamfetamine (VYVANSE) 50 mg capsule Take 1 capsule by mouth once daily for 30 days. lisdexamfetamine (VYVANSE) 50 mg capsule Take 1 capsule by mouth once daily for 30 days. FAMILY HISTORY Problem Relation Age of Onset Heart Maternal Grandfather Diabetes Maternal Grandfather other (perforated bowel) Maternal Grandmother 3 weeks later Heart Paternal Grandmother CHF Diabetes Paternal Grandfather other (Hypoglycemia) Mother Also has vitamin deficencies other (Fatty Liver) Father Social History Tobacco Use Smoking status: Never Passive exposure: Yes Smokeless tobacco: Never Tobacco comments: at moms house only - outdoor Substance Use Topics Alcohol use: No Drug use: No Review of Systems Constitutional: Positive for fatigue. Negative for activity change, appetite change, chills and weight loss. HENT: Positive for congestion, ear pain, sinus pressure, sinus pain and sore throat. Negative for rhinorrhea. Eyes: Negative for photophobia, pain, discharge, redness, itching and visual disturbance. Respiratory: Positive for cough. Negative for apnea, choking, chest tightness, shortness of breath and wheezing. Cardiovascular: Negative for chest pain, palpitations and leg swelling. Gastrointestinal: Negative for abdominal pain, diarrhea, nausea and vomiting. Musculoskeletal: Negative for arthralgias, back pain and myalgias. Skin: Negative for color change, pallor, rash and wound. Allergic/Immunologic: Positive for environmental allergies. Neurological: Positive for headaches. Negative for dizziness and facial asymmetry. Hematological: Negative for adenopathy. Does not bruise/bleed easily. Psychiatric/Behavioral: Negative for agitation and behavioral problems. Objective BP 130/64 Pulse 98 Temp 36.8 ?C (98.2 ?F) Resp 16 Wt 107.4 kg (236 lb 12.8 oz) SpO2 98% Physical Exam Vitals and nursing note reviewed. Constitutional: General: He is not in acute distress. Appearance: Normal appearance. He is not ill-appearing, toxic-appearing or diaphoretic. HENT: Head: Normocephalic and atraumatic. Right Ear: External ear normal. Left Ear: External ear normal. Nose: Nose normal. No congestion or rhinorrhea. Mouth/Throat: Mouth: Mucous membranes are moist. Pharynx: Oropharynx is clear. No oropharyngeal exudate or posterior oropharyngeal erythema. Eyes: General: Right eye: No discharge. Left eye: No discharge. Extraocular Movements: Extraocular movements intact. Conjunctiva/sclera: Conjunctivae normal. Pupils: Pupils are equal, round, and reactive to light. Cardiovascular: Rate and Rhythm: Normal rate and regular rhyth (more content not included)... [facility] 12-20-2021 Instructions Krystyna Ballard APRN.[facility] - 12/20/2021 5:57 PM EDT COUGH: Your doctor wants you to have this information about coughing. The body has a cough reflex which helps expel mucous secretions and irritants from the lung and airway passages. Cough spasms are periods of continuous coughing lasting several minutes. Most coughs is caused by virus infections which may last for up to 2-3 weeks. Coughing helps to protect the lung from pneumonia. A persistent cough lasting longer than 4-6 weeks requires medical evaluation by your primary care doctor. Treatment of cough includes measures to loosen the cough and thin the mucous. Warm liquids, cough drops, and nonprescription cough medicine may help reduce dry hacking cough. Use a humidifier if necessary as dry air can make coughs worse. Ultrasonic humidifiers are especially useful as they kill molds and many bacteria. Some cough medicines have antihistamines, decongestants, or alcohol in them; there is no proof that any of these help control cough. Prescription cough medicine or those with dextromethorphan (DM) should be reserved for dry coughs that prevent sleep or cause spasms or chest pain. Avoid any exposure to cigarette smoke as this will worsen the cough or make it last much longer. Call your doctor right away if you or your child have increased breathing difficulty, a high fever, a cough that lasts longer than 3 weeks, or other serious complaints. documented in this encounter [facility] 12-20-2021 History of Presen t illness Narrative This note was created using [employer]. Subjective Chelsea Crawley is a 16 year old male. 16 year old male with PMH ADHD presents for illness. Acute onset 2 weeks ago +sore throat + cough +fatigue +headache Denies fever or chills Denies ear pain Denies abdominal pain Denies N/V/D States it coincides with his mom being diagnosed with COVID. His girlfriend is sick as well. Has used Ibuprofen The history is provided by the patient and a parent. No russian language instructor was used. Cough This is a new problem. The current episode started more than 1 week ago. The problem occurs constantly. The problem has not changed since onset.The cough is Non-productive. There has been no fever. Associated symptoms include ear pain, headaches and sore throat. Pertinent negatives include no chest pain, no chills, no sweats, no weight loss, no ear congestion, no rhinorrhea, no myalgias, no shortness of breath, no wheezing and no eye redness. He has tried nothing for the symptoms. The treatment provided no relief. He is not a smoker. His past medical history does not include bronchitis, pneumonia, bronchiectasis, COPD, emphysema or asthma. PAST MEDICAL HISTORY Diagnosis Date ADHD (attention deficit hyperactivity disorder) 2009 Age 3 Behavior disturbance Broken arm 2008 Broken left forearm Encopresis(307.7) ODD (oppositional defiant disorder) 2010 PDD (pervasive developmental disorder) Wheezing PAST SURGICAL HISTORY Procedure Laterality Date ANES NERVE MUSCLE TDN FASCIA&BURSA FOREARM WRIST Left forearm , greenstick PAST SURGICAL HISTORY OF cyst removed from right eye PAST SURGICAL HISTORY OF frenulum cut ALLERGIES Mold MEDICATIONS cetirizine HCl (ZYRTEC ORAL) Take by mouth. ibuprofen (MOTRIN ORAL) Take by mouth. predniSONE (DELTASONE) 10 mg tablet Take 4 tabs daily for 3 days, then 2 tabs daily for 3 days, then 1 tab daily for 3 days with food. lisdexamfetamine (VYVANSE) 50 mg capsule Take 1 capsule by mouth once daily for 30 days. ketoconazole (NIZORAL) 2 % shampoo Apply to affected area once daily as needed. lisdexamfetamine (VYVANSE) 50 mg capsule Take 1 capsule by mouth once daily for 30 days. lisdexamfetamine (VYVANSE) 50 mg capsule Take 1 capsule by mouth once daily for 30 days. FAMILY HISTORY Problem Relation Age of Onset Heart Maternal Grandfather Diabetes Maternal Grandfather other (perforated bowel) Maternal Grandmother 3 weeks later Heart Paternal Grandmother CHF Diabetes Paternal Grandfather other (Hypoglycemia) Mother Also has vitamin deficencies other (Fatty Liver) Father Social History Tobacco Use Smoking status: Never Passive exposure: Yes Smokeless tobacco: Never Tobacco comments: at moms house only - outdoor Substance Use Topics Alcohol use: No Drug use: No Review of Systems Constitutional: Positive for fatigue. Negative for activity change, appetite change, chills and weight loss. HENT: Positive for congestion, ear pain, sinus pressure, sinus pain and sore throat. Negative for rhinorrhea. Eyes: Negative for photophobia, pain, discharge, redness, itching and visual disturbance. Respiratory: Positive for cough. Negative for apnea, choking, chest tightness, shortness of breath and wheezing. Cardiovascular: Negative for chest pain, palpitations and leg swelling. Gastrointestinal: Negative for abdominal pain, diarrhea, nausea and vomiting. Musculoskeletal: Negative for arthralgias, back pain and myalgias. Skin: Negative for color change, pallor, rash and wound. Allergic/Immunologic: Positive for environmental allergies. Neurological: Positive for headaches. Negative for dizziness and facial asymmetry. Hematological: Negative for adenopathy. Does not bruise/bleed easily. Psychiatric/Behavioral: Negative for agitation and behavioral problems. Objective BP 130/64 Pulse 98 Temp 36.8 C (98.2 F) Resp 16 Wt 107.4 kg (236 lb 12.8 oz) SpO2 98% Physical Exam Vitals and nursing note reviewed. Constitutional: General: He is not in acute distress. Appearance: Normal appearance. He is not ill-appearing, toxic-appearing or diaphoretic. HENT: Head: Normocephalic and atraumatic. Right Ear: External ear normal. Left Ear: External ear normal. Nose: Nose normal. No congestion or rhinorrhea. Mouth/Throat: Mouth: Mucous membranes are moist. Pharynx: Oropharynx is clear. No oropharyngeal exudate or posterior oropharyngeal erythema. Eyes: General: Right eye: No discharge. Left eye: No discharge. Extraocular Movements: Extraocular movements intact. Conjunctiva/sclera: Conjunctivae normal. Pupils: Pupils are equal, round, and reactive to light. Cardiovascular: Rate and Rhythm: Normal rate and regular rhythm. Pulses: Normal pulses. Heart sounds: Normal heart sounds. No murmur heard. No friction rub. No gallop. Pulmonary: Effort: Pulmonary effort is normal. No respiratory distress. Breath sounds: Normal breath sounds. No stridor. No wheezing, rhonchi or rales. Chest: Chest wall: No tenderness. Abdominal: General: Abdomen is flat. There is no distension. Palpations: Abdomen is soft. There is no mass. Tenderness: There is no abdominal tenderness. There is no guarding or rebound. Hernia: No hernia is present. Musculoskeletal: General: No swelling, tenderness, deformity or signs of injury. Normal range of motion. Cervical back: Normal range of motion and neck supple. No rigidity or tenderness. Right lower leg: No edema. Left lower leg: No edema. Lymphadenopathy: Cervical: No cervical adenopathy. Skin: General: Skin is warm and dry. Capillary Refill: Capillary refill takes less than 2 seconds. Coloration: Skin is not jaundiced or pale. Findings: No bruising, lesion or rash. Neurological: General: No focal deficit present. Mental Status: He is alert and oriented to person, place, and time. Cranial Nerves: No cranial nerve deficit. Sensory: No sensory deficit. Motor: No weakness. Coordination: Coordination normal. Gait: Gait normal. Deep Tendon Reflexes: Reflexes normal. Psychiatric: Mood and Affect: Mood normal. Behavior: Behavior normal. Thought Content: Thought content normal. Assessment and Plan ASSESSMENT/PLAN: 1. Pharyngitis, unspecified etiology - ICD9: 462, ICD10: J02.9 - suspect viral - Rapid Strep negative in the office today - Alere Strep Test NEGATIVE , no culture pending Rx Prednisone - Discussed supportive care treatment with fluids, rest and analgesia. - The patient may also use OTC cough and cold meds as needed and warm salt water gargles, throat lozenges and/or OTC throat spray as needed. - Contagious dz precautions discussed- including considered contagious until on antibiotics for 24 hours - The patient should follow up in 3-5 days if symptoms persist or worsen - Call back if drooling, increased temperature, symptoms of dehydration and/or still sick in one week - STREP A MOLECULAR (POC) Krystyna Ballard APRN.LILLI documented in this encounter [facility] 12-12-2021 Miscellaneous Notes The following approved medication requests have been transmitted electronically. Requested Prescriptions Pending Prescriptions Disp Refills lisdexamfetamine (VYVANSE) 50 mg capsule 30 capsule 0 Sig: Take 1 capsule by mouth once daily for 30 days. Nathan Ye MD Last WCC: greater than one year ago Last ADHD / Med Check visit: 05/28/21, reply sent in my chart indicating need for med check Verify RX Benefits Completed Last medication refill date: 11/09/21 Requesting 30 day supply Retail pharmacy updated: Completed Patient aware RX will be sent to pharmacy. No need to notify patient. Immunizations due: MENINGOCOCCAL B: Consider based on risk(1 of 2 - Risk Bexsero 2-dose series) Never done COVID-19 VACCINE(3 - Booster for Pfizer series) due on 10/12/2020 INFLUENZA(1) due on 11/08/2021 Jackie Iglesias RN documented in this encounter [facility] 12-12-2021 Miscellaneous Notes The following approved medication requests have been transmitted electronically. Requested Prescriptions Signed Prescriptions Disp Refills ketoconazole (NIZORAL) 2 % shampoo 120 mL 2 Sig: Apply to affected area once daily as needed. Nathan Ye MD documented in this encounter [facility] 11-09-2021 Miscellaneous Notes The following approved medication requests have been transmitted electronically. Requested Prescriptions Pending Prescriptions Disp Refills lisdexamfetamine (VYVANSE) 50 mg capsule 30 capsule 0 Sig: Take 1 capsule by mouth once daily for 30 days. Nathan Ye MD Attempted to call to schedule med check, no answer and unable to leave a message. [employer] message sent Last [facility]: greater than one year ago Last ADHD / Med Check visit: 05/28/21 Verify RX Benefits Completed Last medication refill date: 10/03/21 Requesting 30 day supply Retail pharmacy updated: Completed Patient aware RX will be sent to pharmacy. No need to notify patient. Immunizations due: MENINGOCOCCAL B: Consider based on risk(1 of 2 - Risk Bexsero 2-dose series) Never done COVID-19 VACCINE(3 - Booster for Pfizer series) due on 01/17/2021 INFLUENZA(1) due on 11/08/2021 Makenna Ni RN documented in this encounter [facility] 10-22-2021 Note HNO ID: [id number] Author: RT Enid(R) Service: ? Author Type: Pond Tender Type: Progress Notes Filed: 10/22/2021 4:50 PM Note Text: Radiology Service Progress Note PATIENT NAME: Chelsea Crawley DATE OF SERVICE: October 22, 2021 TIME: 4:39 PM PATIENT IDENTITY VERIFICATION COMPLETED USING TWO (2) IDENTIFIERS: Name and Date of confirmed by patient verbally. FALL SCREENING: Has the patient had 2 falls in the last year or 1 fall with injury or currently using an Ambulatory Assistive Device (Walker, Cane, Wheelchair, Crutches, etc.)? No PATIENT GENDER DATA: Male PATIENT RELEVANT IMPLANT DATA REVIEWED: Yes RADIOLOGY DEPARTMENT: General X-ray: Exam(s) Completed: Lower Extremity X-Ray(s): Toes, Left 4th toe PERIPHERAL IV DATA: Not applicable SIGNED BY: RT Enid(R) October 22, 2021 4:39 PM [facility] 10-22-2021 Miscellaneous Notes I called and discussed the displaced toe fracture with mom. Recommended that they see podiatry. We will have the PSS call to schedule. Recommended keith tape and stiff soled shoe. Ice, elevation. Mom agreeable with plan. documented in this encounter [facility] 10-20-2021 Note HNO ID: [id number] Author: Luc Cota APRN.LILLI Service: ? Author Type: Nurse Practitioner Type: Progress Notes Filed: 10/20/2021 3:09 PM Note Text: Subjective HPI HPI Chelsea Crawley is a 16 year old male who presents today for CC of left toe injury 1 day ago, kicked bed. Has tried nothing for relief. Symptoms are worsened by walking. Denies numbness/tingling of left 4th toe. .Patient presents with: Trauma: Left foot toe possibly fractured x 1 day PAST MEDICAL HISTORY Diagnosis Date ADHD (attention deficit hyperactivity disorder) 2009 Age 3 Behavior disturbance Broken arm 2008 Broken left forearm Encopresis(307.7) ODD (oppositional defiant disorder) 2010 PDD (pervasive developmental disorder) Wheezing PAST SURGICAL HISTORY Procedure Laterality Date ANES NERVE MUSCLE TDN FASCIAANDBURSA FOREARM WRIST Left forearm , greenstick PAST SURGICAL HISTORY OF cyst removed from right eye PAST SURGICAL HISTORY OF frenulum cut ALLERGIES Mold MEDICATIONS lisdexamfetamine (VYVANSE) 50 mg capsule Take 1 capsule by mouth once daily for 30 days. cetirizine HCl (ZYRTEC ORAL) Take by mouth. ketoconazole (NIZORAL) 2 % shampoo Washing the scalp 3 times a week, Lathering and letting sit on the scalp for 5-10 minutes before rinsing lisdexamfetamine (VYVANSE) 50 mg capsule Take 1 capsule by mouth once daily for 30 days. Do not start before February 03, 2021. lisdexamfetamine (VYVANSE) 50 mg capsule Take 1 capsule by mouth once daily for 30 days. FAMILY HISTORY Problem Relation Age of Onset Heart Maternal Grandfather Diabetes Maternal Grandfather other (perforated bowel) Maternal Grandmother 3 weeks later Heart Paternal Grandmother CHF Diabetes Paternal Grandfather other (Hypoglycemia) Mother Also has vitamin deficencies other (Fatty Liver) Father Social History Tobacco Use Smoking status: Never Passive exposure: Yes Smokeless tobacco: Never Tobacco comments: at moms house only - outdoor Substance Use Topics Alcohol use: No Drug use: No ROS Objective Blood pressure 120/82, pulse 88, temperature 36.4 ?C (97.6 ?F), resp. rate 21, weight 109.1 kg (240 lb 9.6 oz), SpO2 98 %. Physical Exam Constitutional: General: He is not in acute distress. Appearance: He is not toxic-appearing or diaphoretic. HENT: Head: Normocephalic and atraumatic. Pulmonary: Effort: Pulmonary effort is normal. No accessory muscle usage or respiratory distress. Musculoskeletal: Feet: Neurological: Mental Status: He is alert and oriented to person, place, and time. ASSESSMENT/PLAN: 1. Toe injury, left, initial encounter - ICD9: 959.7, ICD10: S99.922A Declined post op shoe Stiff soled shoe and/or keith tape advised. Return on Friday for xray. -call with result tx accordingly. 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 Subjective HPI HPI Chelsea Crawley is a 16 year old male who presents today for CC of left toe injury 1 day ago, kicked bed. Has tried nothing for relief. Symptoms are worsened by walking. Denies numbness/tingling of left 4th toe. .Patient presents with: Trauma: Left foot toe possibly fractured x 1 day PAST MEDICAL HISTORY Diagnosis Date ADHD (attention deficit hyperactivity disorder) 2009 Age 3 Behavior disturbance Broken arm 2008 Broken left forearm Encopresis(307.7) ODD (oppositional defiant disorder) 2010 PDD (pervasive developmental disorder) Wheezing PAST SURGICAL HISTORY Procedure Laterality Date ANES NERVE MUSCLE TDN FASCIA&BURSA FOREARM WRIST Left forearm , greenstick PAST SURGICAL HISTORY OF cyst removed from right eye PAST SURGICAL HISTORY OF frenulum cut ALLERGIES Mold MEDICATIONS lisdexamfetamine (VYVANSE) 50 mg capsule Take 1 capsule by mouth once daily for 30 days. cetirizine HCl (ZYRTEC ORAL) Take by mouth. ketoconazole (NIZORAL) 2 % shampoo Washing the scalp 3 times a week, Lathering and letting sit on the scalp for 5-10 minutes before rinsing lisdexamfetamine (VYVANSE) 50 mg capsule Take 1 capsule by mouth once daily for 30 days. Do not start before February 03, 2021. lisdexamfetamine (VYVANSE) 50 mg capsule Take 1 capsule by mouth once daily for 30 days. FAMILY HISTORY Problem Relation Age of Onset Heart Maternal Grandfather Diabetes Maternal Grandfather other (perforated bowel) Maternal Grandmother 3 weeks later Heart Paternal Grandmother CHF Diabetes Paternal Grandfather other (Hypoglycemia) Mother Also has vitamin deficencies other (Fatty Liver) Father Social History Tobacco Use Smoking status: Never Passive exposure: Yes Smokeless tobacco: Never Tobacco comments: at moms house only - outdoor Substance Use Topics Alcohol use: No Drug use: No ROS Objective Blood pressure 120/82, pulse 88, temperature 36.4 C (97.6 F), resp. rate 21, weight 109.1 kg (240 lb 9.6 oz), SpO2 98 %. Physical Exam Constitutional: General: He is not in acute distress. Appearance: He is not toxic-appearing or diaphoretic. HENT: Head: Normocephalic and atraumatic. Pulmonary: Effort: Pulmonary effort is normal. No accessory muscle usage or respiratory distress. Musculoskeletal: Feet: Neurological: Mental Status: He is alert and oriented to person, place, and time. ASSESSMENT/PLAN: 1. Toe injury, left, initial encounter - ICD9: 959.7, ICD10: S99.922A Declined post op shoe Stiff soled shoe and/or keith tape advised. Return on Friday for xray. -call with result tx accordingly. - XR TOE AP/LAT/OBL LEFT Agrees to plan Luc Cota APRN.LILLI documented in this encounter [facility] 08-27-2021 Miscellaneous Notes The following approved medication requests have been transmitted electronically. Pending Prescriptions: Disp Refills lisdexamfetamine (VYVANSE) 50 mg capsule 30 capsule0 Sig: Take 1 capsule by mouth once daily for 30 days. RODRICK Class: C-II PADMA: No Nathan Ye MD Last [facility]: greater than one year ago Last ADHD / Med Check visit: 05/28/2021 Verify RX Benefits Completed Last medication refill date: 07/24/2021 Requesting 30 day supply (message sent if wanted 3 months) Retail pharmacy updated: Completed Patient aware RX will be sent to pharmacy. No need to notify patient. Immunizations due: MENINGOCOCCAL B: Consider based on risk(1 of 2 - Risk Bexsero 2-dose series) Never done COVID-19 VACCINE(3 - Booster for Pfizer series) due on 01/17/2021 Willam Stallworth RN documented in this encounter [facility] 08-08-2021 Note HNO ID: [id number] Author: Letty Ruggiero PA-C Service: ? Author Type: Physician Machine Helper Type: Progress Notes Filed: 08/08/2021 7:57 PM Note Text: This note was created using Carnadriter. Subjective Chelsea Crawley is a 16 year old male. HPI Patient presents with cough, sore throat, congestion and fevers that started 12 hours ago. No chest pain or shortness of breath. He was breathing kind of fast earlier but mom did give him cough medication which seemed to help some. No history of asthma. No vomiting or diarrhea. His mom has had some recent similar illness. No one around him has COVID that he knows of. He has not had COVID previously. No change in smell or taste. Review of Systems Constitutional: Positive for chills, fatigue and fever. HENT: Positive for congestion, rhinorrhea and sore throat. Negative for ear pain. Respiratory: Positive for cough. Cardiovascular: Negative. Gastrointestinal: Negative. Genitourinary: Negative. Musculoskeletal: Positive for myalgias. Neurological: Positive for headaches. All other systems reviewed and are negative. PAST MEDICAL HISTORY Diagnosis Date - ADHD (attention deficit hyperactivity disorder) 2009 Age 3 - Behavior disturbance - Broken arm 2008 Broken left forearm - Encopresis(307.7) - ODD (oppositional defiant disorder) 2009 - PDD (pervasive developmental disorder) - Wheezing Current Outpatient Medications Medication Sig Dispense Refill - cetirizine HCl (ZYRTEC ORAL) Take by mouth. - lisdexamfetamine (VYVANSE) 50 mg capsule Take 1 capsule by mouth once daily for 30 days. 30 capsule 0 - lisdexamfetamine (VYVANSE) 50 mg capsule Take 1 capsule by mouth once daily for 30 days. Do not start before February 03, 2021. 30 capsule 0 - lisdexamfetamine (VYVANSE) 50 mg capsule Take 1 capsule by mouth once daily for 30 days. 30 capsule 0 - ketoconazole (NIZORAL) 2 % shampoo Washing the scalp 3 times a week, Lathering and letting sit on the scalp for 5-10 minutes before rinsing No current facility-administered medications for this visit. PAST SURGICAL HISTORY Procedure Laterality Date - ANES NERVE MUSCLE TDN FASCIAANDBURSA FOREARM WRIST Left forearm , greenstick - PAST SURGICAL HISTORY OF cyst removed from right eye - PAST SURGICAL HISTORY OF frenulum cut FAMILY HISTORY Problem Relation Age of Onset - Heart Maternal Grandfather - Diabetes Maternal Grandfather - other (perforated bowel) Maternal Grandmother 3 weeks later - Heart Paternal Grandmother CHF - Diabetes Paternal Grandfather - other (Hypoglycemia) Mother Also has vitamin deficencies - other (Fatty Liver) Father Social History Tobacco Use - Smoking status: Passive Smoke Exposure - Never Smoker - Smokeless tobacco: Never Used - Tobacco comment: at moms house only - outdoor Substance Use Topics - Alcohol use: No - Drug use: No Objective BP 132/80 Pulse 111 Temp (!) 38.9 ?C (102 ?F) (Tympanic) Resp 18 Wt 101.6 kg (224 lb) SpO2 100% Physical Exam Vitals reviewed. Constitutional: Appearance: Normal appearance. He is ill-appearing. HENT: Head: Normocephalic and atraumatic. Right Ear: Tympanic membrane, ear canal and external ear normal. Left Ear: Tympanic membrane, ear canal and external ear normal. Nose: Congestion present. Mouth/Throat: Mouth: Mucous membranes are moist. Pharynx: Oropharynx is clear. Cardiovascular: Rate and Rhythm: Regular rhythm. Tachycardia present. Heart sounds: Normal heart sounds. Pulmonary: Effort: Pulmonary effort is normal. Breath sounds: Normal breath sounds. Musculoskeletal: Cervical back: Neck supple. Skin: General: Skin is warm and dry. Neurological: Mental Status: He is alert. Assessment and Plan ASSESSMENT/PLAN: 1. Viral URI with cough - ICD9: 465.9, ICD10: J06.9 - Discussed viral etiology and rationale for treatment. - Symptomatic treatment with prn analgesia - Supportive care with fluids and rest - The patient may also use OTC cough and cold meds as needed. - Follow up in 3-5 days if symptoms persist or sooner if worsening of symptoms - COVID, FLU A/B + RSV, ROUTINE - 2019 CORONAVIRUS - ROUTINE FLU A/B + RSV Letty Ruggiero PA-C [facility] 08-08-2021 History of Presen t illness Narrative This note was created using NoteWriter. Subjective Chelsea Crawley is a 16 year old male. HPI Patient presents with cough, sore throat, congestion and fevers that started 12 hours ago. No chest pain or shortness of breath. He was breathing kind of fast earlier but mom did give him cough medication which seemed to help some. No history of asthma. No vomiting or diarrhea. His mom has had some recent similar illness. No one around him has COVID that he knows of. He has not had COVID previously. No change in smell or taste. Review of Systems Constitutional: Positive for chills, fatigue and fever. HENT: Positive for congestion, rhinorrhea and sore throat. Negative for ear pain. Respiratory: Positive for cough. Cardiovascular: Negative. Gastrointestinal: Negative. Genitourinary: Negative. Musculoskeletal: Positive for myalgias. Neurological: Positive for headaches. All other systems reviewed and are negative. PAST MEDICAL HISTORY Diagnosis Date ADHD (attention deficit hyperactivity disorder) 2009 Age 3 Behavior disturbance Broken arm 2007 Broken left forearm Encopresis(307.7) ODD (oppositional defiant disorder) 2010 PDD (pervasive developmental disorder) Wheezing Current Outpatient Medications Medication Sig Dispense Refill cetirizine HCl (ZYRTEC ORAL) Take by mouth. lisdexamfetamine (VYVANSE) 50 mg capsule Take 1 capsule by mouth once daily for 30 days. 30 capsule 0 lisdexamfetamine (VYVANSE) 50 mg capsule Take 1 capsule by mouth once daily for 30 days. Do not start before February 03, 2021. 30 capsule 0 lisdexamfetamine (VYVANSE) 50 mg capsule Take 1 capsule by mouth once daily for 30 days. 30 capsule 0 ketoconazole (NIZORAL) 2 % shampoo Washing the scalp 3 times a week, Lathering and letting sit on the scalp for 5-10 minutes before rinsing No current facility-administered medications for this visit. PAST SURGICAL HISTORY Procedure Laterality Date ANES NERVE MUSCLE TDN FASCIA&BURSA FOREARM WRIST Left forearm , greenstick PAST SURGICAL HISTORY OF cyst removed from right eye PAST SURGICAL HISTORY OF frenulum cut FAMILY HISTORY Problem Relation Age of Onset Heart Maternal Grandfather Diabetes Maternal Grandfather other (perforated bowel) Maternal Grandmother 3 weeks later Heart Paternal Grandmother CHF Diabetes Paternal Grandfather other (Hypoglycemia) Mother Also has vitamin deficencies other (Fatty Liver) Father Social History Tobacco Use Smoking status: Passive Smoke Exposure - Never Smoker Smokeless tobacco: Never Used Tobacco comment: at moms house only - outdoor Substance Use Topics Alcohol use: No Drug use: No Objective BP 132/80 Pulse 111 Temp (!) 38.9 C (102 F) (Tympanic) Resp 18 Wt 101.6 kg (224 lb) SpO2 100% Physical Exam Vitals reviewed. Constitutional: Appearance: Normal appearance. He is ill-appearing. HENT: Head: Normocephalic and atraumatic. Right Ear: Tympanic membrane, ear canal and external ear normal. Left Ear: Tympanic membrane, ear canal and external ear normal. Nose: Congestion present. Mouth/Throat: Mouth: Mucous membranes are moist. Pharynx: Oropharynx is clear. Cardiovascular: Rate and Rhythm: Regular rhythm. Tachycardia present. Heart sounds: Normal heart sounds. Pulmonary: Effort: Pulmonary effort is normal. Breath sounds: Normal breath sounds. Musculoskeletal: Cervical back: Neck supple. Skin: General: Skin is warm and dry. Neurological: Mental Status: He is alert. Assessment and Plan ASSESSMENT/PLAN: 1. Viral URI with cough - ICD9: 465.9, ICD10: J06.9 - Discussed viral etiology and rationale for treatment. - Symptomatic treatment with prn analgesia - Supportive care with fluids and rest - The patient may also use OTC cough and cold meds as needed. - Follow up in 3-5 days if symptoms persist or sooner if worsening of symptoms - COVID, FLU A/B + RSV, ROUTINE - 2019 CORONAVIRUS - ROUTINE FLU A/B + RSV Letty Ruggiero PA-C documented in this encounter [facility] 07-31-2021 Miscellaneous Notes Mom picked up form on the 3rd floor. Mother returned the call. She states that she will have patient come in to office this afternoon to pick up worker the form. She is aware that it will be on the 3rd floor. Jackie Iglesias RN form signed per [place], message left for parent to call office per note on form. [phone]. Form at 3rd floor nurse's station Anjali Flores RN Form completed and signed work permit on your desk for review/signature. Last [facility] 08-24-20, ADHD med check 05-28-21 documented in this encounter [facility] 07-24-2021 Miscellaneous Notes The following approved medication requests have been transmitted electronically. Pending Prescriptions: Disp Refills lisdexamfetamine (VYVANSE) 50 mg capsule 30 capsule0 Sig: Take 1 capsule by mouth once daily for 30 days. RODRICK Class: C-II PADMA: No Nathan Ye MD Last [facility]: 08/24/20 Last ADHD / Med Check visit: 05/28/21 Verify RX Benefits Completed Last medication refill date: 06/19/20 Requesting 30 day supply Retail pharmacy updated: Completed Patient aware RX will be sent to pharmacy. No need to notify patient. Immunizations due: MENINGOCOCCAL B: Consider based on risk(1 of 2 - Risk Bexsero 2-dose series) Never done COVID-19 VACCINE(3 - Booster for Pfizer series) due on 01/17/2021 Jackie Iglesias RN documented in this encounter [facility] 06-19-2021 Miscellaneous Notes SPECIFIC NOTES (if applicable): GENERAL INFORMATION - The listed prescriptions have been signed. If applicable, please notify the patient/family. - Unless noted in the intake documentation, I assume the medications are being used as directed; the patient is doing well; there are no side effects; and there are no undocumented medications or allergies. - This note was created using a speech to text program. There may be some incorrect words, spellings, and punctuation that were missed on review. Nj Moreira M.D. Last [facility]: 08/24/20 Last ADHD / Med Check visit: 05/28/21 Verify RX Benefits Completed Last medication refill date: 05/16/21 Requesting 30 day supply Retail pharmacy updated: Completed Patient aware RX will be sent to pharmacy. No need to notify patient. Immunizations due: MENINGOCOCCAL B: Consider based on risk(1 of 2 - Risk Bexsero 2-dose series) Never done COVID-19 VACCINE(3 - Booster for Pfizer series) due on 01/17/2021 Jackie Iglesias RN documented in this encounter [facility] 10-30-2011 History of Past i llness Narrative Problem Noted Date Resolved Date Nondisplaced fracture of pro ximal phalanx of right little finger 10/30/2011 04/16/2013 Sprain and strain of unspecified site of knee an d leg 05/08/2007 04/16/2013 Encopresis(307.7) 04/16/2013 documented as of this encounter (statuses as of 06/19/2021) [facility] History of Past illness Narrative* Problem Noted Date Resolved Date Nondisplaced fracture of pro ximal phalanx of right little finger 10/30/2011 04/16/2013 Sprain and strain of unspecified site of knee an d leg 05/08/2007 04/16/2013 Encopresis(307.7) 04/16/2013 documented as of this encounter (statuses as of 07/24/2021) [facility] History of Past illness Narrative* Problem Noted Date Resolved Date Nondisplaced fracture of pro ximal phalanx of right little finger 10/30/2011 04/16/2013 Sprain and strain of unspecified site of knee an d leg 05/08/2007 04/16/2013 Encopresis(307.7) 04/16/2013 documented as of this encounter (statuses as of 07/31/2021) [place] [address]-22-2012 History of Past illness Narrative* Problem Noted Date Resolved Date Nondisplaced fracture of pro ximal phalanx of right little finger 10/30/2011 04/16/2013 Sprain and strain of unspecified site of knee an d leg 05/08/2007 04/16/2013 Encopresis(307.7) 04/16/2013 documented as of this encounter (statuses as of 08/08/2021) [place] [address]-22-2012 History of Past illness Narrative* Problem Noted Date Resolved Date Nondisplaced fracture of pro ximal phalanx of right little finger 10/30/2011 04/16/2013 Sprain and strain of unspecified site of knee an d leg 05/08/2007 04/16/2013 Encopresis(307.7) 04/16/2013 documented as of this encounter (statuses as of 08/27/2021) [place] [address]-22-2012 History of Past illness Narrative* Problem Noted Date Resolved Date Nondisplaced fracture of pro ximal phalanx of right little finger 10/30/2011 04/16/2013 Sprain and strain of unspecified site of knee an d leg 05/08/2007 04/16/2013 Encopresis(307.7) 04/16/2013 documented as of this encounter (statuses as of 10/20/2021) [place] [address]22-2012 History of Past illness Narrative* Problem Noted Date Resolved Date Nondisplaced fracture of pro ximal phalanx of right little finger 10/30/2011 04/16/2013 Sprain and strain of unspecified site of knee an d leg 05/08/2007 04/16/2013 Encopresis(307.7) 04/16/2013 documented as of this encounter (statuses as of 10/22/2021) [place] [address]22-2012 History of Past illness Narrative* Problem Noted Date Resolved Date Nondisplaced fracture of pro ximal phalanx of right little finger 10/30/2011 04/16/2013 Sprain and strain of unspecified site of knee an d leg 05/08/2007 04/16/2013 Encopresis(307.7) 04/16/2013 documented as of this encounter (statuses as of 11/09/2021) [place] [address]-22-2012 History of Past illness Narrative* Problem Noted Date Resolved Date Nondisplaced fracture of pro ximal phalanx of right little finger 10/30/2011 04/16/2013 Sprain and strain of unspecified site of knee an d leg 05/08/2007 04/16/2013 Encopresis(307.7) 04/16/2013 documented as of this encounter (statuses as of 12/12/2021) [place] [address]-22-2012 History of Past illness Narrative* Problem Noted Date Resolved Date Nondisplaced fracture of pro ximal phalanx of right little finger 10/30/2011 04/16/2013 Sprain and strain of unspecified site of knee an d leg 05/08/2007 04/16/2013 Encopresis(307.7) 04/16/2013 documented as of this encounter (statuses as of 12/12/2021) [place] [address]-22-2012 History of Past illness Narrative* Problem Noted Date Resolved Date Nondisplaced fracture of pro ximal phalanx of right little finger 10/30/2011 04/16/2013 Sprain and strain of unspecified site of knee an d leg 05/08/2007 04/16/2013 Encopresis(307.7) 04/16/2013 documented as of this encounter (statuses as of 12/20/2021) [facility] History of Past illness Narrative* Problem Noted Date Resolved Date Nondisplaced fracture of pro ximal phalanx of right little finger 10/30/2011 04/16/2013 Sprain and strain of unspecified site of knee an d leg 05/08/2007 04/16/2013 Encopresis(307.7) 04/16/2013 documented as of this encounter (statuses as of 12/25/2021) [place] [address]-22-2012 History of Past illness Narrative* Problem Noted Date Resolved Date Nondisplaced fracture of pro ximal phalanx of right little finger 10/30/2011 04/16/2013 Sprain and strain of unspecified site of knee an d leg 05/08/2007 04/16/2013 Encopresis(307.7) 04/16/2013 documented as of this encounter (statuses as of 12/28/2021) [place] [address]-22-2012 History of Past illness Narrative* Problem Noted Date Resolved Date Nondisplaced fracture of pro ximal phalanx of right little finger 10/30/2011 04/16/2013 Sprain and strain of unspecified site of knee an d leg 05/08/2007 04/16/2013 Encopresis(307.7) 04/16/2013 documented as of this encounter (statuses as of 01/16/2022) [facility] History of Past illness Narrative* Problem Noted Date Resolved Date Nondisplaced fracture of pro ximal phalanx of right little finger 10/30/2011 04/16/2013 Sprain and strain of unspecified site of knee an d leg 05/08/2007 04/16/2013 Encopresis(307.7) 04/16/2013 documented as of this encounter (statuses as of 01/25/2022) [place] [address]-22-2012 History of Past illness Narrative* Problem Noted Date Resolved Date Nondisplaced fracture of pro ximal phalanx of right little finger 10/30/2011 04/16/2013 Sprain and strain of unspecified site of knee an d leg 05/08/2007 04/16/2013 Encopresis(307.7) 04/16/2013 documented as of this encounter (statuses as of 01/30/2022) [facility] History of Past illness Narrative* Problem Noted Date Resolved Date Nondisplaced fracture of pro ximal phalanx of right little finger 10/30/2011 04/16/2013 Sprain and strain of unspecified site of knee an d leg 05/08/2007 04/16/2013 Encopresis(307.7) 04/16/2013 documented as of this encounter (statuses as of 02/27/2022) [place] [address]-22-2012 History of Past illness Narrative* Problem Noted Date Resolved Date Nondisplaced fracture of pro ximal phalanx of right little finger 10/30/2011 04/16/2013 Sprain and strain of unspecified site of knee an d leg 05/08/2007 04/16/2013 Encopresis(307.7) 04/16/2013 documented as of this encounter (statuses as of 03/14/2022) [place] [address]-22-2012 History of Past illness Narrative* Problem Noted Date Resolved Date Nondisplaced fracture of pro ximal phalanx of right little finger 10/30/2011 04/16/2013 Sprain and strain of unspecified site of knee an d leg 05/08/2007 04/16/2013 Encopresis(307.7) 04/16/2013 documented as of this encounter (statuses as of 04/02/2022) [facility] History of Past illness Narrative* Problem Noted Date Resolved Date Nondisplaced fracture of pro ximal phalanx of right little finger 10/30/2011 04/16/2013 Sprain and strain of unspecified site of knee an d leg 05/08/2007 04/16/2013 Encopresis(307.7) 04/16/2013 documented as of this encounter (statuses as of 07/12/2022) [facility] History of Past illness Narrative* Problem Noted Date Resolved Date Nondisplaced fracture of pro ximal phalanx of right little finger 10/30/2011 04/16/2013 Sprain and strain of unspecified site of knee an d leg 05/08/2007 04/16/2013 Encopresis(307.7) 04/16/2013 documented as of this encounter (statuses as of 07/22/2022) [facility] note* Diagnosis Attention deficit hyperactivity disorder (ADHD), unspecified ADHD type [facility] Diagnosis Viral URI with cough- Primary Acute upper respiratory infections of unspecified site [facility] Diagnosis Attention deficit hyperactivity disorder (ADHD), unspecified ADHD type [facility]* Diagnosis Toe injury, left, initial encounter- Primary [facility] Diagnosis Closed displaced fracture of proximal phalanx of lesser toe of left foot, initial encounter- Primary [facility]* Diagnosis Attention deficit hyperactivity disorder (ADHD), unspecified ADHD type [facility] Diagnosis Attention deficit hyperactivity disorder (ADHD), unspecified ADHD type [facility] Diagnosis Pharyngitis, unspecified etiology- Primary [facility]* Diagnosis Chronic cough- Primary Cough documented in this encounter [facility] note* Diagnosis Attention deficit hyperactivity disorder (ADHD), unspecified ADHD type documented in this encounter [facility] note* Diagnosis Encounter for routine child health examination w/o abnormal findings- Primary Routine or child health check Abnormal weight gain Encounter for immunization Need for other specified prophylactic vaccination against single bacterial disease documented in this encounter [facility] note* Diagnosis Attention deficit hyperactivity disorder (ADHD), unspecified ADHD type documented in this encounter [facility] note* Diagnosis Attention deficit hyperactivity disorder (ADHD), unspecified ADHD type documented in this encounter [facility] note* Diagnosis Attention deficit hyperactivity disorder (ADHD), combined type- Primary Abnormal weight gain documented in this encounter [facility] note* Diagnosis Attention deficit hyperactivity disorder (ADHD), predominantly hyperactive type- Primary Epistaxis documented in this encounter [facility] note* Diagnosis Attention deficit hyperactivity disorder (ADHD), predominantly hyperactive type- Primary Epistaxis documented in this encounter [facility] note* Diagnosis Attention deficit hyperactivity disorder (ADHD), predominantly hyperactive type- Primary documented in this encounter [facility] note* Diagnosis Right ear pain- Primary Unspecified otalgia Epistaxis HIV screening declined Need for hepatitis C screening test Special screening examination for other specified viral diseases documented in this encounter [facility] note* Diagnosis Viral upper respiratory illness- Primary documented in this encounter [facility] note* Diagnosis Chronic cough Cough documented in this encounter [facility] note* Diagnosis Pneumonia due to organism- Primary Pneumonia due to other specified organism Pneumonia due to organism Pneumonia due to other specified organism documented in this encounter [facility] note* Diagnosis Viral upper respiratory illness- Primary Hospital discharge follow-up- Primary Other follow-up examination Pneumonia of left lower lobe due to infectious organism History of asthma Personal history of other diseases of respiratory system documented in this encounter [facility] note* Diagnosis Viral upper respiratory illness- Primary Pneumonia of left lower lobe due to Mycoplasma pneumoniae- Primary Attention deficit hyperactivity disorder (ADHD), predominantly hyperactive type History of asthma Personal history of other diseases of respiratory system documented in this encounter [facility] for referral (narrative)* Diagnostic Procedure Only (Urgent) - Pending Review Specialty Diagnoses / Procedures Referred By Louis t Referred To Contact XR IMAGING Diagnoses Toe injury, left, initial encounter Procedures XR TOE AP/LAT/OBL LEFT RADEX TOE MINIMUM 2 VIEWS Luc Cota APRN.THREAD MILLING MACHINE SET UP OPERATOR [address] [place] [address] Xr Imaging Referral ID Status Reason Start Date Expiration Date Visits Requested Visits Authorized [id number] Pending Review Auto-Generat ed Referral 10/20/2021 11/19/2022 1 1 [facility]* Diagnostic Procedure Only (Urgent) - Closed Specialty Diagnoses / Procedures Referred By Contac t Referred To Contact XR IMAGING Diagnoses Toe injury, left, initial encounter Procedures XR TOE AP/LAT/OBL LEFT RADEX TOE MINIMUM 2 VIEWS Luc Cota APRN.CNP [address] [place] [address] [place] [address] Referral ID Status Reason Start Date Expiration Date V isits Requested Visits Authorized [id number] Closed Auto-Generate d Referral 10/20/2021 11/19/2022 1 1 [facility] Summary Purpose Family History No Family History Records FoundNo Family History Records FoundNo Family History Records Found Advance Directives No Advanced Directives Records FoundDocuments on File Type Date Recorded 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 Advance Directive(s) Date Activated Date Inactivated Comments 12/15/2023 7:08 AM Date Activated Date Inactivated Comments 12/15/2023 7:08 AM 12/17/2023 8:52 PM Date Activated Date Inactivated Comments 12/15/2023 7:08 AM 12/17/2023 8:52 PM Health Concerns Infection Onset Date Last Indicated Resolved Time COVID-19 Rule-Out 08/08/2021 08/08/2021 Reason for Referral Specialty Diagnoses / Procedures Referred By Contac t Referred To Contact Podiatry Diagnoses Closed displaced fracture of proximal phalanx of lesser toe of left foot, initial encounter Procedures CONSULT TO PODIATRY OFFICE/OUTPATIENT NEW HIGH MDM 60-74 MINUTES Letty Ruggiero PA-C [address] [place] [address] Referral ID Status Reason Start Date Expiration Date Visits Requested Visits Authorized [id number] Authorized PCP Requested Referral 10/22/2021 10/22/2022 1 1 Additional Source Comments (unrecognized sect ion and content) No Status Records FoundNo Status Records FoundNo Status Records Found INFORMATION SOURCE (unrecogn ized section and content) DATE CREATED AUTHOR 02/16/2018 [facility] DATE CREATED AUTHOR AUTHOR'S ORGANIZ ATION 07/15/2022 [facility] DATE CREATED AUTHOR AUTHOR'S ORGANIZ ATION 01/01/2024 [facility] Source Comments (unrecognize d section and content) In the event this informatio n is protected by the Federal Confidentiality of Alcohol and Drug Abuse Patient Records regulations: The Federal rules restrict any use of the information to criminally investigate or prosecute any alcohol or drug abuse patient.[facility] the event this information is protected by the Federal Confidentiality of Alcohol and Drug Abuse Patient Records regulations: The Federal rules restrict any use of the information to criminally investigate or prosecute any alcohol or drug abuse patient.[facility] the event this information is protected by the Federal Confidentiality of Alcohol and Drug Abuse Patient Records regulations: The Federal rules restrict any use of the information to criminally investigate or prosecute any alcohol or drug abuse patient.[facility] the event this information is protected by the Federal Confidentiality of Alcohol and Drug Abuse Patient Records regulations: The Federal rules restrict any use of the information to criminally investigate or prosecute any alcohol or drug abuse patient.[facility] the event this information is protected by the Federal Confidentiality of Alcohol and Drug Abuse Patient Records regulations: The Federal rules restrict any use of the information to criminally investigate or prosecute any alcohol or drug abuse patient.[facility] Center[facility] the event this information is protected by the Federal Confidentiality of Alcohol and Drug Abuse Patient Records regulations: The Federal rules restrict any use of the information to criminally investigate or prosecute any alcohol or drug abuse patient.[facility] the event this information is protected by the Federal Confidentiality of Alcohol and Drug Abuse Patient Records regulations: The Federal rules restrict any use of the information to criminally investigate or prosecute any alcohol or drug abuse patient.[facility] Center[facility] the event this information is protected by the Federal Confidentiality of Alcohol and Drug Abuse Patient Records regulations: The Federal rules restrict any use of the information to criminally investigate or prosecute any alcohol or drug abuse patient.[facility] Center[facility] the event this information is protected by the Federal Confidentiality of Alcohol and Drug Abuse Patient Records regulations: The Federal rules restrict any use of the information to criminally investigate or prosecute any alcohol or drug abuse patient.[facility] Center[facility] the event this information is protected by the Federal Confidentiality of Alcohol and Drug Abuse Patient Records regulations: The Federal rules restrict any use of the information to criminally investigate or prosecute any alcohol or drug abuse patient.[facility] Center[facility] the event this information is protected by the Federal Confidentiality of Alcohol and Drug Abuse Patient Records regulations: The Federal rules restrict any use of the information to criminally investigate or prosecute any alcohol or drug abuse patient.[facility] Center[facility] the event this information is protected by the Federal Confidentiality of Alcohol and Drug Abuse Patient Records regulations: The Federal rules restrict any use of the information to criminally investigate or prosecute any alcohol or drug abuse patient.[facility] Center[facility] the event this information is protected by the Federal Confidentiality of Alcohol and Drug Abuse Patient Records regulations: The Federal rules restrict any use of the information to criminally investigate or prosecute any alcohol or drug abuse patient.[facility] Center[facility] the event this information is protected by the Federal Confidentiality of Alcohol and Drug Abuse Patient Records regulations: The Federal rules restrict any use of the information to criminally investigate or prosecute any alcohol or drug abuse patient.[facility] CenterIn the event this information is protected by the Federal Confidentiality of Alcohol and Drug Abuse Patient Records regulations: The Federal rules restrict any use of the information to criminally investigate or prosecute any alcohol or drug abuse patient.[facility] CenterIn the event this information is protected by the Federal Confidentiality of Alcohol and Drug Abuse Patient Records regulations: The Federal rules restrict any use of the information to criminally investigate or prosecute any alcohol or drug abuse patient.[facility] CenterIn the event this information is protected by the Federal Confidentiality of Alcohol and Drug Abuse Patient Records regulations: The Federal rules restrict any use of the information to criminally investigate or prosecute any alcohol or drug abuse patient.[facility] CenterIn the event this information is protected by the Federal Confidentiality of Alcohol and Drug Abuse Patient Records regulations: The Federal rules restrict any use of the information to criminally investigate or prosecute any alcohol or drug abuse patient.[facility] CenterIn the event this information is protected by the Federal Confidentiality of Alcohol and Drug Abuse Patient Records regulations: The Federal rules restrict any use of the information to criminally investigate or prosecute any alcohol or drug abuse patient.[facility] CenterIn the event this information is protected by the Federal Confidentiality of Alcohol and Drug Abuse Patient Records regulations: The Federal rules restrict any use of the information to criminally investigate or prosecute any alcohol or drug abuse patient.[facility] CenterIn the event this information is protected by the Federal Confidentiality of Alcohol and Drug Abuse Patient Records regulations: The Federal rules restrict any use of the information to criminally investigate or prosecute any alcohol or drug abuse patient.[facility] CenterIn the event this information is protected by the Federal Confidentiality of Alcohol and Drug Abuse Patient Records regulations: The Federal rules restrict any use of the information to criminally investigate or prosecute any alcohol or drug abuse patient.[facility] CenterIn the event this information is protected by the Federal Confidentiality of Alcohol and Drug Abuse Patient Records regulations: The Federal rules restrict any use of the information to criminally investigate or prosecute any alcohol or drug abuse patient.[facility] Reason for Visit (unrecogniz ed section and content) Reason Onset Date Comments Refill Request 06/19/2021 Reason Onset Date Comments Refill Request 07/23/2021 Reason Comments WORK PERMIT Reason Comments Cough cough, fever, ST and ear pain x 12 hours Reason Onset Date Comments Refill Request 08/25/2021 Reason Comments Trauma Left foot toe possib ly fractured x 1 day Reason Comments Results Reason Onset Date Comments Refill Request 11/09/2021 Reason Onset Date Comments Refill Request 12/12/2021 Reason Comments Cough X2 wks. Reason Comments Cough Has been going on x 2 months. Currently on Prednisone, OTC cough medication, and Tessalon peals. Reason Onset Date Comments Refill Request 01/14/2022 Reason Comments Well Child 16 year work permit Reason Onset Date Comments Refill Request 02/25/2022 Reason Onset Date Comments Refill Request 04/01/2022 Reason Comments medication check Taking daily 7 days a week. No side effects reported. Reason Onset Date Comments Refill Request 07/22/2022 Reason Comments New Patient Reason Comments Follow-up 1 month Reason Comments same day Patient states they have an ear ache, patient states pain started a week ago. Patient states they feel pressure in ears. Patient states their right hurts the most Reason Onset Date Comments Sore Throat 10/27/2023 Reason Comments Earache Bilateral Nasal Congestion Headache Started on Friday Sore Throat Reason Comments Fever Fever x1 day, pt com [place] abd pain. Denies N/V/D. Specialty Diagnoses / Procedures Referred By Contac t Referred To Contact Diagnoses Pneumonia due to organism Procedures j18.9 Gab Sutton MD [address] [place] [address] [place] [address] Referral ID Status Reason Start Date Expiration Date Visits Re quested Visits Authorized [id number] 1 1 Reason Comments Hospital Follow-up MYCOPLASMA PNEUMONIA Reason Comments Hospital Follow-up Pt follow up from [facility] for pneumonia, still coughing Care Teams (unrecognized sec tion and content) Clinical Research Nurse Coordinator Relationship Specialty Start Date End Date Nathan Ye MD [address] [place] [address] PCP - General 06/23/06 Clinical Research Nurse Coordinator Relationship Specialty Start Date End Date Nathan Ye MD [address] [place] [address] [place] [address] PCP - General 06/23/06 Clinical Research Nurse Coordinator Relationship Specialty Start Date End Date Nathan Ye MD [address] [place] [address] [place] [address] PCP - General 06/23/06 Clinical Research Nurse Coordinator Relationship Specialty Start Date End Date Nathan Ye MD [address] [place] [address] [place] [address] PCP - General 06/23/06 Clinical Research Nurse Coordinator Relationship Specialty Start Date End Date Nathan Ye MD [address] [place] [address] PCP - General 06/23/06 Clinical Research Nurse Coordinator Relationship Specialty Start Date End Date Nathan Ye MD [address] [place] [address] PCP - General 06/23/06 Clinical Research Nurse Coordinator Relationship Specialty Start Date End Date Nathan Ye MD [address] [place] [address] [place] [address] PCP - General 06/23/06 Clinical Research Nurse Coordinator Relationship Specialty [place] [address] [place] [address] [place] [address] PCP - General 06/23/06 Clinical Research Nurse Coordinator Relationship Specialty Start Date End Date Nathan Ye MD [address] [place] [address] PCP - General 06/23/06 Clinical Research Nurse Coordinator Relationship Specialty Start Date End Date Nathan Ye MD [address] [place] [address] PCP - General 06/23/06 Clinical Research Nurse Coordinator Relationship Specialty Start Date End Date Nathan Ye MD [address] [place] [address] PCP - General 06/23/06 Clinical Research Nurse Coordinator Relationship Specialty Start Date End Date Nathan Ye MD [address] [place] [address] PCP - General 06/23/06 Clinical Research Nurse Coordinator Relationship Specialty Start Date End Date Nathan Ye MD [address] [place] [address] PCP - General 06/23/06 Clinical Research Nurse Coordinator Relationship Specialty Start Date End Date Nathan Ye MD [address] [place] [address] PCP - General 06/23/06 Clinical Research Nurse Coordinator Relationship Specialty Start Date End Date Sherine Escalona MD [address] [facility] [address] [place] [address] PCP - General Internal Medicine 01/23/23 Clinical Research Nurse Coordinator Relationship Specialty Start Date End Date Sherine Escalona MD [address] [facility] [address] [place] [address] PCP - General Internal Medicine 01/23/23 Clinical Research Nurse Coordinator Relationship Specialty Start Date End Date Sherine Escalona MD [address] [facility] [address] [place] [address] PCP - General Internal Medicine 01/23/23 Clinical Research Nurse Coordinator Relationship Specialty Start Date End Date Sherine Escalona MD [address] [facility] [address] [place] [address] PCP - General Internal Medicine 01/23/23 Clinical Research Nurse Coordinator Relationship Specialty Start Date End Date Sherine Escalona MD [address] [facility] [address] [place] [address] PCP - General Internal Medicine 01/23/23 Clinical Research Nurse Coordinator Relationship Specialty Start Date End Date Nathan Ye MD [address] [place] [address] PCP - General 06/23/06 Clinical Research Nurse Coordinator Relationship Specialty Start Date End Date Nathan Ye MD [address] [place] [address] PCP - General 06/23/06 Clinical Research Nurse Coordinator Relationship Specialty Start Date End Date Sherine Escalona MD [address] [facility] [address] [place] [address] PCP - General Internal Medicine 01/23/23 Clinical Research Nurse Coordinator Relationship Specialty Start Date End Date Sherine Escalona MD [address] [facility] [address] [place] [address] PCP - General Internal Medicine 01/23/23 Clinical Research Nurse Coordinator Relationship Specialty Start Date End Date Sherine Escalona MD [address] [facility] [address] [place] [address] PCP - General Internal Medicine 01/23/23 Clinical Research Nurse Coordinator Relationship Specialty Start Date End Date Sherine Escalona MD [address] [place] [address] [address] [place] [address] PCP - General Internal Medicine 01/23/23 Scheduled Active and Recently Administ ered Medications (unrecognized section and content) Medication Order 12/15/2023 12/16/2023 12/17/2023 acetaminophen (Tylenol) tablet 650 mg (COMPLETED) 650 mg, Oral, Once, On Fri12/15/23 at 0150, For 1 dose, Maximum dose of acetaminophen is 4000 mg from all sources in 24 hours. 0229 (Given - Provider: Nadira Lyles RN) azithromycin (Zithromax) tablet 500 mg (CANCELED) 500 mg, Oral, Every 24 hours, First dose on Fri12/15/23 at 0715, For 3 days, Suspected Indication (Select all that apply): Pneumonia 911 (Given - Provider: Arlene Frye RN) 07 (Given - Provider: Mario Davies RN) azithromycin (Zithromax) tablet 500 mg (CANCELED) 500 mg, Oral, Every 24 hours, First dose (after last modification) on Fri12/17/23 at 0700, Suspected Indication (Select all that apply): Pneumonia 0617 (Given - Provider: Mario Davies RN) azithromycin (Zithromax) tablet 500 mg(Linked Group 1) 500 mg, Oral, Every 24 hours, First dose (after last modification) on [place] 12/18/23 at 0700, For 2 doses, Suspected Indication (Select all that apply): Pneumonia (CAP) cefTRIAXone (Rocephin) 1 g in sodium chloride 0.9 % 50 mL IVPB Mini-Bag Plus (CANCELED) 1 g, IntraVENous, at 100 mL/hr, Administer over 30 Minutes, Every 24 hours, First dose on Fri12/15/23 at 0800, For 5 days, Mini-Bag Plus bag, Suspected Indication (Select all that apply): Pneumonia 0911 (New Bag - Provider: Arlene Frye RN)0941 (Stopped - Provider: Samantha Clayton RN) 08 (New Bag - Provider: Lynda Bojorquez RN)0859 (Stopped - Provider: Lynda Bojorquez, AUGUSTINA) influenza vaccine tiss-cult subunt (Flucelvax) STANDARD-DOSE injection 0.5 mL 0.5 mL, IntraMUSCular, Prior to discharge, Starting on Fri12/16/23 at 0900, For 1 dose ipratropium-albuterol (Duo-Neb) 0.5-2.5 mg/3 mL nebulizer solution 3 mL 3 mL, Nebulization, 3 times daily, First dose (after last modification) on Fri12/15/23 at 1999 2007 (Given - Provider: Dayana Jones, SECURITY THREAT ANALYST) 09 (Given - Provider: Chris Cohn RCP)1531 (Not Given - Provider: Estelita Pretty RCP - Reason: Other - Comment: pt denies need for tx at this time. denies s.o.b)1999 (Canceled Entry - Provider: Automatic Discharge Provider - Comment: Automatically canceled at discontinue of medication order) 1054 (Given - Provider: Elaina Olivier RCP)1617 (Given - Provider: Elaina Olivier RCP)1999 (Canceled Entry - Provider: Automatic Discharge Provider - Comment: Automatically canceled at discontinue of medication order) ketorolac (Toradol) injection 15 mg (COMPLETED) 15 mg, IntraVENous, Once, On Fri12/15/23 at 0530, For 1 dose 0529 (Given - Provider: Nadira Lyles RN) lactated ringers bolus 3,660 mL (COMPLETED) 3,660 mL (30 mL/kg 122 kg), IntraVENous, at 7,320 mL/hr, Administer over 30 Minutes, Once, On Fri12/15/23 at 0150, For 1 dose, In accordance with Surviving Sepsis Campaign, infuse 30 mL/kg fluid challenge as rapidly as possible without overloading patient (target 30 to 60 minutes). If calculated rate exceeds 999 mL/hr, may administer wide open or using other rapid infusion mechanism. 0229 (New Bag - Provider: Nadira Lyles RN)0435 (Stopped - Provider: Nadira Lyles, AUGUSTINA) morphine injection 4 mg (COMPLETED) 4 mg, IntraVENous, Once, On Fri12/15/23 at 0150, For 1 dose, If oral and IV narcotics ordered, use oral first and only use IV if oral is ineffective or cannot take oral. Do Not give oral and IV within 1 hour of each other unless specifically ordered. 0220 (Given - Provider: Naidra Lyles RN) ondansetron (Zofran) injection 4 mg (COMPLETED) 4 mg, IntraVENous, Once, On Fri12/15/23 at 0150, For 1 dose 022 (Given - Provider: Nadira Lyles RN) piperacillin-tazobacta m (Zosyn) 4.5 g in sodium chloride 0.9 % 100 mL IVPB Mini-Bag Plus (COMPLETED) 4.5 g, IntraVENous, at 200 mL/hr, Administer over 0.5 Hours, Once, On Fri12/15/23 at 0150, For 1 dose, Mini-Bag Plus bag, Suspected Indication (Select all that apply): Intra-Abdominal Infection 228 (New Bag - Provider: Nadira Lyles RN)302 (Stopped - Provider: Nadira Lyles RN) sodium chloride 0.9% (NS) flush 10 mL 10 mL, IntraVENous, Every 12 hours scheduled (2 times per day), First dose on Fri12/15/23 at 0900 0912 (Given - Provider: Arlene Frye RN)2003 (Given - Provider: Mario Davies, AUGUSTINA) 08 (Given - Provider: Lynda Bojorquez RN)2099 (Not Given - Provider: Mario Davies RN - Reason: Other) 08 (Given - Provider: Bria Vitale RN) sodium chloride 0.9% (NS) flush 5-40 mL 5-40 mL, IntraVENous, Every 12 hours scheduled (2 times per day), First dose on Fri12/15/23 at 0900, For Line Patency: Peripheral IV = 5 mL; Midline or Central Line = 10 mL/lumen. If following IV push medication, administer flush at same rate as the IV push. Flush volume is determined by type of infusion therapy being given. For non-viscous solutions use: Peripheral IV = 5 mL Midline or Central Line = 10 mL/lumen For viscous solutions (i.e. blood components, parenteral nutrition, contrast media, or after obtaining blood sample) use: Peripheral IV = 10 mL Midline or Central Line = 20 mL/lumen 0912 (Given - Provider: Arlene Frye RN)2099 (Not Given - Provider: Mario Davies RN - Reason: Other) 899 (Given - Provider: Lynda Bojorquez RN)2044 (Given - Provider: Mario Davies RN) 09 (Not Given - Provider: Bria Vitale RN - Reason: Other) PRN Medication Order 12/15/2023 12/16/2023 12/17/2023 acetaminophen (Tylenol) suppository 650 mg(Linked Group 2) 650 mg, Rectal, Every 6 hours PRN, mild pain (1-3), Fever GREATER than 100.4 F (38 C), Starting on Fri12/15/23 at 0706, Administer if oral route cannot be used. 141 (See Alternative - Provider: Samantha Clayton RN)1956 (See Alternative - Provider: Mario Davies RN) 150 (See Alternative - Provider: Mario Davies RN)08 (See Alternative - Provider: Lynda Bojorquez RN)1446 (See Alternative - Provider: Arlene Frye RN)2043 (See Alternative - Provider: Mario Davies RN) 618 (See Alternative - Provider: Mario Davies RN) acetaminophen (Tylenol) tablet 650 mg(Linked Group 2) 650 mg, Oral, Every 6 hours PRN, mild pain (1-3), Fever GREATER than 100.4 F (38 C), Starting on Fri12/15/23 at 0706, Maximum dose of acetaminophen is 4000 mg from all sources in 24 hours. 1411 (Given - Provider: Samantha Clayton RN)1956 (Given - Provider: Mario Davies RN) 150 (Given - Provider: Mario Davies RN)08 (Given - Provider: Lynda Bojorquez RN)1446 (Given - Provider: Arlene Frye RN - Comment: due to fever)2043 (Given - Provider: Mario Davies RN) 618 (Given - Provider: Mario Davies RN) albuterol (2.5 MG/3ML) 0.083% nebulizer solution 2.5 mg 2.5 mg, Nebulization, Every 2 hour PRN, wheezing, Starting on Fri12/15/23 at 0707, Initiate RT Bronchodilator Protocol: naloxone (Narcan) injection 0.4 mg 0.4 mg, IntraVENous, Every 5 min PRN, opioid reversal, respiratory depression, Starting on Fri12/16/23 at 0944, +++ For RR <10, pinpoint pupils, over sedation for opioid reversal - MUST notify hotel lobby concierge provider immediately after first dose, may give IM or SQ if no IV access +++ ondansetron (Zofran) injection 4 mg(Linked Group 3) 4 mg, IntraVENous, Every 6 hours PRN, nausea, vomiting, Starting on Fri12/15/23 at 0706, 1st Line. Give IV if patient is unable to take orally. If inadequate response within 60 minutes, proceed to next-line agent or contact provider if no further options ordered. 141 (See Alternative - Provider: Samantha Clayton RN)1957 (Given - Provider: Mario Davies RN) 1453 (Given - Provider: Arlene Frye, AUGUSTINA)2043 (Given - Provider: Mario Davies RN) ondansetron ODT (Zofran-ODT) disintegrating tablet 4 mg(Linked Group 3) 4 mg, Oral, Every 8 hours PRN, nausea, vomiting, Starting on Fri12/15/23 at 0706, 1st Line. If inadequate response within 60 minutes, proceed to next-line agent or contact provider if no further options ordered. Patient should allow tablet to dissolve on tongue. Do not remove from blister pack until just before administering. 141 (Given - Provider: Samantha Clayton RN)1957 (See Alternative - Provider: Mario Davies RN) 1453 (See Alternative - Provider: Arlene Frye RN)2043 (See Alternative - Provider: Mario Davies, AUGUSTINA) oxyCODONE (Roxicodone) immediate release tablet 5 mg 5 mg, Oral, Every 4 hours PRN, severe pain (7-10), moderate pain (4-6), Starting on Fri12/16/23 at 0943 0950 (Given - Provider: Lynda Bojorquez RN)2043 (Given - Provider: Mario Davies RN) 0619 (Given - Provider: Mario Davies RN) polyethylene glycol (PEG) 3350 (Miralax) packet 17 g 17 g, Oral, Daily PRN, constipation, Starting on Fri12/15/23 at 0706, 1st line for treatment of constipation - give scheduled if no bowel movement in past 24 hours. sodium chloride 0.9 % infusion 5-250 mL/hr, IntraVENous, PRN, if patient receiving piggyback infusions and maintenance fluids are not ordered OR KVO fluids to protect IV site / prevent frequent line interruptions/ long duration, Starting on Fri12/15/23 at 0147, For piggyback infusion, administer at same rate as piggyback for a total of 25 mL. Enter 25 mL into dose field and piggyback rate into rate field of order. If piggyback is infusing at a rate less than 100 mL/hr, enter 25 mL into dose field and 100 mL/hr into rate field of order. For KVO fluids, enter rate of 20 mL/hr or less into rate field of order. sodium chloride 0.9 % infusion 5-250 mL/hr, IntraVENous, PRN, if patient receiving piggyback infusions and maintenance fluids are not ordered OR KVO fluids to protect IV site / prevent frequent line interruptions/ long duration, Starting on Fri12/15/23 at 0706, For piggyback infusion, administer at same rate as piggyback for a total of 25 mL. Enter 25 mL into dose field and piggyback rate into rate field of order. If piggyback is infusing at a rate less than 100 mL/hr, enter 25 mL into dose field and 100 mL/hr into rate field of order. For KVO fluids, enter rate of 20 mL/hr or less into rate field of order. sodium chloride 0.9% (NS) flush 10 mL 10 mL, IntraVENous, PRN, line care, Starting on Fri12/15/23 at 0706, After every IV line use sodium chloride 0.9% (NS) flush 5-40 mL 5-40 mL, IntraVENous, PRN, line care, Starting on Fri12/15/23 at 0147, For Line Patency: Peripheral IV = 5 mL; Midline or Central Line = 10 mL/lumen. If following IV push medication, administer flush at same rate as the IV push. Flush volume is determined by type of infusion therapy being given. For non-viscous solutions use: Peripheral IV = 5 mL Midline or Central Line = 10 mL/lumen For viscous solutions (i.e. blood components, parenteral nutrition, contrast media, or after obtaining blood sample) use: Peripheral IV = 10 mL Midline or Central Line = 20 mL/lumen 0530 (Given - Provider: Nadira Lyles RN) Linked Groups Order Group 1: azithromycin (Zithromax) tablet 500 mgJump to med 500 mg, Oral, Every 24 hours, First dose (after last modification) on Bridgett 12/18/23 at 0700, For 2 doses, Suspected Indication (Select all that apply): Pneumonia (CAP) Group 2: acetaminophen (Tylenol) tablet 650 mgJump to med 650 mg, Oral, Every 6 hours PRN, mild pain (1-3), Fever GREATER than 100.4 F (38 C), Starting on Fri12/15/23 at 0706, Maximum dose of acetaminophen is 4000 mg from all sources in 24 hours. Or acetaminophen (Tylenol) suppository 650 mgJump to med 650 mg, Rectal, Every 6 hours PRN, mild pain (1-3), Fever GREATER than 100.4 F (38 C), Starting on Fri12/15/23 at 0706, Administer if oral route cannot be used. Group 3: ondansetron ODT (Zofran-ODT) disintegrating tablet 4 mgJump to med 4 mg, Oral, Every 8 hours PRN, nausea, vomiting, Starting on Fri12/15/23 at 0706, 1st Line. If inadequate response within 60 minutes, proceed to next-line agent or contact provider if no further options ordered. Patient should allow tablet to dissolve on tongue. Do not remove from blister pack until just before administering. Or ondansetron (Zofran) injection 4 mgJump to med 4 mg, IntraVENous, Every 6 hours PRN, nausea, vomiting, Starting on Fri12/15/23 at 0706, 1st Line. Give IV if patient is unable to take orally. If inadequate response within 60 minutes, proceed to next-line agent or contact provider if no further options ordered. FOR RECORDS PERTAINING TO PATIENTS WHO ARE OR HAVE BEEN ENROLLED IN A CHEMICAL DEPENDENCY/SUBSTANCEABUSE PROGRAM, SOME INFORMATION MAY BE OMITTED. This clinical summary was aggregated from multiple sources. Caution should be exercised in using it in the provision of clinical care. This summary normalizes information from multiple sources, and as a consequence, information in this document may materially change the coding, format and clinical context of patient data. In addition, data may be omitted in some cases. CLINICAL DECISIONS SHOULD BE BASED ON THE PRIMARY CLINICAL RECORDS. [employer] [facility]. provides no warranty or guarantee of the accuracy or completeness of information in this document.
[2024-10-31 22:00] VITALS: BP 146/69; PULSE 105; RESP 21; TEMP 38.2; O2SAT 98
[2024-10-31 23:00] VITALS: BP 131/63; PULSE 96; RESP 25; TEMP 38.1; O2SAT 100
[2024-10-31] MEDS: Ketorolac 30 MG/ML Syringe IV (23:20)
--- NOTE | 2024-10-31 23:43 | EX.ED.DYSGE1 ---
HPI History of Present Illness Chief Complaint: General Illness Narrative Narrative: Patient is a 19-year-old male with no known significant past medical history who presents to the emergency department the chief complaint of full body aches, fever, not feeling well. Patient states that for the last several days he has been ill and things have not been getting better therefore he came here for further evaluation management. Patient did note that he may have a STD as he states that when he pees it muhammad at the tip of his penis. Patient denies any history of IV drug use. PFSH PFS Medical History no medical history Home Medications ?Medication ?Instructions ?Recorded ?Last Taken ?Type NK 10/31/24 Unknown History Allergy/AdvReac Type Severity Reaction Status Date / Time No Known Allergies Allergy Verified 10/31/24 19:01 Surgical History no surgical history Social History Smoking Status: Never smoker ROS ROS ED ROS Narrative Constitutional: Complains of fever, chills, whole body aches and headache Eyes: Denies double vision blurry vision changes vision Cardiovascular: Denies chest pain Respiratory: Denies coughing wheezing shortness of breath Abdomen: Denies abdominal pain nausea vomiting diarrhea : Complains of urinary symptoms as noted above denies any urethral discharge Neurological: Denies any numbness, weakness, tingling Musculoskeletal: Denies back pain Skin: Denies any rashes or lesions EXAM Physical Exam Narrative Exam Narrative: General: Patient lying in bed resting comfortably did not appear to be in acute distress Head: Atraumatic, normocephalic Eyes: PERRL bilaterally, EOMI bilateral, no conjunctival injection noted. Neck: Soft, supple, trachea midline Cardiovascular: Patient tachycardic with a regular rhythm Respiratory: Clear to auscultation bilaterally no rales rhonchi or wheezes noted Abdomen: Soft, nondistended, no tenderness to palpation Musculoskeletal: No tenderness to palpation midline of the cervical, thoracolumbar spine, no CVA tenderness on exam Extremities: +5/5 strength noted in the bilateral upper and lower extremities, radial pulses +2/4 in the bilateral upper extremities Neurological: Patient following commands knew that he was at [facility] year is 2024. No concern for meningitis Skin: Warm, dry, intact no rashes or lesions noted Const Vital Signs: 10/31/24 19:02 10/31/24 19:49 10/31/24 19:55 Temperature 100.6 F H 101.2 F H Temperature Source Oral Oral Pulse Rate 105 H 109 H Respiratory Rate 18 20 H Respiratory Effort Normal Non-Labored Respiratory Pattern Normal Blood Pressure 179/99 H 148/84 H Blood Pressure Mean 125 105 Pulse Ox 99 100 Oxygen Delivery Method Room Air Room Air 10/31/24 20:28 10/31/24 21:00 10/31/24 22:00 Temperature 103 F H 100.8 F H Temperature Source Oral Oral Pulse Rate 117 H 105 H Respiratory Rate 20 H 21 H Respiratory Effort Respiratory Pattern Blood Pressure 132/87 H 146/69 H Blood Pressure Mean 102 94 Pulse Ox 100 98 Oxygen Delivery Method Room Air Room Air Room Air 10/31/24 23:00 10/31/24 23:48 Temperature 100.5 F H 98.9 F Temperature Source Oral Pulse Rate 96 96 Respiratory Rate 25 H 18 Respiratory Effort Respiratory Pattern Blood Pressure 131/63 H 129/66 H Blood Pressure Mean 85 87 Pulse Ox 100 99 Oxygen Delivery Method Room Air MDM MDM MDM Narrative Medical decision making narrative: Patient is a 19-year-old male who presents to the emergency department chief complaint fever, whole body aches, not feeling well. On differential diagnose includes but not limited to UTI, proctitis, viral gastroenteritis, STI. Once the workup is obtained reviewed he will be reevaluated. Patient CBC reviewed showed no evidence leukocytosis white blood count normal 4.5, hemoglobin 14.6, plate count of 118. Patient INR normal at 1.1, PT of 14.2. Patient sodium was 130, potassium normal at 3.7, creatinine was 1.26. Patient lactic acid normal at 2, AST and ALT were 30 and 41 respectively. Patient's urinalysis reviewed showed no evidence of infection patient's chest x-ray reviewed by myself by radiology showed no acute cardiopulmonary processes. Patient tested negative for COVID flu RSV. Patient tested negative for gonorrhea and chlamydia however this just returned at the time of this dictation at time of my reevaluation this was still pending he still had a concern therefore he was prophylactically treated until this returned which she was given IM Rocephin and doxycycline. Patient's trichomonas was negative.Patient's EKG reviewed showed sinus rhythm with a rate of 100 bpm with DC interval 146. Discussed results with the patient he was still febrile therefore he was given Toradol here in the emergency department. He is feeling better he would like to go home at this point time. He is vies to continue supportive care by rotating Tylenol and ibuprofen [id number] he was advised to follow-up with For which she was referred to. He is encouraged return with worsening symptoms or concerns. All question concerns answered discharged home in stable condition. Lab Data Labs: Laboratory Results - last 24 hr 10/31/24 10/31/24 20:24 20:30 WBC 4.5 RBC 4.86 Hgb 14.6 Hct 43.5 MCV 89.5 MCH 30.0 MCHC 33.6 RDW Std Deviation 43.4 RDW Coeff of Leonor 13.2 Plt Count 118 L MPV 9.6 Immature Gran % (Auto) 0.400 Neut % (Auto) 73.2 H Lymph % (Auto) 13.0 L Alfalfa % (Auto) 12.1 H Eos % (Auto) 1.1 Baso % (Auto) 0.2 Absolute Neuts (auto) 3.3 Absolute Lymphs (auto) 0.58 L Nucleated RBC % 0 PT 14.2 INR 1.1 APTT 26.8 Sodium 138 Potassium 3.7 Chloride 103 Carbon Dioxide 21.7 Anion Gap 13 BUN 12 Creatinine 1.26 H Estim Creat Clear Calc 127.83 Est GFR (MDRD) Non-Af 84 BUN/Creatinine Ratio 9.7 L Glucose 96 Lactic Acid 2.0 Calcium 9.0 Total Bilirubin 0.41 AST 38 ALT 41 Alkaline Phosphatase 92 Total Protein 6.8 Albumin 4.2 Globulin 2.6 Albumin/Globulin Ratio 1.6 Urine Color Yellow Urine Clarity Clear Urine pH 6.0 Ur Specific [place] 1.020 Urine Protein Negative Urine Glucose (UA) Normal Urine Ketones Negative Urine Occult Blood Negative Urine Nitrite Negative Urine Bilirubin Negative Urine Urobilinogen Normal Ur Leukocyte Esterase Negative Urine RBC 0-5 SEEN Urine WBC 0-5 SEEN Ur Squamous Epith Cells 0-5 SEEN Urine Bacteria 0 SEEN Urine Mucus 0 SEEN Radiography Diagnostic Testing: Clinical Impression(s) from Imaging Studies Chest X-Ray 10/31/24 20:10 IMPRESSION: No acute process detected. Reading [facility] Discharge Plan Triage Chief Complaint: General Illness ED Provider: Emiliano Miller Dx/Rx/DC Orders Clinical Impression: Viral illness, Fever, Myalgia Prescriptions: No Action NK Primary Care Provider: Care Physician,No Primary Referrals: Armando Alston MD [Med Staff - Foot Roentgenologist] - Care Physician,No Primary [Primary Care Provider] - Activity Restrictions/Additional Instructions: Rotate Tylenol and ibuprofen [id number] when you do this to continue similar 3 hours for fever and bodyaches. Max dose Tylenol in 24 hours 4000 mg max dose of ibuprofen in 24 hours 3200 mg. Return with worsening symptoms or any other concerns Print Language: Korean Disposition Disposition: Home, Self Care
[2024-10-31 23:48] VITALS: BP 129/66; PULSE 96; RESP 18; TEMP 37.2; O2SAT 99
[2024-11-01 00:30] LABS: Reflex Lactate? Y
== END 2024-11-01 00:04 | disposition home or self-care (01) ==
PROVIDERS: Emergency Provider Emergency Medicine; Visit Provider Emergency Medicine
DX: B34.9 Viral infection, unspecified (principal); M79.10 Myalgia, unspecified site; I10 Essential (primary) hypertension; Z11.52 Encounter for screening for COVID-19
CPT/HCPCS: 71046; 80053; 81001; 83605; 85025; 85610; 85730; 87040; 87077; 87086; 87088; 87210; 87491; 87591; 87631; 93005; 96361; 96372; 96374; 99284; A4216